=== PATIENT | female | born 1940 | race Caucasian/White ===

== ENCOUNTER 2021-04-11 13:39 | Outpatient (CLI) | payer MEDICARE, OTHER, SELFPAY ==
[2021-04-11 13:53] VITALS: BP 184/79; PULSE 68; RESP 16; TEMP 36.3; O2SAT 100; BMI 19.3
[2021-04-11 15:03] VITALS: BP 144/75; PULSE 68; RESP 16; TEMP 36.9; O2SAT 100
[2021-04-11 15:45] VITALS: BP 150/78; PULSE 80; RESP 16; TEMP 36.7; O2SAT 100
== END 2021-04-11 16:03 | disposition home or self-care (01) ==
LOC: MS3OUT 13:40 → MS3 13:42
PROVIDERS: Referring Provider Internal Medicine Pulmonary Disease; Visit Provider Internal Medicine Pulmonary Disease
DX: U07.1 COVID-19 (principal)
CPT/HCPCS: J7050; M0245; Q0245

== ENCOUNTER 2021-04-15 17:17 | Emergency (ER) | payer MEDICARE, OTHER, SELFPAY ==
[2021-04-15 17:19] VITALS: BP 169/83; PULSE 73; RESP 18; TEMP 36.4; O2SAT 100; BMI 19.3
--- NOTE | 2021-04-15 18:56 | ED.VIS.GI ---
HPI HPI - GI History of Present Illness Chief Complaint: GI Bleed Informant: patient Narrative Narrative: Patient presents with two episodes of bright red blood per rectum when she had a bowel movement. She has never had this before. She states she feels fine. She has no pain anywhere. She does not feel lightheaded or dizzy. No nausea. She has not had an increase in bowel motion. Her last colonoscopy was 10 or more years ago. However, she has no history of diverticular disease. Patient had a bowel movement last night. This seemed to be normal. She moved her bowels and then she had bright red blood in the water. No clots were seen. It was not dark blood. She had no symptoms until she moved her bowels again this afternoon. Patient just got off quarantine for Covid. She did not have vaccines. However, her symptoms with Covid were really just a mild scratchy throat. She never had fevers chills nausea vomiting diarrhea or dyspnea. She states for her it was extremely mild. Her only medical condition is high blood pressure. Of note, patient really did not want to come here. Her family encouraged her. She really does not want to stay in the hospital. PFSH PFSH Home Medications atenolol 50 mg PO QHS 11/24/16 [History Last Taken 12/07/16 23:00] hydrochlorothiazide 25 mg PO QHS 11/24/16 [History Last Taken 12/07/16 23:00] Allergy/AdvReac Type Severity Reaction Status Date / Time ciprofloxacin [From Cipro] AdvReac Nausea Verified 04/15/21 17:19 metronidazole [From Flagyl] AdvReac Nausea Verified 04/15/21 17:19 Penicillins AdvReac Diarrhea Verified 04/15/21 17:19 prednisone AdvReac Nausea/Vom/ Verified 04/15/21 17:19 Diarrhea Social History Smoking Status: Never smoker ROS ROS ED Constitutional Constitutional ED: Denies fever(s) or subjective ENT ENT ED: Denies rhinorrhea Cardiovascular Cardiovascular: Denies chest pain, palpitations or racing heartbeat Respiratory/Chest Respiratory/Chest: Denies dyspnea Gastrointestinal Gastrointestinal: Denies abdominal pain, constipation, diarrhea, melena, nausea or vomiting Genitourinary Genitourinary ED: Denies dysuria or hematuria Musculoskeletal Musculoskeletal: Denies arthralgias Integumentary Denies rash Neurologic Neurologic: Denies headache(s) or weakness Psychiatric Psychiatric: Denies anxiety or depression Endocrine Endocrinology: Denies polyuria Hematologic/Lymphatic Hematologic/Lymphatic: Denies easy bleeding or easy bruising Allergic/Immunologic Allergic/Immunologic ED: Denies mouth swelling or urticaria EXAM Physical Exam Const Vital Signs: 04/15/21 17:19 Temperature 97.6 F L Temperature Source Temporal Pulse Rate 73 Respiratory Rate 18 Blood Pressure 169/83 H Blood Pressure Mean 111 Pulse Ox 100 Oxygen Delivery Method Room Air Positive well nourished and well developed General Appearance ED: well developed and NAD HEENT Reports moist mucous membranes normocephalic and atraumatic Eyes General Eye ED: Negative for pale conjunctiva or scleral icterus Neck no JVD Resp normal respiratory effort and clear to auscultation bilaterally Auscultation: Negative for rales, rhonchi or wheezes Cardio regular rate and regular rhythm GI non-tender, non-distended and no masses GI Narrative: Abdomen is completely benign. There is no masses. No tenderness. Rectal exam was done with nurse in attendance. Patient does have a relatively prominent large hemorrhoid on her right side. That has a small tear toward the base of it. It is not actively bleeding now but it does look like there was a small tear with recent bleeding. Patient states she thought this might be it because the hemorrhoid seem to change size and is a little smaller than it used to be. Auscultation: normoactive bowel sounds Palpation: soft Back/Spine no CVA tenderness Extremity full ROM General Extremety ED: Negative for edema or tenderness General Extremity: Negative for edema Neuro Sensorium / Orientation: alert Psych mental status grossly normal Skin Rashes: no rashes MDM MDM MDM Narrative Medical decision making narrative: Patient CBC is normal including normal hemoglobin 15. Coags are normal. Electrolytes show no major abnormalities. Slightly high BUN to creatinine ratio. Patient wants to go home. Since she is asymptomatic, not on anticoagulation, only had 2 episodes both only with bowel movements, has a hemorrhoid that is inflamed, and has normal hemoglobin, I think that is a reasonable option. I explained she should have a low threshold to return. Lab Data Attestation: I reviewed the patient's lab results. Labs: Laboratory Results - last 24 hr 04/15/21 04/15/21 04/15/21 18:07 18:07 18:07 WBC 8.0 RBC 4.94 Hgb 15.0 Hct 45.3 MCV 91.7 MCH 30.4 MCHC 33.1 RDW Std Deviation 42.0 RDW Coeff of Leilani 12.4 Plt Count 232 MPV 10.5 Immature Gran % (Auto) 0.400 Neut % (Auto) 73.8 H Lymph % (Auto) 15.9 L Coffee % (Auto) 7.9 Eos % (Auto) 1.6 Baso % (Auto) 0.4 Absolute Neuts (auto) 5.9 Absolute Lymphs (auto) 1.27 Nucleated RBC % 0 PT 13.6 INR 1.1 APTT 25.6 Sodium 139 Potassium 3.3 L Chloride 102 Carbon Dioxide 30.0 Anion Gap 7 BUN 22 H Creatinine 0.74 Estim Creat Clear Calc 38.56 Est GFR (MDRD) Af Amer 98 Est GFR (MDRD) Non-Af 81 BUN/Creatinine Ratio 29.9 H Glucose 108 H Calcium 9.4 Discharge Plan Triage Chief Complaint: GI Bleed ED Provider: Emiliano Lopez Dx/Rx/DC Orders Clinical Impression: Rectal bleed, Bleeding hemorrhoid Instructions: ED Hemorrhoids, ED Lower GI Bleeding (Stable) Prescriptions: No Action hydrochlorothiazide 25 MG tablet 25 mg PO QHS RF: 0 atenolol 50 MG tablet 50 mg PO QHS RF: 0 Primary Care Provider: Nazario Abdul Referrals: Nazario Abdul MD [Primary Care Provider] - 3-5 Days Disposition Disposition: Home, Self Care
[2021-04-15 19:04] LABS: Absolute Lymphocyte Count 1.27 X10^3/uL (0.83-4.51); Absolute Neutrophil Count 5.9 X10^3/uL (2.0-7.7); Basophil# 0.03 X10^3/uL; Basophil% 0.4 % (0-1); Eosinophil# 0.13 X10^3/uL; Eosinophils% 1.6 % (0-5); Hematocrit 45.3 % (37-47); Lymphocyte # 1.27 X10^3/ul (0.83-4.51); Lymphocyte % 15.9 % (19-41); Mean Corp Hgb Conc 33.1 g/dL (32-36); Mean Corpuscular Hgb 30.4 pg (27.0-32.0); Mean Corpuscular Volume 91.7 fL (81-99); Mean Platelet Vol. 10.5 fl (6.2-12.0); Monocyte# 0.63 X10^3/uL; Monocyte% 7.9 % (0-10); NRBC Flagged by Analyzer 0 % (0-5); Neutrophil # 5.92 X10^3/uL (2.7-7.7); Neutrophil % 73.8 % (47-70); Platelet Count 232 K/mm3 (150-450); RBC Distribution Width CV 12.4 % (11.6-14.6); Red Blood Count 4.94 M/mm3 (4.2-5.4)
[2021-04-15 19:10] LABS: International Normalized Ratio 1.1; Prothrombin Time (Protime)PT. 13.6 SECONDS (11.7-14.9)
[2021-04-15 19:11] LABS: Partial Thromboplast Time 25.6 Seconds (24.1-36.2)
[2021-04-15 19:15] LABS: Anion Gap 7 (5-15); BUN 22 mg/dL (7-18); BUN/Creat Ratio 29.9 RATIO (10-20); Calcium,Total 9.4 mg/dL (8.5-10.1); Chloride 102 mmol/L (98-107); Creatinine, Serum 0.74 mg/dL (0.55-1.02); EST Glomerular Filtration Rate 81 mL/min (>60); Est Glom Filt Rate - Afr Amer 98 mL/min (>60); Estimated Creatinine Clearance 38.56 ml/min; Glucose 108 mg/dL (74-106); Potassium 3.3 mmol/L (3.5-5.1); Sodium Level 139 mmol/L (136-145)
[2021-04-15 20:45] VITALS: BP 115/67; PULSE 72; RESP 20; O2SAT 98
--- NOTE | 2021-04-15 20:46 | ED.RN ---
THIS NURSE REVIEWED D/C INSTRUCTIONS WITH PT AND DAUGHTER. BOTH VERBALIZED UNDERSTANDING OF INSTRUCTIONS. IV D/C. IV CATHETER INTACT. PT TOLERATED WELL. PT DENIES FURTHER NEEDS OR QUESTIONS AT THIS TIME.
--- NOTE | 2021-04-16 00:01 | ED.RN ---
dr. navas called in to check status on patient and condition at this time
== END 2021-04-15 20:47 | disposition home or self-care (01) ==
PROVIDERS: Emergency Provider Emergency Medicine; PCP Internal Medicine
DX: K64.5 Perianal venous thrombosis (principal); I10 Essential (primary) hypertension; Z79.899 Other long term (current) drug therapy; Z86.16 Personal history of COVID-19
CPT/HCPCS: 80048; 85025; 85610; 85730; 99284; A4216

== ENCOUNTER 2024-01-16 16:42 | Emergency (ER) | payer MEDICARE, OTHER, SELFPAY ==
[2024-01-16 16:43] VITALS: BP 145/58; PULSE 56; RESP 16; TEMP 36.8; O2SAT 98; BMI 21.3
[2024-01-16 16:54] VITALS: BP 128/56; PULSE 59; RESP 15; O2SAT 97
--- NOTE | 2024-01-16 16:56 | EKG12_ITS ---
Test Reason : Blood Pressure : / mmHG Vent. Rate : 053 BPM Atrial Rate : 053 BPM P-R Int : 168 ms QRS Dur : 084 ms QT Int : 464 ms P-R-T Axes : 066 -21 034 degrees QTc Int : 435 ms Sinus bradycardia Otherwise normal ECG Confirmed by CHEVY MERINO, SLOAN ([id number]), material expeditor IRMA FREEDMAN ([id number]) on 01/18/2024 6:28:24 AM Referred By: Confirmed By:SLOAN REECE MD
--- NOTE | 2024-01-16 16:56 | EX.ED.DYSGE1 ---
HPI History of Present Illness Chief Complaint: Syncope Informant: patient and EMS Narrative Narrative: 83-year-old female had a syncopal episode and was brought by EMS. She states she was at [employer] and waiting for her friend to come and help set up for a service tonight. She had been sitting down for a while. She had not eaten anything today but she has had fluids. She got up and walked all the way down the aisle of the [place] which was a long way and she had no symptoms or problems. She remembers then getting to her friend and her friend asked her what was wrong and apparently she passed out but she had no prodromal symptoms or lightheadedness; this includes chest discomfort, dyspnea, headache, nausea, sweating, or focal neurologic symptom. Apparently she was down for 30-60 seconds or so, by the time she was aware and awake, the paramedics were there. She feels fine now. She does not feel like she injured herself. She has never had this happen before. She has had no recent medication changes. [facility] Medical History HTN (hypertension) Contact dermatitis due to poison haily Home Medications ?Medication ?Instructions ?Recorded ?Last Taken ?Type atenolol 50 mg tablet 50 mg PO QHS 11/24/16 12/07/16 23:00 History hydrochlorothiazide 25 mg tablet 25 mg PO QHS 11/24/16 12/07/16 23:00 History methylprednisolone 4 mg tablets in See Rx Instructions PO PER PKG DIR 09/15/21 Unknown Rx a dose pack (Medrol (Cory)) #21 tabs prednisone 10 mg tablet 10 mg PO DAILY #30 tabs 01/12/22 Unknown Rx Allergy/AdvReac Type Severity Reaction Status Date / Time ciprofloxacin (From Cipro) AdvReac Nausea Verified 03/11/23 11:55 metronidazole (From Flagyl) AdvReac Nausea Verified 03/11/23 11:55 Penicillins AdvReac Diarrhea Verified 03/11/23 11:55 prednisone AdvReac Nausea/Vom/ Verified 03/11/23 11:55 Diarrhea Social History Smoking Status: Never smoker ROS ROS ED Constitutional Constitutional ED: Denies chills or fever(s) Eyes Eyes: Denies change in vision or diplopia ENT ENT ED: Denies rhinorrhea or sore throat Cardiovascular Cardiovascular: Reports as per HPI and syncope; Denies chest pain, leg edema or palpitations Respiratory/Chest Respiratory/Chest: Denies cough or dyspnea Gastrointestinal Gastrointestinal: Denies abdominal pain, diarrhea, nausea or vomiting Genitourinary Genitourinary ED: Denies dysuria or hematuria Musculoskeletal Musculoskeletal: Denies back pain, extremity pain or neck pain Integumentary Denies abscess or rash Neurologic Neurologic: Denies headache(s), paresthesias or weakness Psychiatric Psychiatric: Denies anxiety or suicidal thoughts EXAM Physical Exam Const Vital Signs: 01/16/24 16:43 01/16/24 16:54 01/16/24 16:54 Temperature 98.3 F Temperature Source Oral Pulse Rate 56 L 59 L Pulse Rate [Lying] Pulse Rate [Sitting (for 1 minute prior to obtaining)] Pulse Rate [Standing (for 1 minute prior to obtaining)] Respiratory Rate 16 15 Respiratory Effort Normal Non-Labored Respiratory Pattern Normal Blood Pressure 145/58 H 128/56 H Blood Pressure [Lying] Blood Pressure [Sitting (for 1 minute prior to obtaining)] Blood Pressure [Standing (for 1 minute prior to obtaining)] Blood Pressure Mean 87 80 Blood Pressure Mean [Lying] Blood Pressure Mean [Sitting (for 1 minute prior to obtaining)] Blood Pressure Mean [Standing (for 1 minute prior to obtaining)] Pulse Ox 98 97 Oxygen Delivery Method Room Air Room Air 01/16/24 17:40 01/16/24 17:40 Temperature Temperature Source Pulse Rate Pulse Rate [Lying] 54 L Pulse Rate [Sitting (for 1 minute prior to obtaining)] 59 L Pulse Rate [Standing (for 1 minute prior to obtaining)] 64 Respiratory Rate Respiratory Effort Respiratory Pattern Blood Pressure Blood Pressure [Lying] 134/58 H Blood Pressure [Sitting (for 1 minute prior to obtaining)] 162/64 H Blood Pressure [Standing (for 1 minute prior to obtaining)] 158/66 H Blood Pressure Mean Blood Pressure Mean [Lying] 83 Blood Pressure Mean [Sitting (for 1 minute prior to obtaining)] 96 Blood Pressure Mean [Standing (for 1 minute prior to obtaining)] 96 Pulse Ox Oxygen Delivery Method Room Air Positive well nourished and well developed General Appearance ED: well developed and NAD HEENT Reports moist mucous membranes normocephalic and atraumatic Eyes PERRL and EOMs intact bilaterally Neck full ROM and supple Resp normal respiratory effort and clear to auscultation bilaterally Cardio regular rate, regular rhythm and no murmurs GI non-tender and non-distended Auscultation: normoactive bowel sounds Palpation: soft Back/Spine no CVA tenderness General Back: other FROM Extremity normal to inspection General Extremety ED: Negative for edema, pulses abnormal or tenderness General Extremity: Negative for edema or pulses abnormal Neuro oriented x3, CN's II-XII intact bilaterally and no sensory deficits noted Sensorium / Orientation: awake and alert Motor Exam: strength 5/5 throughout Skin no rashes or lesions noted and no wounds MDM MDM MDM Narrative Medical decision making narrative: Labs reviewed, she is not anemic. 1 view chest x-ray screening, negative for any acute on my interpretation, mediastinum is narrow cardiac shadow is borderline. Patient received one fourth of a liter of fluid by EMS before I saw her, she has a heart rate in the low 50s, she is on metoprolol. Orthostatics were done before the fluid was done but after half of it was in, she was negative and did not feel dizzy. Her labs are consistent with dehydration. When asking her about this, she agrees it makes sense, as she has had very little to drink in the way of fluids today. Her EKG is normal except for the borderline bradycardia at 53, and 2 sets of troponin measurements are both negative. My suspicion is that she was orthostatic due to dehydration and the fact that she is on metoprolol preventing her from reflex tachycardia to compensate, causing her to pass out. I explained this to her and family, she wants to go home and I am okay with that. Encouraged to drink fluids and follow-up with her doctor. Lab Data Attestation: I reviewed the patient's lab results. Labs: Laboratory Results - last 24 hr 01/16/24 01/16/24 16:40 19:22 WBC 6.2 RBC 4.58 Hgb 13.7 Hct 42.7 MCV 93.2 MCH 29.9 MCHC 32.1 RDW Std Deviation 41.5 RDW Coeff of Leilani 12.1 Plt Count 192 MPV 10.9 Immature Gran % (Auto) 0.300 Neut % (Auto) 62.2 Lymph % (Auto) 22.6 Woodson % (Auto) 10.7 H Eos % (Auto) 3.7 Baso % (Auto) 0.5 Absolute Neuts (auto) 3.9 Absolute Lymphs (auto) 1.40 Nucleated RBC % 0 Sodium 139 Potassium 3.5 Chloride 104 Carbon Dioxide 27.0 Anion Gap 7 BUN 30 H Creatinine 0.94 Estim Creat Clear Calc 43.20 Est GFR (MDRD) Af Amer 74 Est GFR (MDRD) Non-Af 61 BUN/Creatinine Ratio 32.1 H Glucose 114 H Calcium 9.3 Troponin I High Sens 6 6 Radiography Diagnostic Testing: Clinical Impression(s) from Imaging Studies Chest X-Ray 01/16/24 17:23 IMPRESSION: Mild cardiomegaly versus pericardial effusion. No acute consolidative process. Electronically Signed: Nick García MD at 18:03 EDT , Rhythm Strip Rhythm Strip: Sinus Rhythm Rate: 55 Ectopy: None EKG Initial EKG: Attestation: I personally reviewed and interpreted this EKG as follows: Interpretation: Sinus Rhythm and No Acute Injury Pattern Prior EKG tracings: not available for review Discharge Plan Triage Chief Complaint: Syncope ED Provider: Rik Love Dx/Rx/DC Orders Clinical Impression: Syncope due to orthostatic hypotension, Mild dehydration Instructions: ED Dehydration (Adult), ED Hypotension, Orthostatic Prescriptions: No Action methylprednisolone [Medrol (Cory)] 4 mg tablets,dose pack See Rx Instructions PO PER PKG DIR Qty: 21 0RF Rx Instructions: PO PER PKG DIR prednisone 10 mg tablet 10 mg PO DAILY Qty: 30 0RF Rx Instructions: 4 tablets daily x3 days, then 3 tablets daily x3 days, then 2 tablets daily x3 days, then 1 tablet daily x3 days hydrochlorothiazide 25 MG tablet 25 mg PO QHS atenolol 50 MG tablet 50 mg PO QHS Primary Care Provider: Nazario Abdul Referrals: Nazario Abdul MD [Primary Care Provider] - (call for follow up appt) Activity Restrictions/Additional Instructions: drink plenty of fluids during the day (more important than eating!) Print Language: Belarusian Disposition Disposition: Home, Self Care
[2024-01-16] MEDS: 0.9% Normal Saline (1000mL) 1,000 ML 999 ML IV (17:06)
--- NOTE | 2024-01-16 17:06 | NURSING ---
NO OLD EKGS
[2024-01-16 17:22] LABS: Absolute Neutrophil Count 3.9 X10^3/uL (2.0-7.7); Basophil# 0.03 X10^3/uL; Basophil% 0.5 % (0-1); Eosinophil# 0.23 X10^3/uL; Eosinophils% 3.7 % (0-5); Hematocrit 42.7 % (37-47); Hemoglobin 13.7 g/dL (12.0-15.0); Lymphocyte % 22.6 % (19-41); Mean Corp Hgb Conc 32.1 g/dL (32-36); Mean Corpuscular Hgb 29.9 pg (27.0-32.0); Mean Corpuscular Volume 93.2 fL (81-99); Mean Platelet Vol. 10.9 fl (6.2-12.0); Monocyte# 0.66 X10^3/uL; Monocyte% 10.7 % (0-10); NRBC Flagged by Analyzer 0 % (0-5); Neutrophil # 3.85 X10^3/uL (2.7-7.7); Neutrophil % 62.2 % (47-70); Platelet Count 192 K/mm3 (150-450); RBC Distribution Width CV 12.1 % (11.6-14.6); RBC Distribution Width SD 41.5 fl (35.1-43.9); Red Blood Count 4.58 M/mm3 (4.2-5.4); White Blood Count 6.2 K/mm3 (4.4-11.0)
--- NOTE | 2024-01-16 17:23 | RAD_ITS ---
INDICATION: syncope EXAMINATION/TECHNIQUE: X-RAY - portable upright AP chest x-ray COMPARISON: 06/23/2008 FINDINGS: LINES/DEVICES: None. LUNGS: No consolidation, edema or effusion. No pneumothorax. MEDIASTINUM AND CARDIOVASCULAR STRUCTURES: Mild enlargement of cardiac silhouette. BONES AND SOFT TISSUES: Unremarkable. RAD/Chest 1 View (Portable) IMPRESSION: Mild cardiomegaly versus pericardial effusion. No acute consolidative process. Electronically Signed: Nick García MD at 18:03 EDT ,
[2024-01-16 17:35] LABS: Anion Gap 7 (5-15); BUN 30 mg/dL (7-18); BUN/Creat Ratio 32.1 RATIO (10-20); Calcium,Total 9.3 mg/dL (8.5-10.1); Chloride 104 mmol/L (98-107); Creatinine, Serum 0.94 mg/dL (0.55-1.02); EST Glomerular Filtration Rate 61 mL/min (>60); Est Glom Filt Rate - Afr Amer 74 mL/min (>60); Glucose 114 mg/dL (74-106); Potassium 3.5 mmol/L (3.5-5.1); Sodium Level 139 mmol/L (136-145); Troponin-I HS (w/2H Reflex) 6 pg/mL (3.0-54.0)
[2024-01-16 17:40] VITALS: BP 134/58; BP 158/66; BP 162/64; PULSE 54; PULSE 59; PULSE 64
[2024-01-16 19:14] LABS: Reflex Troponin-HS? (from REC) Y
[2024-01-16 19:54] LABS: Troponin-I HS 6 pg/mL (3.0-54.0)
[2024-01-16 20:00] VITALS: BP 131/58; PULSE 60
[2024-01-16 20:18] VITALS: BP 131/58; PULSE 60; RESP 18; TEMP 36.6; O2SAT 99
== END 2024-01-16 20:19 | disposition home or self-care (01) ==
PROVIDERS: Emergency Provider Emergency Medicine; PCP Internal Medicine; Visit Provider Emergency Medicine
DX: I95.1 Orthostatic hypotension (principal); E86.0 Dehydration
CPT/HCPCS: 71045; 80048; 84484; 85025; 93005; 99285; A4216

== ENCOUNTER 2024-11-01 19:27 | Emergency (ER) | payer MEDICARE, SELFPAY ==
[2024-11-01 19:28] VITALS: BP 164/81; PULSE 66; RESP 18; TEMP 36.8; O2SAT 98; BMI 19.8
--- OUTSIDE RECORDS SUMMARY | 2024-11-01 19:52 | XMS RPT_ITS | CCD ---
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 Name Role Phone YoMarah Unavailable Unavailable Tess MERINO, Herman Lugo Unavailable [phone] Franko MERINO, Nazario Rhodes Primary Care Provider Franko MERINO, Nazario Rhodes Primary Care Provider Franko MERINO, Nazario Rhodes Primary Care Provider Franko MERINO, Nazario Rhodes Primary Care Provider Nazario Abdul Primary Care Unavailable Abdul, Nazario Referring Unavailable Humberto MACKENZIE, Stepan Rhodes Attending Unavailable Rik Love Attending Unavailable Abdul, Nazario Primary Care Unavailable Sd DARDENN.GUIDE CRUISE, Wanda M Unavailable TEDDY MCCLELLAND Referring Unavailable ABDUL, CELINA Primary Care Unavailable ABDUL, CELINA Attending Unavailable ABDUL, CELINA Primary Care Unavailable ABDUL, CELINA Primary Care Unavailable ABDUL, CELINA Referring Unavailable MEREDITH SOTO Attending Unavailable ABDUL, CELINA Primary Care Unavailable ABDUL, CELINA Referring Unavailable ABDUL, CELINA Primary Care Unavailable ABDUL, CELINA Attending Unavailable ABDUL, CELINA Primary Care Unavailable ABDUL, CELINA Referring Unavailable ABDUL, CELINA Primary Care Unavailable ABDUL, CELINA Referring Unavailable MEREDITH SOTO Referring Unavailable MEREDITH SOTO Attending Unavailable ABDUL, CELINA Primary Care Unavailable MEREDITH SOTO Referring Unavailable ABDUL, CELINA Primary Care Unavailable TEDDY MCCLELLAND Attending Unavailable ABDUL, CELINA Primary Care Unavailable TEDDY MCCLELLAND Attending Unavailable ABDUL, CELINA Primary Care Unavailable TEDDY MCCLELLAND Referring Unavailable NAZARIO ABDUL Primary Care Unavailable FRANKO, NAZARIO Rhodes Primary Care Unavailable NAZARIO ABDUL Attending Unavailable TEDDY MCCLELLAND Attending Unavailable NAZARIO ABDUL Primary Care Unavailable ROBERTA CEDENO Referring Unavailable FRANKO, NAZARIO Rhodes Primary Care Unavailable ROBERTA CEDENO Referring Unavailable NAZARIO ABDUL Primary Care Unavailable NAZARIO ABDUL Primary Care Unavailable FRANKO, NAZARIO Rhodes Primary Care Unavailable NAZARIO ABDUL Referring Unavailable NAZARIO ABDUL Primary Care Unavailable NAZARIO ABDUL Attending Unavailable Allergies Allergy Classification Reported Allergen(s) Allergy Type Date of Onset Reaction(s) Facility Angiotensin Converting Enzyme (NILE) Inhibitors (1 source) Lisinopril Drug Allergy 03-16-20 05 [facility] Corticosteroids (1 source) predniSONE Drug Allergy 12-08-19 17 GI Upset [facility] HMG-CoA Reductase Inhibitors (statins) (1 source) rosuvastatin Drug Allergy 03-16-20 05 Intolerance [facility] Nitroimidazoles (antibiotic) (1 source) metroNIDAZOLE Drug Allergy 12-08-19 17 GI Upset [facility] Penicillins (antibiotic) (2 sources) Ampicillin Drug Allergy 03-16-20 05 Diarrhea, GI Upset [facility] Work Phone: Quinolones (antibiotic) (1 source) Ciprofloxacin Drug Allergy 12-08-19 17 GI Upset [facility] Streptococcus pneumoniae type 1 capsular polysaccharide antigen / Streptococcus pneumoniae type 10A capsular polysaccharide antigen / Streptococcus pneumoniae type 11A capsular polysaccharide antigen / Streptococcus pneumoniae type 12F capsular polysaccharide antigen / Streptococcus pneumoniae type 14 capsular polysaccharide antigen / Streptococcus pneumoniae type 15B capsular polysaccharide antigen / Streptococcus pneumoniae type 17F capsular polysaccharide antigen / Streptococcus pneumoniae type 18C capsular polysaccharide antigen / Streptococcus pneumoniae type 19A capsular polysaccharide antigen / Streptococcus pneumoniae type 19F capsular polysaccharide antigen / Streptococcus pneumoniae type 2 capsular polysaccharide antigen / Streptococcus pneumoniae type 20 capsular polysaccharide antigen / Streptococcus pneumoniae type 22F capsular polysaccharide antigen / Streptococcus pneumoniae type 23F capsular polysaccharide antigen / Streptococcus pneumoniae type 3 capsular polysaccharide antigen / Streptococcus pneumoniae type 33F capsular polysaccharide antigen / Streptococcus pneumoniae type 4 capsular polysaccharide antigen / Streptococcus pneumoniae type 5 capsular polysaccharide antigen / Streptococcus pneumoniae type 6B capsular polysaccharide antigen / Streptococcus pneumoniae type 7F capsular polysaccharide antigen / Streptococcus pneumoniae type 8 capsular polysaccharide antigen / Streptococcus pneumoniae type 9N capsular polysaccharide antigen / Streptococcus pneumoniae type 9V capsular polysaccharide antigen (1 source) Streptococcus pneumoniae type 1 capsular polysaccharide antigen / Streptococcus pneumoniae type 10A capsular polysaccharide antigen / Streptococcus pneumoniae type 11A capsular polysaccharide antigen / Streptococcus pneumoniae type 12F capsular polysaccharide antigen / Streptococcus pneumoniae type 14 capsular polysaccharide antigen / Streptococcus pneumoniae type 15B capsular polysaccharide antigen / Streptococcus pneumoniae type 17F capsular polysaccharide antigen / Streptococcus pneumoniae type 18C capsular polysaccharide antigen / Streptococcus pneumoniae type 19A capsular polysaccharide antigen / Streptococcus pneumoniae type 19F capsular polysaccharide antigen / Streptococcus pneumoniae type 2 capsular polysaccharide antigen / Streptococcus pneumoniae type 20 capsular polysaccharide antigen / Streptococcus pneumoniae type 22F capsular polysaccharide antigen / Streptococcus pneumoniae type 23F capsular polysaccharide antigen / Streptococcus pneumoniae type 3 capsular polysaccharide antigen / Streptococcus pneumoniae type 33F capsular polysaccharide antigen / Streptococcus pneumoniae type 4 capsular polysaccharide antigen / Streptococcus pneumoniae type 5 capsular polysaccharide antigen / Streptococcus pneumoniae type 6B capsular polysaccharide antigen / Streptococcus pneumoniae type 7F capsular polysaccharide antigen / Streptococcus pneumoniae type 8 capsular polysaccharide antigen / Streptococcus pneumoniae type 9N capsular polysaccharide antigen / Streptococcus pneumoniae type 9V capsular polysaccharide antigen Drug Allergy 11-29-19 07 Rash [facility] Sulfamethoxazole / Trimethoprim (1 source) Sulfamethoxazole / Trimethoprim Drug Allergy 05-18-19 09 Vomiting [facility] (2 sources) Penicillins (Antibiotic) drug allergy 11-29-19 17 vomiting [facility] Work Phone: (20 sources) Ampicillin; Translations: [AMPICILLIN] Drug Allergy 03-16-20 05 Diarrhea [facility] Work Phone: (20 sources) Ciprofloxacin; Translations: [CIPROFLOXACIN] Drug Allergy 12-08-19 17 GI Upset [facility] (20 sources) Lisinopril; Translations: [LISINOPRIL] Drug Allergy 03-16-20 05 [facility] Work Phone: (20 sources) metroNIDAZOLE; Translations: [METRONIDAZOLE] Drug Allergy 12-08-19 17 GI Upset [facility] (7 sources) Penicillins; Translations: [PENICILLINS] Drug Allergy 11-29-19 17 GI Upset [facility] (20 sources) predniSONE; Translations: [PREDNISONE] Drug Allergy 12-08-19 17 GI Upset [facility] Work Phone: (20 sources) rosuvastatin; Translations: [ROSUVASTATIN CALCIUM] Drug Allergy 03-16-20 05 Intolerance [facility] Work Phone: (20 sources) Streptococcus pneumoniae type 1 capsular polysaccharide antigen / Streptococcus pneumoniae type 10A capsular polysaccharide antigen / Streptococcus pneumoniae type 11A capsular polysaccharide antigen / Streptococcus pneumoniae type 12F capsular polysaccharide antigen / Streptococcus pneumoniae type 14 capsular polysaccharide antigen / Streptococcus pneumoniae type 15B capsular polysaccharide antigen / Streptococcus pneumoniae type 17F capsular polysaccharide antigen / Streptococcus pneumoniae type 18C capsular polysaccharide antigen / Streptococcus pneumoniae type 19A capsular polysaccharide antigen / Streptococcus pneumoniae type 19F capsular polysaccharide antigen / Streptococcus pneumoniae type 2 capsular polysaccharide antigen / Streptococcus pneumoniae type 20 capsular polysaccharide antigen / Streptococcus pneumoniae type 22F capsular polysaccharide antigen / Streptococcus pneumoniae type 23F capsular polysaccharide antigen / Streptococcus pneumoniae type 3 capsular polysaccharide antigen / Streptococcus pneumoniae type 33F capsular polysaccharide antigen / Streptococcus pneumoniae type 4 capsular polysaccharide antigen / Streptococcus pneumoniae type 5 capsular polysaccharide antigen / Streptococcus pneumoniae type 6B capsular polysaccharide antigen / Streptococcus pneumoniae type 7F capsular polysaccharide antigen / Streptococcus pneumoniae type 8 capsular polysaccharide antigen / Streptococcus pneumoniae type 9N capsular polysaccharide antigen / Streptococcus pneumoniae type 9V capsular polysaccharide antigen; Translations: [PNEUMOCOCCAL 23-KAT PS VACCINE] Drug Allergy 11-29-19 07 Rash [facility] Work Phone: (20 sources) Sulfamethoxazole / Trimethoprim; Translations: [SULFAMETHOXAZOLE-T RIMETHOPRIM] Drug Allergy 05-18-19 09 Vomiting [facility] Work Phone: (20 sources) Diphtheria,Pertussi s,Tetanus; Translations: [DIPHTHERIA,PERTUSS IS,TETANUS] Propensity to adverse reactions 12-13-19 06 Rash [facility] (4 sources) Influenza Virus Vaccines; Translations: [INFLUENZA VIRUS VACCINES] Drug Allergy 01-06-20 21 Rash, Swelling [facility] Work Phone: (20 sources) Penicillins Drug Allergy 11-29-19 17 GI Upset [facility] (20 sources) Influenza Virus Vaccines Drug Allergy 01-06-20 21 Rash, Swelling [facility] Work Phone: (1 source) Ciprofloxacin Drug Allergy 03-11-20 23 [facility] (1 source) metroNIDAZOLE Drug Allergy 03-11-20 23 [facility] (1 source) Penicillins Drug allergy (disorder) 03-11-20 23 [facility] (1 source) predniSONE Drug Allergy 03-11-20 23 [facility] (4 sources) Penicillins Drug Allergy 11-29-19 17 GI Upset [facility] Medications Current Medications Medication Drug Class(es) Dates Sig (Normalized) Sig (Original) amLODIPine 2.5 mg oral tablet (3 sources) Dihydropyridine Calcium Channel Goyo Start: 10-28-2024 take 1 tablet by mouth once daily amLODIPine (NORVASC) 2.5 mg tablet Indications: Essential hypertension, benign Take 1 tablet by mouth once daily. 90 tablet 1 10/28/2024 Active Start: 10-15-2021 End: 02-24-2022 take 1 tablet by mouth once daily amLODIPine (NORVASC) 2.5 mg tablet Indications: Essential hypertension, benign Take 1 tablet by mouth once daily. 90 tablet 0 10/15/2021 02/24/2022 Discontinued (Discontinued by Patient) Comment on above: Take 1 tablet by melvi th once daily. atenolol 50 mg oral tablet (20 sources) beta-Adrenergic Goyo Start: 02-26-2023 End: 02-28-2024 take 1 tablet by mouth once daily atenolol (TENORMIN) 50 mg tablet Indications: Essential hypertension, benign Take 1 tablet by mouth once daily. 90 tablet 3 02/28/2024 Active Start: 01-31-2021 End: 02-24-2022 take 1 tablet by mouth once daily atenolol (TENORMIN) 50 mg tablet Take 1 tablet by mouth once daily. 90 tablet 3 02/24/2022 Active Start: 11-28-2016 take 1 tablet by melvi th once daily ATENOLOL 50 MG TABS One tablet by mouth daily ATENOLOL [id number] Herman Pulido MD Comment on above: Take 1 tablet by melvi th once daily. Ergocalciferol (20 sources) Provitamin D2 Compound Start: 2018 take 1 capsule by mouth once ergocalciferol(VITAMIN D 400 UNIT CAP) Take 400 Units by mouth every Sunday,Sunday,Sunday. 0 02/04/2019 Active Comment on above: Take 400 Units by mo uth every Sunday,Sunday,Sunday. hydroCHLOROthiazide 25 mg oral tablet (20 sources) Thiazide Diuretic Start: 2022 End: 2023 take 1 tablet by mouth once daily hydroCHLOROthiazide 25 mg tablet Indications: Essential hypertension, benign Take 1 tablet by mouth once daily. 90 tablet 3 02/28/2024 Active Start: 01-31-2021 End: 02-24-2022 take 1 tablet by mouth once daily hydroCHLOROthiazide (HYDRODIURIL, ESIDRIX) 25 mg tablet Take 1 tablet by mouth once daily. 90 tablet 3 02/24/2022 Active Start: 11-28-2016 take 1 tablet by mevli th once daily HYDROCHLOROTHIAZIDE 25 MG TABS One tablet by mouth daily HYDROCHLOROTHIAZIDE [id number] Herman Pulido MD Comment on above: Take 1 tablet by melvi th once daily. meloxicam 15 mg oral tablet (20 sources) Nonsteroidal Anti-inflammatory Drug Start: End: take 1 tablet by mouth once daily at mealtime meloxicam (MOBIC) 15 mg tablet Take 1 tablet by mouth once daily. With food. 90 tablet 1 01/09/2024 Active Comment on above: Take 1 tablet by melvi th once daily. With food. vitamin b6 100 mg oral tablet (20 sources) Start: 0 pyridoxine hcl(VITAMIN B-6 100 MG TAB) Take one(1) tablet daily. 0 12/10/2009 Active Comment on above: Take one(1) tablet d aily. Completed/Discontinued Medications Medication Drug Class(es) Dates Sig (Normalized) Sig (Original) sertraline 25 mg oral tablet (13 sources) Serotonin Reuptake Inhibitor Start: 02-28-2024 End: 05-30-2024 take 1 tablet by mouth once daily sertraline (ZOLOFT) 25 mg tablet Indications: Depressive disorder Take 1 tablet by mouth once daily. 90 tablet 02/28/2024 05/30/2024 Discontinued (Discontinued by Patient) Start: 01-05-2021 take 1 tablet by melvi th once daily sertraline (ZOLOFT) 50 mg tablet Indications: Depressive disorder Take 1 tablet by mouth once daily. 30 tablet 1 01/05/2021 Active Comment on above: Take 1 tablet by melvi th once daily. Problems Active Problems Problem Classification Problem Date Documented Da te Episodic/Chronic Disorders of lipid metabolism (20 sources) Hyperlipidemia; Translations: [Hyperlipidemia, unspecified] Onset: 01-10-2016 01-10-2016 Chronic Essential hypertension (20 sources) Hypertensive disorder; Translations: [Benign essential hypertension] Onset: 12-05-2005 11-28-2016 Chronic Headache; including migraine (1 source) Cervicogenic headache; Translations: [Cervicogenic headache] 05-23-2023 Episodic Mood disorders (20 sources) Depressive disorder; Translations: [Depressive disorder] Onset: 12-11-2012 01-06-2021 Chronic Other injuries and conditions due to external causes (3 sources) Injury of left ankle; Translations: [Unspecified injury of left ankle, initial encounter] 05-15-2024 Episodic Other injuries and conditions due to external causes (2 sources) Injury of left foot; Translations: [Unspecified injury of left foot, initial encounter] 05-15-2024 Episodic Other nervous system disorders (6 sources) Other symptoms and signs involving cognitive functions and awareness; Translations: [Other signs and symptoms involving cognition] Onset: 10-28-2024 01-21-2024 Episodic Spondylosis; intervertebral disc disorders; other back problems (2 sources) Neck pain; Translations: [Cervicalgia] 05-23-2023 Episodic Unclassified (1 source) Cognitive change 10-28-2024 Past or Other Problems Problem Classification Problem Date Documented Date Episodic/Chronic Fracture of lower limb (11 sources) Closed fracture of distal fibula ; Translations: [Other fracture of upper and lower end of left fibula, initial encounter for closed fracture] Onset: 05-30-2024 05-16-2024 Episodic Noninfectious gastroenteritis (20 sources) Colitis; Translations: [Noninfective gastroenteritis and colitis, unspecified] Onset: 11-28-2016 Resolved: 01-05-2021 11-28-2016 Episodic Other bone disease and musculoskeletal deformities (20 sources) Senile osteopenia; Translations: [Other specified disorders of bone density and structure, unspecified site] Onset: 12-19-2017 12-19-2017 Episodic Other bone disease and musculoskeletal deformities (1 source) Other specified disorders of bone density and structure, unspecified site; Translations: [Osteopenia, senile] Onset: 12-19-2017 Episodic Other injuries and conditions due to external causes (1 source) Unspecified injury of left ankle, initial encounter; Translations: [Injury of left ankle, initial encounter] Onset: 05-15-2024 Episodic Other injuries and conditions due to external causes (1 source) Unspecified injury of left foot, initial encounter; Translations: [Foot injury, left, initial encounter] Onset: 05-15-2024 Episodic Other nutritional; endocrine; and metabolic disorders (20 sources) Hypercalcemia; Translations: [Hypercalcemia] Onset: 12-30-2009 Resolved: 01-10-2016 01-10-2016 Chronic Other screening for suspected conditions (not mental disorders or infectious disease) (20 sources) Patient encounter status; Translations: [Encounter for screening mammogram for malignant neoplasm of breast] Onset: 12-12-2005 Resolved: 11-20-2006 Episodic Other upper respiratory infections (2 sources) Viral upper respiratory tract infection; Translations: [Acute upper respiratory infection, unspecified] Onset: 03-11-2023 03-14-2023 Episodic Jessie-; endo-; and myocarditis; cardiomyopathy (except that caused by tuberculosis or sexually transmitted disease) (20 sources) Pericardial effusion; Translations: [Pericardial effusion] Onset: 02-04-2024 02-04-2024 Episodic Syncope (3 sources) Syncope; Translations: [Syncope and collapse] Onset: 01-31-2024 01-21-2024 Episodic Results Test Name Value Interpretation Reference Range Facility [facility] 10-28-2024 CNOV Office Visit (INTMWS ) FLORIDALMA DENNIS ([id number]) 1940 F Date Time Provider Department 10/28/24 9:40 AM NAZARIO ABDUL INTMWS During your visit today, we recorded the following information about you: Pulse Respiration Blood pressure Weight 54/minute 20/minute 150/66 56.3 kg Nazario Abdul MD 10/28/2024 10:32 AM Signed This note was created using NoteWriter. Subjective Floridalma Dennis is a 84 year old female was here with her friend Terri who had to remind her of this appointment. Floridalma indicated she was doing well. She saw cardiology who recommended monitoring her pericardial effusion. She had no recurrent syncope or other symptoms. Her hypertension was not at goal. Family was increasing concerned about cognitive changes noted last year. I prescribed sertraline but she ends up discontinuing the medication. There is a strong history of dementia in her sisters. She lived alone. She fell at home earlier this year and recovered from her left ankle fracture. Rails were installed in her basement steps where she fell. Review of Systems Constitutional: Negative for fatigue. Respiratory: Negative for shortness of breath. Cardiovascular: Negative for chest pain. Neurological: Negative for syncope and headaches. Psychiatric/Behavioral : Negative for dysphoric mood. ACTIVE PROBLEM LIST Essential Hypertension, Benign Depressive Disorder Hyperlipidemia Ldl Goal <130 Osteopenia, Senile Pericardial Effusion (Hcc) Social History Tobacco Use Smoking status: Never Passive exposure: Past Smokeless tobacco: Never Vaping Use Vaping status: Never Used Substance Use Topics Alcohol use: No Drug use: No Current Outpatient Medications Medication Sig atenolol (TENORMIN) 50 mg tablet Take 1 tablet by mouth once daily. hydroCHLOROthiazide 25 mg tablet Take 1 tablet by mouth once daily. meloxicam (MOBIC) 15 mg tablet Take 1 tablet by mouth once daily. With food. pyridoxine hcl(VITAMIN B-6 100 MG TAB) Take one(1) tablet daily. ergocalciferol(VITAMIN D 400 UNIT CAP) Take 400 Units by mouth every Sunday,Sunday, y. No current facility-administered medications for this visit. Objective BP 150/66 (BP Site: Left Arm, BP Position: Sitting, BP Cuff Size: Large Adult) Pulse (!) 54 Resp 20 Wt 56.3 kg (124 lb 1.9 oz) BMI 20.65 kg/m? Physical Exam Constitutional: General: She is not in acute distress. Appearance: She is not ill-appearing. Cardiovascular: Rate and Rhythm: Regular rhythm. Bradycardia present. Heart sounds: No murmur heard. No gallop. Pulmonary: Breath sounds: Normal breath sounds. Musculoskeletal: Right lower leg: No edema. Left lower leg: No edema. Neurological: General: No focal deficit present. Mental Status: She is alert. Gait: Gait normal. Psychiatric: Mood and Affect: Mood normal. Assessment and Plan 1. Essential hypertension, benign - ICD9: 401.1, ICD10: I10 (primary diagnosis) - Worsening control - Continue current medications - Start amlodipine - Encouraged sodium restriction, DASH or Mediterranean diet - AMLODIPINE 2.5 MG TABLET 2. Cognitive change - ICD9: 799.59, ICD10: R41.89 Patient indicated understanding and willingness to follow recommendations. - CONSULT TO GERIATRICS 3. Osteopenia, senile - ICD9: 733.90, ICD10: M85.80 - Reviewed the need for Calcium and Vitamin D supplements and weight bearing exercise as tolerated Nazario Abdul MD Allergies As of Date: 10/28/2024 Noted Allergy Reaction PNEUMOVAX 23 (PNEUMOCOCCAL 23-KAT*11/28/2006 2 - Rash INFLUENZA VIRUS VACCINES 01/05/2021 2 - Rash 7 - Swelling SULFAMETHOXAZOLE-TRIME THOPRIM 05/18/2008 11 - Vomiting CIPROFLOXACIN 12/07/2016 8 - GI Upset DTP TOXOIDS ADSORBED (DIPHTHERIA,* 6 2 - Rash METRONIDAZOLE 12/07/2016 8 - GI Upset ZESTRIL (LISINOPRIL) 03/16/2005 AMPICILLIN 03/16/2005 6 - Diarrhea CRESTOR (ROSUVASTATIN CALCIUM) 03/16/2005 5 - Intolerance PENICILLINS 11/28/2016 8 - GI Upset PREDNISONE 12/07/2016 8 - GI Upset Date Reviewed: 10/28/2024 Reviewed by: Madhuri Preciado LPN - Fully Assessed Reason for Visit: 5 month follow-up [Other] Primary Visit Diagnosis:Essential hypertension, benign [I10] Other Visit Diagnoses:Cognitive change [R41.89] Osteopenia, senile [M85.80] Order(s):amLODIPine (NORVASC) 2.5 mg tabletTake 1 tablet by mouth once daily.Disp: 90 tabletRfl: 1 CONSULT TO GERIATRICS [9012] Order #: [id number]: 1 FUTURE Prescriptions as of 10/28/2024 - amLODIPine (NORVASC) 2.5 mg tablet Take 1 tablet by mouth once daily. - atenolol (TENORMIN) 50 mg tablet Take 1 tablet by mouth once daily. - hydroCHLOROthiazide 25 mg tablet Take 1 tablet by mouth once daily. - meloxicam (MOBIC) 15 mg tablet Take 1 tablet by mouth once daily. With food. - pyridoxine hcl(VITAMIN B-6 100 MG TAB) Take one(1) tabl (more content not included)... Normal [facility] 10-28-2024 [facility] Telephone (INTMWS) DENNISFLORIDALMA FARAH ([id number]) 1940 F Date Time Provider Department 10/28/24 NAZARIO ABDUL INTMWS During your visit today, we recorded the following information about you: Britany Diaz, RN 10/28/2024 8:49 AM Signed Pt's daughter Mackenzie calling in with concerns about pt. Mackenzie states that pt has an appt with Dr. Abdul this morning with arrival time of 925 am. She is asking that Dr. Abdul does not mention to pt that she called to update him on some things. Mackenzie is hoping that Dr. Tuttle will do a thorough cognitive test on pt. Mackenzie states concern that pt has dementia as pt's 2 older sisters both have been dx with dementia. One lives in a Memory Care unit and one lives with her daughter with 24 hr care. Mackenzie herself lives in [place] but talks with her mom and also her siblings. All are very concerned about patient. Mackenzie states her son Russ, his and their 3 girls came to see pt and took her out to lunch last week on Sunday/ Mackenzie talked with her mom on Sunday and asked how the visit went. Pt did not remember them coming to see her or taking her out to lunch. Russ told Mackenzie that he thought pt was very thin and didn't eat when they took her out to lunch. She ordered a chicken salad sandwich, took one bite and said this is disgusting. Family is concerned if pt is eating. And pt seems to always being going to the dentist for a broken tooth or lost filling or something. Pt has also continued to be very mean with family members and now has started being mean to her friend Terri Carreon. Pt had stated that she wanted no more information given to her kids but Terri was able to tell her that her kids should be able to get information about her so pt consented to leaving them on. Pt also seems to be making up stories and embellishes the stories she tells. One example is that pt told Mackenzie that her bevel gear generator operator Father Vincent said he hates her which Mackenzie knows the bevel gear generator operator and states he would never do that. Another example is she recently paid off her car and said it was $7000. Pt's friend Terri who helps care for pt said it was only $2000. Pt told Mackenzie that her new tires cost $7000. (Mackenzie said she says $7000 for a lot of things). Pt's children have tried to get Medical POA completed with pt but she refuses to do the paperwork. Concern is pt lives by herself and Mackenzie said she and her siblings are wondering somehow if Dr. Abdul can help them especially if she fails the cognitive test. Nazario Abdul MD 10/28/2024 1:12 PM Signed Patient referred to geriatrics. Madhuri Preciado LPN 10/28/2024 4:28 PM Signed Patient scheduled Geriatric consult, then call back in and cancelled. Madhuri Preciado LPN Allergies As of Date: 10/28/2024 Noted Allergy Reaction PNEUMOVAX 23 (PNEUMOCOCCAL 23-KAT*11/28/2006 2 - Rash INFLUENZA VIRUS VACCINES 01/05/2021 2 - Rash 7 - Swelling SULFAMETHOXAZOLE-TRIME THOPRIM 05/18/2008 11 - Vomiting CIPROFLOXACIN 12/07/2016 8 - GI Upset DTP TOXOIDS ADSORBED (DIPHTHERIA,* 6 2 - Rash METRONIDAZOLE 12/07/2016 8 - GI Upset ZESTRIL (LISINOPRIL) 03/16/2005 AMPICILLIN 03/16/2005 6 - Diarrhea CRESTOR (ROSUVASTATIN CALCIUM) 03/16/2005 5 - Intolerance PENICILLINS 11/28/2016 8 - GI Upset PREDNISONE 12/07/2016 8 - GI Upset Date Reviewed: 10/28/2024 Reviewed by: Madhuri Preciado LPN - Fully Assessed Reason for Visit: Patient Update [1234] Prescriptions as of 10/28/2024 - amLODIPine (NORVASC) 2.5 mg tablet Take 1 tablet by mouth once daily. - atenolol (TENORMIN) 50 mg tablet Take 1 tablet by mouth once daily. - hydroCHLOROthiazide 25 mg tablet Take 1 tablet by mouth once daily. - meloxicam (MOBIC) 15 mg tablet Take 1 tablet by mouth once daily. With food. - pyridoxine hcl(VITAMIN B-6 100 MG TAB) Take one(1) tablet daily. - ergocalciferol(VITAMIN D 400 UNIT CAP) Take 400 Units by mouth every Sunday,Sunday, y. Problem List As Of Date 10/28/2024 Noted Resolved BENIGN HYPERTENSION [I10] 12/05/2005 SCREENING MAL NEOP-COLON [Z12.11] 12/12/2005 11/20/2006 Hypercalcemia [E83.52] 12/30/2009 01/10/2016 Depressive disorder [F32.A] 12/11/2012 Hyperlipidemia LDL goal <130 [E78.5] 01/10/2016 Colitis [K52.9] 11/28/2016 01/05/2021 Osteopenia, senile [M85.80] 12/19/2017 Pericardial effusion [I31.39] 02/04/2024 Cognitive change [R41.89] 10/28/2024 Encounter Status:Closed by NAZARIO ABDUL on 10/28/24 [facility] CNOVon 10-13-2024 CNOV Office Visit (SHANA ) FLORIDALMA DENNIS ([id number]) 1940 F Date Time Provider Department 10/13/24 9:40 AM MEREDITH SOTO During your visit today, we recorded the following information about you: Pulse Respiration Blood pressure Weight 71/minute 12/minute 144/90 56 kg Height 1.651 m Meredith Soto MD 10/13/2024 12:05 PM Signed [facility] Cardiology ([facility]) [address] [facility] [id number] OUTPATIENT VISIT DATE 10/13/2024 PRIMARY CARE PHYSICIAN: Nazario Abdul [address] [place] [address] REFERRING PHYSICIAN: Nazario Abdul [address] [facility] [address] CHIEF COMPLAINT: Pericardial effusion HISTORY OF PRESENT ILLNESS: Ms. Dennis is a 84 year old woman with a history of hypertension and pericardial effusion noted on 2D echocardiogram was. Patient continues to do well from a functional standpoint. She denies chest pain, chest pressure, or dyspnea on exertion. She has not had symptoms concerning for congestive heart failure including PND, orthopnea, lower extremity edema. She denies palpitations, lightheadedness, dizziness, or syncope. PAST MEDICAL HISTORY Diagnosis Date Adenomatous colon polyp 12/08/2016 recheck 2021 Closed left fibular fracture 05/15/2024 Colitis 11/28/2016 COVID-19 04/07/2021 Dysthymic disorder Depression (non-psychotic) Essential hypertension, benign Hyperlipidemia LDL goal <130 01/10/2016 Osteopenia, senile 12/19/2017 PAST SURGICAL HISTORY Procedure Laterality Date BIOPSY BREAST OPEN INCISIONAL Bx of breast, incisional - left CATARACT EXTRACTION HX 10/2018 COLONOSCOPY - DIAGNOSTIC 12/08/2016 COLONOSCOPY FLX DX W/COLLJ SPEC WHEN PFRMD 12/25/2005 Colonoscopy-repeat in DILATION AND CURETTAGE DXAND/THER NONOBSTETRIC Dilation AND curettage SOCIAL HISTORY Social History Tobacco Use Smoking status: Never Passive exposure: Past Smokeless tobacco: Never Vaping Use Vaping status: Never Used Substance Use Topics Alcohol use: No Drug use: No FAMILY HISTORY Problem Relation Age of Onset Cancer Father RENAL Coronary Artery Disease Father Cancer Sister unknown primary Dementia Sister Dementia Sister No Known Problems Sister Ischemic Heart Disease Brother Kidney failure Brother Diabetes Maternal Grandmother Colon Cancer Paternal Grandfather Breast Cancer Maternal Aunt Breast Cancer Paternal Aunt ALLERGIES: ALLERGIES Allergen Reactions Pneumovax 23 [Pneum* Rash Influenza Virus Vac* Rash, Swelling Sulfamethoxazole-Tr* Vomiting Ciprofloxacin GI Upset Dtp Toxoids Adsorbe* Rash Metronidazole GI Upset Zestril [Lisinopril] Ampicillin Diarrhea Crestor [Rosuvastat* Intolerance Penicillins GI Upset Prednisone GI Upset MEDICATIONS: atenolol (TENORMIN) 50 mg tablet Take 1 tablet by mouth once daily. hydroCHLOROthiazide 25 mg tablet Take 1 tablet by mouth once daily. meloxicam (MOBIC) 15 mg tablet Take 1 tablet by mouth once daily. With food. pyridoxine hcl(VITAMIN B-6 100 MG TAB) Take one(1) tablet daily. ergocalciferol(VITAMIN D 400 UNIT CAP) Take 400 Units by mouth every Sunday,Sunday,. REVIEW OF SYSTEMS: Review of Systems Constitutional: Negative for chills, fever, malaise/fatigue and weight loss. HENT: Negative for hearing loss and sore throat. Eyes: Negative for blurred vision and double vision. Respiratory: Negative. Cardiovascular: Negative. Gastrointestinal: Negative. Genitourinary: Negative for dysuria, frequency, hematuria and urgency. Musculoskeletal: Negative. Skin: Negative. Neurological: Negative for dizziness, seizures, loss of consciousness, weakness and headaches. Endo/Heme/Allergies: Negative for environmental allergies. Does not bruise/bleed easily. Psychiatric/Behavioral : Negative for depression. PHYSICAL EXAMINATION: BP 144/90 Pulse 71 Resp 12 Ht 5' 5 (1.65m) Wt 123 lb 6.4 oz (56.0kg) SpO2 96% BMI 20.53 kg/(m2). General: Thin woman sitting appears comfortable no apparent distress she is alert and oriented x 3 HEENT: Carotid circumference bilateral without bruits no JVD appreciated. Pulmonary: Lungs are clear no rales, wheezes, rhonchi Cardiovascular: Normal S1, S2 with regular rate and rhythm. No murmurs, rubs, or gallops Extremities: Warm, well-perfused, no lower extremity edema. 2+ distal pulses CARDIOVASCULAR MEDICINE TESTING: Echocardiogram 08/21/2024: - The left ventricle is normal in size. Left ventricular systolic function is normal. EF = 60 ? 5% (2D biplane) Normal left ventricular diastolic function. - The right ventricle is normal in size. Right ventricular systolic function is normal. - There are no significant valvular abnormalities. - There (more content not included)... Normal [facility] ECHOon 08-21-2024 Echocardiography Echocardiography Report: Transthoracic Echo [facility] Date of service: 08/21/2024 9:36:38 AM [employer] Ordering physician: MEREDITH SOTO Indication: Pericardial effusion Technologist: Sri Nino [facility] Interpreting physician: Sky Whitley MD PATIENT: Name: MRS. FLORIDALMA DENNIS : 1940 Age: 84 years Gender: F History of hypertension and dyslipidemia. Primary rhythm: sinus. Height: 165.70 cm BSA: 1.59 m Weight: 54.70 kg BMI: 19.9 kg/m Heart rate 61 bpm Blood pressure 167/72 mmHg Color Doppler was utilized to interrogate the cardiac valves assessed and spectral Doppler was utilized to determine the flow velocities and pressure gradients reported in this exam. Myocardial strain analysis was performed in this exam to aid in the assessment of cardiac function. MEASUREMENTS: Value Indexed Normal Max aortic dimension 2.9 cm Ao < 3.8 Left atrial volume 33 ml (biplane A-L) 21 ml/m Caroline <= 34 LV ID (diastole) 3.5 cm (2D) 2.20 cm/m LV ID (systole) 2.3 cm (2D) 1.45 cm/m IVS, leaflet tips 1.0 cm (2D) Posterior wall thickness 1.0 cm (2D) Left ventricular mass 99 g (2D) 62 g/m Global peak long strain -20.6 % LV stroke volume 36 ml (2D biplane) LV end diastolic volume 60 ml (2D biplane) 38.0 ml/m 29<=EDVi<62 LV end systolic volume 24 ml (2D biplane) 15.2 ml/m Ejection Fraction 60 % (2D biplane) EF > 54 FINDINGS: LEFT VENTRICLE The left ventricle is normal in size. Left ventricular systolic function is normal. Global LV myocardial strain is normal. Normal left ventricular diastolic function. Mitral annular lateral E/e': 11.8. Mitral annular septal E/e': 11.8. Wall Motion: All scored segments are normal. RIGHT VENTRICLE The right ventricle is normal in size. Right ventricular systolic function is normal. RV systolic tissue Doppler velocity is 9.0 cm/s. Estimated right ventricular systolic pressure is 26 mmHg consistent with normal pulmonary artery pressures. Estimated right atrial pressure is 3 mmHg (although IVC not seen). LEFT ATRIUM The left atrial cavity is normal in size. RIGHT ATRIUM The right atrial cavity is normal in size. Inferior Vena Cava: The inferior vena cava appears normal measuring 1.9 cm. MITRAL VALVE The mitral valve leaflets are structurally normal. There is no mitral valve regurgitation. The pressure half time is 54 msec. The peak mitral E/A ratio is 1.21. The average mitral E/e' ratio is 11.8. The mitral flow deceleration time is 186 msec. TRICUSPID VALVE The tricuspid valve leaflets are structurally normal. There is trace (trace - 1+) tricuspid valve regurgitation. AORTIC VALVE The aortic valve cusps are structurally normal. There is trace (trace - 1+) aortic valve regurgitation. The peak gradient is 4 mmHg (peak velocity = 104.1 cm/s). PULMONIC VALVE The pulmonic valve cusps are structurally normal. There is trace (trace - 1+) pulmonic valve regurgitation. AORTA The visualized aorta is normal in size. Measurements - Mid ascending aorta 2.9 cm. INTERATRIAL SEPTUM There is no evidence of intracardiac shunting as detected by Doppler. PERICARDIUM There is a moderate circumferential pericardial effusion. CONCLUSIONS: - Exam indication: Pericardial effusion - The left ventricle is normal in size. Left ventricular systolic function is normal. EF = 60 5% (2D biplane) Normal left ventricular diastolic function. - The right ventricle is normal in size. Right ventricular systolic function is normal. - There are no significant valvular abnormalities. - There is a moderate circumferential pericardial effusion. The inferior vena cava appears normal measuring 1.9 cm. - There is a known small to moderate pericardial effusion. - Exam was compared with the prior echocardiographic exam performed on 01/18/2024, no significant change. * * * Final * * * [employer] : [id number] Normal [facility] CNOVon 06-25-2024 CNOV Office Visit (FRFHWS ) FLORIDALMA DENNIS ([id number]) 1940 F Date Time Provider Department 06/25/24 1:30 PM TEDDY MCCLELLAND V FRFHWS During your visit today, we recorded the following information about you: Marcelle Gutierrez MA 06/25/2024 1:49 PM Signed Patient presents with: 6 weeks 1 days post fracture Left distal fibula AMB ROOMING INTAKE FLOWSHEET DATA Patient states she has not worn the aircast for the past 2 weeks. She felt unsteady going up steps. Denies any pain States she only has pain when she turns her ankle the wrong way. Friend with patient today. X-rays done today. Teddy Mcclelland V, DO 06/25/2024 1:49 PM Signed SERVICE DATE: June 25, 2024 PCP: Nazario Abdul MD Subjective Patient ID: Floridalma is a 84 year old female. Chief Complaint: Patient presents with: 6 weeks 1 days post fracture Left distal fibula PAIN EVALUATION No data found in the last 1 encounters. HPI Patient presents today for follow-up of left distal fibula fracture. She is 6 weeks 1 day post fracture last seen 4 weeks ago. She presents today walking without cam walker boot or brace. She states that she is not having significant pain and the brace was bothering her so she quit wearing it. Review of Systems ACTIVE PROBLEM LIST Essential Hypertension, Benign Depressive Disorder Hyperlipidemia Ldl Goal <130 Osteopenia, Senile Pericardial Effusion PAST MEDICAL HISTORY Diagnosis Date Adenomatous colon polyp 12/08/2016 recheck 2021 Closed left fibular fracture 05/15/2024 Colitis 11/28/2016 COVID-19 04/07/2021 Dysthymic disorder Depression (non-psychotic) Essential hypertension, benign Hyperlipidemia LDL goal <130 01/10/2016 Osteopenia, senile 12/19/2017 PAST SURGICAL HISTORY Procedure Laterality Date BIOPSY BREAST OPEN INCISIONAL Bx of breast, incisional - left CATARACT EXTRACTION HX 10/2018 COLONOSCOPY - DIAGNOSTIC 12/08/2016 COLONOSCOPY FLX DX W/COLLJ SPEC WHEN PFRMD 12/25/2005 Colonoscopy-repeat in DILATION AND CURETTAGE DXAND/THER NONOBSTETRIC Dilation AND curettage FAMILY HISTORY Problem Relation Age of Onset Cancer Father RENAL Coronary Artery Disease Father Cancer Sister unknown primary Dementia Sister Dementia Sister No Known Problems Sister Ischemic Heart Disease Brother Kidney failure Brother Diabetes Maternal Grandmother Colon Cancer Paternal Grandfather Breast Cancer Maternal Aunt Breast Cancer Paternal Aunt Social History Tobacco Use Smoking status: Never Passive exposure: Past Smokeless tobacco: Never Vaping Use Vaping status: Never Used Substance Use Topics Alcohol use: No Drug use: No ALLERGIES Allergen Reactions Pneumovax 23 [Pneum* Rash Influenza Virus Vac* Rash, Swelling Sulfamethoxazole-Tr* Vomiting Ciprofloxacin GI Upset Dtp Toxoids Adsorbe* Rash Metronidazole GI Upset Zestril [Lisinopril] Ampicillin Diarrhea Crestor [Rosuvastat* Intolerance Penicillins GI Upset Prednisone GI Upset MEDICATIONS: atenolol (TENORMIN) 50 mg tablet Take 1 tablet by mouth once daily. hydroCHLOROthiazide 25 mg tablet Take 1 tablet by mouth once daily. meloxicam (MOBIC) 15 mg tablet Take 1 tablet by mouth once daily. With food. pyridoxine hcl(VITAMIN B-6 100 MG TAB) Take one(1) tablet daily. ergocalciferol(VITAMIN D 400 UNIT CAP) Take 400 Units by mouth every Sunday,Sunday, y. Allergies, medications, past surgical history, family history and past medical history were reviewed per this encounter. Objective Ortho Exam 84-year-old female [facility] exam no acute distress. Evaluation of the left ankle shows moderate swelling around the ankle joint. There is minimal tenderness with palpation over the distal fibula. Range of motion shows mild restriction with inversion and dorsiflexion. No focal sensory neural deficits noted. X-ray shows progressive healing of distal fibula fracture no change in alignment. Patient is given home stretching and strengthening exercises to begin Assessment/Plan ASSESSMENT Diagnosis (S82.283A) Traumatic closed nondisplaced fracture of distal fibula, left, initial encounter (primary encounter diagnosis) No orders found for this visit on 06/25/24. PLAN For ankle rehabilitation. Follow-up as needed. FOLLOW-UP: No follow-ups on file. SIGNATURE: Teddy Mcclelland DO PATIENT NAME: Floridalma Dennis DATE: June 25, 2024 TIME: 1:47 PM Allergies As of Date: 06/25/2024 Noted Allergy Reaction PNEUMOVAX 23 (PNEUMOCOCCAL 23-KAT*11/28/2006 2 - Rash INFLUENZA VIRUS VACCINES 01/05/2021 2 - Rash 7 - Swelling SULFAMETHOXAZOLE-TRIME THOPRIM 05/18/2008 11 - Vomiting CIPROFLOXACIN 12/07/2016 8 - GI Upset DTP TOXOIDS ADSORBED (DIPHTHERIA,* 6 2 - Rash METRONIDAZOLE 12/07/2016 8 - GI Upset ZESTRIL (LISINOPRIL) 03/16/2005 AMPICILLIN 03/16/2005 6 - D (more content not included)... Normal [facility] XR ANKLE 3V AP/LAT/OBL LTon 06-25-2024 XR ANKLE 3V AP/LAT/OBL LT * * *Final Report* * * DATE OF EXAM: Jun 25 2024 1:20PM [id number] [id number] - XR ANKLE 3V AP/LAT/OBL LT / PROCEDURE REASON: Traumatic closed nondisplaced fracture of distal fibula, left, initial encounter * * * * Physician Interpretation * * * * EXAMINATION / TECHNIQUE: XR ANKLE 3V AP/LAT/OBL LT HISTORY: PT STATES LEFT ANKLE FOLLOW UP FX Traumatic closed nondisplaced fracture of distal fibula, left, initial encounter . COMPARISON: 05/30/2024 RESULT: Healing fracture of the lateral malleolus which demonstrates mild cortical step-off, similar to prior. Ankle mortise is aligned. Soft tissue swelling at the ankle. IMPRESSION: Healing lateral malleolus fracture with similar configuration compared to prior. Pipelines Manager: PSCB Transcribe Date/Time: Jun 29 2024 3:59P Dictated by : GA BARRY MD This examination was interpreted and the report reviewed and electronically signed by: GA BARRY MD on Jun 29 2024 4:02PM EST [id number] Normal [facility] CNOVon 05-30-2024 CNOV Office Visit (FRFHWS ) FLORIDALMA DENNIS ([id number]) 1940 F Date Time Provider Department 05/30/24 1:00 PM TEDDY MCCLELLAND During your visit today, we recorded the following information about you: PattMeron snow MA 05/30/2024 2:59 PM Signed AMB ROOMING INTAKE FLOWSHEET DATA Pain Pain Level: 1 Pain Location: Ankle-Left Description: Aching Duration Amount of Time: (ongoing) Frequency: Continuous Intervention/Comfort measure: Other: See comment (air stirrup) Teddy Mcclelland V, DO 05/30/2024 2:59 PM Signed SERVICE DATE: May 30, 2024 PCP: Nazario Abdul MD Subjective Patient ID: Floridalma is a 84 year old female. Chief Complaint: Patient presents with: 2 weeks 3 days post visit left distal fibula fx PAIN EVALUATION 05/30/2024 1300 Pain Level: 1 Pain Location: Ankle-Left Description: Aching Duration Amount of Time: -- ongoing Frequency: Continuous Intervention/Comfort measure: Other: See comment air stirrup HPI Presents today for follow-up right distal fibula fracture. 2 weeks and 3 days postinjury. She reports her pain is a 1 out of 10. Walking comfortably and a air stirrup splint. Review of Systems ACTIVE PROBLEM LIST Essential Hypertension, Benign Depressive Disorder Hyperlipidemia Ldl Goal <130 Osteopenia, Senile Pericardial Effusion PAST MEDICAL HISTORY Diagnosis Date Adenomatous colon polyp 12/08/2016 recheck 2021 Closed left fibular fracture 05/15/2024 Colitis 11/28/2016 COVID-19 04/07/2021 Dysthymic disorder Depression (non-psychotic) Essential hypertension, benign Hyperlipidemia LDL goal <130 01/10/2016 Osteopenia, senile 12/19/2017 PAST SURGICAL HISTORY Procedure Laterality Date BIOPSY BREAST OPEN INCISIONAL Bx of breast, incisional - left CATARACT EXTRACTION HX 10/2018 COLONOSCOPY - DIAGNOSTIC 12/08/2016 COLONOSCOPY FLX DX W/COLLJ SPEC WHEN PFRMD 12/25/2005 Colonoscopy-repeat in DILATION AND CURETTAGE DXAND/THER NONOBSTETRIC Dilation AND curettage FAMILY HISTORY Problem Relation Age of Onset Cancer Father RENAL Coronary Artery Disease Father Cancer Sister unknown primary Dementia Sister Dementia Sister No Known Problems Sister Ischemic Heart Disease Brother Kidney failure Brother Diabetes Maternal Grandmother Colon Cancer Paternal Grandfather Breast Cancer Maternal Aunt Breast Cancer Paternal Aunt Social History Tobacco Use Smoking status: Never Passive exposure: Past Smokeless tobacco: Never Vaping Use Vaping status: Never Used Substance Use Topics Alcohol use: No Drug use: No ALLERGIES Allergen Reactions Pneumovax 23 [Pneum* Rash Influenza Virus Vac* Rash, Swelling Sulfamethoxazole-Tr* Vomiting Ciprofloxacin GI Upset Dtp Toxoids Adsorbe* Rash Metronidazole GI Upset Zestril [Lisinopril] Ampicillin Diarrhea Crestor [Rosuvastat* Intolerance Penicillins GI Upset Prednisone GI Upset MEDICATIONS: atenolol (TENORMIN) 50 mg tablet Take 1 tablet by mouth once daily. hydroCHLOROthiazide 25 mg tablet Take 1 tablet by mouth once daily. meloxicam (MOBIC) 15 mg tablet Take 1 tablet by mouth once daily. With food. pyridoxine hcl(VITAMIN B-6 100 MG TAB) Take one(1) tablet daily. ergocalciferol(VITAMIN D 400 UNIT CAP) Take 400 Units by mouth every Sunday,Sunday, y. Allergies, medications, past surgical history, family history and past medical history were reviewed per this encounter. Objective Ortho Exam 84-year-old female is pleasant cooperative with exam in no acute distress. Of the left foot and ankle shows bruising that is resolving. There is no substantial swelling noted. Minimal tenderness with palpation over the lateral malleolus. No focal sensory neural deficits noted. Assessment/Plan ASSESSMENT Diagnosis Closed fracture distal fibula with routine healing No orders found for this visit on 05/30/24. PLAN Continue with splint with weightbearing as instructed. Follow-up in 4 weeks with repeat x-ray FOLLOW-UP: No follow-ups on file. SIGNATURE: Teddy Mcclelland DO PATIENT NAME: Floridalma Dennis DATE: May 30, 2024 TIME: 2:56 PM Allergies As of Date: 05/30/2024 Noted Allergy Reaction PNEUMOVAX 23 (PNEUMOCOCCAL 23-KAT*11/28/2006 2 - Rash INFLUENZA VIRUS VACCINES 01/05/2021 2 - Rash 7 - Swelling SULFAMETHOXAZOLE-TRIME THOPRIM 05/18/2008 11 - Vomiting CIPROFLOXACIN 12/07/2016 8 - GI Upset DTP TOXOIDS ADSORBED (DIPHTHERIA,* 6 2 - Rash METRONIDAZOLE 12/07/2016 8 - GI Upset ZESTRIL (LISINOPRIL) 03/16/2005 AMPICILLIN 03/16/2005 6 - Diarrhea CRESTOR (ROSUVASTATIN CALCIUM) 03/16/2005 5 - Intolerance PENICILLINS 11/28/2016 8 - GI Upset PREDNISONE 12/07/2016 8 - GI Upset Date Reviewed: 05/30/2024 Reviewed by: Meron Beltre MA - Fully Assessed Reason for Visit: 2 weeks 3 days post visit left (more content not included)... Normal [facility] CNOV Office Visit (INTMWS ) FLORIDALMA DENNIS ([id number]) 1940 F Date Time Provider Department 05/30/24 9:20 AM NAZARIO ABDUL INTMWS During your visit today, we recorded the following information about you: Pulse Respiration Blood pressure Weight 68/minute 16/minute 124/78 55.8 kg Nazario Abdul MD 05/30/2024 10:20 AM Signed This note was created using [employer]. Subjective Floridalma Dennis is a 84 year old female here with her friend. She had no recurrence of syncope. Her hypertension was controlled. She fell and fractured her left ankle and was seeing orthopedics here. Review of Systems Constitutional: Negative for fatigue. Respiratory: Negative for chest tightness and shortness of breath. Cardiovascular: Negative for chest pain and palpitations. Neurological: Negative for syncope and light-headedness. ACTIVE PROBLEM LIST Essential Hypertension, Benign Depressive Disorder Hyperlipidemia Ldl Goal <130 Osteopenia, Senile Pericardial Effusion Social History Tobacco Use Smoking status: Never Passive exposure: Past Smokeless tobacco: Never Vaping Use Vaping status: Never Used Substance Use Topics Alcohol use: No Drug use: No Current Outpatient Medications Medication Sig atenolol (TENORMIN) 50 mg tablet Take 1 tablet by mouth once daily. hydroCHLOROthiazide 25 mg tablet Take 1 tablet by mouth once daily. sertraline (ZOLOFT) 25 mg tablet Take 1 tablet by mouth once daily. (Patient not taking: Reported on 05/16/2024) meloxicam (MOBIC) 15 mg tablet Take 1 tablet by mouth once daily. With food. pyridoxine hcl(VITAMIN B-6 100 MG TAB) Take one(1) tablet daily. ergocalciferol(VITAMIN D 400 UNIT CAP) Take 400 Units by mouth every Sunday,Sunday, y. No current facility-administered medications for this visit. Objective BP 124/78 (BP Site: Left Arm, BP Position: Sitting) Pulse 68 Resp 16 Wt 55.8 kg (123 lb 0.3 oz) BMI 20.31 kg/m? Physical Exam Constitutional: Appearance: She is not ill-appearing. Cardiovascular: Rate and Rhythm: Normal rate and regular rhythm. Heart sounds: S1 normal and S2 normal. No murmur heard. No friction rub. Pulmonary: Breath sounds: Normal breath sounds. Neurological: Mental Status: She is alert. Assessment and Plan 1. Pericardial effusion - ICD9: 423.9, ICD10: I31.39 (primary diagnosis) - Follow up per cardiology. 2. Essential hypertension, benign - ICD9: 401.1, ICD10: I10 - Controlled - Continue current medications 3. Osteopenia, senile - ICD9: 733.90, ICD10: M85.80 - Reviewed the need for Calcium and Vitamin D supplements and weight bearing exercise as tolerated - She meets criteria for osteoporosis. Review at next visit. Nazario Abdul MD Allergies As of Date: 05/30/2024 Noted Allergy Reaction PNEUMOVAX 23 (PNEUMOCOCCAL 23-KAT*11/28/2006 2 - Rash INFLUENZA VIRUS VACCINES 01/05/2021 2 - Rash 7 - Swelling SULFAMETHOXAZOLE-TRIME THOPRIM 05/18/2008 11 - Vomiting CIPROFLOXACIN 12/07/2016 8 - GI Upset DTP TOXOIDS ADSORBED (DIPHTHERIA,* 6 2 - Rash METRONIDAZOLE 12/07/2016 8 - GI Upset ZESTRIL (LISINOPRIL) 03/16/2005 AMPICILLIN 03/16/2005 6 - Diarrhea CRESTOR (ROSUVASTATIN CALCIUM) 03/16/2005 5 - Intolerance PENICILLINS 11/28/2016 8 - GI Upset PREDNISONE 12/07/2016 8 - GI Upset Date Reviewed: 05/30/2024 Reviewed by: Tequila Torres OCCA - Fully Assessed Reason for Visit: Follow Up [171] Cmt: 3 month follow up Primary Visit Diagnosis:Pericardial effusion [I31.39] Other Visit Diagnoses:Essential hypertension, benign [I10] Osteopenia, senile [M85.80] Prescriptions as of 05/30/2024 - atenolol (TENORMIN) 50 mg tablet Take 1 tablet by mouth once daily. - hydroCHLOROthiazide 25 mg tablet Take 1 tablet by mouth once daily. - meloxicam (MOBIC) 15 mg tablet Take 1 tablet by mouth once daily. With food. - pyridoxine hcl(VITAMIN B-6 100 MG TAB) Take one(1) tablet daily. - ergocalciferol(VITAMIN D 400 UNIT CAP) Take 400 Units by mouth every Sunday,Sunday, y. Problem List As Of Date 05/30/2024 Noted Resolved BENIGN HYPERTENSION [I10] 12/05/2005 SCREENING MAL NEOP-COLON [Z12.11] 12/12/2005 11/20/2006 Hypercalcemia [E83.52] 12/30/2009 01/10/2016 Depressive disorder [F32.A] 12/11/2012 Hyperlipidemia LDL goal <130 [E78.5] 01/10/2016 Colitis [K52.9] 11/28/2016 01/05/2021 Osteopenia, senile [M85.80] 12/19/2017 Pericardial effusion [I31.39] 02/04/2024 Medications Discontinued During This Encounter Prescriptions - sertraline (ZOLOFT) 25 mg tablet (Discontinued) Reported on 05/16/2024 Level of Service: OFFICE/OUTPATIENT ESTABLISHED LOW MDM 20 MIN [11804] Additional E/M codes: VISIT CPLX INHERENT EANDM ASSOC WITH MED * Disposition: Return in about 5 months (around 10/27/2024). Follow-up and Disposition History for Encounter Date Provider Department Center (more content not included)... Normal [facility] XR ANKLE 3V AP/LAT/OBL LTon 05-30-2024 XR ANKLE 3V AP/LAT/OBL LT * * *Final Report* * * DATE OF EXAM: May 30 2024 12:27PM WRX [id number] - XR ANKLE 3V AP/LAT/OBL LT / PROCEDURE REASON: Other closed fracture of distal end of left fibula with routine healing, subsequ * * * * Physician Interpretation * * * * PROCEDURE: Left ankle INDICATION: Other closed fracture of distal end of left fibula with routine healing, subsequent encounter .PT STATES SHE FELL DOWN STEPS IN HOUSE FOLLOW UP FX LEFT ANKLE TECHNIQUE: XR ANKLE 3V AP/LAT/OBL LT COMPARISON: 05/15/2024 FINDINGS: Stable, healing lateral malleolar fracture with only minimal displacement and no angulation. Ankle mortise is symmetric. Improving soft tissue swelling. IMPRESSION: Stable, healing lateral malleolar fracture Pipelines Manager: [facility] Transcribe Date/Time: Jun 04 2024 8:38A Dictated by : NAZANIN RHODES MD This examination was interpreted and the report reviewed and electronically signed by: NAZANIN RHODES MD on Jun 04 2024 8:39AM EST [id number] Normal [facility] CNOVon 05-16-2024 CNOV Office Visit (FRWS ) FLORIDALMA DENNIS ([id number]) 1940 F Date Time Provider Department 05/16/24 1:30 PM [facility] During your visit today, we recorded the following information about you: Meron Beltre MA 05/16/2024 2:56 PM Signed AMB ROOMING INTAKE FLOWSHEET DATA Pain Pain Level: 4 Pain Location: Ankle-Left Description: Aching, Dull, Sharp Duration Amount of Time: 3 (3) Duration Units: Days Frequency: Continuous Intervention/Comfort measure: Other: See comment ( stirrup) Teddy Mcclelland V, DO 05/16/2024 2:56 PM Signed SERVICE DATE: May 16, 2024 PCP: Nazario Abdul MD Subjective Patient ID: Floridalma is a 84 year old female. Chief Complaint: Patient presents with: left distal fibula fx PAIN EVALUATION 05/16/2024 1327 Pain Level: 4 Pain Location: Ankle-Left Description: Aching;Dull;Sharp Duration Amount of Time: 3 3 Duration Units: Days Frequency: Continuous Intervention/Comfort measure: Other: See comment Air rivera PADILLA 84-year-old female presents today with acute distal left fibular fracture. She states that she fell on stairs at her home when she was going down into her basement. This occurred 3 days ago. He was seen in [facility] care yesterday where x-rays showed a distal fibula fracture. She declined the use of a fracture boot but has been wearing a air splint and states that she is able to walk comfortably in it. Review of Systems ACTIVE PROBLEM LIST Essential Hypertension, Benign Depressive Disorder Hyperlipidemia Ldl Goal <130 Osteopenia, Senile Pericardial Effusion PAST MEDICAL HISTORY Diagnosis Date Adenomatous colon polyp 12/08/2016 recheck 2021 Colitis 11/28/2016 COVID-19 04/07/2021 Dysthymic disorder Depression (non-psychotic) Essential hypertension, benign Hyperlipidemia LDL goal <130 01/10/2016 Osteopenia, senile 12/19/2017 PAST SURGICAL HISTORY Procedure Laterality Date BIOPSY BREAST OPEN INCISIONAL Bx of breast, incisional - left CATARACT EXTRACTION HX 10/2018 COLONOSCOPY - DIAGNOSTIC 12/08/2016 COLONOSCOPY FLX DX W/COLLJ SPEC WHEN PFRMD 12/25/2005 Colonoscopy-repeat in DILATION AND CURETTAGE DXAND/THER NONOBSTETRIC Dilation AND curettage FAMILY HISTORY Problem Relation Age of Onset Cancer Father RENAL Coronary Artery Disease Father Cancer Sister unknown primary Dementia Sister Dementia Sister No Known Problems Sister Ischemic Heart Disease Brother Kidney failure Brother Diabetes Maternal Grandmother Colon Cancer Paternal Grandfather Breast Cancer Maternal Aunt Breast Cancer Paternal Aunt Social History Tobacco Use Smoking status: Never Passive exposure: Past Smokeless tobacco: Never Vaping Use Vaping status: Never Used Substance Use Topics Alcohol use: No Drug use: No ALLERGIES Allergen Reactions Pneumovax 23 [Pneum* Rash Influenza Virus Vac* Rash, Swelling Sulfamethoxazole-Tr* Vomiting Ciprofloxacin GI Upset Dtp Toxoids Adsorbe* Rash Metronidazole GI Upset Zestril [Lisinopril] Ampicillin Diarrhea Crestor [Rosuvastat* Intolerance Penicillins GI Upset Prednisone GI Upset MEDICATIONS: atenolol (TENORMIN) 50 mg tablet Take 1 tablet by mouth once daily. hydroCHLOROthiazide 25 mg tablet Take 1 tablet by mouth once daily. meloxicam (MOBIC) 15 mg tablet Take 1 tablet by mouth once daily. With food. pyridoxine hcl(VITAMIN B-6 100 MG TAB) Take one(1) tablet daily. ergocalciferol(VITAMIN D 400 UNIT CAP) Take 400 Units by mouth every Sunday,Sunday,. sertraline (ZOLOFT) 25 mg tablet Take 1 tablet by mouth once daily. (Patient not taking: Reported on 05/16/2024) Allergies, medications, past surgical history, family history and past medical history were reviewed per this encounter. Objective Ortho Exam 84-year-old female pleasant cooperative with exam in no acute distress. Evaluation of the left lower extremity shows ecchymosis and soft tissue swelling around the lateral ankle and foot. Tenderness with palpation over the lateral malleolus. No significant tenderness on the medial malleolus fifth metatarsal or proximal fibula. X-rays shows an acute nondisplaced fracture of the distal fibula Assessment/Plan ASSESSMENT Diagnosis Nondisplaced fracture left distal fibula No orders found for this visit on 05/16/24. PLAN Again discussed using a cam walker boot for protection. Patient states that she does not want the boot because she does not feel comfortable walking in it. She is maintained in the air splint and courage to restrict standing and walking activities. Discussed the possibility of fracture displacement with weightbearing or new injury. Recheck in 2 weeks with repeat x-ray FOLLOW-UP: No follow-ups on file. SIGNATURE: Teddy Mcclelland DO PATIENT NAME: Floridalma Dennis DATE: May 16, 2024 MR (more content not included)... Normal [facility] CNOVon 05-15-2024 CNOV Office Visit (UCW[facility] ) DENNISFLORIDALMA FARAH ([id number]) 1940 F Date Time Provider Department 05/15/24 11:15 AM ROBERTA CEDENO [facility] During your visit today, we recorded the following information about you: Temperature Pulse Respiration Blood pressure 98.4 degrees 78/minute 20/minute 153/72 Weight 57.2 kg Roberta Cedeno APRN.GUIDE CRUISE 05/15/2024 2:01 PM Signed Subjective Fall Pertinent negatives include no fever. Floridalma Dennis is a 84 year old female who presents with left foot and ankle swelling and bruising. She missed a step in her home 2 days ago and twisted her ankle. She states her pain is minimal but she is concerned about the swelling and bruising. She has been walking at home without pain- only has pain with stepping up and down stairs. Review of Systems Constitutional: Negative for chills and fever. Musculoskeletal: Positive for falls and joint pain. See HPI Skin: Negative for itching and rash. BP 153/72 Pulse 78 Temp 36.9 ?C (98.4 ?F) Resp 20 Wt 57.2 kg (126 lb 1.7 oz) SpO2 98% BMI 20.82 kg/m? PAST MEDICAL HISTORY Diagnosis Date Adenomatous colon polyp 12/08/2016 recheck 2021 Colitis 11/28/2016 COVID-19 04/07/2021 Dysthymic disorder Depression (non-psychotic) Essential hypertension, benign Hyperlipidemia LDL goal <130 01/10/2016 Osteopenia, senile 12/19/2017 PAST SURGICAL HISTORY Procedure Laterality Date BIOPSY BREAST OPEN INCISIONAL Bx of breast, incisional - left CATARACT EXTRACTION HX 10/2018 COLONOSCOPY - DIAGNOSTIC 12/08/2016 COLONOSCOPY FLX DX W/COLLJ SPEC WHEN PFRMD 12/25/2005 Colonoscopy-repeat in DILATION AND CURETTAGE DXAND/THER NONOBSTETRIC Dilation AND curettage ALLERGIES Pneumovax 23 [Pneumococcal 23-Kat Ps Vaccine]; Influenza Virus Vaccines; Sulfamethoxazole-Trime thoprim; Ciprofloxacin; Dtp Toxoids Adsorbed [Diphtheria,Pertussis, Tetanus]; Metronidazole; Zestril [Lisinopril]; Ampicillin; Crestor [Rosuvastatin Calcium]; Penicillins; and Prednisone MEDICATIONS atenolol (TENORMIN) 50 mg tablet Take 1 tablet by mouth once daily. hydroCHLOROthiazide 25 mg tablet Take 1 tablet by mouth once daily. sertraline (ZOLOFT) 25 mg tablet Take 1 tablet by mouth once daily. meloxicam (MOBIC) 15 mg tablet Take 1 tablet by mouth once daily. With food. pyridoxine hcl(VITAMIN B-6 100 MG TAB) Take one(1) tablet daily. ergocalciferol(VITAMIN D 400 UNIT CAP) Take 400 Units by mouth every Sunday,Sunday, y. FAMILY HISTORY Problem Relation Age of Onset Cancer Father RENAL Coronary Artery Disease Father Cancer Sister unknown primary Dementia Sister Dementia Sister No Known Problems Sister Ischemic Heart Disease Brother Kidney failure Brother Diabetes Maternal Grandmother Colon Cancer Paternal Grandfather Breast Cancer Maternal Aunt Breast Cancer Paternal Aunt Social History Tobacco Use Smoking status: Never Smokeless tobacco: Never Vaping Use Vaping status: Never Used Substance Use Topics Alcohol use: No Drug use: No Objective Physical Exam Vitals and nursing note reviewed. Constitutional: Appearance: Normal appearance. Musculoskeletal: General: Swelling, tenderness and signs of injury present. No deformity. Left ankle: Swelling and ecchymosis present. Tenderness present over the lateral malleolus. Normal range of motion. Left Achilles Tendon: Normal. No tenderness or defects. Ibarra's test negative. Skin: General: Skin is warm and dry. Findings: Bruising present. No erythema or rash. Neurological: Mental Status: She is alert. ASSESSMENT/PLAN: 1. Injury of left ankle, initial encounter - ICD9: 959.7, ICD10: S99.912A (primary diagnosis) - XR ANKLE GENERAL 3V AP/LAT/OBL LEFT FINDINGS: Acute, nondisplaced, oblique fracture of the distal fibula. Ankle mortise is maintained. Mild soft tissue edema centered about the high ankle. Lisfranc joint appears well aligned. No radiopaque foreign body. IMPRESSION: Acute nondisplaced fracture of the distal fibula. Recommend left tibia/fibular radiograph for possible proximal fracture. COMMUNICATION: Communicated with ROBERTA CEDENO on 05/15/2024 12:54 PM via [employer] staff message. Pipelines Manager: HANANE Transcribe Date/Time: May 15 2024 12:49P Dictated by : AKHIL GRIFFIN MD - XR TIBIA FIBULA 2V AP/LAT LEFT 2. Foot injury, left, initial encounter - ICD9: 959.7, ICD10: S99.922A - XR FOOT GENERAL 3V AP/LAT/OBL LEFT -Patient placed in aircast walking boot. Patient states she refuses to wear this-is afraid it will make her fall. She does not want an orthoglass splint-states this will be too heavy. She wants to go home with nothing. States I've been walking around on it just fine for 3 days. Boot removed and patient placed in air cast splint and advised to limit weight bearing until seen by orthopedics. (more content not included)... Normal [facility] No Panel Informationon 05-15 IMPRESSION: Acute nondisplaced fracture of the distal fibula. Recommend left tibia/fibular radiograph for possible proximal fracture. COMMUNICATION: Communicated with ROBERTA CEDENO on 05/15/2024 12:54 PM via [employer] [facility] message. Pipelines Manager: HANANE Transcribe Date/Time: May 15 2024 12:49P Dictated by : AKHIL GRIFFIN MD This examination was interpreted and the report reviewed and electronically signed by: AKHIL GRIFFIN MD on May 15 2024 12:54PM [facility] DIVISION OF RADIOLOGY Radiology Study observation (narrative) [facility] No Panel InformationOrdered By: [facility]cf Provider on 05-15-2024 [facility] XR ANKLE 3V AP/LAT/OBL LTon 05-15-2024 XR ANKLE 3V AP/LAT/OBL LT * * *Final Report* * * DATE OF EXAM: May 15 2024 12:22PM WOX 5298 - XR ANKLE 3V AP/LAT/OBL LT / PROCEDURE REASON: Injury of left ankle, initial encounter * * * * Physician Interpretation * * * * EXAM: XR ANKLE 3V AP/LAT/OBL LT, XR FOOT 3V AP/LAT/OBL LT PATIENT HISTORY: Injury of left ankle, initial encounter TECHNIQUE: AP, lateral, and oblique radiograph of the left ankle. AP, lateral, oblique radiograph of the left foot. COMPARISON: No relevant prior available FINDINGS: Acute, nondisplaced, oblique fracture of the distal fibula. Ankle mortise is maintained. Mild soft tissue edema centered about the high ankle. Lisfranc joint appears well aligned. No radiopaque foreign body. IMPRESSION: Acute nondisplaced fracture of the distal fibula. Recommend left tibia/fibular radiograph for possible proximal fracture. COMMUNICATION: Communicated with ROBERTA CEDENO on 05/15/2024 12:54 PM via [employer] staff message. Pipelines Manager: PSCB Transcribe Date/Time: May 15 2024 12:49P Dictated by : AKHIL GRIFFIN MD This examination was interpreted and the report reviewed and electronically signed by: AKHIL GRIFFIN MD on May 15 2024 12:54PM EST [id number] Normal [facility] XR Ankle - left AP and Later al and obliqueon 05-15-2024 * * *Final Report* * * DATE OF EXAM: May 15 2024 12:22PM WOX 5298 - XR ANKLE 3V AP/LAT/OBL LT / PROCEDURE REASON: Injury of left ankle, initial encounter * * * * Physician Interpretation * * * * EXAM: XR ANKLE 3V AP/LAT/OBL LT, XR FOOT 3V AP/LAT/OBL LT PATIENT HISTORY: Injury of left ankle, initial encounter TECHNIQUE: AP, lateral, and oblique radiograph of the left ankle. AP, lateral, oblique radiograph of the left foot. COMPARISON: No relevant prior available FINDINGS: Acute, nondisplaced, oblique fracture of the distal fibula. Ankle mortise is maintained. Mild soft tissue edema centered about the high ankle. Lisfranc joint appears well aligned. No radiopaque foreign body. DIVISION OF RADIOLOGY Provider, [facility] - 05/15/2024 * * *Final Report* * * DATE OF EXAM: May 15 2024 12:22PM WOX 5298 - XR ANKLE 3V AP/LAT/OBL LT / PROCEDURE REASON: Injury of left ankle, initial encounter * * * * Physician Interpretation * * * * EXAM: XR ANKLE 3V AP/LAT/OBL LT, XR FOOT 3V AP/LAT/OBL LT PATIENT HISTORY: Injury of left ankle, initial encounter TECHNIQUE: AP, lateral, and oblique radiograph of the left ankle. AP, lateral, oblique radiograph of the left foot. COMPARISON: No relevant prior available FINDINGS: Acute, nondisplaced, oblique fracture of the distal fibula. Ankle mortise is maintained. Mild soft tissue edema centered about the high ankle. Lisfranc joint appears well aligned. No radiopaque foreign body. IMPRESSION IMPRESSION: Acute nondisplaced fracture of the distal fibula. Recommend left tibia/fibular radiograph for possible proximal fracture. COMMUNICATION: Communicated with ROBERTA CEDENO on 05/15/2024 12:54 PM via [employer] staff message. Pipelines Manager: [employer] Transcribe Date/Time: May 15 2024 12:49P Dictated by : AKHIL GRIFFIN MD This examination was interpreted and the report reviewed and electronically signed by: AKHIL GRIFFIN MD on May 15 2024 12:54PM EST [facility] XR FOOT 3V AP/LAT/OBL LTon 0 05-15-2024 XR FOOT 3V AP/LAT/OBL LT * * *Final Report* * * DATE OF EXAM: May 15 2024 12:22PM WOX 5336 - XR FOOT 3V AP/LAT/OBL LT / PROCEDURE REASON: Foot injury, left, initial encounter * * * * Physician Interpretation * * * * EXAM: XR ANKLE 3V AP/LAT/OBL LT, XR FOOT 3V AP/LAT/OBL LT PATIENT HISTORY: Injury of left ankle, initial encounter TECHNIQUE: AP, lateral, and oblique radiograph of the left ankle. AP, lateral, oblique radiograph of the left foot. COMPARISON: No relevant prior available FINDINGS: Acute, nondisplaced, oblique fracture of the distal fibula. Ankle mortise is maintained. Mild soft tissue edema centered about the high ankle. Lisfranc joint appears well aligned. No radiopaque foreign body. IMPRESSION: Acute nondisplaced fracture of the distal fibula. Recommend left tibia/fibular radiograph for possible proximal fracture. COMMUNICATION: Communicated with ROBERTA CEDENO on 05/15/2024 12:54 PM via [employer] [facility] message. Pipelines Manager: [employer] Transcribe Date/Time: May 15 2024 12:49P Dictated by : AKHIL GRIFFIN MD This examination was interpreted and the report reviewed and electronically signed by: AKHIL GRIFFIN MD on May 15 2024 12:54PM EST [id number] Normal [facility] XR Foot - left AP and Latera l and obliqueon 05-15-2024 * * *Final Report* * * DATE OF EXAM: May 15 2024 12:22PM WOX 5336 - XR FOOT 3V AP/LAT/OBL LT / PROCEDURE REASON: Foot injury, left, initial encounter * * * * Physician Interpretation * * * * EXAM: XR ANKLE 3V AP/LAT/OBL LT, XR FOOT 3V AP/LAT/OBL LT PATIENT HISTORY: Injury of left ankle, initial encounter TECHNIQUE: AP, lateral, and oblique radiograph of the left ankle. AP, lateral, oblique radiograph of the left foot. COMPARISON: No relevant prior available FINDINGS: Acute, nondisplaced, oblique fracture of the distal fibula. Ankle mortise is maintained. Mild soft tissue edema centered about the high ankle. Lisfranc joint appears well aligned. No radiopaque foreign body. DIVISION OF RADIOLOGY Provider, [facility] - 05/15/2024 * * *Final Report* * * DATE OF EXAM: May 15 2024 12:22PM WOX 5336 - XR FOOT 3V AP/LAT/OBL LT / PROCEDURE REASON: Foot injury, left, initial encounter * * * * Physician Interpretation * * * * EXAM: XR ANKLE 3V AP/LAT/OBL LT, XR FOOT 3V AP/LAT/OBL LT PATIENT HISTORY: Injury of left ankle, initial encounter TECHNIQUE: AP, lateral, and oblique radiograph of the left ankle. AP, lateral, oblique radiograph of the left foot. COMPARISON: No relevant prior available FINDINGS: Acute, nondisplaced, oblique fracture of the distal fibula. Ankle mortise is maintained. Mild soft tissue edema centered about the high ankle. Lisfranc joint appears well aligned. No radiopaque foreign body. IMPRESSION IMPRESSION: Acute nondisplaced fracture of the distal fibula. Recommend left tibia/fibular radiograph for possible proximal fracture. COMMUNICATION: Communicated with ROBERTA CEDENO on 05/15/2024 12:54 PM via [employer] staff message. Pipelines Manager: WAKU WAKU ?B Transcribe Date/Time: May 15 2024 12:49P Dictated by : AKHIL GRIFFIN MD This examination was interpreted and the report reviewed and electronically signed by: AKHIL GRIFFIN MD on May 15 2024 12:54PM [facility] XR TIBIA FIBULA 2V AP/LAT LT on 05-15-2024 XR TIBIA FIBULA 2V AP/LAT LT * * *Final Report* * * DATE OF EXAM: May 15 2024 1:17PM WOX 5265 - XR TIBIA FIBULA 2V AP/LAT LT / PROCEDURE REASON: Injury of left ankle, initial encounter * * * * Physician Interpretation * * * * EXAM: XR TIBIA FIBULA 2V AP/LAT LT PATIENT HISTORY: Injury of left ankle, initial encounter TECHNIQUE: AP and lateral radiograph of the left tibia/fibula COMPARISON: Left ankle radiograph dated 05/15/2024 (same day) FINDINGS: Redemonstration of acute nondisplaced distal left fibular fracture. No additional fracture identified. Mild soft tissue edema about the high ankle. No radiopaque foreign body. IMPRESSION: Acute nondisplaced distal left fibular fracture. No additional fracture identified. Pipelines Manager: PSCB Transcribe Date/Time: May 15 2024 1:26P Dictated by : AKHIL GRIFFIN MD This examination was interpreted and the report reviewed and electronically signed by: AKHIL GRIFFIN MD on May 15 2024 1:27PM EST [id number] Normal [facility] XR Tibia and Fibula - left A P and Lateralon 05-15-2024 IMPRESSION: Acute nondisplaced distal left fibular fracture. No additional fracture identified. Pipelines Manager: PSCB Transcribe Date/Time: May 15 2024 1:26P Dictated by : AKHIL GRIFFIN MD This examination was interpreted and the report reviewed and electronically signed by: AKHIL GRIFFIN MD on May 15 2024 1:27PM EST DIVISION OF RADIOLOGY * * *Final Report* * * DATE OF EXAM: May 15 2024 1:17PM WOX 5265 - XR TIBIA FIBULA 2V AP/LAT LT / PROCEDURE REASON: Injury of left ankle, initial encounter * * * * Physician Interpretation * * * * EXAM: XR TIBIA FIBULA 2V AP/LAT LT PATIENT HISTORY: Injury of left ankle, initial encounter TECHNIQUE: AP and lateral radiograph of the left tibia/fibula COMPARISON: Left ankle radiograph dated 05/15/2024 (same day) FINDINGS: Redemonstration of acute nondisplaced distal left fibular fracture. No additional fracture identified. Mild soft tissue edema about the high ankle. No radiopaque foreign body. DIVISION OF RADIOLOGY Provider, [facility] - 05/15/2024 * * *Final Report* * * DATE OF EXAM: May 15 2024 1:17PM WOX 5265 - XR TIBIA FIBULA 2V AP/LAT LT / PROCEDURE REASON: Injury of left ankle, initial encounter * * * * Physician Interpretation * * * * EXAM: XR TIBIA FIBULA 2V AP/LAT LT PATIENT HISTORY: Injury of left ankle, initial encounter TECHNIQUE: AP and lateral radiograph of the left tibia/fibula COMPARISON: Left ankle radiograph dated 05/15/2024 (same day) FINDINGS: Redemonstration of acute nondisplaced distal left fibular fracture. No additional fracture identified. Mild soft tissue edema about the high ankle. No radiopaque foreign body. IMPRESSION IMPRESSION: Acute nondisplaced distal left fibular fracture. No additional fracture identified. Pipelines Manager: HANANE Transcribe Date/Time: May 15 2024 1:26P Dictated by : AKHIL GRIFFIN MD This examination was interpreted and the report reviewed and electronically signed by: AKHIL GRIFFIN MD on May 15 2024 1:27PM [facility] Radiology Study observation (narrative) [facility] Anny 04-29-2024 CNPN Telephone (INTMWS) FLORIDALMA DENNIS ([id number]) 1940 F Date Time Provider Department 04/29/24 NAZARIO ABDUL INTMWS During your visit today, we recorded the following information about you: Ana Goddard LPN 04/29/2024 4:17 PM Signed Patient calling asking for the results of her bone density. She got message that results were on her my chart but she can not get into it. Gave her the my chart help line phone number to call, to help with that. Aware that PCP has not put message with the results for the nurses to call her with as yet. Please advise Lori Chandler, ANABELLE 04/30/2024 2:12 PM Signed Patient calls to check if provider has reviewed results yet. Notified provider hadn't got a chance yet and once provider reviewed and advised patient would be contacted. Asked patient if she had the number to support that was given to her and she said she didn't know. Offered to give patient the number again and she declined. ANABELLE Aguero Laurie Lynn, LPN 04/30/2024 2:44 PM Signed Please call pt with results. Can not get on MyChart. Please advise. CONNER Rodriguez Victor H, MD 05/01/2024 4:41 PM Signed Please check result notes to cut down on phone calls. Nazario Abdul MD 05/01/2024 7:26 AM EST Stable osteopenia. Continue measures for bone health. Recheck in 2 years. Cindy Molina LPN 05/01/2024 6:05 PM Signed left message for patient to call office back and speak with triage nurse. CONNER Key Janice, LPN 05/03/2024 9:30 AM Signed My chart message to pt with pcp's response. Madhuri Preciado LPN 05/05/2024 5:19 PM Signed Attempted to call x2, vm is full will need to try again. Per below, Patient is not able to get into MyChart. Madhuri Rodriguez LPN, LPN 05/05/2024 7:14 PM Signed Called Mackenzie/daughter, Patient's vm is full, [place] [facility] [place] able to get into MyChart, asked for Patient to call office for results. Charis Malone LPN, ANABELLE 05/05/2024 7:26 PM Signed Pt called and is notified of providers results and instructions. Pt voices understanding. Charis Hoyos RN Allergies As of Date: 04/29/2024 Noted Allergy Reaction PNEUMOVAX 23 (PNEUMOCOCCAL 23-KAT*11/28/2006 2 - Rash INFLUENZA VIRUS VACCINES 01/05/2021 2 - Rash 7 - Swelling SULFAMETHOXAZOLE-TRIME THOPRIM 05/18/2008 11 - Vomiting CIPROFLOXACIN 12/07/2016 8 - GI Upset DTP TOXOIDS ADSORBED (DIPHTHERIA,* 6 2 - Rash METRONIDAZOLE 12/07/2016 8 - GI Upset ZESTRIL (LISINOPRIL) 03/16/2005 AMPICILLIN 03/16/2005 6 - Diarrhea CRESTOR (ROSUVASTATIN CALCIUM) 03/16/2005 5 - Intolerance PENICILLINS 11/28/2016 8 - GI Upset PREDNISONE 12/07/2016 8 - GI Upset Date Reviewed: 03/17/2024 Reviewed by: Meredith Soto MD - Fully Assessed Reason for Visit: Bone Density [1254] Prescriptions as of 05/05/2024 - atenolol (TENORMIN) 50 mg tablet Take 1 tablet by mouth once daily. - hydroCHLOROthiazide 25 mg tablet Take 1 tablet by mouth once daily. - sertraline (ZOLOFT) 25 mg tablet Take 1 tablet by mouth once daily. - meloxicam (MOBIC) 15 mg tablet Take 1 tablet by mouth once daily. With food. - pyridoxine hcl(VITAMIN B-6 100 MG TAB) Take one(1) tablet daily. - ergocalciferol(VITAMIN D 400 UNIT CAP) Take 400 Units by mouth every Sunday,Sunday, y. Problem List As Of Date 04/29/2024 Noted Resolved BENIGN HYPERTENSION [I10] 12/05/2005 SCREENING MAL NEOP-COLON [Z12.11] 12/12/2005 11/20/2006 Hypercalcemia [E83.52] 12/30/2009 01/10/2016 Depressive disorder [F32.A] 12/11/2012 Hyperlipidemia LDL goal <130 [E78.5] 01/10/2016 Colitis [K52.9] 11/28/2016 01/05/2021 Osteopenia, senile [M85.80] 12/19/2017 Pericardial effusion [I31.39] 02/04/2024 Encounter Status:Closed by CHARIS HOYOS on 05/05/24 Normal [facility] BD DXA - AXIAL SKELETONon BD DXA - AXIAL SKELETON * * *Final Report* * * DATE OF EXAM: Apr 24 2024 9:54AM WRB 0804 - BD DXA - AXIAL SKELETON / PROCEDURE REASON: Osteopenia, senile * * * * Physician Interpretation * * * * EXAMINATION: DXA BONE DENSITOMETRY BD DXA - AXIAL SKELETON PATIENT DEMOGRAPHICS: Age: 84 years, Gender: Female SCANNER INFORMATION: DXA Model: Tidal - Levels Beyond C 24533 Date Scanned: 04/24/2024 9:54 AM CLINICAL HISTORY: SCREENING Osteopenia, senile . RISK FACTORS FOR OSTEOPOROSIS AND ASSOCIATED FRACTURES REPORTED BY THIS PATIENT: Please refer to Bone Health Questionnaire in the EMR CURRENT THERAPY: Please refer to Bone Health Questionnaire in the EMR TECHNICAL LIMITATIONS: RESULTS: Lumbar spine (L1, L2, L3, L4): 1.030 g/cm2, T-score -0.2 , Z-score 2.7 Lumbar spine: 2018 : 1.041 g/cm2 No statistically significant change Right Femoral Neck: 0.663 g/cm2, T-score -1.7 , Z-score 0.8 Right Femoral Neck: 2018 : 0.666 g/cm2 No statistically significant change Right Total Hip: 0.821 g/cm2, T-score -1.0 , Z-score 1.2 Right Total Hip: 2018 : 0.833 g/cm2 No statistically significant change Left Femoral Neck: 0.655 g/cm2, T-score -1.7 , Z-score 0.7 Left Femoral Neck: 2018 : 0.663 g/cm2 No statistically significant change Left Total Hip: 0.803 g/cm2, T-score -1.1 , Z-score 1.1 Left Total Hip: 2018 : 0.825 g/cm2 No statistically significant change CHANGE IS STATISTICALLY SIGNIFICANT IN THE SPINE OR HIP IF GREATER THAN OR EQUAL TO 0.04 g/cm2 VERTEBRAL FRACTURE ASSESSMENT Not performed. TRABECULAR BONE ASSESSMENT TBS not performed: IMPRESSION: THE LOWEST T-SCORE IS -1.7 IN THE RIGHT AND LEFT HIPS 1) DIAGNOSIS (based on BMD alone): OSTEOPENIA Caution: Medical conditions other than osteoporosis may cause low bone density, such as osteomalacia or renal osteodystrophy. Clinical correlation is necessary. 2) FRACTURE RISK (based on FRAX): 10-year absolute fracture risk: - major osteoporotic fracture = 12 % - hip fracture = 3.7 % - A diagnosis of Osteoporosis, a 10 year probability of hip fracture greater than or equal to 3% or a 10 year probability of any major osteoporosis-related fracture greater than or equal to 20% should be considered for treatment. - DXA scanner generated FRAX calculations may slightly differ from online FRAX calculations due to differences in software versions. - All recommendations and calculations are to be considered as guidelines and should not replace sound clinical judgement - Caution: Fracture risk may be increased independent of BMD in patients with corticosteroid use, age greater than 65 years, or a history of prior fragility fracture. RECOMMENDATIONS: Follow-up in 2 years or as clinically indicated. Patients that are taking corticosteroids, are transplant recipients or have hyperparathyroidism should have annual follow-up. Follow-up scans should always be done on the same machine for accurate comparison. FOR MORE INFORMATION ABOUT DIAGNOSIS AND TREATMENT: [facility] for Osteoporosis and Metabolic Bone Disease:? www.ccf.org/arthritis/ osteo National Osteoporosis Foundation:? www.nof.org International Society of Clinical Densitometry www.iscd.org Pipelines Manager: HANANE Transcribe Date/Time: Apr 27 2024 1:36P Dictated by : NAZANIN RHODES MD This examination was interpreted and the report reviewed and electronically signed by: NAZANIN RHODES MD on Apr 27 2024 1:38PM EST [id number] Normal [facility] CNOVon 03-17-2024 CNOV Office Visit (CAWSTR ) FLORIDALMA DENNIS ([id number]) 1940 F Date Time Provider Department 03/17/24 10:00 AM MEREDITH SOTO CAWSTR During your visit today, we recorded the following information about you: Pulse Respiration Blood pressure Weight 68/minute 16/minute 140/80 54.7 kg Meredith Soto MD 03/17/2024 10:21 AM Signed [facility] Cardiology ([address]) [address] [facility] [id number] OUTPATIENT VISIT DATE 03/17/2024 PRIMARY CARE PHYSICIAN: Nazario Abdul [address] [place] [address] REFERRING PHYSICIAN: Nazario Abdul [address] [facility] [address] CHIEF COMPLAINT: Pericardial effusion HISTORY OF PRESENT ILLNESS: Ms. Dennis is a 84 year old woman with a history of hypertension and dyslipidemia who was referred for evaluation due to findings of small to moderate pericardial effusion on 2D echocardiogram. Patient was at [employer] a few months ago and passed out. She was walking to the front of the [employer]. She had no prodrome before she passed out. She was seen in the emergency room and was told she was likely dehydrated. Subsequent echocardiogram demonstrated small to moderate pericardial effusion. Patient denies symptoms of shortness of breath, dyspnea on exertion, palpitations, or chest pain. She had no recollection of having any viral illness in the recent past. She is a lifelong non-smoker and has no family history of coronary artery disease. PAST MEDICAL HISTORY Diagnosis Date Adenomatous colon polyp 12/08/2016 recheck 2021 Colitis 11/28/2016 COVID-19 04/07/2021 Dysthymic disorder Depression (non-psychotic) Essential hypertension, benign Hyperlipidemia LDL goal <130 01/10/2016 Osteopenia, senile 12/19/2017 PAST SURGICAL HISTORY Procedure Laterality Date BIOPSY BREAST OPEN INCISIONAL Bx of breast, incisional - left CATARACT EXTRACTION HX 10/2018 COLONOSCOPY - DIAGNOSTIC 12/08/2016 COLONOSCOPY FLX DX W/COLLJ SPEC WHEN PFRMD 12/25/2005 Colonoscopy-repeat in DILATION AND CURETTAGE DXAND/THER NONOBSTETRIC Dilation AND curettage SOCIAL HISTORY Social History Tobacco Use Smoking status: Never Smokeless tobacco: Never Vaping Use Vaping status: Never Used Substance Use Topics Alcohol use: No Drug use: No FAMILY HISTORY Problem Relation Age of Onset Cancer Father RENAL Coronary Artery Disease Father Cancer Sister unknown primary Dementia Sister Dementia Sister No Known Problems Sister Ischemic Heart Disease Brother Kidney failure Brother Diabetes Maternal Grandmother Colon Cancer Paternal Grandfather Breast Cancer Maternal Aunt Breast Cancer Paternal Aunt ALLERGIES: ALLERGIES Allergen Reactions Pneumovax 23 [Pneum* Rash Influenza Virus Vac* Rash, Swelling Sulfamethoxazole-Tr* Vomiting Ciprofloxacin GI Upset Dtp Toxoids Adsorbe* Rash Metronidazole GI Upset Zestril [Lisinopril] Ampicillin Diarrhea Crestor [Rosuvastat* Intolerance Penicillins GI Upset Prednisone GI Upset MEDICATIONS: atenolol (TENORMIN) 50 mg tablet Take 1 tablet by mouth once daily. hydroCHLOROthiazide 25 mg tablet Take 1 tablet by mouth once daily. sertraline (ZOLOFT) 25 mg tablet Take 1 tablet by mouth once daily. meloxicam (MOBIC) 15 mg tablet Take 1 tablet by mouth once daily. With food. pyridoxine hcl(VITAMIN B-6 100 MG TAB) Take one(1) tablet daily. ergocalciferol(VITAMIN D 400 UNIT CAP) Take 400 Units by mouth every Sunday,Sunday,. REVIEW OF SYSTEMS: Review of Systems Constitutional: Negative for chills, fever, malaise/fatigue and weight loss. HENT: Negative for hearing loss and sore throat. Eyes: Negative for blurred vision and double vision. Respiratory: Negative. Cardiovascular: Negative. Gastrointestinal: Negative. Genitourinary: Negative for dysuria, frequency, hematuria and urgency. Musculoskeletal: Negative. Skin: Negative. Neurological: Negative for dizziness, seizures, loss of consciousness, weakness and headaches. Endo/Heme/Allergies: Negative for environmental allergies. Does not bruise/bleed easily. Psychiatric/Behavioral : Negative for depression. PHYSICAL EXAMINATION: BP 140/80 Pulse 68 Resp 16 Wt 120 lb 9.5 oz (54.7kg) General: Thin woman sitting appears comfortable no apparent distress she is alert and oriented x 3 HEENT: Carotid circumference bilateral without bruits no JVD appreciated. Pulmonary: Lungs are clear no rales, wheezes, rhonchi Cardiovascular: Normal S1, S2 with regular rate and rhythm. No murmurs, rubs, or gallops Extremities: Warm, well-perfused, no lower extremity edema. 2+ distal pulses CARDIOVASCULAR MEDICINE TESTING: Echocardiogram 02/18/2024: - The left ventricle is normal in size. Left vent (more content not included)... Normal [facility] CNOVon 02-28-2024 CNOV Office Visit (INTMWS ) FLORIDALMA DENNIS ([id number]) 1940 F Date Time Provider Department 02/28/24 8:00 AM NAZARIO ABDUL During your visit today, we recorded the following information about you: Temperature Pulse Blood pressure Weight Normal [facility] ECHOon 02-18-2024 Echocardiography Echocardiography Report: Transthoracic Echo [facility] Date of service: 02/18/2024 8:34:10 AM [employer] Ordering physician: NAZARIO ABDUL Indication: Limited to reassess pericardial effusion Technologist: Sri Nino [facility] Interpreting physician: Narciso Kumar DO PATIENT: Name: MRS. FLORIDALMA DENNIS : 1940 Age: 84 years Gender: F Primary rhythm: sinus. Height: 167.60 cm BSA: 1.62 m Weight: 56.30 kg BMI: 20.0 kg/m Heart rate 71 bpm Blood pressure 165/71 mmHg MEASUREMENTS: Value Indexed Normal LV stroke volume 39 ml (2D biplane) LV end diastolic volume 65 ml (2D biplane) 40.1 ml/m 29<=EDVi<62 LV end systolic volume 26 ml (2D biplane) 16.0 ml/m Ejection Fraction 60 % (2D biplane) EF > 54 FINDINGS: LEFT VENTRICLE The left ventricle is normal in size. Left ventricular systolic function is normal. RIGHT VENTRICLE Estimated right atrial pressure is 3 mmHg (although IVC not seen). RIGHT ATRIUM Inferior Vena Cava: The inferior vena cava appears normal measuring 1.8 cm. TRICUSPID VALVE PERICARDIUM There is a moderate circumferential pericardial effusion. CONCLUSIONS: - Exam indication: Limited to reassess pericardial effusion - The left ventricle is normal in size. Left ventricular systolic function is normal. EF = 60 5% (2D biplane) - There is a moderate circumferential pericardial effusion. The inferior vena cava appears normal measuring 1.8 cm. - There is a known small to moderate circumferential pericardial effusion. - Exam was compared with the prior echocardiographic exam performed on 01/31/2024, no significant change. * * * Final * * * CC [employer] : [id number] Normal [facility] CNPNon 02-04-2024 CNPN Telephone (INTMWS) FLORIDALMA DENNIS ([id number]) 1940 F Date Time Provider Department 02/04/24 NAZARIO ABDUL INTMWS During your visit today, we recorded the following information about you: Shanda Lemus RN 02/04/2024 12:08 PM Signed Please see Cardiology Referral order and contact patient for appointment please. Patient had recent abnormal ECHO. Per pt's PCP note: Nazario Abdul MD 02/04/2024 8:59 AM EDT 1) See messages. I thought patient cancelled this test which is ABNORMAL. 2) Fluid around the heart, etiology not known. Go to ER for recurrent symptoms of syncope, dizziness, dyspnea, chest pain, etc. 3) Consult cardiology MICHELLE. 4) Repeat echo in 2 weeks. See 02/04/24 PCP phone note from today as well. ANABELLE Page Danelle, RN 02/06/2024 9:04 AM Signed See other encounter. Manasa Jacob RN Allergies As of Date: 02/04/2024 Noted Allergy Reaction PNEUMOVAX 23 (PNEUMOCOCCAL 23-KAT*11/28/2006 2 - Rash INFLUENZA VIRUS VACCINES 01/05/2021 2 - Rash 7 - Swelling SULFAMETHOXAZOLE-TRIME THOPRIM 05/18/2008 11 - Vomiting CIPROFLOXACIN 12/07/2016 8 - GI Upset DTP TOXOIDS ADSORBED (DIPHTHERIA,* 6 2 - Rash METRONIDAZOLE 12/07/2016 8 - GI Upset ZESTRIL (LISINOPRIL) 03/16/2005 AMPICILLIN 03/16/2005 6 - Diarrhea CRESTOR (ROSUVASTATIN CALCIUM) 03/16/2005 5 - Intolerance PENICILLINS 11/28/2016 8 - GI Upset PREDNISONE 12/07/2016 8 - GI Upset Date Reviewed: 01/21/2024 Reviewed by: Madhuri Preciado LPN - Fully Assessed Reason for Visit: Referral order for Cardiology [Other] Prescriptions as of 02/06/2024 - meloxicam (MOBIC) 15 mg tablet Take 1 tablet by mouth once daily. With food. - atenolol (TENORMIN) 50 mg tablet Take 1 tablet by mouth once daily. - hydroCHLOROthiazide 25 mg tablet Take 1 tablet by mouth once daily. - pyridoxine hcl(VITAMIN B-6 100 MG TAB) Take one(1) tablet daily. - ergocalciferol(VITAMIN D 400 UNIT CAP) Take 400 Units by mouth every Sunday,Sunday,. Problem List As Of Date 02/04/2024 Noted Resolved BENIGN HYPERTENSION [I10] 12/05/2005 SCREENING MAL NEOP-COLON [Z12.11] 12/12/2005 11/20/2006 Hypercalcemia [E83.52] 12/30/2009 01/10/2016 Depressive disorder [F32.A] 12/11/2012 Hyperlipidemia LDL goal <130 [E78.5] 01/10/2016 Colitis [K52.9] 11/28/2016 01/05/2021 Osteopenia, senile [M85.80] 12/19/2017 Pericardial effusion [I31.39] 02/04/2024 Encounter Status:Closed by MANASA JACOB on 02/06/24 Normal [facility] Telephone (INTMWS) FLORIDALMA DENNIS ([id number]) 1940 F Date Time Provider Department 02/04/24 ABDULNAZARIO LONG During your visit today, we recorded the following information about you: Shanda Lemus RN 02/04/2024 12:00 PM Signed Attempted to contact patient to discuss PCP message below reagrding recent ECHO results. No answer, message left for patient to call back as soon as possible. Will send message to cardiology of consult request MICHELLE. See other phone note, to cardiology. (COPIED): Result Notes Nazario Abdul MD 02/04/2024 8:59 AM EDT Back to Top 1) See messages. I thought patient cancelled this test which is ABNORMAL. 2) Fluid around the heart, etiology not known. Go to ER for recurrent symptoms of syncope, dizziness, dyspnea, chest pain, etc. 3) Consult cardiology MICHELLE. 4) Repeat echo in 2 weeks. ANABELLE Page Sherrie, RN 2024 9:09 AM Signed 2nd attempt made to contact patient with PCP message below. No answer. Message left. This nurse spoke with pt's son Nazanin, who is listed on pt's record to discuss information with. He has been updated of PCP message below, agreeable to [facility] Cardiology, and states he will contact patient and have her call PCP office for these messages/updates. Son states he will also assist pt in scheduling ECHO to be completed in 2 weeks. ANABELLE Page Lori, LPN 2024 10:30 AM Signed Message from pcp was relayed to pt. Pt states understanding AND was not certain she wanted to to have appt with cardiology. Stressed the importance of referral AND pt agreed to be transferred. CONNER De La Fuente Laurie Lynn, LPN 2024 10:37 AM Signed Pt scheduled for ECHO on 02-18-24 and Cardiology apt booked for 08-25-24. Please review. CONNER Rodriguez Amanda, RN 2024 12:28 PM Signed Pts son called in asking about Pts appointments. I let Pt know that his mother put a note in the computer that she didn't want her medical information discussed with him and I couldn't give him any information. He want to make sure we called her back to make sure appointments were set up. Pt set up ECHO and Cardiology appt, message was sent to PCP and Cardiology. Shanda Bradshaw 2024 1:54 PM Signed Please see pcp note below any way to get patient a sooner appointment then 08/2024 Manasa Jacob RN 02/06/2024 9:04 AM Signed Called and left message on verified VM offering a sooner appointment with Dr. Soto either 03/03/24 or 03/17/24. Ok to double book the patient onto his schedule in the morning either of those days. ANABELLE Jackson Danelle, RN 02/11/2024 3:31 PM Signed Second attempt to contact patient to offer sooner cardiology appointment. Left message for patient to call back. ANABELLE Jackson Danelle, RN 02/20/2024 9:43 AM Signed Third attempt to reach the patient to offer sooner appointment. Left message on verified VM. ANABELLE Jackson Danelle, RN 02/26/2024 12:28 PM Signed Called and spoke with Son and Daughter. Able to talk to the patient and she is scheduled for 03/17/[address] Soto. Manasa Jacob RN Allergies As of Date: 02/04/2024 Noted Allergy Reaction PNEUMOVAX 23 (PNEUMOCOCCAL 23-KAT*11/28/2006 2 - Rash INFLUENZA VIRUS VACCINES 01/05/2021 2 - Rash 7 - Swelling SULFAMETHOXAZOLE-TRIME THOPRIM 05/18/2008 11 - Vomiting CIPROFLOXACIN 12/07/2016 8 - GI Upset DTP TOXOIDS ADSORBED (DIPHTHERIA,* 6 2 - Rash METRONIDAZOLE 12/07/2016 8 - GI Upset ZESTRIL (LISINOPRIL) 03/16/2005 AMPICILLIN 03/16/2005 6 - Diarrhea CRESTOR (ROSUVASTATIN CALCIUM) 03/16/2005 5 - Intolerance PENICILLINS 11/28/2016 8 - GI Upset PREDNISONE 12/07/2016 8 - GI Upset Date Reviewed: 01/21/2024 Reviewed by: Madhuri Preciado LPN - Fully Assessed Reason for Visit: Results [95] Prescriptions as of 02/26/2024 - meloxicam (MOBIC) 15 mg tablet Take 1 tablet by mouth once daily. With food. - atenolol (TENORMIN) 50 mg tablet Take 1 tablet by mouth once daily. - hydroCHLOROthiazide 25 mg tablet Take 1 tablet by mouth once daily. - pyridoxine hcl(VITAMIN B-6 100 MG TAB) Take one(1) tablet daily. - ergocalciferol(VITAMIN D 400 UNIT CAP) Take 400 Units by mouth every Sunday,Sunday, y. Problem List As Of Date 02/04/2024 Noted Resolved BENIGN HYPERTENSION [I10] 12/05/2005 SCREENING MAL NEOP-COLON [Z12.11] 12/12/2005 11/20/2006 Hypercalcemia [E83.52] 12/30/2009 01/10/2016 Depressive disorder [F32.A] 12/11/2012 Hyperlipidemia LDL goal <130 [E78.5] 01/10/2016 Colitis [K52.9] 11/28/2016 01/05/2021 Osteopenia, senile [M85.80] 12/19/2017 Pericardial effusion [I31.39] 02/04/2024 Encounter Status:Closed by BRINDA GARVIN on 02/05/24 Normal [facility] CBC panel Auto (Bld)on 01-30 Erythrocyte distribution width (RBC) [Ratio] 12.2 % Normal 11.5-15.0 [facility] Comment on above: Order Comment: Speci men Type: BLOOD SPECIMENOrdering Facility: [facility] Address: [address] [place] [address] Performed By: #### 5 8410-2 ####[facility] LABCLIA [id number] [place] [address] [place] Hematocrit (Bld) [Volume fraction] 45.1 % Normal 36.0-46.0 [facility] Comment on above: Order Comment: Speci men Type: BLOOD SPECIMENOrdering Facility: [facility] Address: [address] [place] [address] Performed By: #### 5 8410-2 ####[facility] LABCLIA [id number] [place] [address] [place] Hemoglobin (Bld) [Mass/Vol] 14.6 g/dL Normal 11.5-15.5 [facility] Comment on above: Order Comment: Speci men Type: BLOOD SPECIMENOrdering Facility: [facility] Address: [address] [place] [address] Performed By: #### 5 8410-2 ####[facility] LABCLIA [id number] [place] [address] [place] MCH (RBC) [Entitic mass] 30.9 pg Normal 26.0-34.0 [facility] Comment on above: Order Comment: Speci men Type: BLOOD SPECIMENOrdering Facility: [facility] Address: [address] [place] [address] Performed By: #### 5 8410-2 ####[facility] LABIA [id number] [address] [place] MCHC (RBC) [Mass/Vol] 32.4 g/dL Normal 30.5-36.0 [facility] Comment on above: Order Comment: Speci men Type: BLOOD SPECIMENOrdering Facility: [facility] Address: [address] [place] [address] Performed By: #### 5 8410-2 ####[facility] LABIA [id number] [place] [address] [place] MCV (RBC) [Entitic vol] 95.3 fL Normal 80.0-100.0 [facility] Comment on above: Order Comment: Speci men Type: BLOOD SPECIMENOrdering Facility: [facility] Address: [address] [place] [address] Performed By: #### 5 8410-2 ####[facility] LABIA [id number] [place] [address] [place] Nucleated RBC (Bld) [#/Vol] 10*3/uL Normal <0.01 [facility] Comment on above: Order Comment: Speci men Type: BLOOD SPECIMENOrdering Facility: [facility] Address: [address] [place] [address] Performed By: #### 5 8410-2 ####[facility] LABIA [id number] [place] [address] [place] Platelet mean volume (Bld) [Entitic vol] 10.6 fL Normal 9.0-12.7 [facility] Comment on above: Order Comment: Speci men Type: BLOOD SPECIMENOrdering Facility: [facility] Address: [address] [place] [address] Performed By: #### 5 8410-2 ####[facility] LABIA [id number] [place] [address] [place] Platelets (Bld) [#/Vol] 210 10*3/uL Normal 150-400 [facility] Comment on above: Order Comment: Speci men Type: BLOOD SPECIMENOrdering Facility: [facility] Address: [address] [place] [address] Performed By: #### 5 8410-2 ####[facility] LABIA [id number] [place] [address] [place] RBC (Bld) [#/Vol] 4.73 10*6/uL Normal 3.90-5.20 [facility] Comment on above: Order Comment: Speci men Type: BLOOD SPECIMENOrdering Facility: [facility] Address: [address] [place] [address] Performed By: #### 5 8410-2 ####[facility] LABIA [id number] [place] [address] [place] WBC (Bld) [#/Vol] 7.10 10*3/uL Normal 3.70-11.00 [facility] Comment on above: Order Comment: Speci men Type: BLOOD SPECIMENOrdering Facility: [facility] Address: [address] [place] [address] Performed By: #### 5 8410-2 ####[facility] LABCLIA [id number] [address] [address] [place] Comprehensive metabolic 2000 panelon 01-31-2024 Albumin [Mass/Vol] 4.2 g/dL Normal 3.9-4.9 [facility] Comment on above: Order Comment: Speci men Type: BLOOD SPECIMENOrdering Facility: [facility] Address: [address] [place] [address] Performed By: #### 2 4323-8, 9, 3016-3, 78958-6 ####[facility] LABIA [id number] [place] [address] [place] ALP [Catalytic activity/Vol] 77 U/L Normal 34-123 [facility] Comment on above: Order Comment: Speci men Type: BLOOD SPECIMENOrdering Facility: [facility] Address: [address] [place] [address] Performed By: #### 2 4323-8, 9, 3016-3, 04769-1 ####[facility] LABIA [id number] [place] [id number] [place] ALT [Catalytic activity/Vol] 14 U/L Normal 7-38 [facility] Comment on above: Order Comment: Speci men Type: BLOOD SPECIMENOrdering Facility: [facility] Address: [address] [place] [address] Performed By: #### 2 4323-8, 9, 3016-3, 55489-0 ####[facility] LABIA [id number] [address] [address] [place] Anion gap [Moles/Vol] 12 mmol/L Normal 8-15 [facility] Comment on above: Order Comment: Speci men Type: BLOOD SPECIMENOrdering Facility: [facility] Address: [address] [place] [address] Performed By: #### 2 4323-8, 2132-9, 3016-3, 51702-1 ####[facility] LABCLIA [id number] [address] [address] [place] AST [Catalytic activity/Vol] 18 U/L Normal 13-35 [facility] Comment on above: Order Comment: Speci men Type: BLOOD SPECIMENOrdering Facility: [facility] Address: [address] [place] [address] Performed By: #### 2 4323-8, 2131-12, 3015-3, 58204-7 ####[facility] LABIA [id number] [place] [id number] [place] Bilirubin [Mass/Vol] 0.7 mg/dL Normal 0.2-1.3 [facility] Comment on above: Order Comment: Speci men Type: BLOOD SPECIMENOrdering Facility: [facility] Address: [address] [place] [address] Performed By: #### 2 4323-8, 2131-12, 3, 62943-7 ####[facility] LABIA [id number] [place] [id number] [place] Calcium [Mass/Vol] 9.9 mg/dL Normal 8.5-10.2 [facility] Comment on above: Order Comment: Speci men Type: BLOOD SPECIMENOrdering Facility: [facility] Address: [address] [place], [place] [address] Performed By: #### 2 4323-8, 9, 3, 28231-7 ####[facility] LABIA [id number] [place] [address] [place] Chloride [Moles/Vol] 102 mmol/L Normal 98-107 [facility] Comment on above: Order Comment: Speci men Type: BLOOD SPECIMENOrdering Facility: [facility] Address: [address] [place] [address] Performed By: #### 2 4323, 2131-12, 3015-3, ####[facility] LABCLIA [id number] [place] [id number] [place] CO2 [Moles/Vol] 27 mmol/L Normal 22-30 [facility] Comment on above: Order Comment: Speci men Type: BLOOD SPECIMENOrdering Facility: [facility] Address: [address] [place] [address] Performed By: #### 2 4323-8, 2131-12, 3, 47658-4 ####[facility] LABCLIA [id number] [place] [address] [place] Creatinine [Mass/Vol] 0.74 mg/dL Normal 0.58-0.96 [facility] Comment on above: Order Comment: Speci men Type: BLOOD SPECIMENOrdering Facility: [facility] Address: [address] [place] [address] Performed By: #### 2 432-8, 2131-12, 3015-06, ####[facility] LABCLIA [id number] [place] [address] [place] Creatinine and Glomerular filtration rate.predicted panel (S/P/Bld) 81 mL/min/1.73m??? Normal >=60 [facility] Comment on above: Order Comment: Speci men Type: BLOOD SPECIMENOrdering Facility: [facility] Address: [address] [place] [address] Result Comment: Zainab mated Glomerular Filtration Rate (eGFR) is calculated using the 2020 CKD-EPI creatinine equation. This equation utilizes serum creatinine, sex, and age as parameters. The creatinine assay has traceable calibration to isotope dilution-mass spectrometry. Refer to KDIGO guidelines for clinical interpretation. In patients with unstable renal function, e.g. those with acute kidney injury, the eGFR may not accurately reflect actual GFR. Performed By: #### 2 4323-8, 9, 3015-3, 21513-7 ####[facility] LABCLIA [id number] [place] [address] [place] Glucose [Mass/Vol] 95 mg/dL Normal 74-99 [facility] Comment on above: Order Comment: Speci men Type: BLOOD SPECIMENOrdering Facility: [facility] Address: [address] [place] [address] Result Comment: The [place] Diabetes Association (ADA) provides guidance for cutoff values for fasting glucose and random glucose. The ADA defines fasting as no caloric intake for at least 8 hours. Fasting plasma glucose results between 100 to 125 mg/dL indicate increased risk for diabetes (prediabetes). Fasting plasma glucose results greater than or equal to 126 mg/dL meet the criteria for diagnosis of diabetes. In the absence of unequivocal hyperglycemia, results should be confirmed by repeat testing. In a patient with classic symptoms of hyperglycemia or hyperglycemic crisis, random plasma glucose results greater than or equal to 200 mg/dL meet the criteria for diagnosis of diabetes. Reference: Standards of Medical Care in Diabetes 2016, [place] [employer] Association. Diabetes Care. 2016.39(Suppl 1). Performed By: #### 2 4323-8, 2132-9, 3016-3, 22723-4 ####[facility] LABIA [id number] [place] [address] [place] Potassium [Moles/Vol] 4.3 mmol/L Normal 3.7-5.1 [facility] Comment on above: Order Comment: Speci men Type: BLOOD SPECIMENOrdering Facility: [facility] Address: [address] [place] [address] Performed By: #### 2 4323-8, 213-9, 3016-3, 97281-9 ####[facility] LABIA [id number] [place] [address] [place] Protein [Mass/Vol] 7.0 g/dL Normal 6.3-8.0 [facility] Comment on above: Order Comment: Speci men Type: BLOOD SPECIMENOrdering Facility: [facility] Address: [address] [place] [address] Performed By: #### 2 4323-8, 2132-9, 3016-3, 20827-8 ####[facility] LABCLIA [id number] [place] [id number] [place] Sodium [Moles/Vol] 141 mmol/L Normal 136-144 [facility] Comment on above: Order Comment: Speci men Type: BLOOD SPECIMENOrdering Facility: [facility] Address: [address] [place] [address] Performed By: #### 2 4323-8, 2132-9, 3016-3, 13107-1 ####[facility] LABCLIA [id number] [place] [id number] [place] Urea nitrogen [Mass/Vol] 24 mg/dL High 7-21 [facility] Comment on above: Order Comment: Speci men Type: BLOOD SPECIMENOrdering Facility: [facility] Address: [address] [place] [address] Performed By: #### 2 4323-8, 2132-9, 3016-3, 32836-3 ####[facility] LABCLIA [id number] [place] [id number] [place] ECHOon 01-31-2024 Echocardiography Echocardiography Report: Transthoracic Echo [facility] Date of service: 01/31/2024 9:35:18 AM [employer] Ordering physician: NAZARIO ABDUL Indication: Syncope Technologist: Sri Nino [facility] Interpreting physician: Dre Elder MD PATIENT: Name: MRS. FLORIDALMA DENNIS : 1940 Age: 83 years Gender: F History of hypertension and dyslipidemia. Primary rhythm: sinus. Height: 167.60 cm BSA: 1.62 m Weight: 56.30 kg BMI: 20.0 kg/m Heart rate 65 bpm Blood pressure 163/66 mmHg Color Doppler was utilized to interrogate the cardiac valves assessed and spectral Doppler was utilized to determine the flow velocities and pressure gradients reported in this exam. Myocardial strain analysis was performed in this exam to aid in the assessment of cardiac function. MEASUREMENTS: Value Indexed Normal Max aortic dimension 3.3 cm Ao < 3.8 Left atrial volume 36 ml (biplane A-L) 22 ml/m Caroline <= 34 LV ID (diastole) 4.0 cm (2D) 2.45 cm/m LV ID (systole) 2.5 cm (2D) 1.55 cm/m IVS, leaflet tips 0.8 cm (2D) Posterior wall thickness 0.9 cm (2D) Left ventricular mass 96 g (2D) 60 g/m Global peak long strain -22.8 % LV stroke volume 37 ml (2D biplane) LV end diastolic volume 60 ml (2D biplane) 37.0 ml/m 29<=EDVi<62 LV end systolic volume 23 ml (2D biplane) 14.4 ml/m Ejection Fraction 61 % (2D biplane) EF > 54 FINDINGS: LEFT VENTRICLE The left ventricle is normal in size. Left ventricular systolic function is normal. Global LV myocardial strain is normal. Normal left ventricular diastolic function. Mitral annular lateral E/e': 8.5. Mitral annular septal E/e': 10.6. Wall Motion: All scored segments are normal. RIGHT VENTRICLE The right ventricle is normal in size. Right ventricular systolic function is normal. RV systolic tissue Doppler velocity is 12.0 cm/s. Estimated right ventricular systolic pressure is 33 mmHg consistent with normal pulmonary artery pressures. Estimated right atrial pressure is 8 mmHg based on IVC assessment. LEFT ATRIUM The left atrial cavity is normal in size. Pulmonary Veins: The pulmonary venous pattern showed normal systolic flow. RIGHT ATRIUM The right atrial cavity is normal in size. Inferior Vena Cava: The inferior vena cava appears normal measuring 1.7 cm. The vessel decreases less than 50 percent with inspiration. MITRAL VALVE The mitral valve leaflets are structurally normal. There is no mitral stenosis. There is no mitral valve regurgitation. The pressure half time is 43 msec. The peak mitral E/A ratio is 1.20. The average mitral E/e' ratio is 9.6. The mitral flow deceleration time is 147 msec. TRICUSPID VALVE The tricuspid valve leaflets are structurally normal. There is trace tricuspid valve regurgitation. AORTIC VALVE The aortic valve cusps are structurally normal. There is no aortic valve stenosis. There is trace aortic valve regurgitation. Tricuspid aortic valve. The peak gradient is 6 mmHg (peak velocity = 117.6 cm/s). PULMONIC VALVE The pulmonic valve cusps are structurally normal. There is no pulmonic stenosis. There is trace pulmonic valve regurgitation. AORTA The visualized aorta is normal in size. Measurements - Mid ascending aorta 3.3 cm. PERICARDIUM There is a small to moderate circumferential pericardial effusion. CONCLUSIONS: - Exam indication: Syncope - The left ventricle is normal in size. Left ventricular systolic function is normal. EF = 61 5% (2D biplane). Normal left ventricular diastolic function. - The right ventricle is normal in size. Right ventricular systolic function is normal. - There are no significant valvular abnormalities. - Small to moderate pericardial effusion with no echocardiographic features of pericardial tamponade. - The patient has not had a prior CC echocardiographic exam for comparison. * * * Final * * * [facility] [employer] [facility] [employer] : [id number] [id number] Normal [facility] Lipid 1996 panelon 4 Cholesterol [Mass/Vol] 213 mg/dL High <200 [facility] Comment on above: Order Comment: Micah rai Type: BLOOD SPECIMENOrdering Facility: [facility] Address: [address] [place] [address] Result Comment: <200 mg/dL, Desirable 200-239 mg/dL, Borderline high >239 mg/dL, High Performed By: #### 2 4323-8, 2132-9, 3016-3, 75381-1 ####[facility] LABCLIA [id number] [facility] [id number] [address] [place] Cholesterol in HDL [Mass/Vol] 73 mg/dL Normal >39 [facility] Comment on above: Order Comment: Micah rai Type: BLOOD SPECIMENOrdering Facility: [facility] Address: [address] [place] [address] Result Comment: 40-5 9 mg/dL, Acceptable >59 mg/dL, High: Negative risk factor for coronary heart disease <40 mg/dL, Low: Positive risk factor for coronary heart disease Performed By: #### 2 4323-8, 9, 3015-3, 34533-6 ####[facility] LABCLIA [id number] [place] [address] [place] Cholesterol in LDL [Mass/Vol] 119 mg/dL High <100 [facility] Comment on above: Order Comment: Speci men Type: BLOOD SPECIMENOrdering Facility: [facility] Address: [address] [place] [address] Result Comment: <100 mg/dL, Optimal 100-129 mg/dL, Near optimal/above optimal 130-159 mg/dL, Borderline high 160-189 mg/dL, High >189 mg/dL, Very high Secondary prevention optimal LDL Cholesterol levels are recommended to be < 70 mg/dL Performed By: #### 2 4323-8, 2131-12, 3, 63586-4 ####[facility] LABIA [id number] [address] [place] Cholesterol in LDL/Cholesterol in HDL [Mass ratio] 1.63 {ratio} Normal <2.54 [facility] Comment on above: Order Comment: Angyi men Type: BLOOD SPECIMENOrdering Facility: [facility] Address: [address] [place] [address] Result Comment: Refe rence: 1. National Cholesterol Education Program ATP III Guideline At-A-Glance Quick Desk Reference: National Heart, Lung, and Blood Finger. National Institutes of Health. 2001: NIH Publication No. 01-3305. 2. An International Atherosclerosis Society position paper: global recommendations for the management of dyslipidemia: executive summary, Atherosclerosis. 2014: 232(2):410-413. Performed By: #### 2 4323-8, 9, 3, 86403-5 ####[facility] LABCLIA [id number] [place] [id number] [place] Cholesterol in VLDL [Mass/Vol] 21 mg/dL Normal <30 [facility] Comment on above: Order Comment: Speci men Type: BLOOD SPECIMENOrdering Facility: [facility] Address: [address] [place] [address] Performed By: #### 2 4323-8, 2131-12, 3, 25201-8 ####[facility] LABCLIA [id number] [address] [address] [place] Cholesterol non HDL [Mass/Vol] 140 mg/dL High <130 [facility] Comment on above: Order Comment: Speci men Type: BLOOD SPECIMENOrdering Facility: [facility] Address: [address] [place] [address] Result Comment: <130 mg/dL, Optimal 130-159 mg/dL, Near optimal/above optimal 160-189 mg/dL, Borderline high 190-219 mg/dL, High >219 mg/dL, Very high Secondary prevention optimal non HDL Cholesterol levels are recommended to be <100 mg/dL Performed By: #### 2 432-8, 2131-12, 3, 20409-4 ####[facility] LABCLIA [id number] [place] [address] [place] Cholesterol.total/Cho lesterol in HDL [Mass ratio] 2.92 {ratio} Normal <5.10 [facility] Comment on above: Order Comment: Speci men Type: BLOOD SPECIMENOrdering Facility: [facility] Address: [address] [place] [address] Performed By: #### 2 4323-8, 2131-12, 3, 68597-1 ####[facility] LABCLIA [id number] [address] [address] [place] FASTING TIME 12 hrs Normal [facility] Comment on above: Order Comment: Speci men Type: BLOOD SPECIMENOrdering Facility: [facility] Address: [address] [place] [address] Performed By: #### 2 4323-8, 9, 3, 95204-1 ####[facility] LABCLIA [id number] [place] [address] [place] Triglyceride [Mass/Vol] 106 mg/dL Normal <150 [facility] Comment on above: Order Comment: Speci men Type: BLOOD SPECIMENOrdering Facility: [facility] Address: [address] [place] [address] Result Comment: <150 mg/dL, Normal 150-199 mg/dL, Borderline high 200-499 mg/dL, High >499 mg/dL, Very high Performed By: #### 2 4323-8, 2-9, 3016-3, 13107-6 ####[facility] LABCLIA [id number] [place] [address] [place] TSH SerPl-aCncon 01-31-2024 TSH Qn 2.690 m[IU]/L Normal 0.270-4.200 [facility] Comment on above: Order Comment: Speci men Type: BLOOD SPECIMENOrdering Facility: [facility] Address: [address] [place] [address] Performed By: #### 2 4323-8, 2132-9, 3016-3, 68423-4 ####[facility] LABIA [id number] [place] [address] [place] Vit B12 SerPl-mCncon 024 Cobalamin (Vitamin B12) [Mass/Vol] 373 pg/mL Normal 232-1245 [facility] Comment on above: Order Comment: Speci men Type: BLOOD SPECIMENOrdering Facility: [facility] Address: [address] [place] [address] Performed By: #### 2 4323-8, 2132-9, 3016-3, 18021-1 ####[facility] LABIA [id number] [place] [address] [place] CNPRiddhi 01-29-2024 CNPN Telephone (FAMPWS) FLORIDALMA DENNIS ([id number]) 1940 F Date Time Provider Department 01/29/24 NAZARIO ABDUL During your visit today, we recorded the following information about you: Cindy Ruth LPN 01/29/2024 3:37 PM Signed Pt calls to report she does not want to do echocardiogram that is scheduled for 01/31/24. Pt reports she just does not feel like going through any testing. Pt feels she was dehydrated and that is why she passed out. Pt is requesting appt for test be cancelled. PSS cancelled appt as requested. CONNER Bello Victor H, MD 01/29/2024 4:25 PM Signed Noted. Allergies As of Date: 01/29/2024 Noted Allergy Reaction PNEUMOVAX 23 (PNEUMOCOCCAL 23-KAT*11/28/2006 2 - Rash INFLUENZA VIRUS VACCINES 01/05/2021 2 - Rash 7 - Swelling SULFAMETHOXAZOLE-TRIME THOPRIM 05/18/2008 11 - Vomiting CIPROFLOXACIN 12/07/2016 8 - GI Upset DTP TOXOIDS ADSORBED (DIPHTHERIA,* 6 2 - Rash METRONIDAZOLE 12/07/2016 8 - GI Upset ZESTRIL (LISINOPRIL) 03/16/2005 AMPICILLIN 03/16/2005 6 - Diarrhea CRESTOR (ROSUVASTATIN CALCIUM) 03/16/2005 5 - Intolerance PENICILLINS 11/28/2016 8 - GI Upset PREDNISONE 12/07/2016 8 - GI Upset Date Reviewed: 01/21/2024 Reviewed by: Madhuri Preciado LPN - Fully Assessed Reason for Visit: cancel testing [Other] Prescriptions as of 01/29/2024 - meloxicam (MOBIC) 15 mg tablet Take 1 tablet by mouth once daily. With food. - atenolol (TENORMIN) 50 mg tablet Take 1 tablet by mouth once daily. - hydroCHLOROthiazide 25 mg tablet Take 1 tablet by mouth once daily. - pyridoxine hcl(VITAMIN B-6 100 MG TAB) Take one(1) tablet daily. - ergocalciferol(VITAMIN D 400 UNIT CAP) Take 400 Units by mouth every Sunday,Sunday,. Problem List As Of Date 01/29/2024 Noted Resolved BENIGN HYPERTENSION [I10] 12/05/2005 SCREENING MAL NEOP-COLON [Z12.11] 12/12/2005 11/20/2006 Hypercalcemia [E83.52] 12/30/2009 01/10/2016 Depressive disorder [F32.A] 12/11/2012 Hyperlipidemia LDL goal <130 [E78.5] 01/10/2016 Colitis [K52.9] 11/28/2016 01/05/2021 Osteopenia, senile [M85.80] 12/19/2017 Encounter Status:Closed by NAZARIO ABDUL on 01/29/24 [facility] CNOVon 01-21-2024 CNOV Office Visit (INTMWS ) FLORIDALMA DENNIS ([id number]) 1940 F Date Time Provider Department 01/21/24 2:20 PM NAZARIO ABDUL INTMWS During your visit today, we recorded the following information about you: Temperature Pulse Respiration Blood pressure 97.8 degrees 62/minute 20/minute 138/79 Weight 56.3 kg Nazario Abdul MD 01/21/2024 3:36 PM Signed This note was created using Novavaxriter. Subjective Floridalmashanique Dennis is a 83 year old female. Review of Systems ACTIVE PROBLEM LIST Essential Hypertension, Benign Depressive Disorder Hyperlipidemia Ldl Goal <130 Osteopenia, Senile Social History Tobacco Use Smoking status: Never Smokeless tobacco: Never Vaping Use Vaping status: Never Used Substance Use Topics Alcohol use: No Drug use: No Current Outpatient Medications Medication Sig meloxicam (MOBIC) 15 mg tablet Take 1 tablet by mouth once daily. With food. atenolol (TENORMIN) 50 mg tablet Take 1 tablet by mouth once daily. hydroCHLOROthiazide 25 mg tablet Take 1 tablet by mouth once daily. pyridoxine hcl(VITAMIN B-6 100 MG TAB) Take one(1) tablet daily. ergocalciferol(VITAMIN D 400 UNIT CAP) Take 400 Units by mouth every Sunday,Sunday, y. No current facility-administered medications for this visit. Objective BP 138/79 (BP Site: Right Arm, BP Position: Supine, BP Cuff Size: Large Adult) Pulse 62 Temp 36.6 ?C (97.8 ?F) (Temporal) Resp 20 Wt 56.3 kg (124 lb 1.9 oz) BMI 20.03 kg/m? Physical Exam Assessment and Plan Nazario Abdul MD 01/21/2024 3:36 PM Signed This note was created using Novavaxriter. Subjective Floridalma Dennis is a 83 year old female here with her son. She was helping at [employer] Jan. 2, feeling normal, sitting down in the back, was called, got up and walked to the front and passed out. She recovered uneventfully but also went to the ER where work up was negative. She was diagnosed with dehydration and orthostatic hypotension. She had no recurrence but yesterday felt somewhat weak. She acknowledged she was not good at hydration and oral intake. Her son also raised concern she was noted to be repeating her statements the past 4 months or more. She still lived alone, was involved with [employer], and independent. Review of Systems Constitutional: Negative for fatigue and fever. Respiratory: Negative for shortness of breath. Cardiovascular: Negative for chest pain and palpitations. Gastrointestinal: Negative for diarrhea, nausea and vomiting. Neurological: Negative for dizziness, weakness and headaches. Psychiatric/Behavioral : Negative for confusion. ACTIVE PROBLEM LIST Essential Hypertension, Benign Depressive Disorder Hyperlipidemia Ldl Goal <130 Osteopenia, Senile Social History Tobacco Use Smoking status: Never Smokeless tobacco: Never Vaping Use Vaping status: Never Used Substance Use Topics Alcohol use: No Drug use: No Current Outpatient Medications Medication Sig meloxicam (MOBIC) 15 mg tablet Take 1 tablet by mouth once daily. With food. atenolol (TENORMIN) 50 mg tablet Take 1 tablet by mouth once daily. hydroCHLOROthiazide 25 mg tablet Take 1 tablet by mouth once daily. pyridoxine hcl(VITAMIN B-6 100 MG TAB) Take one(1) tablet daily. ergocalciferol(VITAMIN D 400 UNIT CAP) Take 400 Units by mouth every Sunday,Sunday,. No current facility-administered medications for this visit. Objective BP 138/79 (BP Site: Right Arm, BP Position: Supine, BP Cuff Size: Large Adult) Pulse 62 Temp 36.6 ?C (97.8 ?F) (Temporal) Resp 20 Wt 56.3 kg (124 lb 1.9 oz) BMI 20.03 kg/m? Physical Exam Constitutional: Appearance: Normal appearance. HENT: Head: Atraumatic. Eyes: Extraocular Movements: Extraocular movements intact. Conjunctiva/sclera: Conjunctivae normal. Cardiovascular: Rate and Rhythm: Normal rate and regular rhythm. Pulses: Normal pulses. Heart sounds: No murmur heard. No gallop. Pulmonary: Breath sounds: Normal breath sounds. Musculoskeletal: Right lower leg: No edema. Left lower leg: No edema. Neurological: General: No focal deficit present. Mental Status: She is alert. Gait: Gait normal. Assessment and Plan 1. Syncope, unspecified syncope type - ICD9: 780.2, ICD10: R55 (primary diagnosis) - ECHO - PERFLUTREN LIPID MICROSPHERES 1.1 MG/ML INJECTION IN NS 10 ML - SODIUM CHLORIDE 0.9 % (FLUSH) INJECTION SYRINGE 2. Essential hypertension, benign - ICD9: 401.1, ICD10: I10 Fair. - Continue current medications - Reviewed risks of hypertension and principles of treatment 3. Cognitive change - ICD9: 799.59, ICD10: R41.89 Per HPI. - COMPLETE BLOOD COUNT - THYROID STIMULATING HORMONE - VITAMIN B12 4. Hyperlipidemia LDL goal <130 - ICD9: 272.4, ICD10: E78.5 - Control undetermined, due for labs - COMPREHENSIVE METABOLIC PANEL - L (more content not included)... Normal [facility] Anny 01-17-2024 XAVIER Telephone (INTMWS) FLORIDALMA DENNIS ([id number]) 1940 F Date Time Provider Department 01/17/24 NAZARIO ABDUL During your visit today, we recorded the following information about you: Susan Mireles LPN 01/17/2024 2:23 PM Signed Left a message for pt to call the office to set up a [facility] ER FU from 01-16-24. Son Nazanin Dennis called to give information regarding pt. He is not listed that we are able to give any information out. Information taken: Pt passed out at [employer] 01/16/24 and was taken to [facility] ER. Vital signs were good, but pt was dehydrated and was given fluids. Pt to schedule a R FU. Family concern: pt is not eating or drinking properly, forgetful. Per son people from pt's [employer] also concerned pt is starting to have cognitive issues that becoming noticeable. Son hoping to get this evaluated for pt's health. When pt calls back ask if we can have permission to speak with Jefferson Connors and any one else. CONNER Rodriguez Kim E, LPN 01/21/2024 1:01 PM Signed son Nazanin calling back stating concern for mother. Patient is getting thinner and not eating much not drinking water. Patient is getting lightheaded. Advised patient's son that we can get an appointment for ER follow up today if she is willing to come in to see . Jefferson Connors will be calling back. CONNER Key Amanda, ANABELLE 01/21/2024 1:32 PM Signed Pts son called in and requested to have the 220 pm appointment today with Dr Abdul. Let son know that when he brings Pt in that she needs to give consent for son and daughter to be able to receive medical information about Pt and make appointments. Son said mother had been to [facility] ER 2 weekends ago, passed out due to dehydration. States she isn't drinking more water and almost passed out today. He states you can't tell her what to do. He states she is getting thinner and cognitively she is having issues. I let Pt know it would be best is he could go in with Pt and let him know about this issues if Pt will not. He states she can get aggressive and clam up. I asked him about her medications and he said her pill bottles are there and she takes them herself, but can't tell if she is taking them how she is supposed to. I let him know there are pharmacies that can do pill packs, and thins is something he could talk with provider about and we could consult with CM if necessary. If providers office could pull [facility] ER records from [facility] for provider that would be appreciated. Allergies As of Date: 01/17/2024 Noted Allergy Reaction PNEUMOVAX 23 (PNEUMOCOCCAL 23-KAT*11/28/2006 2 - Rash INFLUENZA VIRUS VACCINES 01/05/2021 2 - Rash 7 - Swelling SULFAMETHOXAZOLE-TRIME THOPRIM 05/18/2008 11 - Vomiting CIPROFLOXACIN 12/07/2016 8 - GI Upset DTP TOXOIDS ADSORBED (DIPHTHERIA,* 6 2 - Rash METRONIDAZOLE 12/07/2016 8 - GI Upset ZESTRIL (LISINOPRIL) 03/16/2005 AMPICILLIN 03/16/2005 6 - Diarrhea CRESTOR (ROSUVASTATIN CALCIUM) 03/16/2005 5 - Intolerance PENICILLINS 11/28/2016 8 - GI Upset PREDNISONE 12/07/2016 8 - GI Upset Date Reviewed: 05/23/2023 Reviewed by: Wanda Beaver, JITNEY DRIVER.GUIDE CRUISE - Fully Assessed Reason for Visit: future apt - ER FU needed [Other] Prescriptions as of 01/23/2024 - meloxicam (MOBIC) 15 mg tablet Take 1 tablet by mouth once daily. With food. - atenolol (TENORMIN) 50 mg tablet Take 1 tablet by mouth once daily. - hydroCHLOROthiazide 25 mg tablet Take 1 tablet by mouth once daily. - pyridoxine hcl(VITAMIN B-6 100 MG TAB) Take one(1) tablet daily. - ergocalciferol(VITAMIN D 400 UNIT CAP) Take 400 Units by mouth every Sunday,Sunday, y. Problem List As Of Date 01/17/2024 Noted Resolved BENIGN HYPERTENSION [I10] 12/05/2005 SCREENING MAL NEOP-COLON [Z12.11] 12/12/2005 11/20/2006 Hypercalcemia [E83.52] 12/30/2009 01/10/2016 Depressive disorder [F32.A] 12/11/2012 Hyperlipidemia LDL goal <130 [E78.5] 01/10/2016 Colitis [K52.9] 11/28/2016 01/05/2021 Osteopenia, senile [M85.80] 12/19/2017 Encounter Status:Closed by SUSAN MIRELES on 01/23/24 Normal [facility] 12 Lead EKGon 01-16-2024 12 Lead EKG [facility] Cardiovascular Services [address] [facility] [place] [address] 12 Lead EKG 01/16/24 1714 MR#: [id number] Acct: [id number] Name: FLORIDALMA DENNIS Rep #: [id number] : 1940 83 From: Wing Sarkar MD Attending Dr: Status: DEP ER Ordering Dr: Rik Love MD Date: 01/16/24 Location: ED Sex: F C Admitted: Test Reason : Blood Pressure : / mmHG Vent. Rate : 053 BPM Atrial Rate : 053 BPM P-R Int : 168 ms QRS Dur : 084 ms QT Int : 464 ms P-R-T Axes : 066 -21 034 degrees QTc Int : 435 ms Sinus bradycardia Otherwise normal ECG Confirmed by WING SARKAR MD ([id number]), slot editor IRMA FREEDMAN ([id number]) on 01/18/2024 6:28:24 AM Referred By: Confirmed By:WING SARKAR MD 01/18/24 0628 Date Wing Sarkar MD CC: Dr. Rik Love MD; Dr. Nazario Abdul MD Signed Normal [facility] Basic Metabolic Profile (BMP )on 01-16-2024 BUN/CRE 32.1 RATIO High 02-02 [facility] Comment on above: Order Comment: 1 Y Performed By: #### L 501.5425, L500.2500, L100.0100 #### [facility] [address] [place], [address] CA,Total 9.3 mg/dL Normal 8.5-10.1 [facility] Comment on above: Order Comment: 1 Y Performed By: #### L 501.5425, L500.2500, L100.0100 #### [facility] [address] [place], [address] Chloride [Moles/Vol] 104 mmol/L Normal 98-107 [facility] Comment on above: Order Comment: 1 Y Performed By: #### L 501.5425, L500.2500, L100.0100 #### [facility] [address] [place], [address] CO2 [Moles/Vol] 27.0 mmol/L Normal 21.0-32.0 [facility] Comment on above: Order Comment: 1 Y Performed By: #### L 501.5425, L500.2500, L100.0100 #### [facility] [address] [place], [address] Creatinine [Mass/Vol] 0.94 mg/dL Normal 0.55-1.02 [facility] Comment on above: Order Comment: 1 Y Result Comment: The validity of the calculated GFR GFRAA in patients over 70 years has not been determined. Clinical correlation is essential. Performed By: #### L 501.5425, L500.2500, L100.0100 #### [facility] [address] [place], [address] ECRCL 43.20 ml/min Normal [facility] Comment on above: Order Comment: 1 Y Performed By: #### L 501.5425, L500.2500, L100.0100 #### [facility] [address] [place], [address] EST GFR - AA 74 mL/min Normal >60 [facility] Comment on above: Order Comment: 1 Y Result Comment: Afri can Ghanaian GFR Calc Performed By: #### L 501.5425, L500.2500, L100.0100 #### [facility] [address] [place], [address] GAP 7 Normal 5-15 [facility] Comment on above: Order Comment: 1 Y Performed By: #### L 501.5425, L500.2500, L100.0100 #### [facility] [address] [place], [address] GFR/1.73 sq M.predicted among non-blacks MDRD (S/P/Bld) [Vol rate/Area] 61 mL/min/{1.73_m2} Normal >60 [facility] Comment on above: Order Comment: 1 Y Result Comment: Non- GFR Calc Performed By: #### L 501.5425, L500.2500, L100.0100 #### [facility] [address] [place], [address] Glucose [Mass/Vol] 114 mg/dL High 74-106 [facility] Comment on above: Order Comment: 1 Y Result Comment: Fast ing Glucose result from 100 to 125 mg/dL suggests IMPAIRED HOMEOSTASIS per A.D.A. criteria. Performed By: #### L 501.5425, L500.2500, L100.0100 #### [facility] [address] [place], [address] Potassium [Moles/Vol] 3.5 mmol/L Normal 3.5-5.1 [facility] Comment on above: Order Comment: 1 Y Performed By: #### L 501.5425, L500.2500, L100.0100 #### [facility] [address] [place], [address] Sodium [Moles/Vol] 139 mmol/L Normal 136-145 [facility] Comment on above: Order Comment: 1 Y Performed By: #### L 501.5425, L500.2500, L100.0100 #### [facility] [address] [place], [address] Urea nitrogen [Mass/Vol] 30 mg/dL High 7-18 [facility] Comment on above: Order Comment: 1 Y Performed By: #### L 501.5425, L500.2500, L100.0100 #### [facility] [address] [place], [address] CBC W/Diff, Automatedon 10-0 2-2023 Absolute Lymph 1.40 X10 3/uL Normal 0.83-4.51 [facility] Comment on above: Performed By: #### L 501.5425, L500.2500, L100.0100 #### [facility] [address] [place], [address] Absolute Neut 3.9 X10 3/uL Normal 2.0-7.7 [facility] Comment on above: Performed By: #### L 501.5425, L500.2500, L100.0100 #### [facility] [address] [place], [address] Basophils/100 WBC (Bld) 0.5 % Normal 0-1 [facility] Comment on above: Performed By: #### L 501.5425, L500.2500, L100.0100 #### [facility] [address] [place], [address] Eosinophils/100 WBC (Bld) 3.7 % Normal 0-5 [facility] Comment on above: Performed By: #### L 501.5425, L500.2500, L100.0100 #### [facility] [address] [place], [address] Erythrocyte distribution width (RBC) [Ratio] 12.1 % Normal 11.6-14.6 [facility] Comment on above: Performed By: #### L 501.5425, L500.2500, L100.0100 #### [facility] [address] [place], [address] Hematocrit (Bld) [Volume fraction] 42.7 % Normal 37-47 [facility] Comment on above: Performed By: #### L 501.5425, L500.2500, L100.0100 #### [facility] [address] [place], [address] Hemoglobin (Bld) [Mass/Vol] 13.7 g/dL Normal 12.0-15.0 [facility] Comment on above: Performed By: #### L 501.5425, L500.2500, L100.0100 #### [facility] [address] [place], [address] IG% 0.300 Normal 0.0-0.9 [facility] Comment on above: Result Comment: IG% - Immature Granulocytes (promyelocytes, myelocytes and metamyelocytes) > 1% indicates that a LEFT SHIFT is Present. Performed By: #### L 501.5425, L500.2500, L100.0100 #### [facility] [address] [place], [address] Lymphocytes/100 WBC (Bld) 22.6 % Normal 19-41 [facility] Comment on above: Performed By: #### L 501.5425, L500.2500, L100.0100 #### [facility] [address] [place], [address] MCH (RBC) [Entitic mass] 29.9 pg Normal 27.0-32.0 [facility] Comment on above: Performed By: #### L 501.5425, L500.2500, L100.0100 #### [facility] [address] [place], [address] MCHC (RBC) [Mass/Vol] 32.1 g/dL Normal 32-36 [facility] Comment on above: Performed By: #### L 501.5425, L500.2500, L100.0100 #### [facility] [address] [place], [address] MCV (RBC) [Entitic vol] 93.2 fL Normal 81-99 [facility] Comment on above: Performed By: #### L 501.5425, L500.2500, L100.0100 #### [facility] [address] [place], [address] Monocytes/100 WBC (Bld) 10.7 % High 0-10 [facility] Comment on above: Performed By: #### L 501.5425, L500.2500, L100.0100 #### [facility] [address] [place], [address] Neutrophils/100 WBC (Bld) 62.2 % Normal 47-70 [facility] Comment on above: Performed By: #### L 501.5425, L500.2500, L100.0100 #### [facility] [address] [place], [address] Nucleated RBC (Bld) [#/Vol] 0 10*3/uL Normal 0-5 [facility] Comment on above: Performed By: #### L 501.5425, L500.2500, L100.0100 #### [facility] [address] [place], [address] Platelet mean volume (Bld) [Entitic vol] 10.9 fL Normal 6.2-12.0 [facility] Comment on above: Performed By: #### L 501.5425, L500.2500, L100.0100 #### [facility] [address] [place], [address] Platelets (Bld) [#/Vol] 192 10*3/uL Normal 150-450 [facility] Comment on above: Performed By: #### L 501.5425, L500.2500, L100.0100 #### [facility] [address] [place], [address] RBC (Bld) [#/Vol] 4.58 10*6/uL Normal 4.2-5.4 [facility] Comment on above: Performed By: #### L 501.5425, L500.2500, L100.0100 #### [facility] [address] [place], [address] RDW SD 41.5 fl Normal 35.1-43.9 [facility] Comment on above: Performed By: #### L 501.5425, L500.2500, L100.0100 #### [facility] [address] [place], [address] WBC (Bld) [#/Vol] 6.2 10*3/uL Normal 4.4-11.0 [facility] Comment on above: Performed By: #### L 501.5425, L500.2500, L100.0100 #### [facility] [address] [place], [address] Chest 1 View (Portable)on Chest 1 View (Portable) [facility] Imaging Services [address] [place] [address] Chest 1 View (Portable) MR#: [id number] Acct: [id number] Name: FLORIDALMA DENNIS Rep #: [id number] : 1940 F 83 From: Nick García MD PCP: Dr. Nazario Abdul MD Status: [facility] ER Study: Chest 1 View (Portable) Date of Exam: 01/16/24 Exam# [id number] Ordering Dr: Rik Love MD [id number] INDICATION: syncope EXAMINATION/TECHNIQUE: X-RAY - portable upright AP chest x-ray COMPARISON: 06/23/2008 FINDINGS: LINES/DEVICES: None. LUNGS: No consolidation, edema or effusion. No pneumothorax. MEDIASTINUM AND CARDIOVASCULAR STRUCTURES: Mild enlargement of cardiac silhouette. BONES AND SOFT TISSUES: Unremarkable. RAD/Chest 1 View (Portable) IMPRESSION: Mild cardiomegaly versus pericardial effusion. No acute consolidative process. Electronically Signed: Nick García MD at 18:03 EDT , CC: Dr. Rik Love MD; Dr. Nazario Abdul MD Pipelines Manager: Signed Normal [facility] Emergency Department Summary on 01-16-2024 Emergency Department Summary [facility] Medical Records Department [address] [place] [address] Emergency Department Summary 01/16/24 MR#: [id number] Acct: [id number] Name: FLORIDALMA DENNIS Rep #: [id number] : 1940 83 From: Rik Love MD PCP: Dr. Nazario Abdul MD Status:REG ER Location: ED HPI History of Present Illness Chief Complaint: Syncope Informant: patient and EMS Narrative Narrative: 83-year-old female had a syncopal episode and was brought by EMS. She states she was at [employer] and waiting for her friend to come and [facility] She had been sitting down for a while. She had not eaten anything today but she has had fluids. She got up and walked all the way down the aisle of the [place] which was a long way and she had no symptoms or problems. She remembers then getting to her friend and her friend asked her what was wrong and apparently she passed out but she had no prodromal symptoms or lightheadedness; this includes chest discomfort, dyspnea, headache, nausea, sweating, or focal neurologic symptom. Apparently she was down for 30-60 seconds or so, by the time she was aware and awake, the paramedics were there. She feels fine now. She does not feel like she injured herself. She has never had this happen before. She has had no recent medication changes. [facility] Medical History HTN (hypertension) Contact dermatitis due to poison haily Home Medications ???Medication ???Instructions ???Recorded ???Last Taken ???Type atenolol 50 mg tablet 50 mg PO QHS 11/24/16 12/07/16 23:00 History hydrochlorothiazide 25 mg tablet 25 mg PO QHS 11/24/16 12/07/16 23:00 History methylprednisolone 4 mg tablets in See Rx Instructions PO PER PKG DIR 09/15/21 Unknown Rx a dose pack (Medrol (Cory)) #21 tabs prednisone 10 mg tablet 10 mg PO DAILY #30 tabs 01/12/22 Unknown Rx Allergy/AdvReac Type Severity Reaction Status Date / Time ciprofloxacin (From Cipro) AdvReac Nausea Verified 03/11/23 11:55 metronidazole (From Flagyl) AdvReac Nausea Verified 03/11/23 11:55 Penicillins AdvReac Diarrhea Verified 03/11/23 11:55 prednisone AdvReac Nausea/Vom/ Verified 03/11/23 11:55 Diarrhea Social History Smoking Status: Never smoker ROS ROS ED Constitutional Constitutional ED: Denies chills or fever(s) Eyes Eyes: Denies change in vision or diplopia ENT ENT ED: Denies rhinorrhea or sore throat Cardiovascular Cardiovascular: Reports as per HPI and syncope; Denies chest pain, leg edema or palpitations Respiratory/Chest Respiratory/Chest: Denies cough or dyspnea Gastrointestinal Gastrointestinal: Denies abdominal pain, diarrhea, nausea or vomiting Genitourinary Genitourinary ED: Denies dysuria or hematuria Musculoskeletal Musculoskeletal: Denies back pain, extremity pain or neck pain Integumentary Denies abscess or rash Neurologic Neurologic: Denies headache(s), paresthesias or weakness Psychiatric Psychiatric: Denies anxiety or suicidal thoughts EXAM Physical Exam Const Vital Signs: 01/16/24 16:43 01/16/24 16:54 01/16/24 16:54 Temperature 98.3 F Temperature Source Oral Pulse Rate 56 L 59 L Pulse Rate [Lying] Pulse Rate [Sitting (for 1 minute prior to obtaining)] Pulse Rate [Standing (for 1 minute prior to obtaining)] Respiratory Rate 16 15 Respiratory Effort Normal Non-Labored Respiratory Pattern Normal Blood Pressure 145/58 H 128/56 H Blood Pressure [Lying] Blood Pressure [Sitting (for 1 minute prior to obtaining)] Blood Pressure [Standing (for 1 minute prior to obtaining)] Blood Pressure Mean 87 80 Blood Pressure Mean [Lying] Blood Pressure Mean [Sitting (for 1 minute prior to obtaining)] Blood Pressure Mean [Standing (for 1 minute prior to obtaining)] Pulse Ox 98 97 Oxygen Delivery Method Room Air Room Air 01/16/24 17:40 01/16/24 17:40 Temperature Temperature Source Pulse Rate Pulse Rate [Lying] 54 L Pulse Rate [Sitting (for 1 minute prior to obtaining)] 59 L Pulse Rate [Standing (for 1 minute prior to obtaining)] 64 Respiratory Rate Respiratory Effort Respiratory Pattern Blood Pressure Blood Pressure [Lying] 134/58 H Blood Pressure [Sitting (for 1 minute prior to obtaining)] 162/64 H Blood Pressure [Standing (for 1 minute prior to obtaining)] 158/66 H Blood Pressure Mean Blood Pressure Mean [Lying] 83 Blood Pressure Mean [Sitting (for 1 minute prior to obtaining)] 96 Blood Pressure Mean [Standing (for 1 minute prior to obtaining)] 96 Pulse Ox Oxygen Delivery Method Room Air Positive well nourished and well developed General Appearance ED: well developed and NAD HEENT Repor (more content not included)... Normal [facility] L501.4020on 01-16-2024 TROPONIN-I HS 6 pg/mL Normal 3.0-54.0 [facility] Comment on above: Result Comment: Luz pink Note: New Test Units and Gender Specific Reference Ranges. For more information see Policy Stat Procedure [place] High Sensitivity Troponin (TNIH) and attachments. Performed By: #### L 501.4020 #### [facility] [address] [place], [place], [id number] L501.5425on 01-16-2024 TROPONIN-I HS 6 pg/mL Normal 3.0-54.0 [facility] Comment on above: Order Comment: 1 Y Result Comment: Luz se Note: New Test Units and Gender Specific Reference Ranges. For more information see Policy Stat Procedure [place] High Sensitivity Troponin (TNIH) and attachments. Performed By: #### L 501.5425, L500.2500, L100.0100 #### [facility] [place], [address] XR CERV OTHER 4V AP/LAT/OBLo n 05-23-2023 [facility] XR Cervical spine AP and Lat eral and obliqueon 05-23-2023 IMPRESSION: DEGENERATIVE CHANGE AND ALIGNMENT ABNORMALITIES DESCRIBED Pipelines Manager: HANANE Transcribe Date/Time: May 23 2023 3:33P Dictated by : YOGI LANZA MD This examination was interpreted and the report reviewed and electronically signed by: YOGI LANZA MD on May 23 2023 3:34PM [facility] DIVISION OF RADIOLOGY * * *Final Report* * * DATE OF EXAM: May 23 2023 1:18PM [facility] [id number] - XR CERVICAL 4V AP/LAT/OBL / PROCEDURE REASON: Neck pain * * * * Physician Interpretation * * * * Examination: XR CERVICAL 4V AP/LAT/OBL History: Neck pain Technique: XR CERVICAL 4V AP/LAT/OBL Comparison: None RESULT: Anterior position of C4 on C5. Posterior position of C5 on C6. Mild C5-6 and C6-7 disc space narrowing and osteophytosis. No fracture or prevertebral swelling. Marginal osteophytes bilaterally at C5-6 and C6-7, without significant foraminal encroachment DIVISION OF RADIOLOGY [facility] * * *Final Report* * * DATE OF EXAM: May 23 2023 1:18PM [facility] [id number] - XR CERVICAL 4V AP/LAT/OBL / PROCEDURE REASON: Neck pain * * * * Physician Interpretation * * * * Examination: XR CERVICAL 4V AP/LAT/OBL History: Neck pain Technique: XR CERVICAL 4V AP/LAT/OBL Comparison: None RESULT: Anterior position of C4 on C5. Posterior position of C5 on C6. Mild C5-6 and C6-7 disc space narrowing and osteophytosis. No fracture or prevertebral swelling. Marginal osteophytes bilaterally at C5-6 and C6-7, without significant foraminal encroachment IMPRESSION IMPRESSION: DEGENERATIVE CHANGE AND ALIGNMENT ABNORMALITIES DESCRIBED Pipelines Manager: HANANE Transcribe Date/Time: May 23 2023 3:33P Dictated by : YOGI LANZA MD This examination was interpreted and the report reviewed and electronically signed by: YOGI LANZA MD on May 23 2023 3:34PM EST [facility] Radiology Study observation (narrative) [facility] XR Cervical spine AP and Lat eral and obliqueOrdered By: [facility] Provider on 05-23-2023 [facility] Urgent Care Visit Reporton 1 05-11-2022 Urgent Care Visit Report [facility] [address], [address] [place] [address] OFFICE VISIT Date of Service: 03/11/23 MR#: [id number] Acct: [id number] Name: FLORIDALMA DENNIS Rep #: [id number] : 1940 Provider: HOWARD cao Age/Sex: 83/F Location: [facility] Status: Signed Intake Vital Signs 09/14/21 12:58 03/11/23 11:55 Height 5 ft 6 in BP 130/78 H Blood Pressure Location Lt brachial Position Sitting Respiration 14 Pulse 85 Pulse Source Monitor Temp 98.5 F Temp Source Temporal Pulse Oximetry (%) 96 Oxygen Delivery Method room air Intake Visit Reasons: COVID TEST/NEG SYMPTOMS Chief Complaint: COVID-19 testing Allergies ciprofloxacin [From Cipro] Adverse Reaction (Verified 03/11/23 11:55) Nausea metronidazole [From Flagyl] Adverse Reaction (Verified 03/11/23 11:55) Nausea Penicillins Adverse Reaction (Verified 03/11/23 11:55) Diarrhea prednisone Adverse Reaction (Verified 03/11/23 11:55) Nausea/Vom/Diarrhea PFSH Medical History (Updated 03/11/23 @ 12:18 by Stepan Paul WINCHMAN/CRANE OPERATOR, WINCHMAN/CRANE OPERATOR-C) Contact dermatitis due to poison haily Social History Smoking Status: Never smoker HPI HPI Chief Complaint: COVID-19 testing Details: FLORIDALMA DENNIS, is a 83 F who presents to the office today for concerns to rule out COVID-19 infection as 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 ROS Const Constitutional: No body ache, chills, fatigue, fever(s), headache(s) or change in appetite Eyes Eyes: No change in vision ENT ENT: No ear or mastoid pain, ear discharge, ear pressure, tinnitus, dizziness/vertigo, nosebleed/epistaxis, nasal congestion, sinus pressure, sinus pain, nasal discharge, post nasal drip, headache(s), difficulty swallowing, hoarseness or sore throat Resp Respiratory: No cough, change in phlegm color, chest congestion, hemoptysis, pain on inspiration, shortness of breath, pain with cough, stridor or wheezing Cardio Cardiology: No chest pain at rest, chest pain with exertion, shortness of breath, dyspnea on exertion or lightheadedness Gastro GI: No abdominal pain, change in bowel habits or difficulty swallowing Neuro Neurology: No headache(s) Psych Psychiatric: No change in appetite Endo Endocrine: No fatigue Aller/Imm Allergy/Immunologic: No wheezing Exam Const General: cooperative, healthy appearing, comfortable and no acute distress Orientation: alert, awake and oriented x3 HENMT Head: normal to inspection and normocephalic Ears: hearing grossly normal bilaterally, external ears normal, TM normal on the right and unable to visualize TM on the left (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) Nose: external nose normal, nares normal and no nasal discharge Face and sinus: normal facial exam and sinuses nontender Mouth: oral mucosae normal, lip normal, tongue normal, oropharynx normal and moist mucous membranes Throat: posterior oropharynx normal, tonsils normal, uvula midline and no postnasal drainage Eyes General: appearance normal, both eyes and all related structures Neck Neck: normal visual inspection and no lymphadenopathy Carotids: normal carotid upstroke Lymphatic: no lymphadenopathy noted Chest Chest palpation inspection: normal inspection of the chest Resp Effort Inspection: normal respiratory effort, able to speak in complete sentences, symmetric chest movement, no cough and no stridor Auscultation: Bilateral: Clear to Auscultation Cardio Rate: regular rate Rhythm: regular rhythm Heart Sounds: S1 normal, S2 normal and no murmurs GI Inspection: normal to inspection Auscultation: normal bowel sounds Palpation: soft Skin General: no rashes or lesions noted Neuro Speech: speech normal Extrem General: normal to inspection and capillary refill normal Results POC SARS AG POC SARS AG Negative Last Edit by Eloina Ponce on 03/11/23 12:04 Coding Level of Care Code Off vis,est,level 2 Diagnoses Upper respiratory tract infection, unspecified type J06.9 URI type: unspecified URI Assessment and Plan Assessment and Plan (1) URI (upper respiratory infection): Status: Acute Qualifiers: URI type: unspecified URI Qualified Code(s): J06.9 - Acute upper respiratory infection, unspecified Plan: Her COVID-19 testing was negative. She appears to have upper respiratory infection that is most likely viral in nature. Supportive measures reviewed with her. Red flag symptoms also reviewed with her. No changes made today. Written copy of test results provided. Orders: Orders POC Rapid SARS Antigen Today 03/11/23 1223 Date [facility] WINCHMAN/CRANE OPERATOR WINCHMAN/CRANE OPERATOR-C Cosigner Signature: Date (if applicabl (more content not included)... Normal [facility] SCREENINGon 08-14-2022 [facility] SCREENINGon 08-02-2021 [facility] Office Visit: [id number] Documentation of current medications (procedure) Done Invalid Interpretation Code [facility] Work Phone: Fall risk assessment No Invalid Interpretation Code [facility] Work Phone: Protein mass conc Done [facility] Work Phone: Tobacco smoking status NHIS Never smoker [facility] Work Phone: Tobacco use [facility] Never smoker Invalid Interpretation Code [facility] Work Phone: Vital Signs Date Time Vital Sign Value Performing Clinician Christina howe 10-28-2024 09:43-0400 Diastolic blood pressure 66 mm[Hg] Nazario Abdul MD Work Phone: [facility] 10-28-2024 09:43-0400 Heart rate 54 /min Nazario Abdul MD Work Phone: [facility] 10-28-2024 09:43-0400 Systolic blood pressure 150 mm[Hg] Nazario Abdul MD Work Phone: [facility] 10-28-2024 09:30-0400 Body mass index (BMI) [Ratio] 20.65 kg/m2 Nazario Abdul MD Work Phone: [facility] 10-28-2024 09:30-0400 Body weight 56.3 kg Nazario Abdul MD Work Phone: [facility] 10-28-2024 09:30-0400 Respiratory rate 20 /min Nazario Abdul MD Work Phone: [facility] 10-13-2024 09:33-0400 Body height 165.1 cm Meredith Soto MD Work Phone: [facility] 10-13-2024 09:33-0400 Body mass index (BMI) [Ratio] 20.53 kg/m2 Meredith Soto MD Work Phone: [facility] 10-13-2024 09:33-0400 Body weight 55.97 kg Meredith Soto MD Work Phone: [facility] 10-13-2024 09:33-0400 Diastolic blood pressure 90 mm[Hg] Meredith Soto MD Work Phone: [facility] 10-13-2024 09:33-0400 Heart rate 71 /min Meredith Soto MD Work Phone: [facility] 10-13-2024 09:33-0400 Respiratory rate 12 /min Meredith Soto MD Work Phone: [facility] 10-13-2024 09:33-0400 SaO2% (BldA) [Mass fraction] 96 % Meredith Soto MD Work Phone: [facility] 10-13-2024 09:33-0400 Systolic blood pressure 144 mm[Hg] Meredith Soto MD Work Phone: [facility] 05-30-2024 09:16-0500 Body mass index (BMI) [Ratio] 20.31 kg/m2 Nazario Abdul MD Work Phone: [facility] 05-30-2024 09:16-0500 Body weight 55.8 kg Nazario Abdul MD Work Phone: [facility] 05-30-2024 09:16-0500 Diastolic blood pressure 78 mm[Hg] Nazario Abdul MD Work Phone: [facility] 05-30-2024 09:16-0500 Heart rate 68 /min Nazario Abdul MD Work Phone: [facility] 05-30-2024 09:16-0500 Respiratory rate 16 /min Nazario Abdul MD Work Phone: [facility] 05-30-2024 09:16-0500 Systolic blood pressure 124 mm[Hg] Nazario Abdul MD Work Phone: [facility] 05-15-2024 11:44-0500 Body mass index (BMI) [Ratio] 20.82 kg/m2 Roberta Praisler-Wood JITNEY DRIVER.GUIDE CRUISE Work Phone: [facility] 05-15-2024 11:44-0500 Body temperature 98.4 [degF] Roberta Praisler-Wood JITNEY DRIVER.GUIDE CRUISE Work Phone: [facility] 05-15-2024 11:44-0500 Body weight 57.2 kg Roberta Praisler-Wood JITNEY DRIVER.GUIDE CRUISE Work Phone: [facility] 05-15-2024 11:44-0500 Diastolic blood pressure 72 mm[Hg] Roberta Praisler-Wood JITNEY DRIVER.GUIDE CRUISE Work Phone: [facility] 05-15-2024 11:44-0500 Heart rate 78 /min Roberta Praisler-Wood JITNEY DRIVER.GUIDE CRUISE Work Phone: [facility] 05-15-2024 11:44-0500 Respiratory rate 20 /min Roberta Praisler-Wood JITNEY DRIVER.GUIDE CRUISE Work Phone: [facility] 05-15-2024 11:44-0500 SaO2% (BldA) [Mass fraction] 98 % Roberta Cedeno JITNEY DRIVER.GUIDE CRUISE Work Phone: [facility] 05-15-2024 11:44-0500 Systolic blood pressure 153 mm[Hg] Roberta Cedeno APRN.GUIDE CRUISE Work Phone: [facility] 03-17-2024 09:47-0500 Body mass index (BMI) [Ratio] 19.91 kg/m2 Meredith Soto MD Work Phone: [facility] 03-17-2024 09:47-0500 Body weight 54.7 kg Meredith Soto MD Work Phone: [facility] 03-17-2024 09:47-0500 Diastolic blood pressure 80 mm[Hg] Meredith Soto MD Work Phone: [facility] 03-17-2024 09:47-0500 Heart rate 68 /min Meredith Soto MD Work Phone: [facility] 03-17-2024 09:47-0500 Respiratory rate 16 /min Meredith Soto MD Work Phone: [facility] 03-17-2024 09:47-0500 Systolic blood pressure 140 mm[Hg] Meredith Soto MD Work Phone: [facility] 02-28-2024 08:14-0500 Diastolic blood pressure 79 mm[Hg] Nazario Abdul MD Work Phone: [facility] 02-28-2024 08:14-0500 Heart rate 70 /min Nazario Abdul MD Work Phone: [facility] 02-28-2024 08:14-0500 Systolic blood pressure 145 mm[Hg] Nazario Abdul MD Work Phone: [facility] 02-28-2024 08:03-0500 Body height 165.7 cm Nazario Abdul MD Work Phone: [facility] 02-28-2024 08:03-0500 Body mass index (BMI) [Ratio] 20.21 kg/m2 Nazario Abdul MD Work Phone: [facility] 02-28-2024 08:03-0500 Body temperature 98.6 [degF] Nazario Abdul MD Work Phone: [facility] 02-28-2024 08:03-0500 Body weight 55.5 kg Nazario Abdul MD Work Phone: [facility] 01-21-2024 14:33-0400 Diastolic blood pressure 79 mm[Hg] Nazario Abdul MD Work Phone: [facility] 01-21-2024 14:33-0400 Heart rate 62 /min Nazario Abdul MD Work Phone: [facility] 01-21-2024 14:33-0400 Systolic blood pressure 138 mm[Hg] Nazario Abdul MD Work Phone: [facility] 01-21-2024 14:26-0400 Body mass index (BMI) [Ratio] 20.03 kg/m2 Nazario Abdul MD Work Phone: [facility] 01-21-2024 14:26-0400 Body temperature 97.81 [degF] Nazario Abdul MD Work Phone: [facility] 01-21-2024 14:26-0400 Body weight 56.3 kg Nazario Abdul MD Work Phone: [facility] 01-21-2024 14:26-0400 Respiratory rate 20 /min Nazario Abdul MD Work Phone: [facility] 05-23-2023 12:50-0500 Diastolic blood pressure 80 mm[Hg] Wanda Sd JITNEY DRIVER.GUIDE CRUISE Work Phone: [facility] 05-23-2023 12:50-0500 Systolic blood pressure 134 mm[Hg] Wanda Sd JITNEY DRIVER.GUIDE CRUISE Work Phone: [facility] 05-23-2023 12:38-0500 Body weight 56.7 kg Wanda Sd JITNEY DRIVER.GUIDE CRUISE Work Phone: [facility] 05-23-2023 12:38-0500 Heart rate 64 /min Wanda Sd JITNEY DRIVER.GUIDE CRUISE Work Phone: [facility] 05-23-2023 12:38-0500 Respiratory rate 12 /min Wanda Sd JITNEY DRIVER.GUIDE CRUISE Work Phone: [facility] 05-23-2023 12:38-0500 SaO2% (BldA) [Mass fraction] 93 % Wanda Sd JITNEY DRIVER.GUIDE CRUISE Work Phone: [facility] 03-14-2023 11:17-0500 Body temperature 97.5 [degF] Wanda Older JITNEY DRIVER.GUIDE CRUISE Work Phone: [facility] 03-14-2023 11:17-0500 Body weight 56.7 kg Wanda Older JITNEY DRIVER.GUIDE CRUISE Work Phone: [facility] 03-14-2023 11:17-0500 Diastolic blood pressure 80 mm[Hg] Wanda Older JITNEY DRIVER.GUIDE CRUISE Work Phone: [facility] 03-14-2023 11:17-0500 Heart rate 64 /min Wanda Older JITNEY DRIVER.GUIDE CRUISE Work Phone: [facility] 03-14-2023 11:17-0500 Respiratory rate 14 /min Wanda Older JITNEY DRIVER.GUIDE CRUISE Work Phone: [facility] 03-14-2023 11:17-0500 Systolic blood pressure 140 mm[Hg] Wanda Older JITNEY DRIVER.GUIDE CRUISE Work Phone: [facility] 02-24-2022 14:32-0500 Diastolic blood pressure 70 mm[Hg] Wanda Older JITNEY DRIVER.GUIDE CRUISE Work Phone: [facility] 02-24-2022 14:32-0500 Systolic blood pressure 132 mm[Hg] Wanda Older JITNEY DRIVER.GUIDE CRUISE Work Phone: [facility] 02-24-2022 14:02-0500 Body height 165.1 cm Wanda Older JITNEY DRIVER.GUIDE CRUISE Work Phone: [facility] 02-24-2022 14:02-0500 Body weight 57.88 kg Wanda Older JITNEY DRIVER.GUIDE CRUISE Work Phone: [facility] 02-24-2022 14:02-0500 Heart rate 68 /min Wanda Older JITNEY DRIVER.GUIDE CRUISE Work Phone: [facility] 02-24-2022 14:02-0500 Respiratory rate 12 /min Wanda Older JITNEY DRIVER.GUIDE CRUISE Work Phone: [facility] 11-28-2016 13:06-0400 BMI (Body Mass Index) 18.91 kg/m2 Herman Pulido MD [facility] [employer] Work Phone: 11-28-2016 13:06-0400 Body Temperature 98 [degF] Herman Pulido MD [facility] [employer] Work Phone: 11-28-2016 13:06-0400 BP Diastolic 69 mm[Hg] Herman Pulido MD [facility] [employer] Work Phone: 11-28-2016 13:06-0400 BP Systolic 127 mm[Hg] Herman Pulido MD [facility] [employer] Work Phone: 11-28-2016 13:06-0400 Height 167.64 cm Herman Pulido MD [facility] [employer] Work Phone: 11-28-2016 13:06-0400 Pulse (Heart Rate) 70 /min Herman Pulido MD [facility] [employer] Work Phone: 11-28-2016 13:06-0400 Respiratory Rate 16 /min Herman Pulido MD [facility] [employer] Work Phone: 11-28-2016 13:06-0400 Weight 53.16 kg Herman Pulido MD [facility] [employer] Work Phone: Encounters Encounter Date Encounter Type Care Provider Facility Start: 10-28-2024 End: 10-28-2024 Telephone encounter Nazario Abdul MD Work Phone: [facility] [place] Comment on above: Patient Update Start: 10-28-2024 End: 10-28-2024 Office outpatient visit 25 minutes Nazario Abdul MD Work Phone: [facility] [place] Comment on above: Essential hypertensi on, benign (Primary Dx); Cognitive change; Osteopenia, senile Start: 10-28-2024 End: 10-28-2024 ambulatory NAZARIO ABDUL Facility:[facility] Start: 10-13-2024 End: 10-13-2024 Patient encounter procedure Meredith Soto MD Work Phone: Cardiology Comment on above: Pericardial effusion (HCC) (Primary Dx); Essential hypertension, benign; Hyperlipidemia LDL goal <130 Start: 10-13-2024 End: 10-13-2024 ambulatory MEREDITH SOTO Facility:[facility] Start: 08-26-2024 End: 10-26-2024 Follow-up encounter Meredith Soto MD Work Phone: [facility] Start: 08-21-2024 End: 08-21-2024 ambulatory MEREDITH SOTO Facility:[facility] Start: 06-25-2024 End: 06-25-2024 Patient encounter procedure Teddy Mcclelland DO Work Phone: [facility] [place] Comment on above: Traumatic closed non displaced fracture of distal fibula, left, initial encounter (Primary Dx) Start: 06-25-2024 End: 06-25-2024 ambulatory TEDDY MCCLELLAND Facility:[facility] Start: 06-25-2024 End: 06-25-2024 Subsequent hospital visit by physician Lizzy [facility] [place] Alfaro Work Phone: Radiology Comment on above: Traumatic closed non displaced fracture of distal fibula, left, initial encounter [S82.832A] Start: 06-23-2024 End: 06-23-2024 Orders Only Teddy Mcclelland DO Work Phone: Orthopaedics Comment on above: Traumatic closed non displaced fracture of distal fibula, left, initial encounter (Primary Dx) Start: 05-30-2024 End: 05-30-2024 Patient encounter procedure Teddy Mcclelland DO Work Phone: [facility] [place] Comment on above: Traumatic closed non displaced fracture of distal fibula, left, initial encounter (Primary Dx) Start: 05-30-2024 End: 05-30-2024 Subsequent hospital visit by physician Lizzy [facility] [place] Alfaro Work Phone: Radiology Comment on above: Other closed fractur e of distal end of left fibula with routine healing, subsequent encounter [S82.832D] Start: 05-30-2024 End: 05-30-2024 ambulatory TEDDY LINNEA Facility:[facility] Start: 05-30-2024 End: 05-30-2024 Office outpatient visit 15 minutes Nazario Abdul MD Work Phone: [facility] [place] Comment on above: Pericardial effusion (Primary Dx); Essential hypertension, benign; Osteopenia, senile Start: 05-28-2024 End: 05-28-2024 Orders Only Teddy Mcclelland DO Work Phone: Orthopaedics Comment on above: Other closed fractur e of distal end of left fibula with routine healing, subsequent encounter (Primary Dx) Start: 05-16-2024 End: 05-16-2024 [facility] TEDDY LINNEA Facility:[facility] Start: 05-16-2024 End: 05-16-2024 Patient encounter procedure Teddy Mcclelland DO Work Phone: [facility] [place] Comment on above: Traumatic closed non displaced fracture of distal fibula, left, initial encounter (Primary Dx) Start: 05-15-2024 End: 05-15-2024 ambulatory ROBERTA CEDENO Facility:[facility] Start: 05-15-2024 End: 05-15-2024 Subsequent hospital visit by physician Lizzy [facility] [place] Work Phone: Radiology Comment on above: Injury of left ankle , initial encounter [S99.912A] Start: 05-15-2024 End: 05-15-2024 ambulatory NAZARIO ABDUL Facility:[facility] Start: 05-15-2024 End: 05-15-2024 Patient encounter procedure Roberta Cedeno JITNEY DRIVERAlenGUIDE CRUISE Work Phone: [facility] Comment on above: Injury of left ankle , initial encounter (Primary Dx); Foot injury, left, initial encounter Start: 04-29-2024 End: 05-05-2024 Telephone encounter Nazario Abdul MD Work Phone: [facility] [place] Comment on above: Bone Density Start: 04-24-2024 End: 04-24-2024 ambulatory NAZARIO ABDUL Facility:[facility] Start: 04-24-2024 End: 04-24-2024 Subsequent hospital visit by physician Bone Density [facility] Work Phone: Radiology Comment on above: Osteopenia, senile [ M85.80] Start: 03-17-2024 End: 03-17-2024 ambulatory MEREDITH SOTO Facility:[facility] Start: 03-17-2024 End: 03-17-2024 Patient encounter procedure Meredith Soto MD Work Phone: Cardiology Comment on above: Pericardial effusion Start: 02-28-2024 End: 02-28-2024 ambulatory NAZARIO ABDUL Facility:[facility] Start: 02-28-2024 End: 02-28-2024 Patient encounter procedure Nazario Abdul MD Work Phone: [facility] [place] Comment on above: Medicare annual [facility] visit, subsequent (Primary Dx); Encounter for screening examination for other mental health and behavioral disorders; Pericardial effusion; Essential hypertension, benign; Cognitive change; Depressive disorder; Hyperlipidemia LDL goal <130; Osteopenia, senile Start: 02-18-2024 End: 02-18-2024 ambulatory NAZARIO ABDUL Facility:[facility] Start: 02-04-2024 End: 02-06-2024 Telephone encounter Nazario Abdul MD Work Phone: [facility] [place] Comment on above: Results Referral order for C ardiology Start: 01-31-2024 End: 01-31-2024 ambulatory NAZARIO ABDUL Facility:[facility] Start: 01-29-2024 End: 01-29-2024 Telephone encounter Nazario Abdul MD Work Phone: [facility] [place] Comment on above: cancel testing Start: 01-21-2024 End: 01-21-2024 ambulatory NAZARIO ABDUL Facility:[facility] Start: 01-21-2024 End: 01-21-2024 Office outpatient visit 25 minutes Nazario Abdul MD Work Phone: [facility] [place] Comment on above: Syncope, unspecified syncope type (Primary Dx); Essential hypertension, benign; Cognitive change; Hyperlipidemia LDL goal <130 Start: 01-17-2024 End: 01-23-2024 Telephone encounter Nazario Abdul MD Work Phone: [facility] [place] Comment on above: future apt - ER FU n eeded Start: 01-16-2024 End: 01-16-2024 Emergency department patient visit [facility] Facility:[facility] Start: 01-09-2024 End: 01-09-2024 Refill Nazario Abdul MD Work Phone: [facility] [place] Comment on above: Refill Request Start: 10-02-2023 Refill Nazario long MD Work Phone: [facility] [place] Comment on above: Refill Request Medication Problem Start: 09-27-2023 Telephone encounter Nazario fall MD Work Phone: [facility] [place] Comment on above: Behavioral Problem ( family has concerns) Start: 08-01-2023 Refill Nazario long MD Work Phone: [facility] [place] Comment on above: Refill Request Start: 06-06-2023 ambulatory No Pcp [facility] [place] Start: 05-30-2023 ambulatory No Pcp [facility] [place] Start: 05-25-2023 Telephone encounter Wanda andino JITNEY DRIVER.GUIDE CRUISE Work Phone: [facility] [place] Comment on above: Results Start: 05-23-2023 End: 05-23-2023 Subsequent hospital visit by physician Lizzy [facility] [place] Work Phone: Radiology Comment on above: Neck pain [M54.2] Start: 05-23-2023 End: 05-23-2023 Patient encounter procedure Wanda Beaver JITNEY DRIVER.GUIDE CRUISE Work Phone: [facility] [place] Comment on above: Cervicogenic headach e (Primary Dx); Neck pain Start: 03-14-2023 End: 03-14-2023 Patient encounter procedure Wanda Older JITNEY DRIVER.MARGARITA Work Phone: [facility] [place] Comment on above: Viral URI (Primary D x) Start: 03-11-2023 End: 03-11-2023 ambulatory Nazario Abdul Facility:[facility] Start: 09-12-2022 [facility]ulatory [facility] [place] Comment on above: Population Health Na v[facility] Outreach ([facility] [place]) Start: 08-15-2022 Documentation procedure Mammog lary Coordinator [facility] Start: 08-15-2022 Letter encounter Mammography Coordinator [facility] Department Start: 08-14-2022 End: 08-14-2022 Subsequent hospital visit by physician Screen Mammo [facility] Comment on above: Encounter for screen ing mammogram for malignant neoplasm of breast [Z12.31] Start: 02-24-2022 End: 02-24-2022 Patient encounter procedure Wanda Carpenter JITNEY DRIVER.GUIDE CRUISE Work Phone: [facility] [place] Comment on above: Medicare annual well ness visit, subsequent (Primary Dx) Start: 08-02-2021 Documentation procedure Mammog lary Coordinator [facility] Start: 08-02-2021 Letter encounter Mammography Coordinator [facility] Department Start: 08-02-2021 End: 08-02-2021 Patient encounter status Screen [facility] Mammogram Start: 08-02-2021 End: 08-02-2021 Subsequent hospital visit by physician Screen Mammo [facility] Comment on above: Encounter for gyneco logical examination (general) (routine) without abnormal findings [Z01.419] Start: 07-04-2021 ambulatory Madhuri Preciado LPN [facility] [place] Procedures Date Procedure Procedure Detail Performing Clinician Start: 05-15-2024 End: 05-15-2024 Radex ankle complete minimum 3 views Roberta Cedeno JITNEY DRIVER.MARGARITA Work Phone: Start: 05-23-2023 Radex spine cervical 4 or 5 views Wanda Beaver JITNEY DRIVER.GUIDE CRUISE Work Phone: Start: 08-14-2022 Screening mammograph y bi 2-view breast inc cad Gemma Macedo MD Work Phone: Start: 08-02-2021 Screening mammograph y bi 2-view breast inc cad Gemma Macedo MD Work Phone: Plan of Treatment Date Care Activity Detail Author Start: 01-30-2027 Diabetes Screening Diabetes Screenin ramya [facility] Start: 02-26-2026 Diabetes Screening Diabetes Screenin g [facility] Start: 08-17-2025 End: 08-17-2025 Patient encounter procedure 08/17/2025 10:00 AM EDT Office Visit Cardiology [address] [place] [id number] Meredith Soto MD [address] [place], [place] [id number] 9 month follow up Cardiology Comment on above: 9 month follow up Start: 03-06-2025 End: 03-06-2025 Patient encounter procedure 03/06/2025 10:00 AM EST Office Visit [facility] [place] [address] [place] [address] Nazario Abdul MD [address] [place] [address] Annual Medicare Wellness w/4 month follow-up [facility] [place] Comment on above: Annual Medicare Well ness w/4 month follow-up Start: 02-27-2025 Anxiety Screening Anxiety Screening [facility] Start: 02-27-2025 Covid-19 Vaccine ( season) Covid-19 Vaccine ( season) [facility] Comment on above: Postponed from 12/15 (Declined at this time) Start: 02-21-2025 DIABETES SCREEN DIABETES SCREEN [facility] Start: 02-21-2025 Diabetes Screening Diabetes Screenin g [facility] Start: 10-28-2024 End: 10-28-2024 Patient encounter procedure 10/28/2024 9:40 AM EDT Office Visit [facility] [place] [address] [place], [place] [id number] Nazario Abdul MD [address] [employer] [place] [address] follow up 5 months Internal Medicine [facility] Comment on above: follow up 5 months Start: 10-13-2024 End: 10-13-2024 Patient encounter procedure Cardiology Comment on above: 6 MONTH FOLLOW UP Start: 08-25-2024 End: 08-25-2024 Patient encounter procedure 08/25/2024 9:40 AM EDT Office Visit Cardiology [address] [place] [id number] Anum Ceja MD [address] [facility], [address] [place], [place] [id number] Pericardial effusion [I31.39] Cardiology Comment on above: Pericardial effusion [I31.39] Start: 08-21-2024 End: 08-21-2024 Patient encounter procedure 08/21/2024 9:40 AM EDT Office Visit Cardiology [address] [place], [place] [id number] Chronic pain of right knee [M25.561, G89.29] Cardiology Comment on above: Chronic pain of righ t knee [M25.561, G89.29] Start: 07-21-2024 End: 03-17-2025 Echocardiography ECHO Cardiology Routine Pericardial effusion Expected: 07/21/2024, Expires: 03/17/2025 [facility] Work Phone: Comment on above: Expected: 07/21/2024 , Expires: 03/17/2025 Start: 06-25-2024 End: 06-25-2024 Patient encounter procedure 06/25/2024 1:30 PM EDT Office Visit Family Medicine [facility] [address] [facility] [place], [place] [id number] Teddy Mcclelland V, DO [address] [facility] [place] [address] 4 week follow up L foot Family Medicine [facility] Comment on above: 4 week follow up L f oot Start: 05-30-2024 End: 05-30-2024 Patient encounter procedure Internal Medicine [facility] Comment on above: 3 month follow-up 3 week follow up Cathie ochoa Start: 05-16-2024 End: 05-16-2024 Patient encounter procedure 05/16/2024 1:30 PM EST Office Visit Family Medicine [facility] [address] [place] [address] Teddy Mcclelland V, DO [address] [facility] [place] [id number] ankle fracture Family Medicine [facility] Comment on above: ankle fracture Start: 04-24-2024 End: 04-24-2024 Patient encounter procedure 04/24/2024 9:30 AM EST Appointment Radiology [address] [place] [id number] Osteopenia, senile [M85.80] Radiology Comment on above: Osteopenia, senile [ M85.80] Start: 04-20-2024 DIABETES SCREEN DIABETES SCREEN [facility] Start: 04-16-2024 Advance Directive Discussion Advance Directive Discussion [facility] Start: 04-16-2024 Medicare Advantage A nnual Wellness Visit Medicare Advantage Annual Wellness Visit [facility] Start: 03-17-2024 End: 03-17-2024 Patient encounter procedure 03/17/2024 10:00 AM EST Office Visit Cardiology [address] [place] [id number] Meredith Soto MD [address] [address] Pericardial effusion [I31.39] Cardiology Comment on above: Pericardial effusion [I31.39] Start: 02-28-2024 End: 02-28-2024 Patient encounter procedure 02/28/2024 8:00 AM EST Office Visit Internal Medicine [facility] [address] [facility], [place] [address] Nazario Abdul MD [address] [place], [place] [id number] [facility] Internal Medicine [facility] Comment on above: [facility] Start: 02-27-2024 Covid-19 Vaccine (#1) Covid-19 Vacci ne (#1) [facility] Comment on above: Postponed from 08/06 (Declined at this time) Start: 02-27-2024 Covid-19 Vaccine ( season) Covid-19 Vaccine ( season) [facility] Comment on above: Postponed from 12/15 (Declined at this time) Start: 02-27-2024 RSV Vaccine (1 - 1-d ose 60+ series) RSV Vaccine (1 - 1-dose 60+ series) [facility] Comment on above: Postponed from 02/05 (Declined at this time) Start: 02-27-2024 RSV Vaccine (1 - 1-d ose 75+ series) RSV Vaccine (1 - 1-dose 75+ series) [facility] Comment on above: Postponed from 02/05 (Declined at this time) Start: 02-27-2024 Shingrix Vaccine (1 of 2) Sullivan grix Vaccine (1 of 2) [facility] Comment on above: Postponed from 02/05 (Declined at this time) Start: 02-21-2024 End: 05-22-2024 CBC panel - Blood by Automated count COMPLETE BLOOD COUNT Lab Routine Cognitive change Expected: 02/21/2024, Expires: 05/22/2024 [facility] Work Phone: Comment on above: Expected: 02/21/2024 , Expires: 05/22/2024 Start: 02-21-2024 End: 05-22-2024 Cobalamin (Vitamin B12) [Mass/volume] in Serum or Plasma VITAMIN B12 Lab Routine Cognitive change Expected: 02/21/2024, Expires: 05/22/2024 [facility] Comment on above: Expected: 02/21/2024 , Expires: 05/22/2024 Start: 02-21-2024 End: 05-22-2024 Comprehensive metabolic 2000 panel - Serum or Plasma COMPREHENSIVE METABOLIC PANEL Lab Routine Hyperlipidemia LDL goal <130 Expected: 02/21/2024, Expires: 05/22/2024 [facility] Comment on above: Expected: 02/21/2024 , Expires: 05/22/2024 Start: 02-21-2024 End: 05-22-2024 Lipid 1996 panel - Serum or Plasma LIPID PANEL BASIC Lab Routine Hyperlipidemia LDL goal <130 Expected: 02/21/2024, Expires: 05/22/2024 [facility] Comment on above: Expected: 02/21/2024 , Expires: 05/22/2024 Start: 02-21-2024 End: 05-22-2024 Thyrotropin [Units/volume] in Serum or Plasma THYROID STIMULATING HORMONE Lab Routine Cognitive change Expected: 02/21/2024, Expires: 05/22/2024 [facility] Comment on above: Expected: 02/21/2024 , Expires: 05/22/2024 Start: 02-18-2024 End: 02-18-2024 Patient encounter procedure 02/18/2024 8:50 AM EST Office Visit Cardiology [address] [place] [address] Pericardial effusion [I31.39] Cardiology Comment on above: Pericardial effusion [I31.39] Start: 01-31-2024 End: 01-31-2024 Patient encounter procedure 01/31/2024 9:40 AM EDT Office Visit Cardiology [address] [place] [address] Syncope, unspecified syncope type [R55] Cardiology Comment on above: Syncope, unspecified syncope type [R55] Start: 12-16-2023 Covid-19 Vaccine () Covid-19 Vaccine () [facility] Start: 12-16-2023 Covid-19 Vaccine () Covid-19 Vaccine () [facility] Start: 04-16-2023 Advance Directive Discussion Advance Directive Discussion [facility] Start: 02-24-2023 COVID-19 VACCINE (#1) COVID-19 VACCI NE (#1) [facility] Comment on above: Postponed from 08/06 (Declined at this time) Start: 02-24-2023 Pneumococcal Vaccine : 65+ (2 - PCV) Pneumococcal Vaccine: 65+ (2 - PCV) [facility] Comment on above: Postponed from 11/27 (Declined at this time) Start: 02-24-2023 PNEUMOCOCCAL: 65+ (2 - PCV) PNEUMOCOCCAL: 65+ (2 - PCV) [facility] Comment on above: Postponed from 11/27 (Declined at this time) Start: 02-24-2023 SHINGRIX VACCINE (1 of 2) SULLIVAN GRIX VACCINE (1 of 2) [facility] Comment on above: Postponed from 02/05 (Declined at this time) Start: 04-16-2022 ADVANCE DIRECTIVE DISCUSSION ADVANCE DIRECTIVE DISCUSSION [facility] Start: 01-05-2022 ANNUAL PCP TEAM AIRFRAME AND POWERPLANT TECHNICIAN ZARA DISEASE VISIT ANNUAL PCP TEAM CHRONIC DISEASE VISIT [facility] Start: 04-16-2021 ADVANCE DIRECTIVE DISCUSSION ADVANCE DIRECTIVE DISCUSSION [facility] Start: 12-19-2018 BP CONTROLLED (<130/80) BP CONTROLLE D (<130/80) [facility] Start: 11-28-2016 End: 11-28-2016 Appointment Appointment [facility] [employer] Work Phone: Start: 11-28-2016 End: 11-28-2016 Diagnostic colonoscopy Colonoscopy [facility] [employer] Work Phone: Start: 2001 RSV Vaccine (1 - 1-d ose 60+ series) RSV Vaccine (1 - 1-dose 60+ series) [facility] Start: 1991 SHINGRIX VACCINE (1 of 2) SULLIVAN GRIX VACCINE (1 of 2) [facility] Start: 1959 Anxiety Screening Anxiety Screening [facility] Start: 1946 COVID-19 VACCINE (1) COVID-19 VACCIN E (1) [facility] End: 03-29-2025 DXA Skeletal system.axial Views for bone density DXA-AXIAL SKELETON Radiology Routine Osteopenia, senile 1 Occurrences starting 02/28/2024 until 03/29/2025 [facility] Work Phone: Comment on above: 1 Occurrences starti ng 02/28/2024 until 03/29/2025 DXA Skeletal system. axial Views for bone density DXA-AXIAL SKELETON Radiology Routine Osteopenia, senile 04/24/2024 9:54 AM EST [facility] Work Phone: End: 01-20-2025 Echocardiography ECHO Cardiology Routine Syncope, unspecified syncope type 1 Occurrences starting 01/21/2024 until 01/20/2025 [facility] Comment on above: 1 Occurrences starti ng 01/21/2024 until 01/20/2025 End: 06-14-2025 XR Ankle - left AP and Lateral and oblique XR ANKLE GENERAL 3V AP/LAT/OBL LEFT Radiology Routine Injury of left ankle, initial encounter 1 Occurrences starting 05/15/2024 until 06/14/2025 [facility] Work Phone: Comment on above: 1 Occurrences starti ng 05/15/2024 until 06/14/2025 End: 06-27-2025 XR Ankle - left AP and Lateral and oblique XR ANKLE GENERAL 3V AP/LAT/OBL LEFT Radiology Routine Other closed fracture of distal end of left fibula with routine healing, subsequent encounter 1 Occurrences starting 05/28/2024 until 06/27/2025 [facility] Work Phone: Comment on above: 1 Occurrences starti ng 05/28/2024 until 06/27/2025 XR Ankle - left AP a nd Lateral and oblique XR ANKLE GENERAL 3V AP/LAT/OBL LEFT Radiology Routine Other closed fracture of distal end of left fibula with routine healing, subsequent encounter 05/30/2024 12:27 PM EST [facility] Work Phone: End: 07-23-2025 XR Ankle - left AP and Lateral and oblique XR ANKLE GENERAL 3V AP/LAT/OBL LEFT Radiology Routine Traumatic closed nondisplaced fracture of distal fibula, left, initial encounter 1 Occurrences starting 06/23/2024 until 07/23/2025 [facility] Work Phone: Comment on above: 1 Occurrences starti ng 06/23/2024 until 07/23/2025 XR Ankle - left AP a nd Lateral and oblique XR ANKLE GENERAL 3V AP/LAT/OBL LEFT Radiology Routine Traumatic closed nondisplaced fracture of distal fibula, left, initial encounter 06/25/2024 1:20 PM EDT [facility] Work Phone: [facility] Immunizations Immunization Date Immunization Notes Care Provider Fa ciliedy 11-27-2006 pneumococcal polysaccharide vaccine, 23 valent Madhurivenkata Preciado [facility] 12-05-2005 tetanus and diphther ia toxoids, adsorbed, preservative free, for adult use (2 Lf of tetanus toxoid and 2 Lf of diphtheria toxoid) Madhurivenkata Preciado [facility] Work Phone: 04-16-1993 diphtheria and tetan us toxoids, adsorbed for pediatric use [facility] Payers Date Payer Category Payer Medicare (Managed Care) [facility] MEDICARE HMO [id number] 2024 Medicare [id number] 2023 Private Health Insurance 101 [id number] 2023 Medicare [id number] 2023 Self-pay 2016 Unknown [employer]MENT [id number] 2016-Present [phone] [address] [place] [address] Indemnity [id number] 2016 Unknown [employer]MENT [id number] 2016-Present [phone] [address] [place] [address] Indemnity [id number] 2016 Unknown [id number] 2006 Medicare MEDICARE MEDICAR E A AND B [id number] 2006-Present [phone] [place] [address] Medicare [id number] 2006 Medicare [id number] Unknown [id number] Unknown [id number] Social History Date Type Detail Facility Start: 05-16-2024 [facility] Work Phone: Start: 04-20-2021 End: 10-28-2024 Alcohol intake Current non-drinker of alcohol (finding) [facility] Start: 01-06-2021 History SDOH Alcohol Frequency 1 [facility] Start: 1940 Sex Assigned At Not on file [facility] Start: 02-14-2022 End: 02-24-2022 Exposure to SARS-CoV-2 (event) Not sure [facility] Start: 01-06-2021 End: 08-25-2022 History of Social function [facility] Work Phone: Start: 01-06-2021 End: 08-25-2022 Alcohol Use Disorder Identification Test - Consumption [AUDIT-C] [facility] Work Phone: How often to you hav e a drink containing alcohol? Never [facility] Work Phone: Average Number of Drinks Not on file [facility] Work Phone: History of tobacco use Passive smoker [facility] Start: 05-16-2024 Tobacco use and exposure Smoke less tobacco non-user [facility] Goals Date Patient Goal Desired Activity /State Personal health goal Functional Status Date Assessment Result Facility 11-25-2016 Are you deaf, or do you have serious difficulty hearing No 11/25/2016 12:03 PM EDT Akira Pulido III, MD No [facility] 11-25-2016 Are you blind, or do you have serious difficulty seeing, even when wearing glasses No 11/25/2016 12:03 PM EDT Akira Pulido III, MD No [facility] 11-25-2016 Do you have serious difficulty walking or climbing stairs No 11/25/2016 12:03 PM EDT Akira Pulido III, MD No [facility] 11-25-2016 Do you have difficul ty dressing or bathing No 11/25/2016 12:03 PM EDT Akira Pulido III, MD No [facility] 11-25-2016 Because of a physica l, mental, or emotional condition, do you have difficulty doing errands alone such as visiting a physician's office or shopping No 11/25/2016 12:03 PM EDT Akira Pulido III, MD No [facility] Mental Status Date Assessment Result Facility 11-25-2016 Because of a physica l, mental, or emotional condition, do you have serious difficulty concentrating, remembering, or making decisions No 11/25/2016 12:03 PM EDT Akira Pulido III, MD No [facility] Clinical Notes 11-28-2016 to 10-28-2024 Telephone Encounter - Madhuri Preciado LPN - 10/28/2024 4:27 PM EDTTelephone Encounter - Madhuri Preciado LPN - 10/28/2024 4:27 PM EDTNazario Abdul MD - 10/28/2024 9:30 AM EDT Note Date & Type Note Facility 10-28-2024 Telephone encounter Note Patient scheduled Geriatric consult, then call back in and cancelled. Madhuri Preciado LPN [facility] 10-28-2024 Miscellaneous Notes Patient scheduled Geriatric consult, then call back in and cancelled. Madhuri Preciado LPN Patient referred to geriatrics. Pt's daughter Mackenzie calling in with concerns about pt. Mackenzie states that pt has an appt with Dr. Abdul this morning with arrival time of 925 am. She is asking that Dr. Abdul does not mention to pt that she called to update him on some things. Mackenzie is hoping that Dr. Tuttle will do a thorough cognitive test on pt. Mackenzie states concern that pt has dementia as pt's 2 older sisters both have been dx with dementia. One lives in a Memory Care unit and one lives with her daughter with 24 hr care. Mackenzie herself lives in [place] but talks with her mom and also her siblings. All are very concerned about patient. Mackenzie states her son Russ, his and their 3 girls came to see pt and took her out to lunch last week on Sunday/ Mackenzie talked with her mom on Sunday and asked how the visit went. Pt did not remember them coming to see her or taking her out to lunch. Russ told Mackenzie that he thought pt was very thin and didn't eat when they took her out to lunch. She ordered a chicken salad sandwich, took one bite and said this is disgusting. Family is concerned if pt is eating. And pt seems to always being going to the dentist for a broken tooth or lost filling or something. Pt has also continued to be very mean with family members and now has started being mean to her friend Terri aCrreon. Pt had stated that she wanted no more information given to her kids but Terri was able to tell her that her kids should be able to get information about her so pt consented to leaving them on. Pt also seems to be making up stories and embellishes the stories she tells. One example is that pt told Mackenzie that her bevel gear generator operator Father Vincent said he hates her which Mackenzie knows the bevel gear generator operator and states he would never do that. Another example is she recently paid off her car and said it was $7000. Pt's friend Terri who helps care for pt said it was only $2000. Pt told Mackenzie that her new tires cost $7000. (Mackenzie said she says $7000 for a lot of things). Pt's children have tried to get Medical POA completed with pt but she refuses to do the paperwork. Concern is pt lives by herself and Mackenzie said she and her siblings are wondering somehow if Dr. Abdul can help them especially if she fails the cognitive test. documented in this encounter [facility] 10-28-2024 Telephone encounter Note Patient referred to geriatrics. [facility] 10-28-2024 Note HNO ID: [id number] Author: NAZARIO ABDUL MD Service: ? Author Type: Physician Type: Progress Notes Filed: 10/28/2024 10:32 Note Text: This note was created using [employer]. Subjective Floridalma Dennis is a 84 year old female was here with her friend Terri who had to remind her of this appointment. Floridalma indicated she was doing well. She saw cardiology who recommended monitoring her pericardial effusion. She had no recurrent syncope or other symptoms. Her hypertension was not at goal. Family was increasing concerned about cognitive changes noted last year. I prescribed sertraline but she ends up discontinuing the medication. There is a strong history of dementia in her sisters. She lived alone. She fell at home earlier this year and recovered from her left ankle fracture. Rails were installed in her basement steps where she fell. Review of Systems Constitutional: Negative for fatigue. Respiratory: Negative for shortness of breath. Cardiovascular: Negative for chest pain. Neurological: Negative for syncope and headaches. Psychiatric/Behavioral: Negative for dysphoric mood. ACTIVE PROBLEM LIST Essential Hypertension, Benign Depressive Disorder Hyperlipidemia Ldl Goal <130 Osteopenia, Senile Pericardial Effusion (Hcc) Social History Tobacco Use Smoking status: Never Passive exposure: Past Smokeless tobacco: Never Vaping Use Vaping status: Never Used Substance Use Topics Alcohol use: No Drug use: No Current Outpatient Medications Medication Sig atenolol (TENORMIN) 50 mg tablet Take 1 tablet by mouth once daily. hydroCHLOROthiazide 25 mg tablet Take 1 tablet by mouth once daily. meloxicam (MOBIC) 15 mg tablet Take 1 tablet by mouth once daily. With food. pyridoxine hcl(VITAMIN B-6 100 MG TAB) Take one(1) tablet daily. ergocalciferol(VITAMIN D 400 UNIT CAP) Take 400 Units by mouth every Sunday,Sunday,Sunday. No current facility-administered medications for this visit. Objective BP 150/66 (BP Site: Left Arm, BP Position: Sitting, BP Cuff Size: Large Adult) Pulse (!) 54 Resp 20 Wt 56.3 kg (124 lb 1.9 oz) BMI 20.65 kg/m? Physical Exam Constitutional: General: She is not in acute distress. Appearance: She is not ill-appearing. Cardiovascular: Rate and Rhythm: Regular rhythm. Bradycardia present. Heart sounds: No murmur heard. No gallop. Pulmonary: Breath sounds: Normal breath sounds. Musculoskeletal: Right lower leg: No edema. Left lower leg: No edema. Neurological: General: No focal deficit present. Mental Status: She is alert. Gait: Gait normal. Psychiatric: Mood and Affect: Mood normal. Assessment and Plan 1. Essential hypertension, benign - ICD9: 401.1, ICD10: I10 (primary diagnosis) - Worsening control - Continue current medications - Start amlodipine - Encouraged sodium restriction, DASH or Mediterranean diet - AMLODIPINE 2.5 MG TABLET 2. Cognitive change - ICD9: 799.59, ICD10: R41.89 Patient indicated understanding and willingness to follow recommendations. - CONSULT TO GERIATRICS 3. Osteopenia, senile - ICD9: 733.90, ICD10: M85.80 - Reviewed the need for Calcium and Vitamin D supplements and weight bearing exercise as tolerated Nazario Abdul MD [facility] 10-28-2024 History of Presen t illness Narrative This note was created using [employer]. Subjective Floridalma Dennis is a 84 year old female was here with her friend Terri who had to remind her of this appointment. Floridalma indicated she was doing well. She saw cardiology who recommended monitoring her pericardial effusion. She had no recurrent syncope or other symptoms. Her hypertension was not at goal. Family was increasing concerned about cognitive changes noted last year. I prescribed sertraline but she ends up discontinuing the medication. There is a strong history of dementia in her sisters. She lived alone. She fell at home earlier this year and recovered from her left ankle fracture. Rails were installed in her basement steps where she fell. Review of Systems Constitutional: Negative for fatigue. Respiratory: Negative for shortness of breath. Cardiovascular: Negative for chest pain. Neurological: Negative for syncope and headaches. Psychiatric/Behavioral: Negative for dysphoric mood. ACTIVE PROBLEM LIST Essential Hypertension, Benign Depressive Disorder Hyperlipidemia Ldl Goal <130 Osteopenia, Senile Pericardial Effusion (Hcc) Social History Tobacco Use Smoking status: Never Passive exposure: Past Smokeless tobacco: Never Vaping Use Vaping status: Never Used Substance Use Topics Alcohol use: No Drug use: No Current Outpatient Medications Medication Sig atenolol (TENORMIN) 50 mg tablet Take 1 tablet by mouth once daily. hydroCHLOROthiazide 25 mg tablet Take 1 tablet by mouth once daily. meloxicam (MOBIC) 15 mg tablet Take 1 tablet by mouth once daily. With food. pyridoxine hcl(VITAMIN B-6 100 MG TAB) Take one(1) tablet daily. ergocalciferol(VITAMIN D 400 UNIT CAP) Take 400 Units by mouth every Sunday,Sunday,Sunday. No current facility-administered medications for this visit. Objective BP 150/66 (BP Site: Left Arm, BP Position: Sitting, BP Cuff Size: Large Adult) Pulse (!) 54 Resp 20 Wt 56.3 kg (124 lb 1.9 oz) BMI 20.65 kg/m Physical Exam Constitutional: General: She is not in acute distress. Appearance: She is not ill-appearing. Cardiovascular: Rate and Rhythm: Regular rhythm. Bradycardia present. Heart sounds: No murmur heard. No gallop. Pulmonary: Breath sounds: Normal breath sounds. Musculoskeletal: Right lower leg: No edema. Left lower leg: No edema. Neurological: General: No focal deficit present. Mental Status: She is alert. Gait: Gait normal. Psychiatric: Mood and Affect: Mood normal. Assessment and Plan 1. Essential hypertension, benign - ICD9: 401.1, ICD10: I10 (primary diagnosis) - Worsening control - Continue current medications - Start amlodipine - Encouraged sodium restriction, DASH or Mediterranean diet - AMLODIPINE 2.5 MG TABLET 2. Cognitive change - ICD9: 799.59, ICD10: R41.89 Patient indicated understanding and willingness to follow recommendations. - CONSULT TO GERIATRICS 3. Osteopenia, senile - ICD9: 733.90, ICD10: M85.80 - Reviewed the need for Calcium and Vitamin D supplements and weight bearing exercise as tolerated Nazario Abdul MD documented in this encounter [facility] 10-28-2024 Telephone encounter Note Pt's daughter Mackenzie calling in with concerns about pt. Mackenzie states that pt has an appt with Dr. Abdul this morning with arrival time of 925 am. She is asking that Dr. Abdul does not mention to pt that she called to update him on some things. Mackenzie is hoping that Dr. Tuttle will do a thorough cognitive test on pt. Mackenzie states concern that pt has dementia as pt's 2 older sisters both have been dx with dementia. One lives in a Memory Care unit and one lives with her daughter with 24 hr care. Mackenzie herself lives in [place] but talks with her mom and also her siblings. All are very concerned about patient. Mackenzie states her son Russ, his and their 3 girls came to see pt and took her out to lunch last week on Sunday/ Mackenzie talked with her mom on Sunday and asked how the visit went. Pt did not remember them coming to see her or taking her out to lunch. Russ told Mackenzie that he thought pt was very thin and didn't eat when they took her out to lunch. She ordered a chicken salad sandwich, took one bite and said this is disgusting. Family is concerned if pt is eating. And pt seems to always being going to the dentist for a broken tooth or lost filling or something. Pt has also continued to be very mean with family members and now has started being mean to her friend Terri Carreon. Pt had stated that she wanted no more information given to her kids but Terri was able to tell her that her kids should be able to get information about her so pt consented to leaving them on. Pt also seems to be making up stories and embellishes the stories she tells. One example is that pt told Mackenzie that her bevel gear generator operator Father Vincent said he hates her which Mackenzie knows the bevel gear generator operator and states he would never do that. Another example is she recently paid off her car and said it was $7000. Pt's friend Terri who helps care for pt said it was only $2000. Pt told Mackenzie that her new tires cost $7000. (Mackenzie said she says $7000 for a lot of things). Pt's children have tried to get Medical POA completed with pt but she refuses to do the paperwork. Concern is pt lives by herself and Mackenzie said she and her siblings are wondering somehow if Dr. Abdul can help them especially if she fails the cognitive test. [facility] 10-13-2024 Instructions Meredith Soto MD - 10/13/2024 9:53 AM EDT Start checking your blood pressure at home 2-3 times per week documented in this encounter [facility] 10-13-2024 History of Presen t illness Narrative Images from the original note were not included. [facility] SE[facility]AL CARDIOLOGY Cardiology ([facility]) [address] [id number] OUTPATIENT VISIT DATE 10/13/2024 PRIMARY CARE PHYSICIAN: Nazario Abdul [address] [place] [address] REFERRING PHYSICIAN: Nazario Abdul [address] [facility] [id number] CHIEF COMPLAINT: Pericardial effusion HISTORY OF PRESENT ILLNESS: Ms. Dennis is a 84 year old woman with a history of hypertension and pericardial effusion noted on 2D echocardiogram was. Patient continues to do well from a functional standpoint. She denies chest pain, chest pressure, or dyspnea on exertion. She has not had symptoms concerning for congestive heart failure including PND, orthopnea, lower extremity edema. She denies palpitations, lightheadedness, dizziness, or syncope. PAST MEDICAL HISTORY Diagnosis Date Adenomatous colon polyp 12/08/2016 recheck 2021 Closed left fibular fracture 05/15/2024 Colitis 11/28/2016 COVID-19 04/07/2021 Dysthymic disorder Depression (non-psychotic) Essential hypertension, benign Hyperlipidemia LDL goal <130 01/10/2016 Osteopenia, senile 12/19/2017 PAST SURGICAL HISTORY Procedure Laterality Date BIOPSY BREAST OPEN INCISIONAL Bx of breast, incisional - left CATARACT EXTRACTION HX 10/2018 COLONOSCOPY - DIAGNOSTIC 12/08/2016 COLONOSCOPY FLX DX W/COLLJ SPEC WHEN PFRMD 12/25/2005 Colonoscopy-repeat in DILATION & CURETTAGE DX&/THER NONOBSTETRIC Dilation & curettage SOCIAL HISTORY Social History Tobacco Use Smoking status: Never Passive exposure: Past Smokeless tobacco: Never Vaping Use Vaping status: Never Used Substance Use Topics Alcohol use: No Drug use: No FAMILY HISTORY Problem Relation Age of Onset Cancer Father RENAL Coronary Artery Disease Father Cancer Sister unknown primary Dementia Sister Dementia Sister No Known Problems Sister Ischemic Heart Disease Brother Kidney failure Brother Diabetes Maternal Grandmother Colon Cancer Paternal Grandfather Breast Cancer Maternal Aunt Breast Cancer Paternal Aunt ALLERGIES: ALLERGIES Allergen Reactions Pneumovax 23 [Pneum* Rash Influenza Virus Vac* Rash, Swelling Sulfamethoxazole-Tr* Vomiting Ciprofloxacin GI Upset Dtp Toxoids Adsorbe* Rash Metronidazole GI Upset Zestril [Lisinopril] Ampicillin Diarrhea Crestor [Rosuvastat* Intolerance Penicillins GI Upset Prednisone GI Upset MEDICATIONS: atenolol (TENORMIN) 50 mg tablet Take 1 tablet by mouth once daily. hydroCHLOROthiazide 25 mg tablet Take 1 tablet by mouth once daily. meloxicam (MOBIC) 15 mg tablet Take 1 tablet by mouth once daily. With food. pyridoxine hcl(VITAMIN B-6 100 MG TAB) Take one(1) tablet daily. ergocalciferol(VITAMIN D 400 UNIT CAP) Take 400 Units by mouth every Sunday,Sunday,Sunday. REVIEW OF SYSTEMS: Review of Systems Constitutional: Negative for chills, fever, malaise/fatigue and weight loss. HENT: Negative for hearing loss and sore throat. Eyes: Negative for blurred vision and double vision. Respiratory: Negative. Cardiovascular: Negative. Gastrointestinal: Negative. Genitourinary: Negative for dysuria, frequency, hematuria and urgency. Musculoskeletal: Negative. Skin: Negative. Neurological: Negative for dizziness, seizures, loss of consciousness, weakness and headaches. Endo/Heme/Allergies: Negative for environmental allergies. Does not bruise/bleed easily. Psychiatric/Behavioral: Negative for depression. PHYSICAL EXAMINATION: BP 144/90 Pulse 71 Resp 12 Ht 5' 5 (1.65m) Wt 123 lb 6.4 oz (56.0kg) SpO2 96% BMI 20.53 kg/(m^2). General: Thin woman sitting appears comfortable no apparent distress she is alert and oriented x 3 HEENT: Carotid circumference bilateral without bruits no JVD appreciated. Pulmonary: Lungs are clear no rales, wheezes, rhonchi Cardiovascular: Normal S1, S2 with regular rate and rhythm. No murmurs, rubs, or gallops Extremities: Warm, well-perfused, no lower extremity edema. 2+ distal pulses CARDIOVASCULAR MEDICINE TESTING: Echocardiogram 08/21/2024: - The left ventricle is normal in size. Left ventricular systolic function is normal. EF = 60 5% (2D biplane) Normal left ventricular diastolic function. - The right ventricle is normal in size. Right ventricular systolic function is normal. - There are no significant valvular abnormalities. - There is a moderate circumferential pericardial effusion. The inferior vena cava appears normal measuring 1.9 cm. - There is a known small to moderate pericardial effusion. - Exam was compared with the prior echocardiographic exam performed on 01/18/2024, no significant change. Echocardiogram 02/18/2024: - The left ventricle is normal in size. Left ventricular systolic function is normal. EF = 60 5% (2D biplane) - There is a moderate circumferential pericardial effusion. The inferior vena cava appears normal measuring 1.8 cm. - There is a known small to moderate circumferential pericardial effusion. - Exam was compared with the prior echocardiographic exam performed on 01/31/2024, no significant change. I have personally reviewed the Laboratory Testing and Echocardiogram. IMPRESSION: Ms. Dennis is a 84 year old woman with a history of hypertension and dyslipidemia is referred for abnormal echocardiogram demonstrating small to moderate pericardial effusion. PLAN AND RECOMMENDATIONS: ASSESSMENT/PLAN: 1. Pericardial effusion (HCC) - ICD9: 423.9, ICD10: I31.39 (primary diagnosis) I reviewed her last echocardiogram with her during the office visit. Stable small pericardial effusion. Plan to repeat study in 1 year. Discussed symptoms of worsening pericardial effusion and/or tamponade physiology. 2. Essential hypertension, benign - ICD9: 401.1, ICD10: I10 Adequately controlled on current regimen. 3. Hyperlipidemia LDL goal <130 - ICD9: 272.4, ICD10: E78.5 Fasting blood work from January 2024 was reviewed. Borderline elevation in both non-HDL and LDL cholesterol. Could consider initiation of therapy. Meredith Soto MD documented in this encounter [facility] 10-13-2024 Note HNO ID: [id number] Author: MEREDITH SOTO MD Service: ? Author Type: Physician Type: Progress Notes Filed: 10/13/2024 12:05 Note Text: [facility] SE[facility]IONAL CARDIOLOGY Cardiology ([facility]) [address] [facility] [facility] [id number] OUTPATIENT VISIT DATE 10/13/2024 PRIMARY CARE PHYSICIAN: Nazario Abdul [address] [place] [id number] REFERRING PHYSICIAN: Nazario Abdul [address] [place] [phone] CHIEF COMPLAINT: Pericardial effusion HISTORY OF PRESENT ILLNESS: Ms. Dennis is a 84 year old woman with a history of hypertension and pericardial effusion noted on 2D echocardiogram was. Patient continues to do well from a functional standpoint. She denies chest pain, chest pressure, or dyspnea on exertion. She has not had symptoms concerning for congestive heart failure including PND, orthopnea, lower extremity edema. She denies palpitations, lightheadedness, dizziness, or syncope. PAST MEDICAL HISTORY Diagnosis Date Adenomatous colon polyp 12/08/2016 recheck 2021 Closed left fibular fracture 05/15/2024 Colitis 11/28/2016 COVID-19 04/07/2021 Dysthymic disorder Depression (non-psychotic) Essential hypertension, benign Hyperlipidemia LDL goal <130 01/10/2016 Osteopenia, senile 12/19/2017 PAST SURGICAL HISTORY Procedure Laterality Date BIOPSY BREAST OPEN INCISIONAL Bx of breast, incisional - left CATARACT EXTRACTION HX 10/2018 COLONOSCOPY - DIAGNOSTIC 12/08/2016 COLONOSCOPY FLX DX W/COLLJ SPEC WHEN PFRMD 12/25/2005 Colonoscopy-repeat in DILATION AND CURETTAGE DXAND/THER NONOBSTETRIC Dilation AND curettage SOCIAL HISTORY Social History Tobacco Use Smoking status: Never Passive exposure: Past Smokeless tobacco: Never Vaping Use Vaping status: Never Used Substance Use Topics Alcohol use: No Drug use: No FAMILY HISTORY Problem Relation Age of Onset Cancer Father RENAL Coronary Artery Disease Father Cancer Sister unknown primary Dementia Sister Dementia Sister No Known Problems Sister Ischemic Heart Disease Brother Kidney failure Brother Diabetes Maternal Grandmother Colon Cancer Paternal Grandfather Breast Cancer Maternal Aunt Breast Cancer Paternal Aunt ALLERGIES: ALLERGIES Allergen Reactions Pneumovax 23 [Pneum* Rash Influenza Virus Vac* Rash, Swelling Sulfamethoxazole-Tr* Vomiting Ciprofloxacin GI Upset Dtp Toxoids Adsorbe* Rash Metronidazole GI Upset Zestril [Lisinopril] Ampicillin Diarrhea Crestor [Rosuvastat* Intolerance Penicillins GI Upset Prednisone GI Upset MEDICATIONS: atenolol (TENORMIN) 50 mg tablet Take 1 tablet by mouth once daily. hydroCHLOROthiazide 25 mg tablet Take 1 tablet by mouth once daily. meloxicam (MOBIC) 15 mg tablet Take 1 tablet by mouth once daily. With food. pyridoxine hcl(VITAMIN B-6 100 MG TAB) Take one(1) tablet daily. ergocalciferol(VITAMIN D 400 UNIT CAP) Take 400 Units by mouth every Sunday,Sunday,Sunday. REVIEW OF SYSTEMS: Review of Systems Constitutional: Negative for chills, fever, malaise/fatigue and weight loss. HENT: Negative for hearing loss and sore throat. Eyes: Negative for blurred vision and double vision. Respiratory: Negative. Cardiovascular: Negative. Gastrointestinal: Negative. Genitourinary: Negative for dysuria, frequency, hematuria and urgency. Musculoskeletal: Negative. Skin: Negative. Neurological: Negative for dizziness, seizures, loss of consciousness, weakness and headaches. Endo/Heme/Allergies: Negative for environmental allergies. Does not bruise/bleed easily. Psychiatric/Behavioral: Negative for depression. PHYSICAL EXAMINATION: BP 144/90 Pulse 71 Resp 12 Ht 5' 5 (1.65m) Wt 123 lb 6.4 oz (56.0kg) SpO2 96% BMI 20.53 kg/(m2). General: Thin woman sitting appears comfortable no apparent distress she is alert and oriented x 3 HEENT: Carotid circumference bilateral without bruits no JVD appreciated. Pulmonary: Lungs are clear no rales, wheezes, rhonchi Cardiovascular: Normal S1, S2 with regular rate and rhythm. No murmurs, rubs, or gallops Extremities: Warm, well-perfused, no lower extremity edema. 2+ distal pulses CARDIOVASCULAR MEDICINE TESTING: Echocardiogram 08/21/2024: - The left ventricle is normal in size. Left ventricular systolic function is normal. EF = 60 ? 5% (2D biplane) Normal left ventricular diastolic function. - The right ventricle is normal in size. Right ventricular systolic function is normal. - There are no significant valvular abnormalities. - There is a moderate circumferential pericardial effusion. The inferior vena cava appears normal measuring 1.9 cm. - There is a known small to moderate pericardial effusion. - Exam was compared with the prior echocardiographic exam performed on 01/18/2024, no significant change. Echocardiogram (more content not included)... [facility] 06-25-2024 Note HNO ID: [id number] Author: TEDDY MCCLELLAND, DO Service: ? Author Type: Physician Type: Progress Notes Filed: 06/25/2024 13:49 Note Text: SERVICE DATE: June 25, 2024 PCP: Nazario Abdul MD Subjective Patient ID: Floridalma is a 84 year old female. Chief Complaint: Patient presents with: 6 weeks 1 days post fracture Left distal fibula PAIN EVALUATION No data found in the last 1 encounters. HPI Patient presents today for follow-up of left distal fibula fracture. She is 6 weeks 1 day post fracture last seen 4 weeks ago. She presents today walking without cam walker boot or brace. She states that she is not having significant pain and the brace was bothering her so she quit wearing it. Review of Systems ACTIVE PROBLEM LIST Essential Hypertension, Benign Depressive Disorder Hyperlipidemia Ldl Goal <130 Osteopenia, Senile Pericardial Effusion PAST MEDICAL HISTORY Diagnosis Date Adenomatous colon polyp 12/08/2016 recheck 2021 Closed left fibular fracture 05/15/2024 Colitis 11/28/2016 COVID-19 04/07/2021 Dysthymic disorder Depression (non-psychotic) Essential hypertension, benign Hyperlipidemia LDL goal <130 01/10/2016 Osteopenia, senile 12/19/2017 PAST SURGICAL HISTORY Procedure Laterality Date BIOPSY BREAST OPEN INCISIONAL Bx of breast, incisional - left CATARACT EXTRACTION HX 10/2018 COLONOSCOPY - DIAGNOSTIC 12/08/2016 COLONOSCOPY FLX DX W/COLLJ SPEC WHEN PFRMD 12/25/2005 Colonoscopy-repeat in DILATION AND CURETTAGE DXAND/THER NONOBSTETRIC Dilation AND curettage FAMILY HISTORY Problem Relation Age of Onset Cancer Father RENAL Coronary Artery Disease Father Cancer Sister unknown primary Dementia Sister Dementia Sister No Known Problems Sister Ischemic Heart Disease Brother Kidney failure Brother Diabetes Maternal Grandmother Colon Cancer Paternal Grandfather Breast Cancer Maternal Aunt Breast Cancer Paternal Aunt Social History Tobacco Use Smoking status: Never Passive exposure: Past Smokeless tobacco: Never Vaping Use Vaping status: Never Used Substance Use Topics Alcohol use: No Drug use: No ALLERGIES Allergen Reactions Pneumovax 23 [Pneum* Rash Influenza Virus Vac* Rash, Swelling Sulfamethoxazole-Tr* Vomiting Ciprofloxacin GI Upset Dtp Toxoids Adsorbe* Rash Metronidazole GI Upset Zestril [Lisinopril] Ampicillin Diarrhea Crestor [Rosuvastat* Intolerance Penicillins GI Upset Prednisone GI Upset MEDICATIONS: atenolol (TENORMIN) 50 mg tablet Take 1 tablet by mouth once daily. hydroCHLOROthiazide 25 mg tablet Take 1 tablet by mouth once daily. meloxicam (MOBIC) 15 mg tablet Take 1 tablet by mouth once daily. With food. pyridoxine hcl(VITAMIN B-6 100 MG TAB) Take one(1) tablet daily. ergocalciferol(VITAMIN D 400 UNIT CAP) Take 400 Units by mouth every Sunday,Sunday,Sunday. Allergies, medications, past surgical history, family history and past medical history were reviewed per this encounter. Objective Ortho Exam 84-year-old female [facility] exam no acute distress. Evaluation of the left ankle shows moderate swelling around the ankle joint. There is minimal tenderness with palpation over the distal fibula. Range of motion shows mild restriction with inversion and dorsiflexion. No focal sensory neural deficits noted. X-ray shows progressive healing of distal fibula fracture no change in alignment. Patient is given home stretching and strengthening exercises to begin Assessment/Plan ASSESSMENT Diagnosis (S82.198E) Traumatic closed nondisplaced fracture of distal fibula, left, initial encounter (primary encounter diagnosis) No orders found for this visit on 06/25/24. PLAN For ankle rehabilitation. Follow-up as needed. FOLLOW-UP: No follow-ups on file. SIGNATURE: Teddy Mcclelland DO PATIENT NAME: Floridalma Dennis DATE: June 25, 2024 TIME: 1:47 PM [facility] 06-25-2024 History of Presen t illness Narrative SERVICE DATE: June 25, 2024 PCP: Nazario Abdul MD Subjective Patient ID: Floridalma is a 84 year old female. Chief Complaint: Patient presents with: 6 weeks 1 days post fracture Left distal fibula PAIN EVALUATION No data found in the last 1 encounters. HPI Patient presents today for follow-up of left distal fibula fracture. She is 6 weeks 1 day post fracture last seen 4 weeks ago. She presents today walking without cam walker boot or brace. She states that she is not having significant pain and the brace was bothering her so she quit wearing it. Review of Systems ACTIVE PROBLEM LIST Essential Hypertension, Benign Depressive Disorder Hyperlipidemia Ldl Goal <130 Osteopenia, Senile Pericardial Effusion PAST MEDICAL HISTORY Diagnosis Date Adenomatous colon polyp 12/08/2016 recheck 2021 Closed left fibular fracture 05/15/2024 Colitis 11/28/2016 COVID-19 04/07/2021 Dysthymic disorder Depression (non-psychotic) Essential hypertension, benign Hyperlipidemia LDL goal <130 01/10/2016 Osteopenia, senile 12/19/2017 PAST SURGICAL HISTORY Procedure Laterality Date BIOPSY BREAST OPEN INCISIONAL Bx of breast, incisional - left CATARACT EXTRACTION HX 10/2018 COLONOSCOPY - DIAGNOSTIC 12/08/2016 COLONOSCOPY FLX DX W/COLLJ SPEC WHEN PFRMD 12/25/2005 Colonoscopy-repeat in DILATION & CURETTAGE DX&/THER NONOBSTETRIC Dilation & curettage FAMILY HISTORY Problem Relation Age of Onset Cancer Father RENAL Coronary Artery Disease Father Cancer Sister unknown primary Dementia Sister Dementia Sister No Known Problems Sister Ischemic Heart Disease Brother Kidney failure Brother Diabetes Maternal Grandmother Colon Cancer Paternal Grandfather Breast Cancer Maternal Aunt Breast Cancer Paternal Aunt Social History Tobacco Use Smoking status: Never Passive exposure: Past Smokeless tobacco: Never Vaping Use Vaping status: Never Used Substance Use Topics Alcohol use: No Drug use: No ALLERGIES Allergen Reactions Pneumovax 23 [Pneum* Rash Influenza Virus Vac* Rash, Swelling Sulfamethoxazole-Tr* Vomiting Ciprofloxacin GI Upset Dtp Toxoids Adsorbe* Rash Metronidazole GI Upset Zestril [Lisinopril] Ampicillin Diarrhea Crestor [Rosuvastat* Intolerance Penicillins GI Upset Prednisone GI Upset MEDICATIONS: atenolol (TENORMIN) 50 mg tablet Take 1 tablet by mouth once daily. hydroCHLOROthiazide 25 mg tablet Take 1 tablet by mouth once daily. meloxicam (MOBIC) 15 mg tablet Take 1 tablet by mouth once daily. With food. pyridoxine hcl(VITAMIN B-6 100 MG TAB) Take one(1) tablet daily. ergocalciferol(VITAMIN D 400 UNIT CAP) Take 400 Units by mouth every Sunday,Sunday,Sunday. Allergies, medications, past surgical history, family history and past medical history were reviewed per this encounter. Objective Ortho Exam 84-year-old female pleasant cooperative exam no acute distress. Evaluation of the left ankle shows moderate swelling around the ankle joint. There is minimal tenderness with palpation over the distal fibula. Range of motion shows mild restriction with inversion and dorsiflexion. No focal sensory neural deficits noted. X-ray shows progressive healing of distal fibula fracture no change in alignment. Patient is given home stretching and strengthening exercises to begin Assessment/Plan ASSESSMENT Diagnosis (S82.832A) Traumatic closed nondisplaced fracture of distal fibula, left, initial encounter (primary encounter diagnosis) No orders found for this visit on 06/25/24. PLAN For ankle rehabilitation. Follow-up as needed. FOLLOW-UP: No follow-ups on file. SIGNATURE: Teddy Mcclelland DO PATIENT NAME: Floridalma Dennis DATE: June 25, 2024 TIME: 1:47 PM Patient presents with: 6 weeks 1 days post fracture Left distal fibula AMB ROOMING INTAKE FLOWSHEET DATA Patient states she has not worn the aircast for the past 2 weeks. She felt unsteady going up steps. Denies any pain States she only has pain when she turns her ankle the wrong way. Friend with patient today. X-rays done today. documented in this encounter [facility] 06-25-2024 Note HNO ID: [id number] Author: MARCELLE GUTIERREZ MA Service: ? Author Type: Extermination Supervisor Type: Progress Notes Filed: 06/25/2024 13:49 Note Text: Patient presents with: 6 weeks 1 days post fracture Left distal fibula AMB ROOMING INTAKE FLOWSHEET DATA Patient states she has not worn the aircast for the past 2 weeks. She felt unsteady going up steps. Denies any pain States she only has pain when she turns her ankle the wrong way. Friend with patient today. X-rays done today. [facility] 06-25-2024 History of Presen t illness Narrative Radiology Service Progress Note PATIENT NAME: Floridalma Dennis DATE OF SERVICE: June 25, 2024 TIME: 3:05 PM PATIENT IDENTITY VERIFICATION COMPLETED USING TWO (2) IDENTIFIERS: Name and Date of confirmed by patient verbally. FALL SCREENING: Has the patient had 2 falls in the last year or 1 fall with injury or currently using an Ambulatory Assistive Device (Walker, Cane, Wheelchair, Crutches, etc.)? No PATIENT GENDER DATA: Assigned female at . status: : No status: NO. PATIENT RELEVANT IMPLANT DATA REVIEWED: Not Applicable PATIENT PRESENTS WITH AN IMPLANTABLE OR ATTACHED LIBRARIAN HEAD: No RADIOLOGY DEPARTMENT: General X-ray: Exam(s) Completed: Lower Extremity X-Ray(s): Ankle, Left PERIPHERAL IV DATA: Not applicable SIGNED BY: RT Cortez(Sandy) June 25, 2024 3:05 PM documented in this encounter [facility] 06-25-2024 Note HNO ID: [id number] Author: ANA FRENCH RT(Sandy) Service: ? Author Type: Technologist Type: Progress Notes Filed: 06/25/2024 15:06 Note Text: Radiology Service Progress Note PATIENT NAME: Floridalma Dennis DATE OF SERVICE: June 25, 2024 TIME: 3:05 PM PATIENT IDENTITY VERIFICATION COMPLETED USING TWO (2) IDENTIFIERS: Name and Date of confirmed by patient verbally. FALL SCREENING: Has the patient had 2 falls in the last year or 1 fall with injury or currently using an Ambulatory Assistive Device (Walker, Cane, Wheelchair, Crutches, etc.)? No PATIENT GENDER DATA: Assigned female at . status: : No status: NO. PATIENT RELEVANT IMPLANT DATA REVIEWED: Not Applicable PATIENT PRESENTS WITH AN IMPLANTABLE OR ATTACHED LIBRARIAN HEAD: No RADIOLOGY DEPARTMENT: General X-ray: Exam(s) Completed: Lower Extremity X-Ray(s): Ankle, Left PERIPHERAL IV DATA: Not applicable SIGNED BY: Ana French, RT(R) June 25, 2024 3:05 PM [facility] 05-30-2024 Note HNO ID: [id number] Author: TEDDY MCCLELLAND, DO Service: ? Author Type: Physician Type: Progress Notes Filed: 05/30/2024 14:59 Note Text: SERVICE DATE: May 30, 2024 PCP: Nazario Abdul MD Subjective Patient ID: Floridalma is a 84 year old female. Chief Complaint: Patient presents with: 2 weeks 3 days post visit left distal fibula fx PAIN EVALUATION 05/30/2024 1300 Pain Level: 1 Pain Location: Ankle-Left Description: Aching Duration Amount of Time: -- ongoing Frequency: Continuous Intervention/Comfort measure: Other: See comment air stirrup HPI Presents today for follow-up right distal fibula fracture. 2 weeks and 3 days postinjury. She reports her pain is a 1 out of 10. Walking comfortably and a air stirrup splint. Review of Systems ACTIVE PROBLEM LIST Essential Hypertension, Benign Depressive Disorder Hyperlipidemia Ldl Goal <130 Osteopenia, Senile Pericardial Effusion PAST MEDICAL HISTORY Diagnosis Date Adenomatous colon polyp 12/08/2016 recheck 2021 Closed left fibular fracture 05/15/2024 Colitis 11/28/2016 COVID-19 04/07/2021 Dysthymic disorder Depression (non-psychotic) Essential hypertension, benign Hyperlipidemia LDL goal <130 01/10/2016 Osteopenia, senile 12/19/2017 PAST SURGICAL HISTORY Procedure Laterality Date BIOPSY BREAST OPEN INCISIONAL Bx of breast, incisional - left CATARACT EXTRACTION HX 10/2018 COLONOSCOPY - DIAGNOSTIC 12/08/2016 COLONOSCOPY FLX DX W/COLLJ SPEC WHEN PFRMD 12/25/2005 Colonoscopy-repeat in DILATION AND CURETTAGE DXAND/THER NONOBSTETRIC Dilation AND curettage FAMILY HISTORY Problem Relation Age of Onset Cancer Father RENAL Coronary Artery Disease Father Cancer Sister unknown primary Dementia Sister Dementia Sister No Known Problems Sister Ischemic Heart Disease Brother Kidney failure Brother Diabetes Maternal Grandmother Colon Cancer Paternal Grandfather Breast Cancer Maternal Aunt Breast Cancer Paternal Aunt Social History Tobacco Use Smoking status: Never Passive exposure: Past Smokeless tobacco: Never Vaping Use Vaping status: Never Used Substance Use Topics Alcohol use: No Drug use: No ALLERGIES Allergen Reactions Pneumovax 23 [Pneum* Rash Influenza Virus Vac* Rash, Swelling Sulfamethoxazole-Tr* Vomiting Ciprofloxacin GI Upset Dtp Toxoids Adsorbe* Rash Metronidazole GI Upset Zestril [Lisinopril] Ampicillin Diarrhea Crestor [Rosuvastat* Intolerance Penicillins GI Upset Prednisone GI Upset MEDICATIONS: atenolol (TENORMIN) 50 mg tablet Take 1 tablet by mouth once daily. hydroCHLOROthiazide 25 mg tablet Take 1 tablet by mouth once daily. meloxicam (MOBIC) 15 mg tablet Take 1 tablet by mouth once daily. With food. pyridoxine hcl(VITAMIN B-6 100 MG TAB) Take one(1) tablet daily. ergocalciferol(VITAMIN D 400 UNIT CAP) Take 400 Units by mouth every Sunday,Sunday,Sunday. Allergies, medications, past surgical history, family history and past medical history were reviewed per this encounter. Objective Ortho Exam 84-year-old female is pleasant cooperative with exam in no acute distress. Of the left foot and ankle shows bruising that is resolving. There is no substantial swelling noted. Minimal tenderness with palpation over the lateral malleolus. No focal sensory neural deficits noted. Assessment/Plan ASSESSMENT Diagnosis Closed fracture distal fibula with routine healing No orders found for this visit on 05/30/24. PLAN Continue with splint with weightbearing as instructed. Follow-up in 4 weeks with repeat x-ray FOLLOW-UP: No follow-ups on file. SIGNATURE: Teddy Mcclelland DO PATIENT NAME: Floridalma Dennis DATE: May 30, 2024 TIME: 2:56 PM [facility] 05-30-2024 History of Presen t illness Narrative Images from the original note were not included. SERVICE DATE: May 30, 2024 PCP: Nazario Abdul MD Subjective Patient ID: Floridalma is a 84 year old female. Chief Complaint: Patient presents with: 2 weeks 3 days post visit left distal fibula fx PAIN EVALUATION 05/30/2024 1300 Pain Level: 1 Pain Location: Ankle-Left Description: Aching Duration Amount of Time: -- ongoing Frequency: Continuous Intervention/Comfort measure: Other: See comment air stirrup HPI Presents today for follow-up right distal fibula fracture. 2 weeks and 3 days postinjury. She reports her pain is a 1 out of 10. Walking comfortably and a air stirrup splint. Review of Systems ACTIVE PROBLEM LIST Essential Hypertension, Benign Depressive Disorder Hyperlipidemia Ldl Goal <130 Osteopenia, Senile Pericardial Effusion PAST MEDICAL HISTORY Diagnosis Date Adenomatous colon polyp 12/08/2016 recheck 2021 Closed left fibular fracture 05/15/2024 Colitis 11/28/2016 COVID-19 04/07/2021 Dysthymic disorder Depression (non-psychotic) Essential hypertension, benign Hyperlipidemia LDL goal <130 01/10/2016 Osteopenia, senile 12/19/2017 PAST SURGICAL HISTORY Procedure Laterality Date BIOPSY BREAST OPEN INCISIONAL Bx of breast, incisional - left CATARACT EXTRACTION HX 10/2018 COLONOSCOPY - DIAGNOSTIC 12/08/2016 COLONOSCOPY FLX DX W/COLLJ SPEC WHEN PFRMD 12/25/2005 Colonoscopy-repeat in DILATION & CURETTAGE DX&/THER NONOBSTETRIC Dilation & curettage FAMILY HISTORY Problem Relation Age of Onset Cancer Father RENAL Coronary Artery Disease Father Cancer Sister unknown primary Dementia Sister Dementia Sister No Known Problems Sister Ischemic Heart Disease Brother Kidney failure Brother Diabetes Maternal Grandmother Colon Cancer Paternal Grandfather Breast Cancer Maternal Aunt Breast Cancer Paternal Aunt Social History Tobacco Use Smoking status: Never Passive exposure: Past Smokeless tobacco: Never Vaping Use Vaping status: Never Used Substance Use Topics Alcohol use: No Drug use: No ALLERGIES Allergen Reactions Pneumovax 23 [Pneum* Rash Influenza Virus Vac* Rash, Swelling Sulfamethoxazole-Tr* Vomiting Ciprofloxacin GI Upset Dtp Toxoids Adsorbe* Rash Metronidazole GI Upset Zestril [Lisinopril] Ampicillin Diarrhea Crestor [Rosuvastat* Intolerance Penicillins GI Upset Prednisone GI Upset MEDICATIONS: atenolol (TENORMIN) 50 mg tablet Take 1 tablet by mouth once daily. hydroCHLOROthiazide 25 mg tablet Take 1 tablet by mouth once daily. meloxicam (MOBIC) 15 mg tablet Take 1 tablet by mouth once daily. With food. pyridoxine hcl(VITAMIN B-6 100 MG TAB) Take one(1) tablet daily. ergocalciferol(VITAMIN D 400 UNIT CAP) Take 400 Units by mouth every Sunday,Sunday,Sunday. Allergies, medications, past surgical history, family history and past medical history were reviewed per this encounter. Objective Ortho Exam 84-year-old female is pleasant cooperative with exam in no acute distress. Of the left foot and ankle shows bruising that is resolving. There is no substantial swelling noted. Minimal tenderness with palpation over the lateral malleolus. No focal sensory neural deficits noted. Assessment/Plan ASSESSMENT Diagnosis Closed fracture distal fibula with routine healing No orders found for this visit on 05/30/24. PLAN Continue with splint with weightbearing as instructed. Follow-up in 4 weeks with repeat x-ray FOLLOW-UP: No follow-ups on file. SIGNATURE: Teddy Mcclelland DO PATIENT NAME: Floridalma Dennis DATE: May 30, 2024 TIME: 2:56 PM AMB ROOMING INTAKE FLOWSHEET DATA Pain Pain Level: 1 Pain Location: Ankle-Left Description: Aching Duration Amount of Time: (ongoing) Frequency: Continuous Intervention/Comfort measure: Other: See comment ( stirrujodi) documented in this encounter [facility] 05-30-2024 Note HNO ID: [id number] Author: MERON BELTRE MA Service: ? Author Type: Extermination Supervisor Type: Progress Notes Filed: 05/30/2024 14:59 Note Text: AMB ROOMING INTAKE FLOWSHEET DATA Pain Pain Level: 1 Pain Location: Ankle-Left Description: Aching Duration Amount of Time: (ongoing) Frequency: Continuous Intervention/Comfort measure: Other: See comment (air stirrup) [facility] 05-30-2024 History of Presen t illness Narrative Radiology Service Progress Note PATIENT NAME: Floridalma Dennis DATE OF SERVICE: May 30, 2024 TIME: 1:32 PM PATIENT IDENTITY VERIFICATION COMPLETED USING TWO (2) IDENTIFIERS: Name and Date of confirmed by patient verbally. FALL SCREENING: Has the patient had 2 falls in the last year or 1 fall with injury or currently using an Ambulatory Assistive Device (Walker, Cane, Wheelchair, Crutches, etc.)? Yes, Patient High Risk for Falls What interventions were put in place to prevent falls during this visit? Increased Observations by Caregivers PATIENT GENDER DATA: Assigned female at . status: : No status: NO. PATIENT RELEVANT IMPLANT DATA REVIEWED: Not Applicable PATIENT PRESENTS WITH AN IMPLANTABLE OR ATTACHED LIBRARIAN HEAD: No RADIOLOGY DEPARTMENT: General X-ray: Exam(s) Completed: Lower Extremity X-Ray(s): Ankle, Left PERIPHERAL IV DATA: Not applicable SIGNED BY: RT Cortez(Sandy) May 30, 2024 1:32 PM documented in this encounter [facility] 05-30-2024 Note HNO ID: [id number] Author: ANA FRENCH RT(R) Service: ? Author Type: Technologist Type: Progress Notes Filed: 05/30/2024 13:33 Note Text: Radiology Service Progress Note PATIENT NAME: Floridalma Dennis DATE OF SERVICE: May 30, 2024 TIME: 1:32 PM PATIENT IDENTITY VERIFICATION COMPLETED USING TWO (2) IDENTIFIERS: Name and Date of confirmed by patient verbally. FALL SCREENING: Has the patient had 2 falls in the last year or 1 fall with injury or currently using an Ambulatory Assistive Device (Walker, Cane, Wheelchair, Crutches, etc.)? Yes, Patient High Risk for Falls What interventions were put in place to prevent falls during this visit? Increased Observations by Caregivers PATIENT GENDER DATA: Assigned female at . status: : No status: NO. PATIENT RELEVANT IMPLANT DATA REVIEWED: Not Applicable PATIENT PRESENTS WITH AN IMPLANTABLE OR ATTACHED LIBRARIAN HEAD: No RADIOLOGY DEPARTMENT: General X-ray: Exam(s) Completed: Lower Extremity X-Ray(s): Ankle, Left PERIPHERAL IV DATA: Not applicable SIGNED BY: RT Cortez(R) May 30, 2024 1:32 PM [facility] 05-30-2024 Note HNO ID: [id number] Author: NAZARIO ABDUL MD Service: ? Author Type: Physician Type: Progress Notes Filed: 05/30/2024 10:20 Note Text: This note was created using [employer]. Subjective Floridalma Dennis is a 84 year old female here with her friend. She had no recurrence of syncope. Her hypertension was controlled. She fell and fractured her left ankle and was seeing orthopedics here. Review of Systems Constitutional: Negative for fatigue. Respiratory: Negative for chest tightness and shortness of breath. Cardiovascular: Negative for chest pain and palpitations. Neurological: Negative for syncope and light-headedness. ACTIVE PROBLEM LIST Essential Hypertension, Benign Depressive Disorder Hyperlipidemia Ldl Goal <130 Osteopenia, Senile Pericardial Effusion Social History Tobacco Use Smoking status: Never Passive exposure: Past Smokeless tobacco: Never Vaping Use Vaping status: Never Used Substance Use Topics Alcohol use: No Drug use: No Current Outpatient Medications Medication Sig atenolol (TENORMIN) 50 mg tablet Take 1 tablet by mouth once daily. hydroCHLOROthiazide 25 mg tablet Take 1 tablet by mouth once daily. sertraline (ZOLOFT) 25 mg tablet Take 1 tablet by mouth once daily. (Patient not taking: Reported on 05/16/2024) meloxicam (MOBIC) 15 mg tablet Take 1 tablet by mouth once daily. With food. pyridoxine hcl(VITAMIN B-6 100 MG TAB) Take one(1) tablet daily. ergocalciferol(VITAMIN D 400 UNIT CAP) Take 400 Units by mouth every Sunday,Sunday,Sunday. No current facility-administered medications for this visit. Objective BP 124/78 (BP Site: Left Arm, BP Position: Sitting) Pulse 68 Resp 16 Wt 55.8 kg (123 lb 0.3 oz) BMI 20.31 kg/m? Physical Exam Constitutional: Appearance: She is not ill-appearing. Cardiovascular: Rate and Rhythm: Normal rate and regular rhythm. Heart sounds: S1 normal and S2 normal. No murmur heard. No friction rub. Pulmonary: Breath sounds: Normal breath sounds. Neurological: Mental Status: She is alert. Assessment and Plan 1. Pericardial effusion - ICD9: 423.9, ICD10: I31.39 (primary diagnosis) - Follow up per cardiology. 2. Essential hypertension, benign - ICD9: 401.1, ICD10: I10 - Controlled - Continue current medications 3. Osteopenia, senile - ICD9: 733.90, ICD10: M85.80 - Reviewed the need for Calcium and Vitamin D supplements and weight bearing exercise as tolerated - She meets criteria for osteoporosis. Review at next visit. Nazario Abdul MD [facility] 05-30-2024 History of Presen t illness Narrative This note was created using [employer]. Subjective Floridalma Dennis is a 84 year old female here with her friend. She had no recurrence of syncope. Her hypertension was controlled. She fell and fractured her left ankle and was seeing orthopedics here. Review of Systems Constitutional: Negative for fatigue. Respiratory: Negative for chest tightness and shortness of breath. Cardiovascular: Negative for chest pain and palpitations. Neurological: Negative for syncope and light-headedness. ACTIVE PROBLEM LIST Essential Hypertension, Benign Depressive Disorder Hyperlipidemia Ldl Goal <130 Osteopenia, Senile Pericardial Effusion Social History Tobacco Use Smoking status: Never Passive exposure: Past Smokeless tobacco: Never Vaping Use Vaping status: Never Used Substance Use Topics Alcohol use: No Drug use: No Current Outpatient Medications Medication Sig atenolol (TENORMIN) 50 mg tablet Take 1 tablet by mouth once daily. hydroCHLOROthiazide 25 mg tablet Take 1 tablet by mouth once daily. sertraline (ZOLOFT) 25 mg tablet Take 1 tablet by mouth once daily. (Patient not taking: Reported on 05/16/2024) meloxicam (MOBIC) 15 mg tablet Take 1 tablet by mouth once daily. With food. pyridoxine hcl(VITAMIN B-6 100 MG TAB) Take one(1) tablet daily. ergocalciferol(VITAMIN D 400 UNIT CAP) Take 400 Units by mouth every Sunday,Sunday,Sunday. No current facility-administered medications for this visit. Objective BP 124/78 (BP Site: Left Arm, BP Position: Sitting) Pulse 68 Resp 16 Wt 55.8 kg (123 lb 0.3 oz) BMI 20.31 kg/m Physical Exam Constitutional: Appearance: She is not ill-appearing. Cardiovascular: Rate and Rhythm: Normal rate and regular rhythm. Heart sounds: S1 normal and S2 normal. No murmur heard. No friction rub. Pulmonary: Breath sounds: Normal breath sounds. Neurological: Mental Status: She is alert. Assessment and Plan 1. Pericardial effusion - ICD9: 423.9, ICD10: I31.39 (primary diagnosis) - Follow up per cardiology. 2. Essential hypertension, benign - ICD9: 401.1, ICD10: I10 - Controlled - Continue current medications 3. Osteopenia, senile - ICD9: 733.90, ICD10: M85.80 - Reviewed the need for Calcium and Vitamin D supplements and weight bearing exercise as tolerated - She meets criteria for osteoporosis. Review at next visit. Nazario Abdul MD documented in this encounter [facility] 05-16-2024 Note HNO ID: [id number] Author: TEDDY MCCLELLAND, DO Service: ? Author Type: Physician Type: Progress Notes Filed: 05/16/2024 14:56 Note Text: SERVICE DATE: May 16, 2024 PCP: Nazario Abdul MD Subjective Patient ID: Floridalma is a 84 year old female. Chief Complaint: Patient presents with: left distal fibula fx PAIN EVALUATION 05/16/2024 1327 Pain Level: 4 Pain Location: Ankle-Left Description: Aching;Dull;Sharp Duration Amount of Time: 3 3 Duration Units: Days Frequency: Continuous Intervention/Comfort measure: Other: See comment Air rivera HPI 84-year-old female presents today with acute distal left fibular fracture. She states that she fell on stairs at her home when she was going down into her basement. This occurred 3 days ago. He was seen in [facility] care yesterday where x-rays showed a distal fibula fracture. She declined the use of a fracture boot but has been wearing a air splint and states that she is able to walk comfortably in it. Review of Systems ACTIVE PROBLEM LIST Essential Hypertension, Benign Depressive Disorder Hyperlipidemia Ldl Goal <130 Osteopenia, Senile Pericardial Effusion PAST MEDICAL HISTORY Diagnosis Date Adenomatous colon polyp 12/08/2016 recheck 2021 Colitis 11/28/2016 COVID-19 04/07/2021 Dysthymic disorder Depression (non-psychotic) Essential hypertension, benign Hyperlipidemia LDL goal <130 01/10/2016 Osteopenia, senile 12/19/2017 PAST SURGICAL HISTORY Procedure Laterality Date BIOPSY BREAST OPEN INCISIONAL Bx of breast, incisional - left CATARACT EXTRACTION HX 10/2018 COLONOSCOPY - DIAGNOSTIC 12/08/2016 COLONOSCOPY FLX DX W/COLLJ SPEC WHEN PFRMD 12/25/2005 Colonoscopy-repeat in DILATION AND CURETTAGE DXAND/THER NONOBSTETRIC Dilation AND curettage FAMILY HISTORY Problem Relation Age of Onset Cancer Father RENAL Coronary Artery Disease Father Cancer Sister unknown primary Dementia Sister Dementia Sister No Known Problems Sister Ischemic Heart Disease Brother Kidney failure Brother Diabetes Maternal Grandmother Colon Cancer Paternal Grandfather Breast Cancer Maternal Aunt Breast Cancer Paternal Aunt Social History Tobacco Use Smoking status: Never Passive exposure: Past Smokeless tobacco: Never Vaping Use Vaping status: Never Used Substance Use Topics Alcohol use: No Drug use: No ALLERGIES Allergen Reactions Pneumovax 23 [Pneum* Rash Influenza Virus Vac* Rash, Swelling Sulfamethoxazole-Tr* Vomiting Ciprofloxacin GI Upset Dtp Toxoids Adsorbe* Rash Metronidazole GI Upset Zestril [Lisinopril] Ampicillin Diarrhea Crestor [Rosuvastat* Intolerance Penicillins GI Upset Prednisone GI Upset MEDICATIONS: atenolol (TENORMIN) 50 mg tablet Take 1 tablet by mouth once daily. hydroCHLOROthiazide 25 mg tablet Take 1 tablet by mouth once daily. meloxicam (MOBIC) 15 mg tablet Take 1 tablet by mouth once daily. With food. pyridoxine hcl(VITAMIN B-6 100 MG TAB) Take one(1) tablet daily. ergocalciferol(VITAMIN D 400 UNIT CAP) Take 400 Units by mouth every Sunday,Sunday,Sunday. sertraline (ZOLOFT) 25 mg tablet Take 1 tablet by mouth once daily. (Patient not taking: Reported on 05/16/2024) Allergies, medications, past surgical history, family history and past medical history were reviewed per this encounter. Objective Ortho Exam 84-year-old female pleasant cooperative with exam in no acute distress. Evaluation of the left lower extremity shows ecchymosis and soft tissue swelling around the lateral ankle and foot. Tenderness with palpation over the lateral malleolus. No significant tenderness on the medial malleolus fifth metatarsal or proximal fibula. X-rays shows an acute nondisplaced fracture of the distal fibula Assessment/Plan ASSESSMENT Diagnosis Nondisplaced fracture left distal fibula No orders found for this visit on 05/16/24. PLAN Again discussed using a cam walker boot for protection. Patient states that she does not want the boot because she does not feel comfortable walking in it. She is maintained in the air splint and courage to restrict standing and walking activities. Discussed the possibility of fracture displacement with weightbearing or new injury. Recheck in 2 weeks with repeat x-ray FOLLOW-UP: No follow-ups on file. SIGNATURE: Teddy Mcclelland DO PATIENT NAME: Floridalma Dennis DATE: May 16, 2024 TIME: 2:53 PM [facility] 05-16-2024 History of Presen t illness Narrative Images from the original note were not included. SERVICE DATE: May 16, 2024 PCP: Nazario Abdul MD Subjective Patient ID: Floridalma is a 84 year old female. Chief Complaint: Patient presents with: left distal fibula fx PAIN EVALUATION 05/16/2024 1327 Pain Level: 4 Pain Location: Ankle-Left Description: Aching;Dull;Sharp Duration Amount of Time: 3 3 Duration Units: Days Frequency: Continuous Intervention/Comfort measure: Other: See comment Air rivera HPI 84-year-old female presents today with acute distal left fibular fracture. She states that she fell on stairs at her home when she was going down into her basement. This occurred 3 days ago. He was seen in [facility] care yesterday where x-rays showed a distal fibula fracture. She declined the use of a fracture boot but has been wearing a air splint and states that she is able to walk comfortably in it. Review of Systems ACTIVE PROBLEM LIST Essential Hypertension, Benign Depressive Disorder Hyperlipidemia Ldl Goal <130 Osteopenia, Senile Pericardial Effusion PAST MEDICAL HISTORY Diagnosis Date Adenomatous colon polyp 12/08/2016 recheck 2021 Colitis 11/28/2016 COVID-19 04/07/2021 Dysthymic disorder Depression (non-psychotic) Essential hypertension, benign Hyperlipidemia LDL goal <130 01/10/2016 Osteopenia, senile 12/19/2017 PAST SURGICAL HISTORY Procedure Laterality Date BIOPSY BREAST OPEN INCISIONAL Bx of breast, incisional - left CATARACT EXTRACTION HX 10/2018 COLONOSCOPY - DIAGNOSTIC 12/08/2016 COLONOSCOPY FLX DX W/COLLJ SPEC WHEN PFRMD 12/25/2005 Colonoscopy-repeat in DILATION & CURETTAGE DX&/THER NONOBSTETRIC Dilation & curettage FAMILY HISTORY Problem Relation Age of Onset Cancer Father RENAL Coronary Artery Disease Father Cancer Sister unknown primary Dementia Sister Dementia Sister No Known Problems Sister Ischemic Heart Disease Brother Kidney failure Brother Diabetes Maternal Grandmother Colon Cancer Paternal Grandfather Breast Cancer Maternal Aunt Breast Cancer Paternal Aunt Social History Tobacco Use Smoking status: Never Passive exposure: Past Smokeless tobacco: Never Vaping Use Vaping status: Never Used Substance Use Topics Alcohol use: No Drug use: No ALLERGIES Allergen Reactions Pneumovax 23 [Pneum* Rash Influenza Virus Vac* Rash, Swelling Sulfamethoxazole-Tr* Vomiting Ciprofloxacin GI Upset Dtp Toxoids Adsorbe* Rash Metronidazole GI Upset Zestril [Lisinopril] Ampicillin Diarrhea Crestor [Rosuvastat* Intolerance Penicillins GI Upset Prednisone GI Upset MEDICATIONS: atenolol (TENORMIN) 50 mg tablet Take 1 tablet by mouth once daily. hydroCHLOROthiazide 25 mg tablet Take 1 tablet by mouth once daily. meloxicam (MOBIC) 15 mg tablet Take 1 tablet by mouth once daily. With food. pyridoxine hcl(VITAMIN B-6 100 MG TAB) Take one(1) tablet daily. ergocalciferol(VITAMIN D 400 UNIT CAP) Take 400 Units by mouth every Sunday,Sunday,Sunday. sertraline (ZOLOFT) 25 mg tablet Take 1 tablet by mouth once daily. (Patient not taking: Reported on 05/16/2024) Allergies, medications, past surgical history, family history and past medical history were reviewed per this encounter. Objective Ortho Exam 84-year-old female pleasant cooperative with exam in no acute distress. Evaluation of the left lower extremity shows ecchymosis and soft tissue swelling around the lateral ankle and foot. Tenderness with palpation over the lateral malleolus. No significant tenderness on the medial malleolus fifth metatarsal or proximal fibula. X-rays shows an acute nondisplaced fracture of the distal fibula Assessment/Plan ASSESSMENT Diagnosis Nondisplaced fracture left distal fibula No orders found for this visit on 05/16/24. PLAN Again discussed using a cam walker boot for protection. Patient states that she does not want the boot because she does not feel comfortable walking in it. She is maintained in the air splint and courage to restrict standing and walking activities. Discussed the possibility of fracture displacement with weightbearing or new injury. Recheck in 2 weeks with repeat x-ray FOLLOW-UP: No follow-ups on file. SIGNATURE: Teddy Mcclelland DO PATIENT NAME: Floridalma Dennis DATE: May 16, 2024 TIME: 2:53 PM AMB ROOMING INTAKE FLOWSHEET DATA Pain Pain Level: 4 Pain Location: Ankle-Left Description: Aching, Dull, Sharp Duration Amount of Time: 3 (3) Duration Units: Days Frequency: Continuous Intervention/Comfort measure: Other: See comment (Air stirrup) documented in this encounter [facility] 05-16-2024 Note HNO ID: [id number] Author: MERON BELTRE MA Service: ? Author Type: Extermination Supervisor Type: Progress Notes Filed: 05/16/2024 14:56 Note Text: AMB ROOMING INTAKE FLOWSHEET DATA Pain Pain Level: 4 Pain Location: Ankle-Left Description: Aching, Dull, Sharp Duration Amount of Time: 3 (3) Duration Units: Days Frequency: Continuous Intervention/Comfort measure: Other: See comment (Air stirrup) [facility] 05-15-2024 Instructions Roberta Cedeno, [facility] - 05/15/2024 1:57 PM EST ASSESSMENT/PLAN: 1. Injury of left ankle, initial encounter - ICD9: 959.7, ICD10: S99.912A (primary diagnosis) - XR ANKLE GENERAL 3V AP/LAT/OBL LEFT FINDINGS: Acute, nondisplaced, oblique fracture of the distal fibula. Ankle mortise is maintained. Mild soft tissue edema centered about the high ankle. Lisfranc joint appears well aligned. No radiopaque foreign body. IMPRESSION: Acute nondisplaced fracture of the distal fibula. Recommend left tibia/fibular radiograph for possible proximal fracture. COMMUNICATION: Communicated with ROBERTA CEDENO on 05/15/2024 12:54 PM via [employer] staff message. Pipelines Manager: HANANE Transcribe Date/Time: May 15 2024 12:49P Dictated by : AKHIL GRIFFIN MD - XR TIBIA FIBULA 2V AP/LAT LEFT 2. Foot injury, left, initial encounter - ICD9: 959.7, ICD10: S99.922A - XR FOOT GENERAL 3V AP/LAT/OBL LEFT -Patient placed in aircast walking boot. Patient states she refuses to wear this-is afraid it will make her fall. She does not want an orthoglass splint-states this will be too heavy. She wants to go home with nothing. States I've been walking around on it just fine for 3 days. Boot removed and patient placed in air cast splint and advised to limit weight bearing until seen by orthopedics. She seems more comfortable with the aircast splint. - Rest, elevate. May take tylenol for pain. - follow up with orthopedics. - Follow-up with your PCP in 3-5 days if symptoms have not improved or sooner if symptoms worsen - Discussed red flags and need for immediate medical evaluation if any occur. - Discussed supportive care treatment with rest and analgesia. - Discussed expected course of illness Roberta Cedeno APRN.[employer] documented in this encounter [facility] 05-15-2024 History of Presen t illness Narrative Radiology Service Progress Note PATIENT NAME: Floridalma Dennis DATE OF SERVICE: May 15, 2024 TIME: 1:04 PM PATIENT IDENTITY VERIFICATION COMPLETED USING TWO (2) IDENTIFIERS: Name and Date of confirmed by patient verbally. FALL SCREENING: Has the patient had 2 falls in the last year or 1 fall with injury or currently using an Ambulatory Assistive Device (Walker, Cane, Wheelchair, Crutches, etc.)? No PATIENT GENDER DATA: Assigned female at . status: : No status: NO. PATIENT RELEVANT IMPLANT DATA REVIEWED: Not Applicable PATIENT PRESENTS WITH AN IMPLANTABLE OR ATTACHED LIBRARIAN HEAD: No RADIOLOGY DEPARTMENT: General X-ray: Exam(s) Completed: Lower Extremity X-Ray(s): Tibia Fibula, Left PERIPHERAL IV DATA: Not applicable SIGNED BY: iJe Larios May 15, 2024 1:04 PM documented in this encounter [facility] 05-15-2024 Note HNO ID: [id number] Author: MERCEDEZ EDWARDS Tech Service: ? Author Type: Technologist Type: Progress Notes Filed: 05/15/2024 13:17 Note Text: Radiology Service Progress Note PATIENT NAME: Floridalma Dennis DATE OF SERVICE: May 15, 2024 TIME: 1:04 PM PATIENT IDENTITY VERIFICATION COMPLETED USING TWO (2) IDENTIFIERS: Name and Date of confirmed by patient verbally. FALL SCREENING: Has the patient had 2 falls in the last year or 1 fall with injury or currently using an Ambulatory Assistive Device (Walker, Cane, Wheelchair, Crutches, etc.)? No PATIENT GENDER DATA: Assigned female at . status: : No status: NO. PATIENT RELEVANT IMPLANT DATA REVIEWED: Not Applicable PATIENT PRESENTS WITH AN IMPLANTABLE OR ATTACHED LIBRARIAN HEAD: No RADIOLOGY DEPARTMENT: General X-ray: Exam(s) Completed: Lower Extremity X-Ray(s): Tibia Fibula, Left PERIPHERAL IV DATA: Not applicable SIGNED BY: Jie Larios May 15, 2024 1:04 PM [facility] 05-15-2024 History of Presen t illness Narrative Radiology Service Progress Note PATIENT NAME: Floridalma Dennis DATE OF SERVICE: May 15, 2024 TIME: 12:09 PM PATIENT IDENTITY VERIFICATION COMPLETED USING TWO (2) IDENTIFIERS: Name and Date of confirmed by patient verbally. FALL SCREENING: Has the patient had 2 falls in the last year or 1 fall with injury or currently using an Ambulatory Assistive Device (Walker, Cane, Wheelchair, Crutches, etc.)? No PATIENT GENDER DATA: Assigned female at . status: : No status: NO. PATIENT RELEVANT IMPLANT DATA REVIEWED: Yes PATIENT PRESENTS WITH AN IMPLANTABLE OR ATTACHED LIBRARIAN HEAD: No RADIOLOGY DEPARTMENT: General X-ray: Exam(s) Completed: Lower Extremity X-Ray(s): Ankle, Left and Foot, Left PERIPHERAL IV DATA: Not applicable SIGNED BY: RT Ginna(Sandy) May 15, 2024 12:09 PM documented in this encounter [facility] 05-15-2024 Note HNO ID: [id number] Author: STEPHAN STUBBS RT(R) Service: ? Author Type: Fireworks Assembly Supervisor Type: Progress Notes Filed: 05/15/2024 12:21 Note Text: Radiology Service Progress Note PATIENT NAME: Floridalma Dennis DATE OF SERVICE: May 15, 2024 TIME: 12:09 PM PATIENT IDENTITY VERIFICATION COMPLETED USING TWO (2) IDENTIFIERS: Name and Date of confirmed by patient verbally. FALL SCREENING: Has the patient had 2 falls in the last year or 1 fall with injury or currently using an Ambulatory Assistive Device (Walker, Cane, Wheelchair, Crutches, etc.)? No PATIENT GENDER DATA: Assigned female at . status: : No status: NO. PATIENT RELEVANT IMPLANT DATA REVIEWED: Yes PATIENT PRESENTS WITH AN IMPLANTABLE OR ATTACHED LIBRARIAN HEAD: No RADIOLOGY DEPARTMENT: General X-ray: Exam(s) Completed: Lower Extremity X-Ray(s): Ankle, Left and Foot, Left PERIPHERAL IV DATA: Not applicable SIGNED BY: RT Ginna(Sandy) May 15, 2024 12:09 PM [facility] 05-15-2024 Note HNO ID: [id number] Author: ROBERTA CEDENO APRN.GUIDE CRUISE Service: ? Author Type: Nurse Practitioner Type: Progress Notes Filed: 05/15/2024 14:01 Note Text: Subjective Fall Pertinent negatives include no fever. Floridalma Dennis is a 84 year old female who presents with left foot and ankle swelling and bruising. She missed a step in her home 2 days ago and twisted her ankle. She states her pain is minimal but she is concerned about the swelling and bruising. She has been walking at home without pain- only has pain with stepping up and down stairs. Review of Systems Constitutional: Negative for chills and fever. Musculoskeletal: Positive for falls and joint pain. See HPI Skin: Negative for itching and rash. BP 153/72 Pulse 78 Temp 36.9 ?C (98.4 ?F) Resp 20 Wt 57.2 kg (126 lb 1.7 oz) SpO2 98% BMI 20.82 kg/m? PAST MEDICAL HISTORY Diagnosis Date Adenomatous colon polyp 12/08/2016 recheck 2021 Colitis 11/28/2016 COVID-19 04/07/2021 Dysthymic disorder Depression (non-psychotic) Essential hypertension, benign Hyperlipidemia LDL goal <130 01/10/2016 Osteopenia, senile 12/19/2017 PAST SURGICAL HISTORY Procedure Laterality Date BIOPSY BREAST OPEN INCISIONAL Bx of breast, incisional - left CATARACT EXTRACTION HX 10/2018 COLONOSCOPY - DIAGNOSTIC 12/08/2016 COLONOSCOPY FLX DX W/COLLJ SPEC WHEN PFRMD 12/25/2005 Colonoscopy-repeat in DILATION AND CURETTAGE DXAND/THER NONOBSTETRIC Dilation AND curettage ALLERGIES Pneumovax 23 [Pneumococcal 23-Kat Ps Vaccine]; Influenza Virus Vaccines; Sulfamethoxazole-Trimethoprim; Ciprofloxacin; Dtp Toxoids Adsorbed [Diphtheria,Pertussis,Tetanus]; Metronidazole; Zestril [Lisinopril]; Ampicillin; Crestor [Rosuvastatin Calcium]; Penicillins; and Prednisone MEDICATIONS atenolol (TENORMIN) 50 mg tablet Take 1 tablet by mouth once daily. hydroCHLOROthiazide 25 mg tablet Take 1 tablet by mouth once daily. sertraline (ZOLOFT) 25 mg tablet Take 1 tablet by mouth once daily. meloxicam (MOBIC) 15 mg tablet Take 1 tablet by mouth once daily. With food. pyridoxine hcl(VITAMIN B-6 100 MG TAB) Take one(1) tablet daily. ergocalciferol(VITAMIN D 400 UNIT CAP) Take 400 Units by mouth every Sunday,Sunday,Sunday. FAMILY HISTORY Problem Relation Age of Onset Cancer Father RENAL Coronary Artery Disease Father Cancer Sister unknown primary Dementia Sister Dementia Sister No Known Problems Sister Ischemic Heart Disease Brother Kidney failure Brother Diabetes Maternal Grandmother Colon Cancer Paternal Grandfather Breast Cancer Maternal Aunt Breast Cancer Paternal Aunt Social History Tobacco Use Smoking status: Never Smokeless tobacco: Never Vaping Use Vaping status: Never Used Substance Use Topics Alcohol use: No Drug use: No Objective Physical Exam Vitals and nursing note reviewed. Constitutional: Appearance: Normal appearance. Musculoskeletal: General: Swelling, tenderness and signs of injury present. No deformity. Left ankle: Swelling and ecchymosis present. Tenderness present over the lateral malleolus. Normal range of motion. Left Achilles Tendon: Normal. No tenderness or defects. Ibarra's test negative. Skin: General: Skin is warm and dry. Findings: Bruising present. No erythema or rash. Neurological: Mental Status: She is alert. ASSESSMENT/PLAN: 1. Injury of left ankle, initial encounter - ICD9: 959.7, ICD10: S99.912A (primary diagnosis) - XR ANKLE GENERAL 3V AP/LAT/OBL LEFT FINDINGS: Acute, nondisplaced, oblique fracture of the distal fibula. Ankle mortise is maintained. Mild soft tissue edema centered about the high ankle. Lisfranc joint appears well aligned. No radiopaque foreign body. IMPRESSION: Acute nondisplaced fracture of the distal fibula. Recommend left tibia/fibular radiograph for possible proximal fracture. COMMUNICATION: Communicated with ROBERTA CEDENO on 05/15/2024 12:54 PM via ChatLingual staff message. Pipelines Manager: HANANE Transcribe Date/Time: May 15 2024 12:49P Dictated by : AKHIL GRIFFIN MD - XR TIBIA FIBULA 2V AP/LAT LEFT 2. Foot injury, left, initial encounter - ICD9: 959.7, ICD10: S99.922A - XR FOOT GENERAL 3V AP/LAT/OBL LEFT -Patient placed in aircast walking boot. Patient states she refuses to wear this-is afraid it will make her fall. She does not want an orthoglass splint-states this will be too heavy. She wants to go home with nothing. States I've been walking around on it just fine for 3 days. Boot removed and patient placed in air cast splint and advised to limit weight bearing until seen by orthopedics. She seems more comfortable with the aircast splint. - Rest, elevate. May take tylenol for pain. - follow up with orthopedics. - Follow-up with your PCP in 3-5 days if symptoms have not improved or sooner if symptoms worsen - Discussed red flags and need for immediate medical evaluation if any (more content not included)... [facility] 05-15-2024 History of Presen t illness Narrative Subjective Fall Pertinent negatives include no fever. Floridalma Dennis is a 84 year old female who presents with left foot and ankle swelling and bruising. She missed a step in her home 2 days ago and twisted her ankle. She states her pain is minimal but she is concerned about the swelling and bruising. She has been walking at home without pain- only has pain with stepping up and down stairs. Review of Systems Constitutional: Negative for chills and fever. Musculoskeletal: Positive for falls and joint pain. See HPI Skin: Negative for itching and rash. BP 153/72 Pulse 78 Temp 36.9 C (98.4 F) Resp 20 Wt 57.2 kg (126 lb 1.7 oz) SpO2 98% BMI 20.82 kg/m PAST MEDICAL HISTORY Diagnosis Date Adenomatous colon polyp 12/08/2016 recheck 2021 Colitis 11/28/2016 COVID-19 04/07/2021 Dysthymic disorder Depression (non-psychotic) Essential hypertension, benign Hyperlipidemia LDL goal <130 01/10/2016 Osteopenia, senile 12/19/2017 PAST SURGICAL HISTORY Procedure Laterality Date BIOPSY BREAST OPEN INCISIONAL Bx of breast, incisional - left CATARACT EXTRACTION HX 10/2018 COLONOSCOPY - DIAGNOSTIC 12/08/2016 COLONOSCOPY FLX DX W/COLLJ SPEC WHEN PFRMD 12/25/2005 Colonoscopy-repeat in DILATION & CURETTAGE DX&/THER NONOBSTETRIC Dilation & curettage ALLERGIES Pneumovax 23 [Pneumococcal 23-Kat Ps Vaccine]; Influenza Virus Vaccines; Sulfamethoxazole-Trimethoprim; Ciprofloxacin; Dtp Toxoids Adsorbed [Diphtheria,Pertussis,Tetanus]; Metronidazole; Zestril [Lisinopril]; Ampicillin; Crestor [Rosuvastatin Calcium]; Penicillins; and Prednisone MEDICATIONS atenolol (TENORMIN) 50 mg tablet Take 1 tablet by mouth once daily. hydroCHLOROthiazide 25 mg tablet Take 1 tablet by mouth once daily. sertraline (ZOLOFT) 25 mg tablet Take 1 tablet by mouth once daily. meloxicam (MOBIC) 15 mg tablet Take 1 tablet by mouth once daily. With food. pyridoxine hcl(VITAMIN B-6 100 MG TAB) Take one(1) tablet daily. ergocalciferol(VITAMIN D 400 UNIT CAP) Take 400 Units by mouth every Sunday,Sunday,Sunday. FAMILY HISTORY Problem Relation Age of Onset Cancer Father RENAL Coronary Artery Disease Father Cancer Sister unknown primary Dementia Sister Dementia Sister No Known Problems Sister Ischemic Heart Disease Brother Kidney failure Brother Diabetes Maternal Grandmother Colon Cancer Paternal Grandfather Breast Cancer Maternal Aunt Breast Cancer Paternal Aunt Social History Tobacco Use Smoking status: Never Smokeless tobacco: Never Vaping Use Vaping status: Never Used Substance Use Topics Alcohol use: No Drug use: No Objective Physical Exam Vitals and nursing note reviewed. Constitutional: Appearance: Normal appearance. Musculoskeletal: General: Swelling, tenderness and signs of injury present. No deformity. Left ankle: Swelling and ecchymosis present. Tenderness present over the lateral malleolus. Normal range of motion. Left Achilles Tendon: Normal. No tenderness or defects. Ibarra's test negative. Skin: General: Skin is warm and dry. Findings: Bruising present. No erythema or rash. Neurological: Mental Status: She is alert. ASSESSMENT/PLAN: 1. Injury of left ankle, initial encounter - ICD9: 959.7, ICD10: S99.912A (primary diagnosis) - XR ANKLE GENERAL 3V AP/LAT/OBL LEFT FINDINGS: Acute, nondisplaced, oblique fracture of the distal fibula. Ankle mortise is maintained. Mild soft tissue edema centered about the high ankle. Lisfranc joint appears well aligned. No radiopaque foreign body. IMPRESSION: Acute nondisplaced fracture of the distal fibula. Recommend left tibia/fibular radiograph for possible proximal fracture. COMMUNICATION: Communicated with ROBERTA CEDENO on 05/15/2024 12:54 PM via ChatLingual staff message. Pipelines Manager: HANANE Transcribe Date/Time: May 15 2024 12:49P Dictated by : AKHIL GRIFFIN MD - XR TIBIA FIBULA 2V AP/LAT LEFT 2. Foot injury, left, initial encounter - ICD9: 959.7, ICD10: S99.922A - XR FOOT GENERAL 3V AP/LAT/OBL LEFT -Patient placed in aircast walking boot. Patient states she refuses to wear this-is afraid it will make her fall. She does not want an orthoglass splint-states this will be too heavy. She wants to go home with nothing. States I've been walking around on it just fine for 3 days. Boot removed and patient placed in air cast splint and advised to limit weight bearing until seen by orthopedics. She seems more comfortable with the aircast splint. - Rest, elevate. May take tylenol for pain. - follow up with orthopedics. - Follow-up with your PCP in 3-5 days if symptoms have not improved or sooner if symptoms worsen - Discussed red flags and need for immediate medical evaluation if any occur. - Discussed supportive care treatment with rest and analgesia. - Discussed expected course of illness Roberta Cedeno APRN.GUIDE CRUISE documented in this encounter [facility] 05-05-2024 Telephone encounter Note Pt called and is notified of providers results and instructions. Pt voices understanding. Charis Hoyos RN [facility] 05-05-2024 Miscellaneous Notes Pt called and is notified of providers results and instructions. Pt voices understanding. Charis Hoyos RN Called Mackenzie/daughter, Patient's vm is full, unable to leave ms. Patient is not able to get into MyChart, asked for Patient to call office for results. Madhuri Preciado LPN Attempted to call x2, vm is full will need to try again. Per below, Patient is not able to get into MyChart. Madhuri Preciado LPN My chart message to pt with pcp's response. left message for patient to call office back and speak with triage nurse. Cindy Molina LPN Please check result notes to cut down on phone calls. Nazario Abdul MD 05/01/2024 7:26 AM EST Stable osteopenia. Continue measures for bone health. Recheck in 2 years. Please call pt with results. Can not get on N4MDhart. Please advise. Susan Mireles LPN Patient calls to check if provider has reviewed results yet. Notified provider hadn't got a chance yet and once provider reviewed and advised patient would be contacted. Asked patient if she had the number to [facility] support that was given to her and she said she didn't know. Offered to give patient the number again and she declined. Lori Chandler, RN Patient calling asking for the results of her bone density. She got message that results were on her my chart but she can not get into it. Gave her the my chart help line phone number to call, to help with that. Aware that PCP has not put message with the results for the nurses to call her with as yet. Please advise documented in this encounter [facility] 05-05-2024 Telephone encounter Note Called Mackenzie/daughter, Patient's vm is full, [place] [facility] [place] able to get into MyChart, asked for Patient to call office for results. Madhuri Preciado LPN [facility] 05-05-2024 Telephone encounter Note Attempted to call x2, vm is full will need to try again. Per below, Patient is not able to get into MyChart. Madhuri Preciado LPN [facility] 05-03-2024 Telephone encounter Note My chart message to pt with pcp's response. [facility] 05-01-2024 Telephone encounter Note left message for patient to call office back and speak with triage nurse. Cindy Molina LPN [facility] 05-01-2024 Telephone encounter Note Please check result notes to cut down on phone calls. Nazario Abdul MD 05/01/2024 7:26 AM EST Stable osteopenia. Continue measures for bone health. Recheck in 2 years. [facility] 04-30-2024 Telephone encounter Note Please call pt with results. Can not get on MyChart. Please advise. Susan Mireles LPN [facility] 04-30-2024 Telephone encounter Note Patient calls to check if provider has reviewed results yet. Notified provider hadn't got a chance yet and once provider reviewed and advised patient would be contacted. Asked patient if she had the number to [facility] support that was given to her and she said she didn't know. Offered to give patient the number again and she declined. Lori Chandler, RN [facility] 04-29-2024 Telephone encounter Note Patient calling asking for the results of her bone density. She got message that results were on her my chart but she can not get into it. Gave her the my chart help line phone number to call, to help with that. Aware that PCP has not put message with the results for the nurses to call her with as yet. Please advise [facility] 04-24-2024 History of Presen t illness Narrative Radiology Service Progress Note PATIENT NAME: Floridalma Dennis DATE OF SERVICE: April 24, 2024 TIME: 9:29 AM PATIENT IDENTITY VERIFICATION COMPLETED USING TWO (2) IDENTIFIERS: Name and Date of confirmed by patient verbally. FALL SCREENING: Has the patient had 2 falls in the last year or 1 fall with injury or currently using an Ambulatory Assistive Device (Walker, Cane, Wheelchair, Crutches, etc.)? No PATIENT GENDER DATA: Female. status: : No status: NO. PATIENT RELEVANT IMPLANT DATA REVIEWED: Not Applicable PATIENT PRESENTS WITH AN IMPLANTABLE OR ATTACHED LIBRARIAN HEAD: No RADIOLOGY DEPARTMENT: Bone Density PERIPHERAL IV DATA: Not applicable SIGNED BY: RT Kirstin(Sandy) April 24, 2024 9:29 AM documented in this encounter [facility] 04-24-2024 Note HNO ID: [id number] Author: CHARLENE PORTILLO RT(R) Service: ? Author Type: Technologist Type: Progress Notes Filed: 04/24/2024 09:37 Note Text: Radiology Service Progress Note PATIENT NAME: Floridalma Dennis DATE OF SERVICE: April 24, 2024 TIME: 9:29 AM PATIENT IDENTITY VERIFICATION COMPLETED USING TWO (2) IDENTIFIERS: Name and Date of confirmed by patient verbally. FALL SCREENING: Has the patient had 2 falls in the last year or 1 fall with injury or currently using an Ambulatory Assistive Device (Walker, Cane, Wheelchair, Crutches, etc.)? No PATIENT GENDER DATA: Female. status: : No status: NO. PATIENT RELEVANT IMPLANT DATA REVIEWED: Not Applicable PATIENT PRESENTS WITH AN IMPLANTABLE OR ATTACHED LIBRARIAN HEAD: No RADIOLOGY DEPARTMENT: Bone Density PERIPHERAL IV DATA: Not applicable SIGNED BY: RT Kirstin(R) April 24, 2024 9:29 AM [facility] 03-17-2024 Instructions Meredith Soto MD - 03/17/2024 10:11 AM EST We are going to repeat an echocardiogram in July for symptoms documented in this encounter [facility] 03-17-2024 History of Presen t illness Narrative Images from the original note were not included. [facility] SE[facility] CARDIOLOGY Cardiology ([facility]) [address] [id number] OUTPATIENT VISIT DATE 03/17/2024 PRIMARY CARE PHYSICIAN: Nazario Abdul [address] [place] [id number] REFERRING PHYSICIAN: Nazario Abdul [address] [place] [id number] CHIEF COMPLAINT: Pericardial effusion HISTORY OF PRESENT ILLNESS: Ms. Dennis is a 84 year old woman with a history of hypertension and dyslipidemia who was referred for evaluation due to findings of small to moderate pericardial effusion on 2D echocardiogram. Patient was at [employer] a few months ago and passed out. She was walking to the front of the [employer]. She had no prodrome before she passed out. She was seen in the emergency room and was told she was likely dehydrated. Subsequent echocardiogram demonstrated small to moderate pericardial effusion. Patient denies symptoms of shortness of breath, dyspnea on exertion, palpitations, or chest pain. She had no recollection of having any viral illness in the recent past. She is a lifelong non-smoker and has no family history of coronary artery disease. PAST MEDICAL HISTORY Diagnosis Date Adenomatous colon polyp 12/08/2016 recheck 2021 Colitis 11/28/2016 COVID-19 04/07/2021 Dysthymic disorder Depression (non-psychotic) Essential hypertension, benign Hyperlipidemia LDL goal <130 01/10/2016 Osteopenia, senile 12/19/2017 PAST SURGICAL HISTORY Procedure Laterality Date BIOPSY BREAST OPEN INCISIONAL Bx of breast, incisional - left CATARACT EXTRACTION HX 10/2018 COLONOSCOPY - DIAGNOSTIC 12/08/2016 COLONOSCOPY FLX DX W/COLLJ SPEC WHEN PFRMD 12/25/2005 Colonoscopy-repeat in DILATION & CURETTAGE DX&/THER NONOBSTETRIC Dilation & curettage SOCIAL HISTORY Social History Tobacco Use Smoking status: Never Smokeless tobacco: Never Vaping Use Vaping status: Never Used Substance Use Topics Alcohol use: No Drug use: No FAMILY HISTORY Problem Relation Age of Onset Cancer Father RENAL Coronary Artery Disease Father Cancer Sister unknown primary Dementia Sister Dementia Sister No Known Problems Sister Ischemic Heart Disease Brother Kidney failure Brother Diabetes Maternal Grandmother Colon Cancer Paternal Grandfather Breast Cancer Maternal Aunt Breast Cancer Paternal Aunt ALLERGIES: ALLERGIES Allergen Reactions Pneumovax 23 [Pneum* Rash Influenza Virus Vac* Rash, Swelling Sulfamethoxazole-Tr* Vomiting Ciprofloxacin GI Upset Dtp Toxoids Adsorbe* Rash Metronidazole GI Upset Zestril [Lisinopril] Ampicillin Diarrhea Crestor [Rosuvastat* Intolerance Penicillins GI Upset Prednisone GI Upset MEDICATIONS: atenolol (TENORMIN) 50 mg tablet Take 1 tablet by mouth once daily. hydroCHLOROthiazide 25 mg tablet Take 1 tablet by mouth once daily. sertraline (ZOLOFT) 25 mg tablet Take 1 tablet by mouth once daily. meloxicam (MOBIC) 15 mg tablet Take 1 tablet by mouth once daily. With food. pyridoxine hcl(VITAMIN B-6 100 MG TAB) Take one(1) tablet daily. ergocalciferol(VITAMIN D 400 UNIT CAP) Take 400 Units by mouth every Sunday,Sunday,Sunday. REVIEW OF SYSTEMS: Review of Systems Constitutional: Negative for chills, fever, malaise/fatigue and weight loss. HENT: Negative for hearing loss and sore throat. Eyes: Negative for blurred vision and double vision. Respiratory: Negative. Cardiovascular: Negative. Gastrointestinal: Negative. Genitourinary: Negative for dysuria, frequency, hematuria and urgency. Musculoskeletal: Negative. Skin: Negative. Neurological: Negative for dizziness, seizures, loss of consciousness, weakness and headaches. Endo/Heme/Allergies: Negative for environmental allergies. Does not bruise/bleed easily. Psychiatric/Behavioral: Negative for depression. PHYSICAL EXAMINATION: BP 140/80 Pulse 68 Resp 16 Wt 120 lb 9.5 oz (54.7kg) General: Thin woman sitting appears comfortable no apparent distress she is alert and oriented x 3 HEENT: Carotid circumference bilateral without bruits no JVD appreciated. Pulmonary: Lungs are clear no rales, wheezes, rhonchi Cardiovascular: Normal S1, S2 with regular rate and rhythm. No murmurs, rubs, or gallops Extremities: Warm, well-perfused, no lower extremity edema. 2+ distal pulses CARDIOVASCULAR MEDICINE TESTING: Echocardiogram 02/18/2024: - The left ventricle is normal in size. Left ventricular systolic function is normal. EF = 60 5% (2D biplane) - There is a moderate circumferential pericardial effusion. The inferior vena cava appears normal measuring 1.8 cm. - There is a known small to moderate circumferential pericardial effusion. - Exam was compared with the prior echocardiographic exam performed on 01/31/2024, no significant change. I have personally reviewed the Laboratory Testing and Echocardiogram. IMPRESSION: Ms. Dennis is a 84 year old woman with a history of hypertension and dyslipidemia is referred for abnormal echocardiogram demonstrating small to moderate pericardial effusion. PLAN AND RECOMMENDATIONS: 1. Pericardial effusion - ICD9: 423.9, ICD10: I31.39 Patient with a history of unexplained syncope. She did not have a prodrome. I discussed her event with her and her friend in detail. If she has recurrent episodes of syncope or near syncope would consider Holter monitor. I reviewed her echocardiograms with her during the office visit. There is no evidence of cardiac tamponade in the effusion has not changed in serial echocardiograms. I have recommended she repeat an echocardiogram in July. I had a lengthy discussion with the patient regarding new symptoms that would be concerning including heart racing, shortness of breath, or symptoms concerning for congestive heart failure. - ECHO - PERFLUTREN LIPID MICROSPHERES 1.1 MG/ML INJECTION IN NS 10 ML - SODIUM CHLORIDE 0.9 % (FLUSH) INJECTION SYRINGE Meredith Soto MD documented in this encounter [facility] 03-17-2024 Note HNO ID: [id number] Author: MEREDITH SOTO MD Service: ? Author Type: Physician Type: Progress Notes Filed: 03/17/2024 10:21 Note Text: [facility] Cardiology ([facility]) [address] [facility] [id number] OUTPATIENT VISIT DATE 03/17/2024 PRIMARY CARE PHYSICIAN: Nazario Abdul [address] [place] [address] REFERRING PHYSICIAN: Nazario Abdul [address] [facility] [address] CHIEF COMPLAINT: Pericardial effusion HISTORY OF PRESENT ILLNESS: Ms. Dennis is a 84 year old woman with a history of hypertension and dyslipidemia who was referred for evaluation due to findings of small to moderate pericardial effusion on 2D echocardiogram. Patient was at [employer] a few months ago and passed out. She was walking to the front of the [employer]. She had no prodrome before she passed out. She was seen in the emergency room and was told she was likely dehydrated. Subsequent echocardiogram demonstrated small to moderate pericardial effusion. Patient denies symptoms of shortness of breath, dyspnea on exertion, palpitations, or chest pain. She had no recollection of having any viral illness in the recent past. She is a lifelong non-smoker and has no family history of coronary artery disease. PAST MEDICAL HISTORY Diagnosis Date Adenomatous colon polyp 12/08/2016 recheck 2021 Colitis 11/28/2016 COVID-19 04/07/2021 Dysthymic disorder Depression (non-psychotic) Essential hypertension, benign Hyperlipidemia LDL goal <130 01/10/2016 Osteopenia, senile 12/19/2017 PAST SURGICAL HISTORY Procedure Laterality Date BIOPSY BREAST OPEN INCISIONAL Bx of breast, incisional - left CATARACT EXTRACTION HX 10/2018 COLONOSCOPY - DIAGNOSTIC 12/08/2016 COLONOSCOPY FLX DX W/COLLJ SPEC WHEN PFRMD 12/25/2005 Colonoscopy-repeat in DILATION AND CURETTAGE DXAND/THER NONOBSTETRIC Dilation AND curettage SOCIAL HISTORY Social History Tobacco Use Smoking status: Never Smokeless tobacco: Never Vaping Use Vaping status: Never Used Substance Use Topics Alcohol use: No Drug use: No FAMILY HISTORY Problem Relation Age of Onset Cancer Father RENAL Coronary Artery Disease Father Cancer Sister unknown primary Dementia Sister Dementia Sister No Known Problems Sister Ischemic Heart Disease Brother Kidney failure Brother Diabetes Maternal Grandmother Colon Cancer Paternal Grandfather Breast Cancer Maternal Aunt Breast Cancer Paternal Aunt ALLERGIES: ALLERGIES Allergen Reactions Pneumovax 23 [Pneum* Rash Influenza Virus Vac* Rash, Swelling Sulfamethoxazole-Tr* Vomiting Ciprofloxacin GI Upset Dtp Toxoids Adsorbe* Rash Metronidazole GI Upset Zestril [Lisinopril] Ampicillin Diarrhea Crestor [Rosuvastat* Intolerance Penicillins GI Upset Prednisone GI Upset MEDICATIONS: atenolol (TENORMIN) 50 mg tablet Take 1 tablet by mouth once daily. hydroCHLOROthiazide 25 mg tablet Take 1 tablet by mouth once daily. sertraline (ZOLOFT) 25 mg tablet Take 1 tablet by mouth once daily. meloxicam (MOBIC) 15 mg tablet Take 1 tablet by mouth once daily. With food. pyridoxine hcl(VITAMIN B-6 100 MG TAB) Take one(1) tablet daily. ergocalciferol(VITAMIN D 400 UNIT CAP) Take 400 Units by mouth every Sunday,Sunday,Sunday. REVIEW OF SYSTEMS: Review of Systems Constitutional: Negative for chills, fever, malaise/fatigue and weight loss. HENT: Negative for hearing loss and sore throat. Eyes: Negative for blurred vision and double vision. Respiratory: Negative. Cardiovascular: Negative. Gastrointestinal: Negative. Genitourinary: Negative for dysuria, frequency, hematuria and urgency. Musculoskeletal: Negative. Skin: Negative. Neurological: Negative for dizziness, seizures, loss of consciousness, weakness and headaches. Endo/Heme/Allergies: Negative for environmental allergies. Does not bruise/bleed easily. Psychiatric/Behavioral: Negative for depression. PHYSICAL EXAMINATION: BP 140/80 Pulse 68 Resp 16 Wt 120 lb 9.5 oz (54.7kg) General: Thin woman sitting appears comfortable no apparent distress she is alert and oriented x 3 HEENT: Carotid circumference bilateral without bruits no JVD appreciated. Pulmonary: Lungs are clear no rales, wheezes, rhonchi Cardiovascular: Normal S1, S2 with regular rate and rhythm. No murmurs, rubs, or gallops Extremities: Warm, well-perfused, no lower extremity edema. 2+ distal pulses CARDIOVASCULAR MEDICINE TESTING: Echocardiogram 02/18/2024: - The left ventricle is normal in size. Left ventricular systolic function is normal. EF = 60 ? 5% (2D biplane) - There is a moderate circumferential pericardial effusion. The inferior vena cava appears normal measuring 1.8 cm. - There is a known small to moderate circumferential pericardial effusion. - Exam was compared wi (more content not included)... [facility] 02-28-2024 Note HNO ID: [id number] Author: NAZARIO ABDUL MD Service: ? Author Type: Physician Type: Progress Notes Filed: 02/28/2024 09:27 Note Text: This note was created using Novavaxriter. Subjective Patient presents with: Medicare Wellness Exam Results Floridalma Dennis is a 84 year old female here with her daughter from [place] who is a retired RN, as well as a close friend. She had a syncopal episode with no recurrence. Echo showed stable moderate pericardial effusion. She was scheduled to see Dr. Soto. Other concern raised by family recently was cognitive change. Her labs were unremarkable. Review of Systems Constitutional: Negative for fatigue, fever and unexpected weight change. HENT: Positive for hearing loss. Eyes: Negative for visual disturbance. Respiratory: Negative for chest tightness and shortness of breath. Cardiovascular: Negative for chest pain, palpitations and leg swelling. Gastrointestinal: Negative. Neurological: Negative for dizziness, syncope and light-headedness. ACTIVE PROBLEM LIST Essential Hypertension, Benign Depressive Disorder Hyperlipidemia Ldl Goal <130 Osteopenia, Senile Pericardial Effusion Current Outpatient Medications Medication Sig meloxicam (MOBIC) 15 mg tablet Take 1 tablet by mouth once daily. With food. pyridoxine hcl(VITAMIN B-6 100 MG TAB) Take one(1) tablet daily. ergocalciferol(VITAMIN D 400 UNIT CAP) Take 400 Units by mouth every Sunday,Sunday,Sunday. atenolol (TENORMIN) 50 mg tablet Take 1 tablet by mouth once daily. hydroCHLOROthiazide 25 mg tablet Take 1 tablet by mouth once daily. sertraline (ZOLOFT) 25 mg tablet Take 1 tablet by mouth once daily. No current facility-administered medications for this visit. Objective BP 145/79 (BP Site: Right Arm, BP Position: Sitting, BP Cuff Size: Large Adult) Pulse 70 Temp 37 ?C (98.6 ?F) (Temporal) Ht 165.7 cm (5' 5.25) Wt 55.5 kg (122 lb 5.7 oz) BMI 20.21 kg/m? Physical Exam Constitutional: Appearance: Normal appearance. HENT: Right Ear: Tympanic membrane and ear canal normal. Left Ear: Tympanic membrane and ear canal normal. Cardiovascular: Rate and Rhythm: Normal rate and regular rhythm. Heart sounds: No murmur heard. No gallop. Pulmonary: Breath sounds: Normal breath sounds. Musculoskeletal: Right lower leg: No edema. Left lower leg: No edema. Neurological: General: No focal deficit present. Mental Status: She is alert. Gait: Gait normal. Psychiatric: Attention and Perception: Attention normal. Mood and Affect: Mood is anxious. Speech: Speech normal. Cognition and Memory: She exhibits impaired remote memory. 02/28/[address] 5 Registration 3 ATTENTION AND CALCULATION 5 Recall 2 Language 2 Repeat 1 FOLLOW 3-STEP COMMAND 3 Read AND Obey 1 WRITE A SENTENCE 1 Copy Pentagons 1 Score: 29 HEARING IMPAIRED Yes Latest Ref Rn 01/31/2024 Protein, Total 6.3 - 8.0 g/dL 7.0 Albumin 3.9 - 4.9 g/dL 4.2 Calcium 8.5 - 10.2 mg/dL 9.9 Bilirubin, Total 0.2 - 1.3 mg/dL 0.7 Alkaline Phosphatase 34 - 123 U/L 77 AST 13 - 35 U/L 18 ALT 7 - 38 U/L 14 Glucose 74 - 99 mg/dL 95 BUN 7 - 21 mg/dL 24 (H) Creatinine 0.58 - 0.96 mg/dL 0.74 Sodium 136 - 144 mmol/L 141 Potassium 3.7 - 5.1 mmol/L 4.3 Chloride 98 - 107 mmol/L 102 CO2 22 - 30 mmol/L 27 Anion Gap 8 - 15 mmol/L 12 eGFR >=60 mL/min/1.73m? 81 WBC 3.70 - 11.00 k/uL 7.10 RBC 3.90 - 5.20 m/uL 4.73 Hemoglobin 11.5 - 15.5 g/dL 14.6 Hematocrit 36.0 - 46.0 % 45.1 MCV 80.0 - 100.0 fL 95.3 MCH 26.0 - 34.0 pg 30.9 MCHC 30.5 - 36.0 g/dL 32.4 RDW-CV 11.5 - 15.0 % 12.2 Platelet Count 150 - 400 k/uL 210 MPV 9.0 - 12.7 fL 10.6 Absolute nRBC <0.01 k/uL <0.01 Cholesterol, Total <200 mg/dL 213 (H) Triglyceride <150 mg/dL 106 HDL Cholesterol >39 mg/dL 73 Non HDL Cholesterol <130 mg/dL 140 (H) Fasting Time hrs 12 VLDL Cholesterol <30 mg/dL 21 TC:HDL Ratio <5.10 2.92 LDL Cholesterol <100 mg/dL 119 (H) LDL:HDL Ratio <2.54 1.63 TSH 0.270 - 4.200 mIU/L 2.690 Vitamin B12 232 - 1,245 pg/mL 373 Legend: (H) High Assessment and Plan 1. Medicare annual wellness visit, subsequent - ICD9: V70.0, ICD10: Z00.00 (primary diagnosis) - See wellness note. 2. Encounter for screening examination for other mental health and behavioral disorders - ICD9: V79.8, ICD10: Z13.39 - ANXIETY SCREENING 3. Pericardial effusion - ICD9: 423.9, ICD10: I31.39 - Stable. Etiology TBD. Cardiology evaluation pending. 4. Essential hypertension, benign - ICD9: 401.1, ICD10: I10 - Worsening control - Continue current medications - Encouraged sodium restriction, DASH or Mediterranean diet 5. Cognitive change - ICD9: 799.59, ICD10: R41.89 - Monitor. 6. Depressive disorder - ICD9: 311, ICD10: F32.A Shared medical decision making was done. Patient had ongoing depressive and anxiety issues, albeit mild. Low dose sertraline recommended, which she (more content not included)... [facility] 02-28-2024 History of Presen t illness Narrative This note was created using NoteWriter. Subjective Patient presents with: Medicare Wellness Exam Results Floridalma Dennis is a 84 year old female here with her daughter from [place] who is a retired RN, as well as a close friend. She had a syncopal episode with no recurrence. Echo showed stable moderate pericardial effusion. She was scheduled to see Dr. Soto. Other concern raised by family recently was cognitive change. Her labs were unremarkable. Review of Systems Constitutional: Negative for fatigue, fever and unexpected weight change. HENT: Positive for hearing loss. Eyes: Negative for visual disturbance. Respiratory: Negative for chest tightness and shortness of breath. Cardiovascular: Negative for chest pain, palpitations and leg swelling. Gastrointestinal: Negative. Neurological: Negative for dizziness, syncope and light-headedness. ACTIVE PROBLEM LIST Essential Hypertension, Benign Depressive Disorder Hyperlipidemia Ldl Goal <130 Osteopenia, Senile Pericardial Effusion Current Outpatient Medications Medication Sig meloxicam (MOBIC) 15 mg tablet Take 1 tablet by mouth once daily. With food. pyridoxine hcl(VITAMIN B-6 100 MG TAB) Take one(1) tablet daily. ergocalciferol(VITAMIN D 400 UNIT CAP) Take 400 Units by mouth every Sunday,Sunday,Sunday. atenolol (TENORMIN) 50 mg tablet Take 1 tablet by mouth once daily. hydroCHLOROthiazide 25 mg tablet Take 1 tablet by mouth once daily. sertraline (ZOLOFT) 25 mg tablet Take 1 tablet by mouth once daily. No current facility-administered medications for this visit. Objective BP 145/79 (BP Site: Right Arm, BP Position: Sitting, BP Cuff Size: Large Adult) Pulse 70 Temp 37 C (98.6 F) (Temporal) Ht 165.7 cm (5' 5.25) Wt 55.5 kg (122 lb 5.7 oz) BMI 20.21 kg/m Physical Exam Constitutional: Appearance: Normal appearance. HENT: Right Ear: Tympanic membrane and ear canal normal. Left Ear: Tympanic membrane and ear canal normal. Cardiovascular: Rate and Rhythm: Normal rate and regular rhythm. Heart sounds: No murmur heard. No gallop. Pulmonary: Breath sounds: Normal breath sounds. Musculoskeletal: Right lower leg: No edema. Left lower leg: No edema. Neurological: General: No focal deficit present. Mental Status: She is alert. Gait: Gait normal. Psychiatric: Attention and Perception: Attention normal. Mood and Affect: Mood is anxious. Speech: Speech normal. Cognition and Memory: She exhibits impaired remote memory. 02/28/[address] 5 Registration 3 ATTENTION & CALCULATION 5 Recall 2 Language 2 Repeat 1 FOLLOW 3-STEP COMMAND 3 Read & Obey 1 WRITE A SENTENCE 1 Copy Pentagons 1 Score: 29 HEARING IMPAIRED Yes Latest Ref Rng 01/31/2024 Protein, Total 6.3 - 8.0 g/dL 7.0 Albumin 3.9 - 4.9 g/dL 4.2 Calcium 8.5 - 10.2 mg/dL 9.9 Bilirubin, Total 0.2 - 1.3 mg/dL 0.7 Alkaline Phosphatase 34 - 123 U/L 77 AST 13 - 35 U/L 18 ALT 7 - 38 U/L 14 Glucose 74 - 99 mg/dL 95 BUN 7 - 21 mg/dL 24 (H) Creatinine 0.58 - 0.96 mg/dL 0.74 Sodium 136 - 144 mmol/L 141 Potassium 3.7 - 5.1 mmol/L 4.3 Chloride 98 - 107 mmol/L 102 CO2 22 - 30 mmol/L 27 Anion Gap 8 - 15 mmol/L 12 eGFR >=60 mL/min/1.73m 81 WBC 3.70 - 11.00 k/uL 7.10 RBC 3.90 - 5.20 m/uL 4.73 Hemoglobin 11.5 - 15.5 g/dL 14.6 Hematocrit 36.0 - 46.0 % 45.1 MCV 80.0 - 100.0 fL 95.3 MCH 26.0 - 34.0 pg 30.9 MCHC 30.5 - 36.0 g/dL 32.4 RDW-CV 11.5 - 15.0 % 12.2 Platelet Count 150 - 400 k/uL 210 MPV 9.0 - 12.7 fL 10.6 Absolute nRBC <0.01 k/uL <0.01 Cholesterol, Total <200 mg/dL 213 (H) Triglyceride <150 mg/dL 106 HDL Cholesterol >39 mg/dL 73 Non HDL Cholesterol <130 mg/dL 140 (H) Fasting Time hrs 12 VLDL Cholesterol <30 mg/dL 21 TC:HDL Ratio <5.10 2.92 LDL Cholesterol <100 mg/dL 119 (H) LDL:HDL Ratio <2.54 1.63 TSH 0.270 - 4.200 mIU/L 2.690 Vitamin B12 232 - 1,245 pg/mL 373 Legend: (H) High Assessment and Plan 1. Medicare annual wellness visit, subsequent - ICD9: V70.0, ICD10: Z00.00 (primary diagnosis) - See wellness note. 2. Encounter for screening examination for other mental health and behavioral disorders - ICD9: V79.8, ICD10: Z13.39 - ANXIETY SCREENING 3. Pericardial effusion - ICD9: 423.9, ICD10: I31.39 - Stable. Etiology TBD. Cardiology evaluation pending. 4. Essential hypertension, benign - ICD9: 401.1, ICD10: I10 - Worsening control - Continue current medications - Encouraged sodium restriction, DASH or Mediterranean diet 5. Cognitive change - ICD9: 799.59, ICD10: R41.89 - Monitor. 6. Depressive disorder - ICD9: 311, ICD10: F32.A Shared medical decision making was done. Patient had ongoing depressive and anxiety issues, albeit mild. Low dose sertraline recommended, which she had taken in the past. - SERTRALINE 25 MG TABLET 7. Hyperlipidemia LDL goal <130 - ICD9: 272.4, ICD10: E78.5 - Controlled - Continue current medications - Counseled on healthy diet and regular exercise 8. Osteopenia, senile - ICD9: 733.90, ICD10: M85.80 - set up for BMD AP Spine and Hip Unilateral - Reviewed the need for Calcium and Vitamin D supplements and weight bearing exercise as tolerated - DXA-AXIAL SKELETON Nazario Abdul MD Images from the original note were not included. Floridalma Dennis is a 84 year old female here for a Medicare wellness visit. Medicare Health Risk Assessment General Health Excellent Exercise: Minutes/Day 0 min Exercise: Days/Week 0 days Alcohol: Daily Use Never Alcohol: Drinks/Day Patient does not drink Alcohol: 6 or more drinks Never Feel off balance No Concerns: Teeth/Dentures No Concerns: Sexual function No Troubled by feelings Anxious; Lonely Frequency: Eating healthy diet Nearly every day ADLs requiring help None of the above Safety precautions in home/vehicle Yes Smoke, vape, chews tobacco No Difficulty hearing Yes, I wear a hearing aid Difficulty seeing No Current Providers Specialists: I have reviewed specialist-related care of the patient in the medical record. Current care team: Patient Care Team: Nazario Abdul MD as PCP - General (Internal Medicine) Scheduled to see Bogdan Soto MD (Cardiology) Outside specialists seen: Ozzie Bazzi OD. Manoj Garcia MD, ENT. Medical/Family history review Reviewed and updated problem list, medical/surgical/family/social history, medications, and allergies. Opioid use review Opioid Medications (last 90 days) No data to display Anxiety/Depression screening Recommendation: medication management Cognitive screening Cognitive screening reviewed and No further action needed (score 3-5). Functional Observation Was the patient's Timed Up & Go test unsteady or >= 12 seconds? No Advance Care Planning Patient did not wish or was not able to name a surrogate decision maker or provide an advance care plan Measurements BP 145/79 (BP Site: Right Arm, BP Position: Sitting, BP Cuff Size: Large Adult) Pulse 70 Temp 37 C (98.6 F) (Temporal) Ht 165.7 cm (5' 5.25) Wt 55.5 kg (122 lb 5.7 oz) BMI 20.21 kg/m Vision Screening: Follows with optometry/ophthalmology Right: 20/30 Left: 20/ 30 Both: 20/25 Assessment/Plan Medicare annual wellness visit, subsequent (Z00.00) - Counseled on healthy diet and regular exercise - Fall avoidance information provided - Personalized prevention plan provided documented in this encounter [facility] 02-28-2024 Instructions Nazario Abdul MD - 02/28/2024 8:59 AM EST Screening schedule The following prevention plan is recommended: There are no preventive care reminders to display for this patient. WHAT YOU CAN DO TO PREVENT FALLS Many falls can be prevented. By making some changes, you can lower your chances of falling. Four things YOU can do to prevent falls for you* and your caregiver 1. Begin a regular exercise program Exercise is one of the most important ways to lower your chances of falling. It makes you stronger and helps you feel better. Exercises that improve balance and coordination (like Genaro Chi) are the most helpful. Lack of exercise leads to weakness and increases your chances of falling. Ask your doctor or health care provider about the best type of exercise program for you. 2. Have your health care provider review your medicines Have your doctor or pharmacist review all the medicines you take, even [id number] medicines. As you get older, the way medicines work in your body can change. Some medicines, or combinations of medicines, can make you sleepy or dizzy and can cause you to fall. 3. Have your vision checked Have your eyes checked by an eye doctor at least once a year. You may be wearing the wrong glasses or have a condition like glaucoma or cataracts that limits your vision. Poor vision can increase your chances of falling. 4. Make your home safer About half of all falls happen at home. To make your home safer: Remove things you can trip over (like papers, books, clothes, and shoes) from stairs and places where you walk. Remove small throw rugs or use double-sided tape to keep the rugs from slipping. Keep items you use often in cabinets you can reach easily without using a step stool. Have grab bars put in next to your toilet and in the tub or shower. Use non-slip mats in the bathtub and on shower floors. Improve the lighting in your home. As you get older, you need brighter lights to see well. Hang light-weight curtains or shades to reduce glare. Have handrails and lights put in on all staircases. Wear shoes both inside and outside the house. Avoid going barefoot or wearing slippers. For more information, contact: Centers for Disease Control and Prevention www.cdc.gov/injury * This information may not apply if you have certain medical conditions. BONE MINERAL DENSITY PATIENT INSTRUCTIONS ========= Bone mineral density testing measures the amount of calcium in certain parts of your bones. This information determines how strong your bones are. The test is used to detect osteoporosis, a disease in which the bone's mineral content and density are low, increasing a person's risk of fractures. The lumbar spine (lower back) and the hip are the skeletal sites usually examined. For the test, remember that: 1. You cannot take this test if you are . 2. Eat a normal diet on the day of the test. 3. Take your medications as you normally would. 4. DO NOT take calcium supplements (such as Tums) for 24 hours before the test. 5. On the day of the test, leave valuables (jewelry or credit cards) at home. 6. The test should be performed prior to oral, rectal or IV contrast studies, or at least 7 days after any of these studies. For the test, you may be asked to wear a hospital gown. You will lie on your back, on a padded table, in a comfortable position. Generally, you can resume your usual activities immediately. documented in this encounter [facility] 02-28-2024 Note HNO ID: [id number] Author: NAZARIO ABDUL MD Service: ? Author Type: Physician Type: Progress Notes Filed: 02/28/2024 09:27 Note Text: Floridalma Dennis is a 84 year old female here for a Medicare wellness visit. Medicare Health Risk Assessment General Health Excellent Exercise: Minutes/Day 0 min Exercise: Days/Week 0 days Alcohol: Daily Use Never Alcohol: Drinks/Day Patient does not drink Alcohol: 6 or more drinks Never Feel off balance No Concerns: Teeth/Dentures No Concerns: Sexual function No Troubled by feelings Anxious; Lonely Frequency: Eating healthy diet Nearly every day ADLs requiring help None of the above Safety precautions in home/vehicle Yes Smoke, vape, chews tobacco No Difficulty hearing Yes, I wear a hearing aid Difficulty seeing No Current Providers Specialists: I have reviewed specialist-related care of the patient in the medical record. Current care team: Patient Care Team: Nazario Abdul MD as PCP - General (Internal Medicine) Scheduled to see Bogdan Soto MD (Cardiology) Outside specialists seen: Ozzie Bazzi OD. Manoj Garcia MD, ENT. Medical/Family history review Reviewed and updated problem list, medical/surgical/family/social history, medications, and allergies. Opioid use review Opioid Medications (last 90 days) No data to display Anxiety/Depression screening Recommendation: medication management Cognitive screening Cognitive screening reviewed and No further action needed (score 3-5). Functional Observation Was the patient's Timed Up AND Go test unsteady or >= 12 seconds? No Advance Care Planning Patient did not wish or was not able to name a surrogate decision maker or provide an advance care plan Measurements BP 145/79 (BP Site: Right Arm, BP Position: Sitting, BP Cuff Size: Large Adult) Pulse 70 Temp 37 ?C (98.6 ?F) (Temporal) Ht 165.7 cm (5' 5.25) Wt 55.5 kg (122 lb 5.7 oz) BMI 20.21 kg/m? Vision Screening: Follows with optometry/ophthalmology Right: 20/30 Left: 20/ 30 Both: 2025 Assessment/Plan Medicare annual wellness visit, subsequent (Z00.00) - Counseled on healthy diet and regular exercise - Fall avoidance information provided - Personalized prevention plan provided [facility] 02-06-2024 Telephone encounter Note See other encounter. Manasa Jacob RN [facility] 02-06-2024 Miscellaneous Notes See other encounter. Manasa Jacob RN Please see Cardiology Referral order and contact patient for appointment please. Patient had recent abnormal ECHO. Per pt's PCP note: Nazario Abdul MD 02/04/2024 8:59 AM EDT 1) See messages. I thought patient cancelled this test which is ABNORMAL. 2) Fluid around the heart, etiology not known. Go to ER for recurrent symptoms of syncope, dizziness, dyspnea, chest pain, etc. 3) Consult cardiology MICHELLE. 4) Repeat echo in 2 weeks. See 02/04/24 PCP phone note from today as well. Shanda Lemus RN documented in this encounter [facility] 2024 Telephone encounter Note Please see pcp note below any way to get patient a sooner appointment then 08/2024 [facility] 2024 Miscellaneous Notes Please see pcp note below any way to get patient a sooner appointment then 08/2024 Pts son called in asking about Pts appointments. I let Pt know that his mother put a note in the computer that she didn't want her medical information discussed with him and I couldn't give him any information. He want to make sure we called her back to make sure appointments were set up. Pt set up ECHO and Cardiology appt, message was sent to PCP and Cardiology. Pt scheduled for ECHO on 02-18-24 and Cardiology apt booked for 08-25-24. Please review. Susan Mireles LPN Message from pcp was relayed to pt. Pt states understanding & was not certain she wanted to to have appt with cardiology. Stressed the importance of referral & pt agreed to be transferred. Brinda Garvin LPN 2nd attempt made to contact patient with PCP message below. No answer. Message left. This nurse spoke with pt's son Nazanin, who is listed on pt's record to discuss information with. He has been updated of PCP message below, agreeable to [facility] Cardiology, and states he will contact patient and have her call PCP office for these messages/updates. Son states he will also assist pt in scheduling ECHO to be completed in 2 weeks. Shanda Lemus RN Attempted to contact patient to discuss PCP message below reagrding recent ECHO results. No answer, message left for patient to call back as soon as possible. Will send message to cardiology of consult request MICHELLE. See other phone note, to cardiology. (COPIED): Result Notes Nazario Abdul MD 02/04/2024 8:59 AM EDT Back to [facility] 1) See messages. I thought patient cancelled this test which is ABNORMAL. 2) Fluid around the heart, etiology not known. Go to ER for recurrent symptoms of syncope, dizziness, dyspnea, chest pain, etc. 3) Consult cardiology MICHELLE. 4) Repeat echo in 2 weeks. Shanda Lemus, ANABELLE documented in this encounter [facility] 2024 Telephone encounter Note Pts son called in asking about Pts appointments. I let Pt know that his mother put a note in the computer that she didn't want her medical information discussed with him and I couldn't give him any information. He want to make sure we called her back to make sure appointments were set up. Pt set up ECHO and Cardiology appt, message was sent to PCP and Cardiology. [facility] 2024 Telephone encounter Note Pt scheduled for ECHO on 02-18-24 and Cardiology apt booked for 08-25-24. Please review. Susan Mireles LPN [facility] 2024 Telephone encounter Note Message from pcp was relayed to pt. Pt states understanding & was not certain she wanted to to have appt with cardiology. Stressed the importance of referral & pt agreed to be transferred. Brinda Garvin LPN [facility] 2024 Telephone encounter Note 2nd attempt made to contact patient with PCP message below. No answer. Message left. This nurse spoke with pt's son Nazanin, who is listed on pt's record to discuss information with. He has been updated of PCP message below, agreeable to [facility] Cardiology, and states he will contact patient and have her call PCP office for these messages/updates. Son states he will also assist pt in scheduling ECHO to be completed in 2 weeks. Shanda Lemus RN [facility] 02-04-2024 Telephone encounter Note Please see Cardiology Referral order and contact patient for appointment please. Patient had recent abnormal ECHO. Per pt's PCP note: Nazario Abdul MD 02/04/2024 8:59 AM EDT 1) See messages. I thought patient cancelled this test which is ABNORMAL. 2) Fluid around the heart, etiology not known. Go to ER for recurrent symptoms of syncope, dizziness, dyspnea, chest pain, etc. 3) Consult cardiology MICHELLE. 4) Repeat echo in 2 weeks. See 02/04/24 PCP phone note from today as well. Shanda Lemus RN [facility] 02-04-2024 Telephone encounter Note Attempted to contact patient to discuss PCP message below reagrding recent ECHO results. No answer, message left for patient to call back as soon as possible. Will send message to cardiology of consult request MICHELLE. See other phone note, to cardiology. (COPIED): Result Notes Nazario Abdul MD 02/04/2024 8:59 AM EDT Back to Top 1) See messages. I thought patient cancelled this test which is ABNORMAL. 2) Fluid around the heart, etiology not known. Go to ER for recurrent symptoms of syncope, dizziness, dyspnea, chest pain, etc. 3) Consult cardiology MICHELLE. 4) Repeat echo in 2 weeks. Shanda Lemus RN [facility] 01-29-2024 Telephone encounter Note Noted. [facility] 01-29-2024 Miscellaneous Notes Noted. Pt calls to report she does not want to do echocardiogram that is scheduled for 01/31/24. Pt reports she just does not feel like going through any testing. Pt feels she was dehydrated and that is why she passed out. Pt is requesting appt for test be cancelled. PSS cancelled appt as requested. Cindy Ruth LPN documented in this encounter [facility] 01-29-2024 Telephone encounter Note Pt calls to report she does not want to do echocardiogram that is scheduled for 01/31/24. Pt reports she just does not feel like going through any testing. Pt feels she was dehydrated and that is why she passed out. Pt is requesting appt for test be cancelled. PSS cancelled appt as requested. Cindy Ruth LPN [facility] 01-21-2024 Note HNO ID: [id number] Author: NAZARIO ABDUL MD Service: ? Author Type: Physician Type: Progress Notes Filed: 01/21/2024 15:36 Note Text: This note was created using Jaschater. Subjective Floridalma Dennis is a 83 year old female here with her son. She was helping at [employer] Oct. 2, feeling normal, sitting down in the back, was called, got up and walked to the front and passed out. She recovered uneventfully but also went to the ER where work up was negative. She was diagnosed with dehydration and orthostatic hypotension. She had no recurrence but yesterday felt somewhat weak. She acknowledged she was not good at hydration and oral intake. Her son also raised concern she was noted to be repeating her statements the past 4 months or more. She still lived alone, was involved with [employer], and independent. Review of Systems Constitutional: Negative for fatigue and fever. Respiratory: Negative for shortness of breath. Cardiovascular: Negative for chest pain and palpitations. Gastrointestinal: Negative for diarrhea, nausea and vomiting. Neurological: Negative for dizziness, weakness and headaches. Psychiatric/Behavioral: Negative for confusion. ACTIVE PROBLEM LIST Essential Hypertension, Benign Depressive Disorder Hyperlipidemia Ldl Goal <130 Osteopenia, Senile Social History Tobacco Use Smoking status: Never Smokeless tobacco: Never Vaping Use Vaping status: Never Used Substance Use Topics Alcohol use: No Drug use: No Current Outpatient Medications Medication Sig meloxicam (MOBIC) 15 mg tablet Take 1 tablet by mouth once daily. With food. atenolol (TENORMIN) 50 mg tablet Take 1 tablet by mouth once daily. hydroCHLOROthiazide 25 mg tablet Take 1 tablet by mouth once daily. pyridoxine hcl(VITAMIN B-6 100 MG TAB) Take one(1) tablet daily. ergocalciferol(VITAMIN D 400 UNIT CAP) Take 400 Units by mouth every Sunday,Sunday,Sunday. No current facility-administered medications for this visit. Objective BP 138/79 (BP Site: Right Arm, BP Position: Supine, BP Cuff Size: Large Adult) Pulse 62 Temp 36.6 ?C (97.8 ?F) (Temporal) Resp 20 Wt 56.3 kg (124 lb 1.9 oz) BMI 20.03 kg/m? Physical Exam Constitutional: Appearance: Normal appearance. HENT: Head: Atraumatic. Eyes: Extraocular Movements: Extraocular movements intact. Conjunctiva/sclera: Conjunctivae normal. Cardiovascular: Rate and Rhythm: Normal rate and regular rhythm. Pulses: Normal pulses. Heart sounds: No murmur heard. No gallop. Pulmonary: Breath sounds: Normal breath sounds. Musculoskeletal: Right lower leg: No edema. Left lower leg: No edema. Neurological: General: No focal deficit present. Mental Status: She is alert. Gait: Gait normal. Assessment and Plan 1. Syncope, unspecified syncope type - ICD9: 780.2, ICD10: R55 (primary diagnosis) - ECHO - PERFLUTREN LIPID MICROSPHERES 1.1 MG/ML INJECTION IN NS 10 ML - SODIUM CHLORIDE 0.9 % (FLUSH) INJECTION SYRINGE 2. Essential hypertension, benign - ICD9: 401.1, ICD10: I10 Fair. - Continue current medications - Reviewed risks of hypertension and principles of treatment 3. Cognitive change - ICD9: 799.59, ICD10: R41.89 Per HPI. - COMPLETE BLOOD COUNT - THYROID STIMULATING HORMONE - VITAMIN B12 4. Hyperlipidemia LDL goal <130 - ICD9: 272.4, ICD10: E78.5 - Control undetermined, due for labs - COMPREHENSIVE METABOLIC PANEL - LIPID PANEL BASIC Nazario Abdul MD [facility] 01-21-2024 History of Presen t illness Narrative This note was created using Jaschater. Subjective Floridalma Dennis is a 83 year old female here with her son. She was helping at [employer] Jan. , feeling normal, sitting down in the back, was called, got up and walked to the front and passed out. She recovered uneventfully but also went to the ER where work up was negative. She was diagnosed with dehydration and orthostatic hypotension. She had no recurrence but yesterday felt somewhat weak. She acknowledged she was not good at hydration and oral intake. Her son also raised concern she was noted to be repeating her statements the past 4 months or more. She still lived alone, was involved with [employer], and independent. Review of Systems Constitutional: Negative for fatigue and fever. Respiratory: Negative for shortness of breath. Cardiovascular: Negative for chest pain and palpitations. Gastrointestinal: Negative for diarrhea, nausea and vomiting. Neurological: Negative for dizziness, weakness and headaches. Psychiatric/Behavioral: Negative for confusion. ACTIVE PROBLEM LIST Essential Hypertension, Benign Depressive Disorder Hyperlipidemia Ldl Goal <130 Osteopenia, Senile Social History Tobacco Use Smoking status: Never Smokeless tobacco: Never Vaping Use Vaping status: Never Used Substance Use Topics Alcohol use: No Drug use: No Current Outpatient Medications Medication Sig meloxicam (MOBIC) 15 mg tablet Take 1 tablet by mouth once daily. With food. atenolol (TENORMIN) 50 mg tablet Take 1 tablet by mouth once daily. hydroCHLOROthiazide 25 mg tablet Take 1 tablet by mouth once daily. pyridoxine hcl(VITAMIN B-6 100 MG TAB) Take one(1) tablet daily. ergocalciferol(VITAMIN D 400 UNIT CAP) Take 400 Units by mouth every Sunday,Sunday,Sunday. No current facility-administered medications for this visit. Objective BP 138/79 (BP Site: Right Arm, BP Position: Supine, BP Cuff Size: Large Adult) Pulse 62 Temp 36.6 C (97.8 F) (Temporal) Resp 20 Wt 56.3 kg (124 lb 1.9 oz) BMI 20.03 kg/m Physical Exam Constitutional: Appearance: Normal appearance. HENT: Head: Atraumatic. Eyes: Extraocular Movements: Extraocular movements intact. Conjunctiva/sclera: Conjunctivae normal. Cardiovascular: Rate and Rhythm: Normal rate and regular rhythm. Pulses: Normal pulses. Heart sounds: No murmur heard. No gallop. Pulmonary: Breath sounds: Normal breath sounds. Musculoskeletal: Right lower leg: No edema. Left lower leg: No edema. Neurological: General: No focal deficit present. Mental Status: She is alert. Gait: Gait normal. Assessment and Plan 1. Syncope, unspecified syncope type - ICD9: 780.2, ICD10: R55 (primary diagnosis) - ECHO - PERFLUTREN LIPID MICROSPHERES 1.1 MG/ML INJECTION IN NS 10 ML - SODIUM CHLORIDE 0.9 % (FLUSH) INJECTION SYRINGE 2. Essential hypertension, benign - ICD9: 401.1, ICD10: I10 Fair. - Continue current medications - Reviewed risks of hypertension and principles of treatment 3. Cognitive change - ICD9: 799.59, ICD10: R41.89 Per HPI. - COMPLETE BLOOD COUNT - THYROID STIMULATING HORMONE - VITAMIN B12 4. Hyperlipidemia LDL goal <130 - ICD9: 272.4, ICD10: E78.5 - Control undetermined, due for labs - COMPREHENSIVE METABOLIC PANEL - LIPID PANEL BASIC Nazario Abdul MD This note was created using Novavaxriter. Subjective Floridalma Dennis is a 83 year old female. Review of Systems ACTIVE PROBLEM LIST Essential Hypertension, Benign Depressive Disorder Hyperlipidemia Ldl Goal <130 Osteopenia, Senile Social History Tobacco Use Smoking status: Never Smokeless tobacco: Never Vaping Use Vaping status: Never Used Substance Use Topics Alcohol use: No Drug use: No Current Outpatient Medications Medication Sig meloxicam (MOBIC) 15 mg tablet Take 1 tablet by mouth once daily. With food. atenolol (TENORMIN) 50 mg tablet Take 1 tablet by mouth once daily. hydroCHLOROthiazide 25 mg tablet Take 1 tablet by mouth once daily. pyridoxine hcl(VITAMIN B-6 100 MG TAB) Take one(1) tablet daily. ergocalciferol(VITAMIN D 400 UNIT CAP) Take 400 Units by mouth every Sunday,Sunday,Sunday. No current facility-administered medications for this visit. Objective BP 138/79 (BP Site: Right Arm, BP Position: Supine, BP Cuff Size: Large Adult) Pulse 62 Temp 36.6 C (97.8 F) (Temporal) Resp 20 Wt 56.3 kg (124 lb 1.9 oz) BMI 20.03 kg/m Physical Exam Assessment and Plan documented in this encounter [facility] 01-21-2024 Note HNO ID: [id number] Author: NAZARIO ABDUL MD Service: ? Author Type: Physician Type: Progress Notes Filed: 01/21/2024 15:36 Note Text: This note was created using Novavaxriter. Subjective Floridalma Dennis is a 83 year old female. Review of Systems ACTIVE PROBLEM LIST Essential Hypertension, Benign Depressive Disorder Hyperlipidemia Ldl Goal <130 Osteopenia, Senile Social History Tobacco Use Smoking status: Never Smokeless tobacco: Never Vaping Use Vaping status: Never Used Substance Use Topics Alcohol use: No Drug use: No Current Outpatient Medications Medication Sig meloxicam (MOBIC) 15 mg tablet Take 1 tablet by mouth once daily. With food. atenolol (TENORMIN) 50 mg tablet Take 1 tablet by mouth once daily. hydroCHLOROthiazide 25 mg tablet Take 1 tablet by mouth once daily. pyridoxine hcl(VITAMIN B-6 100 MG TAB) Take one(1) tablet daily. ergocalciferol(VITAMIN D 400 UNIT CAP) Take 400 Units by mouth every Sunday,Sunday,Sunday. No current facility-administered medications for this visit. Objective BP 138/79 (BP Site: Right Arm, BP Position: Supine, BP Cuff Size: Large Adult) Pulse 62 Temp 36.6 ?C (97.8 ?F) (Temporal) Resp 20 Wt 56.3 kg (124 lb 1.9 oz) BMI 20.03 kg/m? Physical Exam Assessment and Plan [facility] 01-21-2024 Telephone encounter Note Pts son called in and requested to have the 220 pm appointment today with Dr Abdul. Let son know that when he brings Pt in that she needs to give consent for son and daughter to be able to receive medical information about Pt and make appointments. Son said mother had been to [facility] ER 2 weekends ago, passed out due to dehydration. States she isn't drinking more water and almost passed out today. He states you can't tell her what to do. He states she is getting thinner and cognitively she is having issues. I let Pt know it would be best is he could go in with Pt and let him know about this issues if Pt will not. He states she can get aggressive and clam up. I asked him about her medications and he said her pill bottles are there and she takes them herself, but can't tell if she is taking them how she is supposed to. I let him know there are pharmacies that can do pill packs, and thins is something he could talk with provider about and we could consult with CM if necessary. If providers office could pull [facility] ER records from [facility] for provider that would be appreciated. [facility] 01-21-2024 Miscellaneous Notes Pts son called in and requested to have the 220 pm appointment today with Dr Abdul. Let son know that when he brings Pt in that she needs to give consent for son and daughter to be able to receive medical information about Pt and make appointments. Son said mother had been to [facility] ER 2 weekends ago, passed out due to dehydration. States she isn't drinking more water and almost passed out today. He states you can't tell her what to do. He states she is getting thinner and cognitively she is having issues. I let Pt know it would be best is he could go in with Pt and let him know about this issues if Pt will not. He states she can get aggressive and clam up. I asked him about her medications and he said her pill bottles are there and she takes them herself, but can't tell if she is taking them how she is supposed to. I let him know there are pharmacies that can do pill packs, and thins is something he could talk with provider about and we could consult with CM if necessary. If providers office could pull [facility] ER records from [facility] for provider that would be appreciated. jefferson Connors calling back stating concern for mother. Patient is getting thinner and not eating much not drinking water. Patient is getting lightheaded. Advised patient's son that we can get an appointment for ER follow up today if she is willing to come in to see . Jefferson Connors will be calling back. Cindy Molina LPN Left a message for pt to call the office to set up a [facility] ER FU from 01-16-24. Son Nazanin Dennis called to give information regarding pt. He is not listed that we are able to give any information out. Information taken: Pt passed out at [employer] 01/16/24 and was taken to [facility] ER. Vital signs were good, but pt was dehydrated and was given fluids. Pt to schedule a R FU. Family concern: pt is not eating or drinking properly, forgetful. Per son people from pt's [employer] also concerned pt is starting to have cognitive issues that becoming noticeable. Son hoping to get this evaluated for pt's health. When pt calls back ask if we can have permission to speak with Jefferson Connors and any one else. Susan Mireles LPN documented in this encounter [facility] 01-21-2024 Telephone encounter Note jefferson Connors calling back stating concern for mother. Patient is getting thinner and not eating much not drinking water. Patient is getting lightheaded. Advised patient's son that we can get an appointment for ER follow up today if she is willing to come in to see . Jefferson Connors will be calling back. Cindy Molina LPN [facility] 01-17-2024 Telephone encounter Note Left a message for pt to call the office to set up a [facility] ER FU from 01-16-24. Son Nazanin Dennis called to give information regarding pt. He is not listed that we are able to give any information out. Information taken: Pt passed out at [employer] 01/16/24 and was taken to [facility] ER. Vital signs were good, but pt was dehydrated and was given fluids. Pt to schedule a R FU. Family concern: pt is not eating or drinking properly, forgetful. Per son people from pt's [employer] also concerned pt is starting to have cognitive issues that becoming noticeable. Son hoping to get this evaluated for pt's health. When pt calls back ask if we can have permission to speak with Jefferson Connors and any one else. Susan Mireles LPN [facility] 01-09-2024 Telephone encounter Note Prescription Refill Information The patient has been identified by name and date of : Yes Caregiver verified no other encounters exist for this prescription request: Yes Caregiver confirmed with patient/requestor that no other refills are due, in the near future, with this provider at this time: Yes The last office visit in the department: Does the patient have a future office visit with this provider/department: Yes Requested Prescriptions Pending Prescriptions Disp Refills meloxicam (MOBIC) 15 mg tablet 90 tablet 1 Sig: Take 1 tablet by mouth once daily. With food. Please notify patient once submitted. Jerri Schaffer January 09, 2024 12:26 PM [facility] 01-09-2024 Miscellaneous Notes Prescription Refill Information The patient has been identified by name and date of : Yes Caregiver verified no other encounters exist for this prescription request: Yes Caregiver confirmed with patient/requestor that no other refills are due, in the near future, with this provider at this time: Yes The last office visit in the department: Does the patient have a future office visit with this provider/department: Yes Requested Prescriptions Pending Prescriptions Disp Refills meloxicam (MOBIC) 15 mg tablet 90 tablet 1 Sig: Take 1 tablet by mouth once daily. With food. Please notify patient once submitted. Jerri Schaffer January 09, 2024 12:26 PM documented in this encounter [facility] 10-02-2023 Telephone encounter Note Patient has been identified by name and date of : Yes Last office visit in this department: 01/05/2020 RX INSTRUCTIONS: Patient aware RX will be sent to pharmacy. No need to notify patient. Patient phones requesting refills as follows: Requested Prescriptions Pending Prescriptions Disp Refills meloxicam (MOBIC) 15 mg tablet 30 tablet 1 Sig: Take 1 tablet by mouth once daily. With food. Please review and advise. Gwendolyn Masterson [facility] 10-02-2023 Miscellaneous Notes Patient has been identified by name and date of : Yes Last office visit in this department: 01/05/2020 RX INSTRUCTIONS: Patient aware RX will be sent to pharmacy. No need to notify patient. Patient phones requesting refills as follows: Requested Prescriptions Pending Prescriptions Disp Refills meloxicam (MOBIC) 15 mg tablet 30 tablet 1 Sig: Take 1 tablet by mouth once daily. With food. Please review and advise. Gwendolyn Masterson documented in this encounter [facility] 09-28-2023 Telephone encounter Note I did offer this to pts daughter. She declined. [facility] 09-28-2023 Miscellaneous Notes I did offer this to pts daughter. She declined. I have not seen her few years. Offer sooner 40 minute appointment. Called daughter back and just adding they a three of pts children are noticing this along with pts friends. This has been on going. Nothing acute. She is doubtful that pt will call for appt sooner that what is scheduled. Daughter noted that at a recent appt the nurse tried to complete the cognitive screening.(Remembering 3 words). She says pt refused this test. Informed that would send this info to pcp as MARIELA. Daughter reports pt's son is POA for finances. Patient's daughter calling having concerns about her mother Floridalma. Family is worried that the patient has either dementia or beginning of Alzheimer's. Family has spoke with her friends and are worried as well due to a significant decline this year! She has been getting really mean and screaming with family on the phone and hanging up. She can not remember from one minute to the next what she had said or what she tells us and lies about stupid things per the family. Mackenzie the daughter would like to speak with 's nurse but understands that office can not tell her any information about her mother. Mackenzie just wants to voice concerns and make aware. Please review Cindy Watson LPN documented in this encounter [facility] 09-27-2023 Telephone encounter Note I have not seen her few years. Offer sooner 40 minute appointment. [facility] 09-27-2023 Telephone encounter Note Called daughter back and just adding they a three of pts children are noticing this along with pts friends. This has been on going. Nothing acute. She is doubtful that pt will call for appt sooner that what is scheduled. Daughter noted that at a recent appt the nurse tried to complete the cognitive screening.(Remembering 3 words). She says pt refused this test. Informed that would send this info to pcp as FYI. Daughter reports pt's son is POA for finances. [facility] 09-27-2023 Telephone encounter Note Patient's daughter calling having concerns about her mother Floridalma. Family is worried that the patient has either dementia or beginning of Alzheimer's. Family has spoke with her friends and are worried as well due to a significant decline this year! She has been getting really mean and screaming with family on the phone and hanging up. She can not remember from one minute to the next what she had said or what she tells us and lies about stupid things per the family. Mackenzie the daughter would like to speak with 's nurse but understands that office can not tell her any information about her mother. Mackenzie just wants to voice concerns and make aware. Please review Cindy Watson LPN [facility] 08-02-2023 Miscellaneous Notes Detailed VM left on pt's identified voicemail of information below. Susan Mireles LPN Pt calling to see if prescription has been sent yet. Notified that she just called at 230 pm and the provider has been seeing pts and has not seen msg yet. Pt states she is out of medication and hoping to get more today. Pt reminded that we have 48 hours for refills and that she needs to call us several days before she is out of medication. Pt is requesting that refill go to [facility] and asking if possible that it can be sent in today. Please review and advise and call pt when prescription has been sent. Patient has been identified by name and date of : Yes, Provider Dr. Abdul Date 08-01-23 Time 2:28 pm Patient phones for refill(s): Requested Prescriptions Pending Prescriptions Disp Refills meloxicam (MOBIC) 15 mg tablet 30 tablet 1 Sig: Take 1 tablet by mouth once daily. With food. Date of last office visit in primary care: 05/23/2023 Date of next office visit in primary care: 02/28/2024 Please advise. Thank you. Susan Schaffer. documented in this encounter [facility] 06-06-2023 History of Presen t illness Narrative POPULATION HEALTH NAVIGATION OUTREACH Action/I RP Patient Outreach: Spoke with patient to schedule in Therapy. Patient declined RST Consult at this time. Patient Identified by Name and : YES, via phone Outreach Outcome/Action Spoke to patient / parent / legal guardian: Patient declined. Not interested in scheduling Did you use a PCP flex slot to schedule this appointment? No Reason for Outreach Care Gap or Scheduling/Wellness visits Payer: Payor: [employer] MEDICARE / Plan: A[employer] MEDICARE HMO / Product Type: HMO / Care Gap Reviewed:: RST Reminder: Reminder note to check Health Maintenance for items below Health Maintenance items due: Advance Directive Discussion due on 04/16/2023 Navigation Signature: Marine Gerardo June 06, 2023 11:19 AM documented in this encounter [facility] 05-30-2023 History of Presen t illness Narrative POPULATION HEALTH NAVIGATION OUTREACH Action/I Patient Outreach: Left voicemail for patient to call back to schedule in RST for Therapy. Sent my chart message. Any agent can assist with scheduling. Patient Identified by Name and : YES, via phone Outreach Outcome/Action Unable to reach patient: Left message Did you use a PCP flex slot to schedule this appointment? No Reason for Outreach Care Gap or Scheduling/Wellness visits Payer: Payor: [employer] MEDICARE / Plan: AETNA MEDICARE HMO / Product Type: HMO / Care Gap Reviewed:: RST Reminder: Reminder note to check Health Maintenance for items below Health Maintenance items due: Advance Directive Discussion due on 04/16/2023 Navigation Signature: Marine Gerardo May 30, 2023 10:07 AM documented in this encounter [facility] 05-25-2023 Miscellaneous Notes Phoned patient and left detailed message with results, notes below from [facility] WINCHMAN/CRANE OPERATOR on voicemail. ----- Message from [facility] APRN.GUIDE CRUISE sent at 05/25/2023 11:15 AM EST ----- Please let the patient know the x-ray of her neck showed arthritic changes of the cervical spine but otherwise normal. Continue with physical therapy as recommended. [facility] APRN.GUIDE CRUISE documented in this encounter [facility] 05-23-2023 History of Presen t illness Narrative Radiology Service Progress Note PATIENT NAME: Floridalma Dennis DATE OF SERVICE: May 23, 2023 TIME: 12:59 PM PATIENT IDENTITY VERIFICATION COMPLETED USING TWO (2) IDENTIFIERS: Name and Date of confirmed by patient verbally. FALL SCREENING: Has the patient had 2 falls in the last year or 1 fall with injury or currently using an Ambulatory Assistive Device (Walker, Cane, Wheelchair, Crutches, etc.)? No PATIENT GENDER DATA: Female. status: : No status: NO. PATIENT RELEVANT IMPLANT DATA REVIEWED: Yes PATIENT PRESENTS WITH AN IMPLANTABLE OR ATTACHED LIBRARIAN HEAD: No RADIOLOGY DEPARTMENT: General X-ray: Exam(s) Completed: Spine X-Ray(s): Cervical AP / LAT / OBL PERIPHERAL IV DATA: Not applicable SIGNED BY: Stephan Stubbs RT(R) May 23, 2023 12:59 PM documented in this encounter [facility] 05-23-2023 Instructions [facility] APRN.MARGARITA - 05/23/2023 12:50 PM EST Start Meloxicam, take once a day with breakfast. Can also try topical medications such as Icy Hot, Biofreeze or Lidocaine. Non-medication measures: Ice for localized pain/tenderness and/or heat. Stretching (see handout) and massage may also be beneficial. documented in this encounter [facility] 05-23-2023 History of Presen t illness Narrative CC Patient presents with: ongoing headache HPI Floridalma Dennis is a 83 year old year old female who presents with complaint of headache(s) for a couple months. Pain is located: occipital region and down the neck Pain is described as: constant aching Aggravated by: moving head/neck Denies: light/sound sensitivity, visual disturbance, nausea/vomiting, dizziness, lightheadedness, feeling faint, syncope, confusion, disorientation, numbness/tingling, weakness, tremor, difficulty with coordination/balance, slurred speech, facial drooping History of migraines/headaches: No Injury/Trauma: No Treatments: NSAID's without much relief Review of Systems Constitutional: Negative for chills, diaphoresis, fatigue, fever and unexpected weight change. HENT: Negative for sinus pressure and sinus pain. Musculoskeletal: Positive for neck pain. Hematological: Negative for adenopathy. Does not bruise/bleed easily. Psychiatric/Behavioral: The patient is nervous/anxious (increase in stress). PAST MEDICAL HISTORY Diagnosis Date Adenomatous colon polyp 12/08/2016 recheck 2021 Colitis 11/28/2016 COVID-19 04/07/2021 Dysthymic disorder Depression (non-psychotic) Essential hypertension, benign Hyperlipidemia LDL goal <130 01/10/2016 Osteopenia, senile 12/19/2017 PAST SURGICAL HISTORY Procedure Laterality Date BIOPSY BREAST OPEN INCISIONAL Bx of breast, incisional - left CATARACT EXTRACTION HX 10/2018 COLONOSCOPY - DIAGNOSTIC 12/08/2016 COLONOSCOPY FLX DX W/COLLJ SPEC WHEN PFRMD 12/25/2005 Colonoscopy-repeat in DILATION & CURETTAGE DX&/THER NONOBSTETRIC Dilation & curettage ALLERGIES Pneumovax 23 [Pneumococcal 23-Kat Ps Vaccine]; Influenza Virus Vaccines; Sulfamethoxazole-Trimethoprim; Ciprofloxacin; Dtp Toxoids Adsorbed [Diphtheria,Pertussis,Tetanus]; Metronidazole; Zestril [Lisinopril]; Ampicillin; Crestor [Rosuvastatin Calcium]; Penicillins; and Prednisone MEDICATIONS atenolol (TENORMIN) 50 mg tablet Take 1 tablet by mouth once daily. hydroCHLOROthiazide 25 mg tablet Take 1 tablet by mouth once daily. pyridoxine hcl(VITAMIN B-6 100 MG TAB) Take one(1) tablet daily. ergocalciferol(VITAMIN D 400 UNIT CAP) Take 400 Units by mouth every Sunday,Sunday,Sunday. FAMILY HISTORY Problem Relation Age of Onset Cancer Father RENAL Coronary Artery Disease Father Cancer Sister unknown primary No Known Problems Sister No Known Problems Sister No Known Problems Sister Ischemic Heart Disease Brother Kidney failure Brother Diabetes Maternal Grandmother Colon Cancer Paternal Grandfather Breast Cancer Maternal Aunt Breast Cancer Paternal Aunt Social History Tobacco Use Smoking status: Never Smokeless tobacco: Never Vaping Use Vaping Use: Never used Substance Use Topics Alcohol use: No Drug use: No BP 134/80 Pulse 64 Resp 12 Wt 56.7 kg (125 lb) SpO2 93% BMI 20.18 kg/m Physical Exam Vitals reviewed. Constitutional: Appearance: Normal appearance. HENT: Head: Normocephalic and atraumatic. Right Ear: Tympanic membrane normal. Left Ear: Tympanic membrane normal. Mouth/Throat: Mouth: Mucous membranes are moist. Pharynx: Oropharynx is clear. Eyes: Conjunctiva/sclera: Conjunctivae normal. Pupils: Pupils are equal, round, and reactive to light. Cardiovascular: Rate and Rhythm: Normal rate and regular rhythm. Heart sounds: Normal heart sounds. No murmur heard. Pulmonary: Effort: Pulmonary effort is normal. Breath sounds: Normal breath sounds and air entry. Musculoskeletal: Cervical back: No swelling, deformity or tenderness. Pain with movement present. Decreased range of motion. Skin: General: Skin is warm and dry. Neurological: General: No focal deficit present. Mental Status: She is alert and oriented to person, place, and time. Cranial Nerves: Cranial nerves 2-12 are intact. Motor: Motor function is intact. Coordination: Coordination is intact. Deep Tendon Reflexes: Reflexes are normal and symmetric. Psychiatric: Attention and Perception: Attention normal. Mood and Affect: Affect normal. Mood is anxious. Speech: Speech normal. Behavior: Behavior normal. Behavior is cooperative. Thought Content: Thought content normal. Cognition and Memory: Cognition normal. Judgment: Judgment normal. DATA REVIEWED: Most recent labs ASSESSMENT/PLAN: 1. Cervicogenic headache - ICD9: 784.0, ICD10: G44.86 (primary diagnosis) No alarm symptoms or exam findings. Advanced imaging not indicated at this time. X-ray of the neck to evaluate further. Referred to PT. Start Meloxicam as needed. Non-medication measures also discussed. Follow-up pending results of x-ray 2. Neck pain - ICD9: 723.1, ICD10: M54.2 As above - XR CERV OTHER 4V AP/LAT/OBL - CONSULT TO PHYSICAL THERAPY Prescription instructions reviewed with patient as applicable. Potential red flag symptoms discussed with the patient. Reviewed appropriate action plan to take if red flag symptoms occur. Patient agreeable to treatment plan. [facility] APRN.GUIDE CRUISE documented in this encounter [facility] 03-14-2023 History of Presen t illness Narrative CC: Patient presents with: Urgent Care Follow up: [facility] urgent care on Sunday 03/11 HPI Floridalma Dennis is a 83 year old female who presents today for above. Symptoms began four days ago and are about the same Symptoms include: Temperature elevation: No Chills: No Cough: No Shortness of breath: No Fatigue: No Muscle aches: No Headache: Yes New loss of smell or taste: No Sore throat: No Nasal congestion: No Rhinorrhea: No Nausea and/or vomiting: No Diarrhea: No Other Associated symptoms: hoarse voice. PMH: non-contributory OTC meds/remedies that patient has tried: antihistamine Exposures: Sick contacts? No Family or close contacts with confirmed/probable COVID-19 in last 14 days? No Home COVID test: tested at walk in clinic, negative Review of Systems See HPI PAST MEDICAL HISTORY Diagnosis Date Adenomatous colon polyp 12/08/2016 recheck 2021 Colitis 11/28/2016 COVID-19 04/07/2021 Dysthymic disorder Depression (non-psychotic) Essential hypertension, benign Hyperlipidemia LDL goal <130 01/10/2016 Osteopenia, senile 12/19/2017 PAST SURGICAL HISTORY Procedure Laterality Date BIOPSY BREAST OPEN INCISIONAL Bx of breast, incisional - left CATARACT EXTRACTION HX 10/2018 COLONOSCOPY - DIAGNOSTIC 12/08/2016 COLONOSCOPY FLX DX W/COLLJ SPEC WHEN PFRMD 12/25/2005 Colonoscopy-repeat in DILATION & CURETTAGE DX&/THER NONOBSTETRIC Dilation & curettage ALLERGIES Pneumovax 23 [Pneumococcal 23-Kat Ps Vaccine]; Influenza Virus Vaccines; Sulfamethoxazole-Trimethoprim; Ciprofloxacin; Dtp Toxoids Adsorbed [Diphtheria,Pertussis,Tetanus]; Metronidazole; Zestril [Lisinopril]; Ampicillin; Crestor [Rosuvastatin Calcium]; Penicillins; and Prednisone MEDICATIONS atenolol (TENORMIN) 50 mg tablet Take 1 tablet by mouth once daily. hydroCHLOROthiazide 25 mg tablet Take 1 tablet by mouth once daily. pyridoxine hcl(VITAMIN B-6 100 MG TAB) Take one(1) tablet daily. ergocalciferol(VITAMIN D 400 UNIT CAP) Take 400 Units by mouth every Sunday,Sunday,Sunday. FAMILY HISTORY Problem Relation Age of Onset Cancer Father RENAL Coronary Artery Disease Father Cancer Sister unknown primary No Known Problems Sister No Known Problems Sister No Known Problems Sister Ischemic Heart Disease Brother Kidney failure Brother Diabetes Maternal Grandmother Colon Cancer Paternal Grandfather Breast Cancer Maternal Aunt Breast Cancer Paternal Aunt Social History Tobacco Use Smoking status: Never Smokeless tobacco: Never Vaping Use Vaping Use: Never used Substance Use Topics Alcohol use: No Drug use: No BP 140/80 Pulse 64 Temp 36.4 C (97.5 F) (Temporal) Resp 14 Wt 56.7 kg (125 lb) BMI 20.18 kg/m Physical Exam Vitals reviewed. Constitutional: General: She is not in acute distress. Appearance: She is not ill-appearing. HENT: Right Ear: Tympanic membrane normal. Left Ear: Tympanic membrane normal. Nose: Nose normal. Right Sinus: No maxillary sinus tenderness or frontal sinus tenderness. Left Sinus: No maxillary sinus tenderness or frontal sinus tenderness. Mouth/Throat: Lips: Canones. Mouth: Mucous membranes are moist. Pharynx: Oropharynx is clear. Eyes: Conjunctiva/sclera: Conjunctivae normal. Cardiovascular: Rate and Rhythm: Normal rate and regular rhythm. Heart sounds: Normal heart sounds. Pulmonary: Effort: Pulmonary effort is normal. Breath sounds: Normal breath sounds. No wheezing, rhonchi or rales. Musculoskeletal: Cervical back: Neck supple. Lymphadenopathy: Cervical: No cervical adenopathy. Skin: General: Skin is warm and dry. Neurological: Mental Status: She is alert. ASSESSMENT/PLAN: 1. Viral URI - ICD9: 465.9, ICD10: J06.9 - Discussed viral etiology and rationale for treatment. - Symptomatic treatment with prn analgesia - Supportive care with fluids and rest - The patient may also use OTC cough and cold meds as needed. - Follow up in one week if symptoms persist or sooner if worsening of symptoms Prescription instructions reviewed with patient as applicable. Potential red flag symptoms discussed with the patient. Reviewed appropriate action plan to take if red flag symptoms occur. Patient agreeable to treatment plan. Wanda Carpenter APRN.CNP documented in this encounter [facility] 09-12-2022 History of Presen t illness Narrative POPULATION HEALTH NAVIGATION OUTREACH Action/FYI Spoke with Roberta. Scheduled medicare wellness Patient declined 6 month f/u RESCHEDULE 6 MONTH F/U ADVANCE DIRECTIVE DISCUSSION Mychart activation Mailed letter 09/12/2022 MM Patient Identified by Name and : YES, via phone Outreach Outcome/Action Spoke to patient / parent / legal guardian: Patient scheduled Unable to reach patient: Phone number not valid / voicemail full Letter mailed Did you use a PCP flex slot to schedule this appointment? No Reason for Outreach Care Gap or Scheduling/Wellness visits Payer: Payor: MEDICARE / Plan: MEDICARE A AND B / Product Type: Medicare / Care Gap Reviewed:: Follow-up appointment Reminder: Reminder note to check Health Maintenance for items below Health Maintenance items due: ADVANCE DIRECTIVE DISCUSSION due on 04/16/2022 Navigation Signature: Roberta Meredith MA September 12, 2022 8:28 AM documented in this encounter [facility] 08-15-2022 Miscellaneous Notes August 16, 2022 PID: [id number] Floridalma Dennis [address] [place] [address] Dear Ms. Dennis, We are pleased to inform you that the results of your recent breast imaging exam on 08/14/2022 are normal. Early detection of cancer is very important. We also understand recommendations regarding breast cancer screening are controversial. Please discuss with your primary care provider which strategy is best for you and whether a mammogram is right for you. Your imaging studies and report will be kept on file at [facility] as part of your permanent medical record and are available for your continuing care. Thank you for allowing us to help in meeting your health care needs. Sincerely, Dr. Lemon Interpreting Radiologist [facility] (Normal over 40) documented in this encounter [facility] 02-24-2022 Instructions Wanda Carpenter APRN.CNP - 02/24/2022 2:11 PM EST Screening schedule The following prevention plan is recommended: ADVANCE DIRECTIVE DISCUSSION Never done WHAT YOU CAN DO TO PREVENT FALLS Many falls can be prevented. By making some changes, you can lower your chances of falling. Four things YOU can do to prevent falls for you* and your caregiver 1. Begin a regular exercise program Exercise is one of the most important ways to lower your chances of falling. It makes you stronger and helps you feel better. Exercises that improve balance and coordination (like Genaro Chi) are the most helpful. Lack of exercise leads to weakness and increases your chances of falling. Ask your doctor or health care provider about the best type of exercise program for you. 2. Have your health care provider review your medicines Have your doctor or pharmacist review all the medicines you take, even [id number] medicines. As you get older, the way medicines work in your body can change. Some medicines, or combinations of medicines, can make you sleepy or dizzy and can cause you to fall. 3. Have your vision checked Have your eyes checked by an eye doctor at least once a year. You may be wearing the wrong glasses or have a condition like glaucoma or cataracts that limits your vision. Poor vision can increase your chances of falling. 4. Make your home safer About half of all falls happen at home. To make your home safer: Remove things you can trip over (like papers, books, clothes, and shoes) from stairs and places where you walk. Remove small throw rugs or use double-sided tape to keep the rugs from slipping. Keep items you use often in cabinets you can reach easily without using a step stool. Have grab bars put in next to your toilet and in the tub or shower. Use non-slip mats in the bathtub and on shower floors. Improve the lighting in your home. As you get older, you need brighter lights to see well. Hang light-weight curtains or shades to reduce glare. Have handrails and lights put in on all staircases. Wear shoes both inside and outside the house. Avoid going barefoot or wearing slippers. For more information, contact: Centers for Disease Control and Prevention www.cdc.gov/injury * This information may not apply if you have certain medical conditions. documented in this encounter [facility] 02-24-2022 History of Presen t illness Narrative Floridalma Dennis is a 82 year old female here for a Medicare Subsequent Annual Wellness Visit Health Risk Assessment In general, health is: Excellent Concerns with tiredness, difficulties with sexual function, balance, teeth/dentures: Not at all [place] anxious, stressed, angry, irritable, lonely, isolated, or had thoughts of hurting themself: Not at all Has little interest or pleasure in doing things: Not at all Bothered by feeling down, depressed, or hopeless: Not at all Needs help with grocery shopping, cooking, housework, bathing, grooming, dressing, eating, sitting or standing, walking, using the toilet, handling finances, taking medications, using the telephone, or driving: No Following safety precautions in the home environment and vehicle: removed throw rugs from floors, installed grab bars in the bathroom, handrails in stairwells, having adequate lighting, wearing seatbelt at all times?: No Smokes cigarettes, vapes, or chew tobacco: No Eats healthy foods including fruits, vegetables, whole grains, and fiber-rich foods: Nearly every day Number of days per week engages in exercise: walks every day, two laps in an indoor track Average alcohol consumption: Never Current Providers Specialists: I have reviewed specialist-related care of the patient in the medical record. Current care team: Patient Care Team: Nazario Abdul MD as PCP - General (Internal Medicine) Gemma Macedo MD (HOME VISITOR HOME [facility]) Outside specialists seen: Dr. Ozzie Bazzi (etcher printed circuit boards) Medical/Family history review Reviewed and updated problem list, medical/surgical/family/social history, medications, and allergies. Opioid use review Patient is not currently using opioids. Depression screening Depression Screening PHQ-2 Score 01/06/2021 1 Depression screening tool completed and reviewed. Based on score and interview, patient is not at risk for depression. Screening tool discussed with patient, and I recommended no further intervention at this time. Cognitive screening Mini Cog Score: Score: 5 Cognitive screening reviewed and no further action needed (score 3-5) Functional Observation Was the patient's timed Up & Go test unsteady or longer than 30 seconds? No Advance Care Planning End of Life planning discussed, including patient's advanced directive wishes: Yes Measurements BP 132/70 Pulse 68 Resp 12 Ht 5' 5 (1.65m) Wt 127 lb 9.6 oz (57.9kg) BMI 21.23 kg/(m^2). Visual acuity: follows with optometry/ophthalmology Hearing Evaluation: within normal limits Assessment/Plan - Counseled on healthy diet and regular exercise - Fall avoidance - Vaccines recommended COVID-19, Pneumococcal, Influenza, and Shingrix at pharmacy - Bone density testing recommended. Patient states she had done last year at a health screening and it was fine - Depression screening Wanda Carpenter APRN.CNP documented in this encounter [facility] 08-02-2021 Miscellaneous Notes August 02, 2021 PID: [id number] Floridalma Dennis [address] [place] [address] Dear Ms. Dennis, We are pleased to inform you that the results of your recent breast imaging exam on 08/02/2021 are normal. Early detection of cancer is very important. We also understand recommendations regarding breast cancer screening are controversial. Please discuss with your primary care provider which strategy is best for you and whether a mammogram is right for you. Your imaging studies and report will be kept on file at [facility] as part of your permanent medical record and are available for your continuing care. Thank you for allowing us to help in meeting your health care needs. Sincerely, Dr. Gaston Interpreting Radiologist [facility] (Normal over 40) documented in this encounter [facility] 08-02-2021 Procedure note Radiology Service Progress Note PATIENT NAME: Floridalma Dennis DATE OF SERVICE: August 02, 2021 TIME: 8:58 AM PATIENT IDENTITY VERIFICATION COMPLETED USING TWO (2) IDENTIFIERS: Name and Date of confirmed by patient verbally. FALL SCREENING: Has the patient had 2 falls in the last year or 1 fall with injury or currently using an Ambulatory Assistive Device (Walker, Cane, Wheelchair, Crutches, etc.)? No PATIENT GENDER DATA: Female. status: : No status: NO. PATIENT RELEVANT IMPLANT DATA REVIEWED: Not Applicable RADIOLOGY DEPARTMENT: Mammography PERIPHERAL IV DATA: Not applicable SIGNED BY: Mario Stark August 02, 2021 8:58 AM documented in this encounter [facility] 07-04-2021 History of Presen t illness Narrative POPULATION HEALTH NAVIGATION OUTREACH Action/FYI Pt identified by name and : Yes Outreach Outcome/Action Unable to reach patient: Left message Reason for Outreach Care Gap or Scheduling/Wellness visits Payer: Payor: MEDICARE / Plan: MEDICARE A AND B / Product Type: Medicare / Care Gap Reviewed:: Follow-up appointment Controlling Blood Pressure Reminder: Reminder note to check Health Maintenance for items below Health Maintenance items due: COVID-19 VACCINE(1) Never done SHINGRIX VACCINE(1 of 2) Never done BP CONTROLLED (<130/80) due on 12/19/2018 ADVANCE DIRECTIVE DISCUSSION Never done Madhuri Preciado LPN July 04, 2021 7:35 PM documented in this encounter [facility] 11-28-2016 History of Past i llness Narrative Problem Noted Date Resolved Date Colitis 11/28/2016 01/05/2021 Hypercalcemia 12/30/2009 01/10/2016 Special screening for malignant neoplasms, colon 12/12/2005 11/20/2006 documented as of this encounter (statuses as of 07/04/2021) [facility] History of Past illness Narrative* Problem Noted Date Resolved Date Colitis 11/28/2016 01/05/2021 Hypercalcemia 12/30/2009 01/10/2016 Special screening for malignant neoplasms, colon 12/12/2005 11/20/2006 documented as of this encounter (statuses as of 08/03/2021) [facility] History of Past illness Narrative* Problem Noted Date Resolved Date Colitis 11/28/2016 01/05/2021 Hypercalcemia 12/30/2009 01/10/2016 Special screening for malignant neoplasms, colon 12/12/2005 11/20/2006 documented as of this encounter (statuses as of 08/04/2021) [facility] History of Past illness Narrative* Problem Noted Date Resolved Date Colitis 11/28/2016 01/05/2021 Hypercalcemia 12/30/2009 01/10/2016 Special screening for malignant neoplasms, colon 12/12/2005 11/20/2006 documented as of this encounter (statuses as of 02/24/2022) [facility]-15[facility]2017 History of Past illness Narrative* Problem Noted Date Resolved Date Colitis 11/28/2016 01/05/2021 Hypercalcemia 12/30/2009 01/10/2016 Special screening for malignant neoplasms, colon 12/12/2005 11/20/2006 documented as of this encounter (statuses as of 08/17/2022) [address]15-2017 History of Past illness Narrative* Problem Noted Date Resolved Date Colitis 11/28/2016 01/05/2021 Hypercalcemia 12/30/2009 01/10/2016 Special screening for malignant neoplasms, colon 12/12/2005 11/20/2006 documented as of this encounter (statuses as of 09/12/2022) [address]15-2017 History of Past illness Narrative* Problem Noted Date Diagnosed Date Resolved Date Colitis 11/28/2016 01/05/2021 Hypercalcemia 12/30/2009 01/10/2016 Special screening for malign ant neoplasms, colon 12/12/2005 11/20/2006 documented as of this encounter (statuses as of 02/18/2023) [facility]-2017 History of Past illness Narrative* Problem Noted Date Diagnosed Date Resolved Date Colitis 11/28/2016 01/05/2021 Hypercalcemia 12/30/2009 01/10/2016 Special screening for malign ant neoplasms, colon 12/12/2005 11/20/2006 documented as of this encounter (statuses as of 03/14/2023) [address]15-2017 History of Past illness Narrative* Problem Noted Date Diagnosed Date Resolved Date Colitis 11/28/2016 01/05/2021 Hypercalcemia 12/30/2009 01/10/2016 Special screening for malign ant neoplasms, colon 12/12/2005 11/20/2006 documented as of this encounter (statuses as of 05/24/2023) [address]15-2017 History of Past illness Narrative* Problem Noted Date Diagnosed Date Resolved Date Colitis 11/28/2016 01/05/2021 Hypercalcemia 12/30/2009 01/10/2016 Special screening for malign ant neoplasms, colon 12/12/2005 11/20/2006 documented as of this encounter (statuses as of 05/25/2023) [facility]2017 History of Past illness Narrative* Problem Noted Date Diagnosed Date Resolved Date Colitis 11/28/2016 01/05/2021 Hypercalcemia 12/30/2009 01/10/2016 Special screening for malign ant neoplasms, colon 12/12/2005 11/20/2006 documented as of this encounter (statuses as of 05/30/2023) [facility]2017 History of Past illness Narrative* Problem Noted Date Diagnosed Date Resolved Date Colitis 11/28/2016 01/05/2021 Hypercalcemia 12/30/2009 01/10/2016 Special screening for malign ant neoplasms, colon 12/12/2005 11/20/2006 documented as of this encounter (statuses as of 06/06/2023) [address]15-2017 History of Past illness Narrative* Problem Noted Date Diagnosed Date Resolved Date Colitis 11/28/2016 01/05/2021 Hypercalcemia 12/30/2009 01/10/2016 Special screening for malign ant neoplasms, colon 12/12/2005 11/20/2006 documented as of this encounter (statuses as of 08/02/2023) [facility] note* Diagnosis Encounter for gynecological examination (general) (routine) without abnormal findings Encounter for screening mammogram for breast cancer [facility] Diagnosis Medicare annual wellness visit, subsequent- Primary Routine general medical examination at a health care facility [facility] Diagnosis Encounter for screening mammogram for malignant neoplasm of breast Other screening mammogram [facility] Diagnosis Viral URI- Primary Acute upper respiratory infections of unspecified site [facility] Diagnosis Cervicogenic headache- Primary Headache Neck pain Cervicalgia [facility] Diagnosis Neck pain Cervicalgia [facility]* Diagnosis Syncope, unspecified syncope type- Primary Essential hypertension, benign Cognitive change Other signs and symptoms involving cognition Hyperlipidemia LDL goal <130 Other and unspecified hyperlipidemia [facility]* Diagnosis Medicare annual wellness visit, subsequent- Primary Routine general medical examination at a health care facility Encounter for screening examination for other mental health and behavioral disorders Pericardial effusion Unspecified disease of pericardium Essential hypertension, benign Cognitive change Other signs and symptoms involving cognition Depressive disorder Depressive disorder, not elsewhere classified Hyperlipidemia LDL goal <130 Other and unspecified hyperlipidemia Osteopenia, senile Disorder of bone and cartilage, unspecified [facility]* Diagnosis Pericardial effusion Unspecified disease of pericardium [facility] Diagnosis Osteopenia, senile Disorder of bone and cartilage, unspecified [facility]* Diagnosis Injury of left ankle, initial encounter- Primary Foot injury, left, initial encounter Injury of left ankle, initial encounter Foot injury, left, initial encounter Injury of left ankle, initial encounter [facility]* Diagnosis Injury of left ankle, initial encounter Foot injury, left, initial encounter [facility] Diagnosis Injury of left ankle, initial encounter [facility]* Diagnosis Traumatic closed nondisplaced fracture of distal fibula, left, initial encounter- Primary [facility]* Diagnosis Other closed fracture of distal end of left fibula with routine healing, subsequent encounter- Primary [facility]* Diagnosis Pericardial effusion- Primary Unspecified disease of pericardium Essential hypertension, benign Osteopenia, senile Disorder of bone and cartilage, unspecified [facility]* Diagnosis Traumatic closed nondisplaced fracture of distal fibula, left, initial encounter- Primary [facility]* Diagnosis Other closed fracture of distal end of left fibula with routine healing, subsequent encounter [facility]* Diagnosis Traumatic closed nondisplaced fracture of distal fibula, left, initial encounter- Primary [facility]* Diagnosis Traumatic closed nondisplaced fracture of distal fibula, left, initial encounter- Primary [facility]* Diagnosis Traumatic closed nondisplaced fracture of distal fibula, left, initial encounter [facility] Diagnosis Pericardial effusion (HCC)- Primary Unspecified disease of pericardium Essential hypertension, benign Hyperlipidemia LDL goal <130 Other and unspecified hyperlipidemia [facility]* Diagnosis Essential hypertension, benign- Primary Cognitive change Other signs and symptoms involving cognition Osteopenia, senile Disorder of bone and cartilage, unspecified documented in this encounter [facility] for referral (narrative)* Diagnostic Procedure Only (Routine) - Closed Specialty Diagnoses / Procedures Referred By Juliaac t Referred To Contact [facility] Diagnoses Encounter for gynecological examination (general) (routine) without abnormal findings Encounter for screening mammogram for breast cancer Procedures GONZALO SCREENING SCREENING MAMMOGRAPHY BI 2-VIEW BREAST INC Gemma Raphael MD [address] [place] [address] [facility] [address] [id number] Referral ID Status Reason Start Date Expiration Date V isits Requested Visits Authorized [id number] Closed Auto-Generate d Referral 02/01/2021 03/03/2022 1 1 T [facility] for referral (narrative)* Diagnostic Procedure Only (Routine) - Closed Specialty Diagnoses / Procedures Referred By Kaylie t Referred To Contact [facility] Diagnoses Encounter for screening mammogram for malignant neoplasm of breast Procedures GONZALO SCREENING SCREENING MAMMOGRAPHY BI 2-VIEW BREAST INC Gemma Raphael MD [address] [place] [address] [facility] [address] [place] [phone] Referral ID Status Reason Start Date Expiration Date V isits Requested Visits Authorized [id number] Closed Auto-Generate d Referral 02/06/2022 03/08/2023 1 1 T [facility] for referral (narrative)* Diagnostic Procedure Only (Routine) - Closed Specialty Diagnoses / Procedures Referred By Contac t Referred To Contact [facility] Diagnoses Neck pain Procedures XR CERV OTHER 4V AP/LAT/OBL RADEX SPINE CERVICAL 4 OR 5 VIEWS Wanda Beaver, JITNEY DRIVER.GUIDE CRUISE [address] [place] [address] [place] [address] Referral ID Status Reason Start Date Expiration Date V isits Requested Visits Authorized [id number] Closed Auto-Generate d Referral 05/23/2023 06/21/2024 1 1 [facility] for referral (narrative)* Outpatient Procedure (Routine) - Authorized Specialty Diagnoses / Procedures Referred By Contac t Referred To Contact [facility] [place] Diagnoses Syncope, unspecified syncope type Procedures ECHO ECHO TTHRC R-T 2D W/WOM-MODE COMPL SPEC&COLR Nazario Rick MD [address] [place] [address] Formerly [facility] [address] [address] Referral ID Status Reason Start Date Expiration Date Visits Requested Visits Authorized [id number] Authorized Auto-Generat ed Referral 01/21/2024 01/20/2025 1 1 [facility] for referral (narrative)* Diagnostic Procedure Only (Routine) - Authorized Specialty Diagnoses / Procedures Referred By Contac t Referred To Contact [facility] Diagnoses Osteopenia, senile Procedures DXA-AXIAL SKELETON DXA BONE DENSITY STUDY 1/> [place] [address] [place] [address] [place] [address] Referral ID Status Reason Start Date Expiration Date Visits Requested Visits Authorized [id number] Authorized Auto-Generat ed Referral 03/29/2025 1 1 [facility] for referral (narrative)* Outpatient Procedure (Routine) - Authorized Specialty Diagnoses / Procedures Referred By Contac t Referred To Contact [facility] [place] Diagnoses Pericardial effusion Procedures ECHO ECHO TTHRC R-T 2D W/WOM-MODE COMPL SPEC&COLR D Meredith Soto MD [address] [place] [address] Formerly [facility] [address] [place] [address] Referral ID Status Reason Start Date Expiration Date Visits Requested Visits Authorized [id number] Authorized Auto-Generat ed Referral 07/21/2024 03/17/2025 1 1 [facility] for referral (narrative)* Diagnostic Procedure Only (Urgent) - Closed Specialty Diagnoses / Procedures Referred By Contac t Referred To Contact [facility] Diagnoses Foot injury, left, initial encounter Procedures XR FOOT GENERAL 3V AP/LAT/OBL LEFT RADEX FOOT COMPLETE MINIMUM 3 VIEWS Roberta Cedeno APRN.GUIDE CRUISE [address] [place] [address] [place] [address] Referral ID Status Reason Start Date Expiration Date V isits Requested Visits Authorized [id number] Closed Auto-Generate d Referral 05/15/2024 06/14/2025 1 1 * Diagnostic Procedure Only (Urgent) - Closed Specialty Diagnoses / Procedures Referred By Contac t Referred To Contact [facility] Diagnoses Injury of left ankle, initial encounter Procedures XR ANKLE GENERAL 3V AP/LAT/OBL LEFT RADEX ANKLE COMPLETE MINIMUM 3 VIEWS Roberta Cedeno APRN.GUIDE CRUISE [address] [place] [address] [place] [address] Referral ID Status Reason Start Date Expiration Date V isits Requested Visits Authorized [id number] Closed Auto-Generate d Referral 05/15/2024 06/14/2025 1 1 [facility] for referral (narrative)* Diagnostic Procedure Only (Urgent) - Closed Specialty Diagnoses / Procedures Referred By Contac t Referred To Contact [facility] Diagnoses Injury of left ankle, initial encounter Procedures XR TIBIA FIBULA 2V AP/LAT LEFT RADIOLOGIC EXAMINATION TIBIA & FIBULA 2 VIEWS Roberta Cedeno APRN.GUIDE CRUISE [address] [place] [address] [place] [address] Referral ID Status Reason Start Date Expiration Date V isits Requested Visits Authorized [id number] Closed Auto-Generate d Referral 05/15/2024 06/14/2025 1 1 [facility] for visit Narrative* Diagnostic Procedure Only (Routine) - Closed Specialty Diagnoses / Procedures Referred By Contac t Referred To Contact [facility] Diagnoses Encounter for screening mammogram for malignant neoplasm of breast Procedures GONZALO SCREENING SCREENING MAMMOGRAPHY BI 2-VIEW BREAST INC Gemma Raphael MD [address] [place] [address] [facility] [address] [place] [address] Referral ID Status Reason Start Date Expiration Date V isits Requested Visits Authorized [id number] Closed Auto-Generate d Referral 02/06/2022 03/08/2023 1 1 [facility] for visit Narrative* Diagnostic Procedure Only (Routine) - Closed Specialty Diagnoses / Procedures Referred By Contac t Referred To Contact [facility] Diagnoses Neck pain Procedures XR CERV OTHER 4V AP/LAT/OBL RADEX SPINE CERVICAL 4 OR 5 VIEWS Wanda Beaver APRN.GUIDE CRUISE [address] [place] [address] [place] [address] Referral ID Status Reason Start Date Expiration Date V isits Requested Visits Authorized [id number] Closed Auto-Generate d Referral 05/23/2023 06/21/2024 1 1 [facility] for visit Narrative* Diagnostic Procedure Only (Routine) - Closed Specialty Diagnoses / Procedures Referred By Contac t Referred To Contact [facility] Diagnoses Osteopenia, senile Procedures DXA-AXIAL SKELETON DXA BONE DENSITY STUDY 1/> SITES AXIAL Nazario Caba MD [address] [place] [address] [place] [address] Referral ID Status Reason Start Date Expiration Date Visits Re quested Visits Authorized [id number] Closed 04/18/2024 04/15/2025 1 1 [facility] for visit Narrative* Diagnostic Procedure Only (Urgent) - Closed Specialty Diagnoses / Procedures Referred By Contac t Referred To Contact [facility] Diagnoses Foot injury, left, initial encounter Procedures XR FOOT GENERAL 3V AP/LAT/OBL LEFT RADEX FOOT COMPLETE MINIMUM 3 VIEWS Roberta Cedeno, JITNEY DRIVER.GUIDE CRUISE [address] [place] [address] [place] [address] Referral ID Status Reason Start Date Expiration Date V isits Requested Visits Authorized [id number] Closed Auto-Generate d Referral 05/15/2024 06/14/2025 1 1 [facility] for visit Narrative* Diagnostic Procedure Only (Urgent) - Closed Specialty Diagnoses / Procedures Referred By Contac t Referred To Contact [facility] Diagnoses Injury of left ankle, initial encounter Procedures XR TIBIA FIBULA 2V AP/LAT LEFT RADIOLOGIC EXAMINATION TIBIA & FIBULA 2 VIEWS Roberta Cedeno, JITNEY DRIVER.GUIDE CRUISE [address] [place] [address] [place] [address] Referral ID Status Reason Start Date Expiration Date V isits Requested Visits Authorized [id number] Closed Auto-Generate d Referral 05/15/2024 06/14/2025 1 1 [facility] for visit Narrative* Diagnostic Procedure Only (Routine) - Closed Specialty Diagnoses / Procedures Referred By Contac t Referred To Contact [facility] Diagnoses Other closed fracture of distal end of left fibula with routine healing, subsequent encounter Procedures XR ANKLE GENERAL 3V AP/LAT/OBL LEFT RADEX ANKLE COMPLETE MINIMUM 3 VIEWS Teddy Mcclelland V, DO [address] [place] [address] Phone: tel: fax: [place] [address] Referral ID Status Reason Start Date Expiration Date V isits Requested Visits Authorized [id number] Closed Auto-Generate d Referral 05/28/2024 06/27/2025 1 1 [facility] for visit Narrative* Diagnostic Procedure Only (Routine) - Closed Specialty Diagnoses / Procedures Referred By Contac t Referred To Contact [facility] Diagnoses Traumatic closed nondisplaced fracture of distal fibula, left, initial encounter Procedures XR ANKLE GENERAL 3V AP/LAT/OBL LEFT RADEX ANKLE COMPLETE MINIMUM 3 VIEWS Teddy Mcclelland V, DO [address] [place] [address] Phone: tel: fax: [place] [address] Referral ID Status Reason Start Date Expiration Date V isits Requested Visits Authorized [id number] Closed Auto-Generate d Referral 06/23/2024 07/23/2025 1 1 [facility] Reason for Referral Specialty Diagnoses / Procedures Referred By Contac t Referred To Contact [facility] Diagnoses Neck pain Procedures CONSULT TO PHYSICAL THERAPY PHYSICAL THERAPY EVALUATION HIGH COMPLEX 45 MINS Wanda Beaver, JITNEY DRIVER.GUIDE CRUISE [address] [place] [address] [facility] [address] [place] [address] Referral ID Status Reason Start Date Expiration Date Visits Requested Visits Authorized [id number] Authorized PCP Requested Referral Auto-Generate d Referral 05/23/2023 05/22/2024 99 99 Specialty Diagnoses / Procedures Referred By Contac t Referred To Contact [facility] Diagnoses Neck pain Procedures XR CERV OTHER 4V AP/LAT/OBL RADEX SPINE CERVICAL 4 OR 5 VIEWS Wanda Beaver, JITNEY DRIVER.GUIDE CRUISE [address] [place] [address] [place] [address] Referral ID Status Reason Start Date Expiration Date V isits Requested Visits Authorized [id number] Closed Auto-Generate d Referral 05/23/2023 06/21/2024 1 1 Specialty Diagnoses / Procedures Referred By Contac t Referred To Contact Orthopedics Diagnoses Injury of left ankle, initial encounter Procedures CONSULT PANEL TO ORTHOPAEDICS OFFICE/OUTPATIENT [facility] 60 MINUTES Roberta Cedeno, JITNEY DRIVER.GUIDE CRUISE [address] [place] [address] Referral ID Status Reason Start Date Expiration Date Visits Requested Visits Authorized [id number] Authorized PCP Requested Referral 05/15/2024 05/15/2025 1 1 Specialty Diagnoses / Procedures Referred By Contac t Referred To Contact [facility] Diagnoses Injury of left ankle, initial encounter Procedures XR ANKLE GENERAL 3V AP/LAT/OBL LEFT RADEX ANKLE COMPLETE MINIMUM 3 VIEWS Roberta Cedeno, JITNEY DRIVER.GUIDE CRUISE [address] [place] [address] [place] [address] Referral ID Status Reason Start Date Expiration Date Visits Requested Visits Authorized [id number] New Request Auto-Generat ed Referral 05/15/2024 06/14/2025 1 1 Specialty Diagnoses / Procedures Referred By Contac t Referred To Contact [facility] IM[facility] Diagnoses Injury of left ankle, initial encounter Procedures XR TIBIA FIBULA 2V AP/LAT LEFT RADIOLOGIC EXAMINATION TIBIA & FIBULA 2 VIEWS Roberta Cedeno, JITNEY DRIVER.GUIDE CRUISE [address] [place] [address] [place] [address] Referral ID Status Reason Start Date Expiration Date V isits Requested Visits Authorized [id number] Closed Auto-Generate d Referral 05/15/2024 06/14/2025 1 1 Specialty Diagnoses / Procedures Referred By Contac t Referred To Contact [facility] IMAG[facility] Diagnoses Foot injury, left, initial encounter Procedures XR FOOT GENERAL 3V AP/LAT/OBL LEFT RADEX FOOT COMPLETE MINIMUM 3 VIEWS Roberta Cedeno, JITNEY DRIVER.GUIDE CRUISE [address] [place] [address] [place] [address] Referral ID Status Reason Start Date Expiration Date V isits Requested Visits Authorized [id number] Closed Auto-Generate d Referral 05/15/2024 06/14/2025 1 1 Referral ID Status Reason Start Date Expiration Date V isits Requested Visits Authorized [id number] Closed Auto-Generate d Referral 05/15/2024 06/14/2025 1 1 Summary Purpose Family History No Family History Records FoundNo Family History Records Found Advance Directives No Advanced Directives Records FoundNo Advanced Directives Records Found Additional Source Comments Source Comments (unrecognize d section and content) In the event this informatio n is protected by the Federal Confidentiality of Alcohol and Drug Abuse Patient Records regulations: The Federal rules restrict any use of the information to criminally investigate or prosecute any alcohol or drug abuse patient.[facility] the event this information is protected by the Federal Confidentiality of Alcohol and Drug Abuse Patient Records regulations: The Federal rules restrict any use of the information to criminally investigate or prosecute any alcohol or drug abuse patient.[facility] the event this information is protected by the Federal Confidentiality of Alcohol and Drug Abuse Patient Records regulations: The Federal rules restrict any use of the information to criminally investigate or prosecute any alcohol or drug abuse patient.[facility] the event this information is protected by the Federal Confidentiality of Alcohol and Drug Abuse Patient Records regulations: The Federal rules restrict any use of the information to criminally investigate or prosecute any alcohol or drug abuse patient.[facility] the event this information is protected by the Federal Confidentiality of Alcohol and Drug Abuse Patient Records regulations: The Federal rules restrict any use of the information to criminally investigate or prosecute any alcohol or drug abuse patient.[facility] the event this information is protected by the Federal Confidentiality of Alcohol and Drug Abuse Patient Records regulations: The Federal rules restrict any use of the information to criminally investigate or prosecute any alcohol or drug abuse patient.[facility] the event this information is protected by the Federal Confidentiality of Alcohol and Drug Abuse Patient Records regulations: The Federal rules restrict any use of the information to criminally investigate or prosecute any alcohol or drug abuse patient.[facility] the event this information is protected by the Federal Confidentiality of Alcohol and Drug Abuse Patient Records regulations: The Federal rules restrict any use of the information to criminally investigate or prosecute any alcohol or drug abuse patient.[facility] the event this information is protected by the Federal Confidentiality of Alcohol and Drug Abuse Patient Records regulations: The Federal rules restrict any use of the information to criminally investigate or prosecute any alcohol or drug abuse patient.[facility] the event this information is protected by the Federal Confidentiality of Alcohol and Drug Abuse Patient Records regulations: The Federal rules restrict any use of the information to criminally investigate or prosecute any alcohol or drug abuse patient.[facility] the event this information is protected by the Federal Confidentiality of Alcohol and Drug Abuse Patient Records regulations: The Federal rules restrict any use of the information to criminally investigate or prosecute any alcohol or drug abuse patient.[facility] the event this information is protected by the Federal Confidentiality of Alcohol and Drug Abuse Patient Records regulations: The Federal rules restrict any use of the information to criminally investigate or prosecute any alcohol or drug abuse patient.[facility] the event this information is protected by the Federal Confidentiality of Alcohol and Drug Abuse Patient Records regulations: The Federal rules restrict any use of the information to criminally investigate or prosecute any alcohol or drug abuse patient.[facility] the event this information is protected by the Federal Confidentiality of Alcohol and Drug Abuse Patient Records regulations: The Federal rules restrict any use of the information to criminally investigate or prosecute any alcohol or drug abuse patient.[facility] the event this information is protected by the Federal Confidentiality of Alcohol and Drug Abuse Patient Records regulations: The Federal rules restrict any use of the information to criminally investigate or prosecute any alcohol or drug abuse patient.[facility] HospitalIn the event this information is protected by the Federal Confidentiality of Alcohol and Drug Abuse Patient Records regulations: The Federal rules restrict any use of the information to criminally investigate or prosecute any alcohol or drug abuse patient.[facility] ClinicIn the event this information is protected by the Federal Confidentiality of Alcohol and Drug Abuse Patient Records regulations: The Federal rules restrict any use of the information to criminally investigate or prosecute any alcohol or drug abuse patient.[facility] HospitalIn the event this information is protected by the Federal Confidentiality of Alcohol and Drug Abuse Patient Records regulations: The Federal rules restrict any use of the information to criminally investigate or prosecute any alcohol or drug abuse patient.[facility] HospitalIn the event this information is protected by the Federal Confidentiality of Alcohol and Drug Abuse Patient Records regulations: The Federal rules restrict any use of the information to criminally investigate or prosecute any alcohol or drug abuse patient.[facility] HospitalIn the event this information is protected by the Federal Confidentiality of Alcohol and Drug Abuse Patient Records regulations: The Federal rules restrict any use of the information to criminally investigate or prosecute any alcohol or drug abuse patient.[facility] HospitalIn the event this information is protected by the Federal Confidentiality of Alcohol and Drug Abuse Patient Records regulations: The Federal rules restrict any use of the information to criminally investigate or prosecute any alcohol or drug abuse patient.[facility] HospitalIn the event this information is protected by the Federal Confidentiality of Alcohol and Drug Abuse Patient Records regulations: The Federal rules restrict any use of the information to criminally investigate or prosecute any alcohol or drug abuse patient.[facility] HospitalIn the event this information is protected by the Federal Confidentiality of Alcohol and Drug Abuse Patient Records regulations: The Federal rules restrict any use of the information to criminally investigate or prosecute any alcohol or drug abuse patient.[facility] HospitalIn the event this information is protected by the Federal Confidentiality of Alcohol and Drug Abuse Patient Records regulations: The Federal rules restrict any use of the information to criminally investigate or prosecute any alcohol or drug abuse patient.[facility] HospitalIn the event this information is protected by the Federal Confidentiality of Alcohol and Drug Abuse Patient Records regulations: The Federal rules restrict any use of the information to criminally investigate or prosecute any alcohol or drug abuse patient.[facility] HospitalIn the event this information is protected by the Federal Confidentiality of Alcohol and Drug Abuse Patient Records regulations: The Federal rules restrict any use of the information to criminally investigate or prosecute any alcohol or drug abuse patient.[facility] HospitalIn the event this information is protected by the Federal Confidentiality of Alcohol and Drug Abuse Patient Records regulations: The Federal rules restrict any use of the information to criminally investigate or prosecute any alcohol or drug abuse patient.[facility] HospitalIn the event this information is protected by the Federal Confidentiality of Alcohol and Drug Abuse Patient Records regulations: The Federal rules restrict any use of the information to criminally investigate or prosecute any alcohol or drug abuse patient.[facility] HospitalIn the event this information is protected by the Federal Confidentiality of Alcohol and Drug Abuse Patient Records regulations: The Federal rules restrict any use of the information to criminally investigate or prosecute any alcohol or drug abuse patient.[facility] HospitalIn the event this information is protected by the Federal Confidentiality of Alcohol and Drug Abuse Patient Records regulations: The Federal rules restrict any use of the information to criminally investigate or prosecute any alcohol or drug abuse patient.[facility] HospitalIn the event this information is protected by the Federal Confidentiality of Alcohol and Drug Abuse Patient Records regulations: The Federal rules restrict any use of the information to criminally investigate or prosecute any alcohol or drug abuse patient.[facility] HospitalIn the event this information is protected by the Federal Confidentiality of Alcohol and Drug Abuse Patient Records regulations: The Federal rules restrict any use of the information to criminally investigate or prosecute any alcohol or drug abuse patient.[facility] HospitalIn the event this information is protected by the Federal Confidentiality of Alcohol and Drug Abuse Patient Records regulations: The Federal rules restrict any use of the information to criminally investigate or prosecute any alcohol or drug abuse patient.[facility] HospitalIn the event this information is protected by the Federal Confidentiality of Alcohol and Drug Abuse Patient Records regulations: The Federal rules restrict any use of the information to criminally investigate or prosecute any alcohol or drug abuse patient.[facility] HospitalIn the event this information is protected by the Federal Confidentiality of Alcohol and Drug Abuse Patient Records regulations: The Federal rules restrict any use of the information to criminally investigate or prosecute any alcohol or drug abuse patient.[facility] HospitalIn the event this information is protected by the Federal Confidentiality of Alcohol and Drug Abuse Patient Records regulations: The Federal rules restrict any use of the information to criminally investigate or prosecute any alcohol or drug abuse patient.[facility] HospitalIn the event this information is protected by the Federal Confidentiality of Alcohol and Drug Abuse Patient Records regulations: The Federal rules restrict any use of the information to criminally investigate or prosecute any alcohol or drug abuse patient.[facility] HospitalIn the event this information is protected by the Federal Confidentiality of Alcohol and Drug Abuse Patient Records regulations: The Federal rules restrict any use of the information to criminally investigate or prosecute any alcohol or drug abuse patient.[facility] HospitalIn the event this information is protected by the Federal Confidentiality of Alcohol and Drug Abuse Patient Records regulations: The Federal rules restrict any use of the information to criminally investigate or prosecute any alcohol or drug abuse patient.[facility] HospitalIn the event this information is protected by the Federal Confidentiality of Alcohol and Drug Abuse Patient Records regulations: The Federal rules restrict any use of the information to criminally investigate or prosecute any alcohol or drug abuse patient.[facility] HospitalIn the event this information is protected by the Federal Confidentiality of Alcohol and Drug Abuse Patient Records regulations: The Federal rules restrict any use of the information to criminally investigate or prosecute any alcohol or drug abuse patient.[facility] HospitalIn the event this information is protected by the Federal Confidentiality of Alcohol and Drug Abuse Patient Records regulations: The Federal rules restrict any use of the information to criminally investigate or prosecute any alcohol or drug abuse patient.[facility] Care Teams (unrecognized sec tion and content) Fish Frog Or Oyster Farmer Relationship Specialty Start Date End Date Nazario Abdul MD [address] [place], [place] [id number] PCP - General Internal Medicine 12/10/20 Fish Frog Or Oyster Farmer Relationship Specialty Start Date End Date Nazario Abdul MD [address] [place], [place] [id number] PCP - General Internal Medicine 12/10/20 Fish Frog Or Oyster Farmer Relationship Specialty Start Date End Date Nazario Abdul MD [address] [facility] [place] [place] [address] PCP - General Internal Medicine 12/10/20 Fish Frog Or Oyster Farmer Relationship Specialty Start Date End Date Nazario Abdul MD [address] [place] [address] PCP - General Internal Medicine 12/10/20 Fish Frog Or Oyster Farmer Relationship Specialty Start Date End Date Nazario Abdul MD [address] [place] [address] PCP - General Internal Medicine 12/10/20 Fish Frog Or Oyster Farmer Relationship Specialty Start Date End Date Nazario Abdul MD [address] [place] [address] PCP - General Internal Medicine 12/10/20 Fish Frog Or Oyster Farmer Relationship Specialty Start Date End Date Nazario Abdul MD [address] [place] [address] PCP - General Internal Medicine 12/10/20 Fish Frog Or Oyster Farmer Relationship Specialty Start Date End Date Nazario Abdul MD [address] [place] [address] PCP - General Internal Medicine 12/10/20 Fish Frog Or Oyster Farmer Relationship Specialty Start Date End Date Nazario Abdul MD [address] [place] [address] PCP - General Internal Medicine 12/10/20 Fish Frog Or Oyster Farmer Relationship Specialty Start Date End Date Nazario Abdul MD [address] [place] [address] PCP - General Internal Medicine 12/10/20 Fish Frog Or Oyster Farmer Relationship Specialty Start Date End Date Nazario Abdul MD [address] [facility] [place] [address] PCP - General Internal Medicine 12/10/20 Fish Frog Or Oyster Farmer Relationship Specialty Start Date End Date Nazario Adbul MD [address] [place] [address] PCP - General Internal Medicine 12/10/20 Fish Frog Or Oyster Farmer Relationship Specialty Start Date End Date Nazario Abdul MD [address] [place] [address] PCP - General Internal Medicine 12/10/20 Fish Frog Or Oyster Farmer Relationship Specialty Start Date End Date Nazario Abdul MD [address] [place] [address] PCP - General Internal Medicine 12/10/20 Fish Frog Or Oyster Farmer Relationship Specialty Start Date End Date Nazario Abdul MD [address] [place] [address] PCP - General Internal Medicine 12/10/20 Fish Frog Or Oyster Farmer Relationship Specialty Start Date End Date Nazario Abdul MD [address] [facility] [place] [place] [address] PCP - General Internal Medicine 12/10/20 Fish Frog Or Oyster Farmer Relationship Specialty Start Date End Date Nazario Abdul MD [address] [place] [address] PCP - General Internal Medicine 12/10/20 Fish Frog Or Oyster Farmer Relationship Specialty Start Date End Date Nazario Abdul MD [address] [place] [address] PCP - General Internal Medicine 12/10/20 Fish Frog Or Oyster Farmer Relationship Specialty Start Date End Date Nazario Abdul MD [address] [place] [address] PCP - General Internal Medicine 12/10/20 Fish Frog Or Oyster Farmer Relationship Specialty Start Date End Date Nazario Abdul MD [address] [facility] [place] [address] PCP - General Internal Medicine 12/10/20 Fish Frog Or Oyster Farmer Relationship Specialty Start Date End Date Nazario Abdul MD [address] [place] [address] PCP - General Internal Medicine 12/10/20 Wanda Beaver, JITNEY DRIVER.GUIDE CRUISE [address] [facility] [place] [address] Education Trainer Internal Medicine 03/24/24 Fish Frog Or Oyster Farmer Relationship Specialty Start Date End Date Nazario Abdul MD [address] [place] [address] PCP - General Internal Medicine 12/10/20 Wanda Beaver, JITNEY DRIVER.GUIDE CRUISE [address] [facility] [place] [address] Education Trainer Internal Medicine 03/24/24 Fish Frog Or Oyster Farmer Relationship Specialty Start Date End Date Nazario Abdul MD [address] [place] [address] PCP - General Internal Medicine 12/10/20 Wanda Beaver, JITNEY DRIVER.GUIDE CRUISE [address] [facility] [place] [address] Education Trainer Internal Medicine 03/24/24 Fish Frog Or Oyster Farmer Relationship Specialty Start Date End Date Nazario Abdul MD [address] [place] [address] PCP - General Internal Medicine 12/10/20 Wanda Beaver, JITNEY DRIVER.GUIDE CRUISE [address] [facility] [place] [address] Education Trainer Internal Medicine 03/24/24 Fish Frog Or Oyster Farmer Relationship Specialty Start Date End Date Nazario Abdul MD [address] [facility] [place] [place] [address] PCP - General Internal Medicine 12/10/20 Wanda Beaver, JITNEY DRIVER.GUIDE CRUISE [address] [facility] [place] [address] Education Trainer Internal Medicine 03/24/24 Fish Frog Or Oyster Farmer Relationship Specialty Start Date End Date Nazario Abdul MD [address] [facility] [place] [address] PCP - General Internal Medicine 12/10/20 Wanda Beaver, JITNEY DRIVER.GUIDE CRUISE [address] [facility] [place] [address] Education Trainer Internal Medicine 03/24/24 Fish Frog Or Oyster Farmer Relationship Specialty Start Date End Date Nazario Abdul MD [address] [facility] [place] [address] PCP - General Internal Medicine 12/10/20 Wanda Beaver, JITNEY DRIVER.GUIDE CRUISE [address] [facility] [place] [address] Education Trainer Internal Medicine 03/24/24 Fish Frog Or Oyster Farmer Relationship Specialty Start Date End Date Nazario Abdul MD [address] [place] [address] PCP - General Internal Medicine 12/10/20 Wanda Beaver, JITNEY DRIVER.GUIDE CRUISE [address] [facility] [place] [address] Education Trainer Internal Medicine 03/24/24 Fish Frog Or Oyster Farmer Relationship Specialty Start Date End Date Nazario Abdul MD [address] [facility] [place] [address] PCP - General Internal Medicine 12/10/20 Wanda Beaver, JITNEY DRIVER.GUIDE CRUISE [address] [facility] [place] [address] Education Trainer Internal Medicine 03/24/24 Fish Frog Or Oyster Farmer Relationship Specialty Start Date End Date Nazario Abdul MD [address] [facility] [place] [address] PCP - General Internal Medicine 12/10/20 Wanda Beaver, JITNEY DRIVER.GUIDE CRUISE [address] [facility] [place] [address] Education Trainer Internal Medicine 03/24/24 Fish Frog Or Oyster Farmer Relationship Specialty Start Date End Date Nazario Abdul MD [address] [facility] [place] [address] PCP - General Internal Medicine 12/10/20 Wanda Beaver, JITNEY DRIVER.GUIDE CRUISE [address] [place], [place] [address] Education Trainer Internal Medicine 03/24/24 Fish Frog Or Oyster Farmer Relationship Specialty Start Date End Date Nazario Abdul MD [address] [place], [place] [address] PCP - General Internal Medicine 12/10/20 Wanad Beaver, JITNEY DRIVER.GUIDE CRUISE [address] [place], [place] [address] Education Trainer Internal Medicine 03/24/24 Fish Frog Or Oyster Farmer Relationship Specialty Start Date End Date Nazario Abdul MD [address] [place] [place], [place] [address] PCP - General Internal Medicine 12/10/20 Wanda Beaver, JITNEY DRIVER.GUIDE CRUISE [address] [place], [place] [address] [facility] Internal Medicine 03/24/24 Fish Frog Or Oyster Farmer Relationship Specialty Start Date End Date Nazario Abdul MD [address] [place], [place] [address] PCP - General Internal Medicine 12/10/20 Wanda Beaver, JITNEY DRIVER.GUIDE CRUISE [address] [place], [place] [address] [facility] Internal Medicine 03/24/24 Reason for Visit (unrecogniz ed section and content) Reason Comments Radiology Mammogram Specialty Diagnoses / Procedures Referred By Contac t Referred To Contact [facility] Diagnoses Encounter for gynecological examination (general) (routine) without abnormal findings Encounter for screening mammogram for breast cancer Procedures GONZALO SCREENING SCREENING MAMMOGRAPHY BI 2-VIEW BREAST INC Gemma Raphael MD [address] [place] [address] [facility] [address] [place] [address] Referral ID Status Reason Start Date Expiration Date V isits Requested Visits Authorized [id number] Closed Auto-Generate d Referral 02/01/2021 03/03/2022 1 1 Reason Comments Medicare Wellness Exam Reason Onset Date Comments Population Health Navigation Outreach 09/12/2022 [facility] [place] Reason Comments Urgent Care Follow up [facility] urgent care on Sunday 03/11 Reason Comments ongoing headache Reason Comments Results Reason Onset Date Comments Refill Request 08/01/2023 Reason Comments Behavioral Problem family has concerns Reason Onset Date Comments Refill Request 10/02/2023 Reason Comments Medication Problem Reason Onset Date Comments Refill Request 01/09/2024 Reason Comments ER F/U Reason Comments future apt - ER FU needed Reason Comments cancel testing Reason Comments Referral order for Cardiology Reason Comments Medicare Wellness Exam Results Reason Comments Establish Care Pericardial effusion Specialty Diagnoses / Procedures Referred By Contflavia t Referred To Contact Cardiology / CARD ADMIN [facility] Diagnoses Pericardial effusion Procedures CONSULT TO CARDIOLOGY OFFICE/OUTPATIENT [facility] 60 MINUTES Nazario Abdul MD [address] [place] [address] Card Admin [facility] [address] [place] [address] Referral ID Status Reason Start Date Expiration Date V isits Requested Visits Authorized [id number] Closed PCP Requested Referral 02/26/2024 04/15/2024 1 1 Reason Comments Bone Density Reason Comments Fall X 2 days, missed las t step and fell sideways on ankle, swelling, bruising LROM Reason Comments left distal fibula fx Reason Comments Follow Up 3 month follow up Reason Comments 2 weeks 3 days post visit left distal fi bula fx Reason Comments 6 weeks 1 days post fracture Left distal fibula Reason Comments Follow Up 6 month follow up- r eview ECHO Reason Comments 5 month follow-up Reason Comments Patient Update INFORMATION SOURCE (unrecogn ized section and content) DATE CREATED AUTHOR 02/08/2024 [facility] DATE CREATED AUTHOR AUTHOR'S KIMI OLIVER 11/01/2024 [facility] FOR RECORDS PERTAINING TO PATIENTS WHO ARE OR HAVE BEEN ENROLLED IN A CHEMICAL DEPENDENCY/SUBSTANCEABUSE PROGRAM, SOME INFORMATION MAY BE OMITTED. This clinical summary was aggregated from multiple sources. Caution should be exercised in using it in the provision of clinical care. This summary normalizes information from multiple sources, and as a consequence, information in this document may materially change the coding, format and clinical context of patient data. In addition, data may be omitted in some cases. CLINICAL DECISIONS SHOULD BE BASED ON THE PRIMARY CLINICAL RECORDS. [employer] [facility]. provides no warranty or guarantee of the accuracy or completeness of information in this document.
--- NOTE | 2024-11-01 20:13 | EX.ED.DYSGE1 ---
HPI History of Present Illness Chief Complaint: Itching Informant: patient Narrative Narrative: Present itching bumps bilateral forearms right greater than left. Started a small bump yesterday has progressed. She is concerned for poison oak. States a neighbor has tall grass and has not cut it. She is outdoors intermittently. No lip or tongue swelling. No history of diabetes. Hypertension history. Prior similar symptoms: Yes PFSH PFSH Medical History HTN (hypertension) Contact dermatitis due to poison haily Home Medications ?Medication ?Instructions ?Recorded ?Last Taken ?Type atenolol 50 mg tablet 50 mg PO QHS 11/24/16 12/07/16 23:00 History hydrochlorothiazide 25 mg tablet 25 mg PO DAILY 11/24/16 12/07/16 23:00 History methylprednisolone 4 mg tablets in See Rx Instructions PO PER PKG DIR 09/15/21 Unknown Rx a dose pack (Medrol (Cory)) #21 tabs prednisone 10 mg tablet 10 mg PO DAILY #30 tabs 01/12/22 Unknown Rx amlodipine 2.5 mg tablet 2.5 mg PO DAILY 11/01/24 Unknown History triamcinolone acetonide 0.1 % 1 applic topical BID rash #30 grams 11/01/24 Unknown Rx topical ointment Allergy/AdvReac Type Severity Reaction Status Date / Time ciprofloxacin (From Cipro) AdvReac Nausea Verified 11/01/24 19:29 metronidazole (From Flagyl) AdvReac Nausea Verified 11/01/24 19:29 Penicillins AdvReac Diarrhea Verified 11/01/24 19:29 prednisone AdvReac Nausea/Vom/ Verified 11/01/24 19:29 Diarrhea Social History Smoking Status: Never smoker ROS ROS ED Constitutional Constitutional ED: Denies fever(s) Cardiovascular Cardiovascular: Denies chest pain Respiratory/Chest Respiratory/Chest: Denies cough Gastrointestinal Gastrointestinal: Denies diarrhea or vomiting Musculoskeletal Musculoskeletal: Denies none Integumentary Reports rash; Denies wounds Neurologic Neurologic: Denies weakness EXAM Physical Exam Const Vital Signs: 11/01/24 19:28 11/01/24 20:25 Temperature 98.3 F 97.8 F Temperature Source Oral Pulse Rate 66 59 L Respiratory Rate 18 16 Blood Pressure 164/81 H 137/80 H Blood Pressure Mean 108 99 Pulse Ox 98 99 Oxygen Delivery Method Room Air Positive well nourished and well developed General Appearance ED: well developed HEENT normocephalic and atraumatic Eyes General Eye ED: Yes normal appearance of both eyes Neck full ROM Resp normal respiratory effort and normal air movement Cardio regular rate and regular rhythm GI soft to palpation Extremity normal to inspection and full ROM Neuro oriented x3 Skin Skin Narrative: Bilateral forearms scattered raised nodular bumps. No vesicles no scaly lesions no drainage. Few areas bumps noted excoriations with scabbing. MDM MDM MDM Narrative Medical decision making narrative: Interventions / MDM: Differential diagnosis: Insect bite Diagnosis considered but do not suspect: No clinical contact dermatitis. No clinical cellulitis. My EKG interpretation: N/A Imaging independently reviewed and interpreted by myself: N/A External documents reviewed: N/A Test considered but not ordered:N/A ED course: Vital stable. Examination patient's lesions forearms concerns for insect bites. Local reactions. Ice was placed. Patient provided topical steroids to help with symptoms discussed using Benadryl as needed however can cause sedation. Prescription sent to her pharmacy. Discussed symptoms should improve with time. All questions were answered. Re-evaluation: stable Disposition discussed with patient/family/significant other: Patient Case discussed with consulting clinician: N/A This note was generated with tritrue dictation software. It may contain incorrect words, spelling, and punctuation that were not noted in checking the note before signing. Discharge Plan Triage Chief Complaint: Itching ED Provider: Cooper Norris Dx/Rx/DC Orders Clinical Impression: Insect bite, History of hypertension Instructions: ED Insect Bite Prescriptions: New triamcinolone acetonide 0.1 % ointment 1 applic topical BID Qty: 30 0RF No Action methylprednisolone [Medrol (Cory)] 4 mg tablets,dose pack See Rx Instructions PO PER PKG DIR Qty: 21 0RF Rx Instructions: PO PER PKG DIR prednisone 10 mg tablet 10 mg PO DAILY Qty: 30 0RF Rx Instructions: 4 tablets daily x3 days, then 3 tablets daily x3 days, then 2 tablets daily x3 days, then 1 tablet daily x3 days hydrochlorothiazide 25 MG tablet 25 mg PO DAILY atenolol 50 MG tablet 50 mg PO QHS amlodipine 2.5 mg tablet 2.5 mg PO DAILY Primary Care Provider: Nazario Abdul Referrals: Nazario Abdul MD [Primary Care Provider] - 1-2 Weeks Activity Restrictions/Additional Instructions: Evaluation itchy rash not consistent with poison haily. Concerned more of insect bites. Avoid scratching. Ice to help with comfort. May use Benadryl 25 mg every 6 hours however may cause sedation. Use topical steroids to help with symptoms. This will improve over time. Print Language: Greenlandic Disposition Disposition: Home, Self Care Discharge Date/Time: 11/01/24 20:26
[2024-11-01 20:25] VITALS: BP 137/80; PULSE 59; RESP 16; TEMP 36.6; O2SAT 99
== END 2024-11-01 20:26 | disposition home or self-care (01) ==
PROVIDERS: Emergency Provider Emergency Medicine; PCP Internal Medicine; Visit Provider Emergency Medicine
DX: S51.851A Open bite of right forearm, initial encounter (principal); S51.852A Open bite of left forearm, initial encounter; W57.XXXA Bitten or stung by nonvenomous insect and other nonvenomous arthropods, initial encounter; I10 Essential (primary) hypertension; Z79.899 Other long term (current) drug therapy
CPT/HCPCS: 99282

== ENCOUNTER 2024-11-02 17:09 | Emergency (ER) | payer MEDICARE, SELFPAY ==
[2024-11-02 17:10] VITALS: BP 166/84; PULSE 61; RESP 16; TEMP 36.6; O2SAT 97; BMI 19.3
--- OUTSIDE RECORDS SUMMARY | 2024-11-02 17:54 | XMS RPT_ITS | CCD ---
Author Organization [facility] Care Team Providers Care Press Assistant Name Role Phone Marah Ram Unavailable Unavailable Tess MERINO, Herman Lugo Unavailable Franko MERINO, Nazario Rhodes Primary Care Provider Franko MERINO, Nazario Rhodes Primary Care Provider Franko MERINO, Celina Primary Care Provider [phone] Franko MERINO, Nazario Rhodes Primary Care Provider Franko, Nazario Primary Care Unavailable Franko, Nazario Referring Unavailable Stepan Paul NP Attending Unavailable Rik Love Attending Unavailable Abdul, Nazario Primary Care Unavailable Sd TAP OUT OPERATOR.CANINE SERVICE TEACHER, Wanda M Unavailable [phone] TEDDY MCCLELLAND Referring Unavailable ABDUL, CELINA Primary [...] Primary Care Unavailable TEDDY MCCLELLAND Attending Unavailable FRANKO, NAZARIO Rhodes Primary Care Unavailable TEDDY MCCLELLAND Referring Unavailable ABDUL, CELINA Primary Care Unavailable NAZARIO ABDUL Primary Care Unavailable NAZARIO ABDUL Attending Unavailable TEDDY MCCLELLAND Attending Unavailable NAZARIO ABDUL Primary Care Unavailable ROBERTA CEDENO Referring Unavailable FRANKO, NAZARIO Rhodes Primary Care Unavailable ROBERTA CEDENO Referring Unavailable NAZARIO ABDUL Primary Care Unavailable FRANKO, NAZARIO Rhodes Primary Care Unavailable FRANKO, NAZARIO Rhodes Primary Care Unavailable FRANKO, NAZARIO Rhodes Referring Unavailable NAZARIO ABDUL Primary Care Unavailable NAZARIO ABDUL Attending Unavailable Dr. Nazario Abdul MD Primary Care Provider Dr. Cooper Norris DO Emergency Provider Allergies Allergy Classification Reported Allergen(s) Allergy Type Date of Onset Reaction(s) Facility Angiotensin Converting Enzyme (NILE) Inhibitors (1 source) Lisinopril Drug Allergy 03-16-20 05 [facility] Corticosteroids (1 source) predniSONE Drug Allergy 12-08-19 17 GI Upset [facility] HMG-CoA Reductase Inhibitors (statins) (1 source) rosuvastatin Drug Allergy 03-16-20 05 Intolerance [facility] Nitroimidazoles (antibiotic) (1 source) metroNIDAZOLE Drug Allergy 12-08-19 17 GI Upset [facility] Penicillins (antibiotic) (2 sources) Ampicillin Drug Allergy 03-16-20 05 Diarrhea, GI Upset [facility] Work Phone: Quinolones (antibiotic) (1 source) Ciprofloxacin Drug Allergy 12-08-19 17 GI Upset [facility] Streptococcus pneumoniae type 1 capsular polysaccharide [...] polysaccharide antigen Drug Allergy 11-29-19 07 Rash [facility] Sulfamethoxazole / Trimethoprim (1 source) Sulfamethoxazole / Trimethoprim Drug Allergy 05-18-19 09 Vomiting [facility] (2 sources) Penicillins (Antibiotic) drug allergy 11-29-19 17 vomiting [facility] Work Phone: (20 sources) Ampicillin; Translations: [AMPICILLIN] Drug Allergy 03-16-20 05 Diarrhea [facility] Work Phone: (20 sources) Ciprofloxacin; Translations: [CIPROFLOXACIN] Drug Allergy 12-08-19 17 GI [facility] (20 sources) Lisinopril; Translations: [LISINOPRIL] Drug Allergy 03-16-20 05 [facility] Work Phone: (20 sources) metroNIDAZOLE; Translations: [METRONIDAZOLE] Drug Allergy 12-08-19 17 GI [facility] (7 sources) Penicillins; Translations: [PENICILLINS] Drug Allergy 11-29-19 17 GI [facility] (20 sources) predniSONE; Translations: [PREDNISONE] Drug Allergy 12-08-19 17 GI [facility] Work Phone: (20 sources) rosuvastatin; Translations: [ROSUVASTATIN CALCIUM] Drug Allergy 03-16-20 05 Intolerance [facility] Work Phone: (20 sources) Streptococcus pneumoniae [...] PS VACCINE] Drug Allergy 11-29-19 07 Rash [facility] Work Phone: (20 sources) Sulfamethoxazole / Trimethoprim; Translations: [SULFAMETHOXAZOLE-T RIMETHOPRIM] Drug Allergy 05-18-19 09 Vomiting [facility] Work Phone: (20 sources) Diphtheria,Pertussi s,Tetanus; Translations: [DIPHTHERIA,PERTUSS IS,TETANUS] Propensity to adverse reactions 12-13-19 06 Rash [facility] (4 sources) Influenza Virus Vaccines; Translations: [INFLUENZA VIRUS VACCINES] Drug Allergy 01-06-20 21 Rash, Swelling [facility] Work Phone: (20 sources) Penicillins Drug Allergy 11-29-19 17 GI Upset [facility] (20 sources) Influenza Virus Vaccines Drug Allergy 01-06-20 21 Rash, Swelling [facility] Work Phone: (1 source) Ciprofloxacin Drug Allergy 03-11-20 23 [facility] (1 source) metroNIDAZOLE Drug Allergy 03-11-20 [facility] (1 source) Penicillins Drug allergy (disorder) 03-11-20 23 [facility] (1 source) predniSONE Drug Allergy 03-11-20 23 [facility] (4 sources) Penicillins Drug Allergy 11-29-19 17 GI Upset [facility] (1 source) Penicillins Propensity to adverse reactions 11-02-19 25 Diarrhea [facility] Medications Current Medications Medication Drug Class(es) Dates Sig (Normalized) Sig (Original) amLODIPine 2.5 mg oral tablet (4 sources) Dihydropyridine Calcium Channel Goyo Start: 11-01-2024 take 1 tablet by mouth once daily Amlodipine 2.5 mg tablet Active 2.5 mg PO DAILY November 01, 2024 12:00am Start: 10-28-2024 take 1 tablet by melvi th once daily amLODIPine (NORVASC) 2.5 mg tablet [...] daily. 90 tablet 3 02/24/2022 Active Start: 11-24-2016 take 1 tablet by melvi th once daily ATENOLOL 50 MG TABS One tablet by mouth daily ATENOLOL [id number] Herman Pulido MD Comment on above: Take [...] daily. 90 tablet 3 02/24/2022 Active Start: 11-24-2016 take 1 tablet by melvi th once daily HYDROCHLOROTHIAZIDE 25 MG TABS One tablet by mouth daily HYDROCHLOROTHIAZIDE [id number] Herman Pulido MD Comment on above: Take 1 tablet by melvi th once daily. meloxicam 15 mg oral tablet (20 sources) Nonsteroidal Anti-inflammatory Drug Start : 05-23 End: 01-08 take 1 tablet by mouth once daily at mealtime meloxicam (MOBIC) 15 mg tablet Take 1 tablet by mouth once daily. With food. 90 tablet 1 01/09/2024 Active Comment on above: Take 1 tablet by melvi th once daily. With food. methylPREDNISolone 4 mg oral tablet (1 source) Corticosteroid Start : 09-15 take 1 tablet by mouth once Methylprednisolone (Medrol (Cory)) 4 mg tablets,dose pack Active 0 PO per package directions September 15, 2021 12:00am PO PER PKG DIR predniSONE 10 mg oral tablet (1 source) Start : 01-12 take 4 tablets by mouth once daily, then take 3 tablets by mouth once daily, then take 2 tablets by mouth once daily, then take 1 tablet by mouth once daily Prednisone 10 mg tablet Active 10 mg PO DAILY January 12, 2022 12:00am 4 tablets daily x3 days, then 3 tablets daily x3 days, then 2 tablets daily x3 days, then 1 tablet daily x3 days triamcinolone acetonide 0.001 mg/mg topical ointment (1 source) Corticosteroid Start : 11-01 Triamcinolone Acetonide 0.1 % ointment Active 1 NMA TOPICAL TWICE A DAY 30 0 November 01, 2024 12:00am rash vitamin b6 100 mg oral tablet (20 sources) Start : 12-10 pyridoxine hcl(VITAMIN B-6 100 MG TAB) Take [...] Classification Problem Date Documented Da te Episodic/Chronic Allergic reactions (1 source) Contact dermatitis due to poison haily; Translations: [Allergic contact dermatitis due to plants, except food] 01-12-2022 Episodic Disorders of lipid metabolism (20 sources) Hyperlipidemia; Translations: [Hyperlipidemia, unspecified] Onset: 01-10-2016 01-10-2016 Chronic E Codes: Natural/environment (1 source) Bitten or stung by nonvenomous insect and other nonvenomous arthropods, initial encounter; Translations: [Insect bite] 11-01-2024 Episodic Essential hypertension (20 sources) Hypertensive disorder; Translations: [Benign essential hypertension] Onset: 12-05-2005 11-28-2016 Chronic Fluid and electrolyte disorders (1 source) Mild dehydration; Translations: [Dehydration] 01-24-2024 Episodic Gastrointestinal hemorrhage (1 source) Rectal hemorrhage; Translations: [Hemorrhage of anus and rectum] 04-23-2021 Episodic Headache; including migraine (1 source) Cervicogenic headache; Translations: [Cervicogenic headache] 05-23-2023 Episodic Hemorrhoids (1 source) Bleeding hemorrhoids; Translations: [Unspecified hemorrhoids] 04-23-2021 Episodic Mood disorders (20 sources) Depressive disorder; Translations: [Depressive disorder] Onset: 12-11-2012 01-06-2021 Chronic Other circulatory disease (1 source) Syncope due to orthostatic hypotension; Translations: [Orthostatic hypotension] 01-24-2024 Episodic Other circulatory disease (1 source) H/O: hypertension; Translations: [Personal history of other diseases of the circulatory system] 11-01-2024 Episodic Other injuries and conditions due to [...] symptoms involving cognition] Onset: 10-28-2024 01-21-2024 Episodic Other upper respiratory infections (3 sources) Viral upper respiratory tract infection; Translations: [Acute upper respiratory infection, unspecified] Onset: 03-11-2023 03-14-2023 Episodic Spondylosis; intervertebral disc disorders; other back [...] of breast] Onset: 12-12-2005 Resolved: 11-20-2006 Episodic Jessie-; endo-; and myocarditis; cardiomyopathy (except that caused by tuberculosis or sexually transmitted disease) (20 sources) Pericardial effusion; Translations: [Pericardial effusion] Onset: 02-04-2024 02-04-2024 Episodic Syncope (3 sources) Syncope; Translations: [Syncope and collapse] Onset: 01-31-2024 01-21-2024 Episodic Results Test Name Value Interpretation Reference Range Facility [facility] 10-28-2024 CNOV Office Visit (INTMWS ) FLORIDALMA DENNIS ([id number]) 1940 F Date Time Provider Department 10/28/24 [...] 1 CONSULT TO GERIATRICS [[id number]] Order #: [id number]: 1 FUTURE Prescriptions as of 10/28/2024 - [...] one(1) tabl (more content not included)... Normal [facility] 10-28-2024 CNPN Telephone (INTMWS) FLORIDALMA DENNIS ([id number]) 1940 F Date Time Provider Department 10/28/24 [...] is that pt told Mackenzie that her child adolescent care Father Vincent said he hates her which Mackenzie knows the child adolescent care and states he would never do that. [...] 10/28/2024 Noted Allergy Reaction PNEUMOVAX 23 (PNEUMOCOCCAL 23-AKT*11/28/2006 2 - Rash INFLUENZA VIRUS VACCINES 01/05/2021 [...] Encounter Status:Closed by NAZARIO ABDUL on 10/28/24 [facility] Haresh 10-13-2024 CNOV Office Visit (SHANA ) FLORIDALMA DENNIS ([id number]) 1940 F Date Time Provider Department 10/13/24 9:40 AM MEREDITH SOTO During your visit today, we recorded the following information about you: Pulse Respiration Blood pressure Weight 71/minute 12/minute 144/90 56 kg Height 1.651 m Meredith Soto MD 10/13/2024 12:05 PM Signed [facility] Cardiology ([place] ) [address] [facility] [address] OUTPATIENT VISIT DATE 10/13/2024 PRIMARY CARE PHYSICIAN: Nazario Abdul [address] [place] [address] REFERRING PHYSICIAN: Nazario Abdul [address] [facility] [address] CHIEF COMPLAINT: Pericardial effusion HISTORY OF PRESENT [...] 400 Units by mouth every Sunday,Sunday, y. REVIEW OF SYSTEMS: Review of Systems Constitutional: [...] - There (more content not included)... 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 Ordering physician: MEREDITH SOTO Indication: Pericardial effusion Technologist: Sri Nino [facility] Interpreting physician: Sky Whitley MD PATIENT: Name: [...] * * * Final * * * [facility] : [id number] Normal [facility] CNOVon 06-25-2024 CNOV Office Visit (FRFHWS ) FLORIDALMA DENNIS ([id number]) 1940 F Date Time Provider Department 06/25/24 1:30 PM TEDDY MCCLELLANDWS During your visit today, we recorded the [...] strengthening exercises to begin Assessment/Plan ASSESSMENT Diagnosis (S82.001V) Traumatic closed nondisplaced fracture of distal fibula, left, initial encounter (primary encounter diagnosis) No orders found for this visit on 06/25/24. PLAN For ankle rehabilitation. Follow-up as needed. FOLLOW-UP: No follow-ups on file. SIGNATURE: Teddy Mcclelland DO PATIENT NAME: Floridalma Dennsi DATE: June 25, 2024 TIME: 1:47 PM [...] - D (more content not included)... Normal [facility] XR ANKLE 3V AP/LAT/OBL LTon 06-25-2024 XR [...] fracture with similar configuration compared to prior. Rehab Services Aide: PSCB Transcribe Date/Time: Jun 29 2024 3:59P Dictated by : GA BARRY MD This examination was interpreted and the report reviewed and electronically signed by: GA BARRY MD on Jun 29 2024 4:02PM EST [id number] [facility] CNOVon 05-30-2024 CNOV Office Visit (FRFHWS ) FLORIDALMA DENNIS ([id number]) 1940 F Date Time Provider Department 05/30/24 1:00 PM TEDDY MCCLELLAND V FRWS During your visit today, we recorded the following information about you: Meron Beltre MA 05/30/2024 2:59 PM Signed AMB ROOMING [...] visit left (more content not included)... Normal [facility] Office Visit (INTMWS ) FLORIDALMA DENNIS ([id number]) 1940 F Date Time Provider Department 05/30/24 9:20 AM NAZARIO ABDUL INTMWS During your visit today, we recorded the following information about you: Pulse Respiration Blood pressure Weight 68/minute 16/minute 124/78 55.8 kg Nazario Abdul MD 05/30/2024 10:20 AM Signed This note was created using [employer]. Subjective Floridalma Dennis is a 84 year [...] Service: OFFICE/OUTPATIENT ESTABLISHED LOW MDM 20 MIN [79457] Additional E/M codes: VISIT CPLX INHERENT EANDM ASSOC WITH MED * Disposition: Return in about 5 months (around 10/27/2024). Follow-up and Disposition History for Encounter Date Provider Department Center (more content not included)... Normal [facility] XR ANKLE 3V AP/LAT/OBL LTon 05-30-2024 XR [...] swelling. IMPRESSION: Stable, healing lateral malleolar fracture Rehab Services Aide: HANANE Transcribe Date/Time: Jun 04 2024 8:38A Dictated by : NAZANIN RHODES MD This examination was interpreted and the report reviewed and electronically signed by: NAZANIN RHODES MD on Jun 04 2024 8:39AM EST [id number] Normal [facility] CNOVon 05-16-2024 CNOV Office Visit (FRWS ) FLORIDALMA DENNIS ([id number]) 1940 F Date Time Provider Department 05/16/24 1:30 PM TEDDY MCCLELLAND V FRWS During your visit today, we recorded the following information about you: Meron Beltre MA 05/16/2024 2:56 PM Signed AMB ROOMING INTAKE FLOWSHEET DATA Pain Pain Level: 4 Pain Location: Ankle-Left Description: Aching, Dull, Sharp Duration Amount of Time: 3 (3) Duration Units: Days Frequency: Continuous Intervention/Comfort measure: Other: See comment (Air stirrup) Teddy Mcclelland V, DO 05/16/2024 2:56 [...] Continuous Intervention/Comfort measure: Other: See comment Air stirrup HPI 84-year-old female presents today with acute distal left fibular fracture. She states that she fell on stairs at her home when she was going down into her basement. This occurred 3 days ago. He was seen in [facility] care yesterday where x-rays showed a distal [...] 400 Units by mouth every Sunday,Sunday, y. sertraline (ZOLOFT) 25 mg tablet Take 1 [...] 2024 MR (more content not included)... Normal [facility] CNOVon 05-15-2024 CNOV Office Visit (WSTR ) FLORIDALMA DENNIS ([id number]) 1940 F Date Time Provider Department 05/15/24 11:15 AM ROBERTA CEDENO UCWSTR During your visit today, we recorded the following information about you: Temperature Pulse Respiration Blood pressure 98.4 degrees 78/minute 20/minute 153/72 Weight 57.2 kg Roberta Cedeno, EULA.CANINE SERVICE TEACHER 05/15/2024 2:01 PM Signed Subjective Fall Pertinent [...] ROBERTA CEDENO on 05/15/2024 12:54 PM via [employer] staff message. Rehab Services Aide: HANANE Transcribe Date/Time: May 15 2024 12:49P Dictated by : AKHIL GRIFIFN MD - XR TIBIA FIBULA 2V AP/LAT [...] by orthopedics. (more content not included)... Normal [facility] No Panel Informationon 05-15 IMPRESSION: Acute nondisplaced fracture of the distal fibula. Recommend left tibia/fibular radiograph for possible proximal fracture. COMMUNICATION: Communicated with ROBERTA CEDENO on 05/15/2024 12:54 PM via [employer] staff message. Rehab Services Aide: HANANE Transcribe Date/Time: May 15 2024 12:49P Dictated by : AKHIL GRIFFIN MD This examination was interpreted and the report reviewed and electronically signed by: AKHIL GRIFFIN MD on May 15 2024 12:54PM [facility] DIVISION OF RADIOLOGY Radiology Study observation (narrative) [facility] No Panel InformationOrdered By: Ccf Provider on 05-15-2024 [facility] XR ANKLE 3V AP/LAT/OBL LTon 05-15-2024 [...] ROBERTA CEDENO on 05/15/2024 12:54 PM via [employer] staff message. Rehab Services Aide: HANANE Transcribe Date/Time: May 15 2024 12:49P Dictated by : AKHIL GRIFFIN MD This examination was interpreted and the report reviewed and electronically signed by: AKHIL GRIFFIN MD on May 15 2024 12:54PM EST [id number] Normal [facility] XR Ankle - left AP and Later [...] radiopaque foreign body. DIVISION OF RADIOLOGY Provider, [facility] - 05/15/2024 * * *Final Report* * [...] ROBERTA CEDENO on 05/15/2024 12:54 PM via [email or web address] message. Rehab Services Aide: PSCB Transcribe Date/Time: May 15 2024 12:49P Dictated by : AKHIL GRIFFIN MD This examination was interpreted and the report reviewed and electronically signed by: AKHIL GRIFFIN MD on May 15 2024 12:54PM EST [facility] XR FOOT 3V AP/LAT/OBL LTon 0 [...] ROBERTA CEDENO on 05/15/2024 12:54 PM via [employer] staff message. Rehab Services Aide: PSCB Transcribe Date/Time: May 15 2024 12:49P Dictated by : AKHIL GRIFFIN MD This examination was interpreted and the report reviewed and electronically signed by: AKHIL GRIFFIN MD on May 15 2024 12:54PM EST [id number] Normal [facility] XR Foot - left AP and Latera [...] radiopaque foreign body. DIVISION OF RADIOLOGY Provider, [facility] - 05/15/2024 * * *Final Report* * [...] ROBERTA CEDENO on 05/15/2024 12:54 PM via [employer] staff message. Rehab Services Aide: PsyQicB Transcribe Date/Time: May 15 2024 12:49P Dictated by : AKHIL GRIFFIN MD This examination was interpreted and the report reviewed and electronically signed by: AKHIL GRIFFIN MD on May 15 2024 12:54PM [facility] XR TIBIA FIBULA 2V AP/LAT LT on [...] left fibular fracture. No additional fracture identified. Rehab Services Aide: HANANE Transcribe Date/Time: May 15 2024 1:26P Dictated by : AKHIL GRIFFIN MD This examination was interpreted and the report reviewed and electronically signed by: AKHIL GRIFFIN MD on May 15 2024 1:27PM [facility] [id number] Normal [facility] XR Tibia and Fibula - left A P and Lateralon 05-15-2024 IMPRESSION: Acute nondisplaced distal left fibular fracture. No additional fracture identified. Rehab Services Aide: HANANE Transcribe Date/Time: May 15 2024 1:26P Dictated by : AKHIL GRIFFIN MD This examination was interpreted and the report reviewed and electronically signed by: AKHIL GRIFFIN MD on May 15 2024 1:27PM [facility] DIVISION OF RADIOLOGY * * *Final [...] radiopaque foreign body. DIVISION [facility] RADIOLOGY [facility] * * *Final Report* * [...] left fibular fracture. No additional fracture identified. [facility] Transcribe Date/Time: May 15 2024 1:26P Dictated by : AKHIL GRIFFIN MD This examination was interpreted and the report reviewed and electronically signed by: AKHIL GRIFFIN MD on May 15 2024 1:27PM [facility] Radiology Study observation (narrative) [facility] FLORIDALMA DENNIS ([id number]) 1940 F Date Time Provider Department 04/29/24 [...] her with as yet. Please advise Lori Chandler RN 04/30/2024 2:12 PM Signed Patient calls to [...] vm is full, [place] [facility] Patient is not able to get into MyChart, asked for Patient to call office for results. Charis Malone LPN, RN 05/05/2024 7:26 PM Signed Pt called and [...] Status:Closed by CHARIS HOYOS on 05/05/24 Normal [facility] BD DXA - AXIAL SKELETONon BD DXA [...] years, Gender: Female SCANNER INFORMATION: DXA Model: [employer] C [address] Date Scanned: 04/24/2024 9:54 AM CLINICAL HISTORY: [...] FOR MORE INFORMATION ABOUT DIAGNOSIS AND TREATMENT: [facility] Osteoporosis and Metabolic Bone Disease:? www.ccf.org/arthritis/ osteo National Osteoporosis Foundation:? www.nof.org International Society of Clinical Densitometry www.iscd.org Rehab Services Aide: HANANE Transcribe Date/Time: Apr 27 2024 1:36P Dictated by : NAZANIN RHODES MD This examination was interpreted and the report reviewed and electronically signed by: NAZANIN RHODES MD on Apr 27 2024 1:38PM EST [id number] -1.7 Normal [facility] CNOVon 03-17-2024 CNOV Office Visit (CAWSTR ) FLORIDALMA DENNIS ([id number]) 1940 F Date Time Provider Department 03/17/24 10:00 AM MEREDITH SOTO During your visit today, we recorded the following information about you: Pulse Respiration Blood pressure Weight 68/minute 16/minute 140/80 54.7 kg Meredith Soto MD 03/17/2024 10:21 AM Signed [facility]AL CARDIOLOGY Cardiology ([address]) [address] [facility] [address] OUTPATIENT VISIT DATE 03/17/2024 PRIMARY CARE PHYSICIAN: Nazario Abdul [address] [place] [address] REFERRING PHYSICIAN: Nazario Abdul [address] [facility] [address] CHIEF COMPLAINT: Pericardial effusion HISTORY OF PRESENT ILLNESS: Ms. Dennis is a 84 year old woman with a history of hypertension and dyslipidemia who was referred for evaluation due to findings of small to moderate pericardial effusion on 2D echocardiogram. Patient was at [employer] a few months ago and passed out. She was walking to the front of the [employer]. She had no prodrome before she passed [...] 400 Units by mouth every Sunday,Sunday, y. REVIEW OF SYSTEMS: Review of Systems Constitutional: [...] Left vent (more content not included)... 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 * * * Final * * * CC [facility] Image : [id number] Normal [facility] CNPNon 02-04-2024 CNPN Telephone (INTMWS) FLORIDALMA DENNIS ([id number]) 1940 F Date Time Provider Department 02/04/24 NAZARIO ABDUL INTAmparoWS During your visit today, we recorded the [...] Status:Closed by MANASA JACOB on 02/06/24 [facility] FLORIDALMA DENNIS ([id number]) 1940 F Date Time Provider Department 02/04/24 NAZARIO ABDUL INTAmparoWS During your visit today, we recorded the [...] updated of PCP message below, agreeable to [facility], and states he will contact [...] message was sent to PCP and Cardiology. Edin SarbjitShanda 2024 1:54 PM Signed Please see pcp [...] Status:Closed by BRINDA GARVIN on 02/05/24 Normal [facility] CBC panel Auto (Bld)on 01-30 Erythrocyte distribution width (RBC) [Ratio] 12.2 % Normal 11.5-15.0 [facility] Comment on above: Order Comment: Speci men Type: BLOOD SPECIMENOrdering Facility: [facility] Address: [address] [place] [address] Performed By: #### 5 8410-2 ####[facility] [id number] [place] [address] [place] Hematocrit (Bld) [Volume fraction] 45.1 % Normal 36.0-46.0 [facility] Comment on above: Order Comment: Speci men Type: BLOOD SPECIMENOrdering Facility: [facility] Address: [address] [place] [address] Performed By: #### 5 8410-2 ####[facility] [id number] [place] [address] [place] Hemoglobin (Bld) [Mass/Vol] 14.6 g/dL Normal 11.5-15.5 [facility] Comment on above: Order Comment: Speci men Type: BLOOD SPECIMENOrdering Facility: [facility] Address: [address] [place] [address] Performed By: #### 5 8410-2 ####[facility] [id number] [place] [address] [place] MCH (RBC) [Entitic mass] 30.9 pg Normal 26.0-34.0 [facility] Comment on above: Order Comment: Speci men Type: BLOOD SPECIMENOrdering Facility: [facility] Address: [address] [place] [address] Performed By: #### 5 8410-2 ####[facility] [id number] [place] [address] [place] MCHC (RBC) [Mass/Vol] 32.4 g/dL Normal 30.5-36.0 [facility] Comment on above: Order Comment: Speci men Type: BLOOD SPECIMENOrdering Facility: [facility] Address: [address] [place] [address] Performed By: #### 5 8410-2 ####[facility] [id number] [place] [address] [place] MCV (RBC) [Entitic vol] 95.3 fL Normal 80.0-100.0 [facility] Comment on above: Order Comment: Speci men Type: BLOOD SPECIMENOrdering Facility: [facility] Address: [address] [place] [address] Performed By: #### 5 8410-2 ####[facility] [id number] [place] [address] [place] Nucleated RBC (Bld) [#/Vol] 10*3/uL Normal <0.01 [facility] Comment on above: Order Comment: Speci men Type: BLOOD SPECIMENOrdering Facility: [facility] Address: [address] [place] [address] Performed By: #### 5 8410-2 ####[facility] [id number] [place] [address] [place] Platelet mean volume (Bld) [Entitic vol] 10.6 fL Normal 9.0-12.7 [facility] Comment on above: Order Comment: Speci men Type: BLOOD SPECIMENOrdering Facility: [facility] Address: [address] [place] [address] Performed By: #### 5 8410-2 ####[facility] [id number] [place] [address] [place] Platelets (Bld) [#/Vol] 210 10*3/uL Normal 150-400 [facility] Comment on above: Order Comment: Speci men Type: BLOOD SPECIMENOrdering Facility: [facility] Address: [address] [place] [address] Performed By: #### 5 8410-2 ####[facility] [id number] [place] [address] [place] RBC (Bld) [#/Vol] 4.73 10*6/uL Normal 3.90-5.20 [facility] Comment on above: Order Comment: Speci men Type: BLOOD SPECIMENOrdering Facility: [facility] Address: [address] [place] [address] Performed By: #### 5 8410-2 ####[facility] [id number] [place] [address] [place] WBC (Bld) [#/Vol] 7.10 10*3/uL Normal 3.70-11.00 [facility] Comment on above: Order Comment: Speci men Type: BLOOD SPECIMENOrdering Facility: [facility] Address: [address] [place] [address] Performed By: #### 5 8410-2 ####[facility] [id number] [place] [address] [place] Comprehensive metabolic 2000 panelon 01-31-2024 Albumin [Mass/Vol] 4.2 g/dL Normal 3.9-4.9 [facility] Comment on above: Order Comment: Speci men Type: BLOOD SPECIMENOrdering Facility: [facility] Address: [address] [place] [address] Performed By: #### 2 4323-8, 2131-9, 6-3, 49742-5 ####[facility] [id number] [place] [address] [place] ALP [Catalytic activity/Vol] 77 U/L Normal 34-123 [facility] Comment on above: Order Comment: Speci men Type: BLOOD SPECIMENOrdering Facility: [facility] Address: [address] [place] [address] Performed By: #### 2 4323-8, 2131-9, 3015-3, 45197-6 ####[facility] [id number] [place] [address] [place] ALT [Catalytic activity/Vol] 14 U/L Normal 7-38 [facility] Comment on above: Order Comment: Speci men Type: BLOOD SPECIMENOrdering Facility: [facility] Address: [address] [place] [address] Performed By: #### 2 4323-8, 2131-9, 3015-3, 67499-2 ####[facility] [id number] [place] [address] [place] Anion gap [Moles/Vol] 12 mmol/L Normal 8-15 [facility] Comment on above: Order Comment: Speci men Type: BLOOD SPECIMENOrdering Facility: [facility] Address: [address] [place], [place] [address] Performed By: #### 2 4323-8, 2131-9, 6-3, 27902-4 ####[facility] [id number] [place] [id number] [place] AST [Catalytic activity/Vol] 18 U/L Normal 13-35 [facility] Comment on above: Order Comment: Speci men Type: BLOOD SPECIMENOrdering Facility: [facility] Address: [address] [place], [place] [address] Performed By: #### 2 4323-8, 2131-9, 3015-3, 30604-8 ####[facility] [id number] [place] [address] [place] Bilirubin [Mass/Vol] 0.7 mg/dL Normal 0.2-1.3 [facility] Comment on above: Order Comment: Speci men Type: BLOOD SPECIMENOrdering Facility: [facility] Address: [address] [place] [address] Performed By: #### 2 4323-8, 2131-9, 3, 71754-2 ####[facility] [id number] [place] [address] [place] Calcium [Mass/Vol] 9.9 mg/dL Normal 8.5-10.2 [facility] Comment on above: Order Comment: Speci men Type: BLOOD SPECIMENOrdering Facility: [facility] Address: [address] [place], [place] [address] Performed By: #### 2 4323-8, 2-9, 6-3, 32610-1 ####[facility] [id number] [place] [address] [place] Chloride [Moles/Vol] 102 mmol/L Normal 98-107 [facility] Comment on above: Order Comment: Speci men Type: BLOOD SPECIMENOrdering Facility: [facility] Address: [facility] [place] [address] Performed By: #### 2 4323-8, 2131-9, 6-3, 96259-6 ####[facility] [id number] [address] [address] [place] CO2 [Moles/Vol] 27 mmol/L Normal 22-30 [facility] Comment on above: Order Comment: Speci men Type: BLOOD SPECIMENOrdering Facility: [facility] Address: [address] [place], [place] [address] Performed By: #### 2 4323-8, 2131-9, 6-3, 16812-0 ####[facility] [id number] [place] [address] [place] Creatinine [Mass/Vol] 0.74 mg/dL Normal 0.58-0.96 [facility] Comment on above: Order Comment: Speci men Type: BLOOD SPECIMENOrdering Facility: [facility] Address: [address] [place] [address] Performed By: #### 2 4323-8, 2131-9, 3015-3, 20930-2 ####[facility] [id number] [place] [address] [place] Creatinine and Glomerular filtration rate.predicted panel (S/P/Bld) 81 mL/min/1.73m??? Normal >=60 [facility] Comment on above: Order Comment: Speci men Type: BLOOD SPECIMENOrdering Facility: [facility] Address: [address] [place] [address] Result Comment: Zainab mated Glomerular Filtration Rate [...] GFR. Performed By: #### 2 4323-8, 9, 6-3, 05836-6 ####[facility] [id number] [address] [address] [place] Glucose [Mass/Vol] 95 mg/dL Normal 74-99 [facility] Comment on above: Order Comment: Speci men Type: BLOOD SPECIMENOrdering Facility: [facility] Address: [address] [place] [address] Result Comment: The [place] Diabetes [employer] (ADA) provides guidance for cutoff [...] Standards of Medical Care in Diabetes 2016, [place] [employer]. Diabetes Care. 2016.39(Suppl 1). Performed By: #### 2 4323-8, 9, 3015-3, 35460-1 ####[facility] [id number] [place] [address] [place] Potassium [Moles/Vol] 4.3 mmol/L Normal 3.7-5.1 [facility] Comment on above: Order Comment: Speci men Type: BLOOD SPECIMENOrdering Facility: [facility] Address: [address] [place] [address] Performed By: #### 2 4323-8, 9, 6-3, 94310-8 ####[facility] [id number] [place] [address] [place] Protein [Mass/Vol] 7.0 g/dL Normal 6.3-8.0 [facility] Comment on above: Order Comment: Speci men Type: BLOOD SPECIMENOrdering Facility: [facility] Address: [address] [place], [place] [address] Performed By: #### 2 4323-8, 2131-9, 3016-3, 24512-4 ####[facility] [id number] [place] [address] [place] Sodium [Moles/Vol] 141 mmol/L Normal 136-144 [facility] Comment on above: Order Comment: Speci men Type: BLOOD SPECIMENOrdering Facility: [facility] Address: [address] [place] [address] Performed By: #### 2 4323-8, 2131-9, 3016-3, 50503-5 ####[facility] [id number] [place] [address] [place] Urea nitrogen [Mass/Vol] 24 mg/dL High 7-21 [facility] Comment on above: Order Comment: Speci men Type: BLOOD SPECIMENOrdering Facility: [facility] Address: [address] [place] [address] Performed By: #### 2 4323-8, 2131-9, 3016-3, 19148-3 ####[facility] [id number] [place] [address] [place] ECHOon 01-31-2024 Echocardiography Echocardiography Report: Transthoracic Echo [facility] Date of service: 01/31/2024 9:35:18 AM AS A [employer] LANG[employer]AGE [employer] Ordering physician: NAZARIO ABDUL Indication: Syncope Technologist: Sri Nino [facility] Interpreting physician: Dre Elder MD PATIENT: Name: [...] * * Final * * * CC [facility] Image : [id number] csSISUID Normal [facility] Lipid 1996 panelon 4 Cholesterol [Mass/Vol] 213 mg/dL High <200 [facility] Comment on above: Order Comment: Micah rai Type: BLOOD SPECIMENOrdering Facility: [facility] Address: [address] [place] [address] Result Comment: <200 mg/dL, Desirable 200-239 mg/dL, Borderline high >239 mg/dL, High Performed By: #### 2 4323-8, 2132-9, 3016-3, 34827-8 ####[facility] [id number] [facility] [id number] [address] [place] Cholesterol in HDL [Mass/Vol] 73 mg/dL Normal >39 [facility] Comment on above: Order Comment: Micah rai Type: BLOOD SPECIMENOrdering Facility: [facility] Address: [address] [place] [address] Result Comment: 40-5 9 mg/dL, Acceptable >59 mg/dL, High: Negative risk factor for coronary heart disease <40 mg/dL, Low: Positive risk factor for coronary heart disease Performed By: #### 2 4323-8, 2131-12, 3015-3, 76065-7 ####[facility] [id number] [address] [address] [place] Cholesterol in LDL [Mass/Vol] 119 mg/dL High <100 [facility] Comment on above: Order Comment: Speci men Type: BLOOD SPECIMENOrdering Facility: [facility] Address: [address] [place] [address] Result Comment: <100 mg/dL, Optimal 100-129 mg/dL, Near optimal/above optimal 130-159 mg/dL, Borderline high 160-189 mg/dL, High >189 mg/dL, Very high Secondary prevention optimal LDL Cholesterol levels are recommended to be < 70 mg/dL Performed By: #### 2 4322-8, 2131-12, 3015-06, 18290-8 ####[facility] [id number] [address] [address] [place] Cholesterol in LDL/Cholesterol in HDL [Mass ratio] 1.63 {ratio} Normal <2.54 [facility] Comment on above: Order Comment: Speci men Type: BLOOD SPECIMENOrdering Facility: [facility] Address: [address] [place] [address] Result Comment: Newton chce: 1. National Cholesterol Education Program ATP III Guideline At-A-Glance Quick Desk Reference: National Heart, Lung, and Blood [place]. National Institutes of Health. 2001: NIH Publication No. 01-3305. 2. An International Atherosclerosis Society position paper: global recommendations for the management of dyslipidemia: executive summary, Atherosclerosis. 2014: 232(2):410-413. Performed By: #### 2 4323-8, 2131-12, 3, 64669-0 ####[facility] [id number] [address] [address] [place] Cholesterol in VLDL [Mass/Vol] 21 mg/dL Normal <30 [facility] Comment on above: Order Comment: Speci men Type: BLOOD SPECIMENOrdering Facility: [facility] Address: [address] [place] [address] Performed By: #### 2 4323-8, 2131-12, 3015-3, 84581-8 ####[facility] [id number] [address] [address] [place] Cholesterol non HDL [Mass/Vol] 140 mg/dL High <130 [facility] Comment on above: Order Comment: Speci men Type: BLOOD SPECIMENOrdering Facility: [facility] Address: [address] [place] [address] Result Comment: <130 mg/dL, Optimal 130-159 mg/dL, Near optimal/above optimal 160-189 mg/dL, Borderline high 190-219 mg/dL, High >219 mg/dL, Very high Secondary prevention optimal non HDL Cholesterol levels are recommended to be <100 mg/dL Performed By: #### 2 4322-8, 2131-12, 3015-3, 65017-6 ####[facility] [id number] [address] [address] [place] Cholesterol.total/Cho lesterol in HDL [Mass ratio] 2.92 {ratio} Normal <5.10 [facility] Comment on above: Order Comment: Speci men Type: BLOOD SPECIMENOrdering Facility: [facility] Address: [address] [place] [address] Performed By: #### 2 4323-8, 2131-12, 3015-3, 26278-8 ####[facility] [id number] [address] [address] [place] FASTING TIME 12 hrs Normal [facility] Comment on above: Order Comment: Speci men Type: BLOOD SPECIMENOrdering Facility: [facility] Address: [address] [place] [address] Performed By: #### 2 3-8, 2131-12, 3, 96136-9 ####[facility] [id number] [place] [address] [place] Triglyceride [Mass/Vol] 106 mg/dL Normal <150 [facility] Comment on above: Order Comment: Speci men Type: BLOOD SPECIMENOrdering Facility: [facility] Address: [address] [place] [address] Result Comment: <150 mg/dL, Normal 150-199 mg/dL, Borderline high 200-499 mg/dL, High >499 mg/dL, Very high Performed By: #### 2 3-8, 2131-12, 3, 10079-5 ####[facility] [id number] [place] [address] [place] TSH SerPl-aCncon 01-31-2024 TSH Qn 2.690 m[IU]/L Normal 0.270-4.200 [facility] Comment on above: Order Comment: Speci men Type: BLOOD SPECIMENOrdering Facility: [facility] Address: [address] [place] [address] Performed By: #### 2 4323-8, 2131-12, 3, 64288-4 ####[facility] [id number] [place] [address] [place] Vit B12 SerPl-mCncon 024 Cobalamin (Vitamin B12) [Mass/Vol] 373 pg/mL Normal 232-1245 [facility] Comment on above: Order Comment: Speci men Type: BLOOD SPECIMENOrdering Facility: [facility] Address: [address] [place] [address] Performed By: #### 2 4323-8, 2131-12, 3, 52578-1 ####[facility] [id number] [place] [id number] [place] CNPNon 01-29-2024 CNPN Telephone (CAMILA) FLORIDALMA DENNIS ([id number]) 1940 F Date Time Provider Department 01/29/24 [...] Sunday,Sunday, y. Problem List As Of Date 01/29/2024 Noted Resolved BENIGN HYPERTENSION [I10] 12/05/2005 SCREENING MAL NEOP-COLON [Z12.11] 12/12/2005 11/20/2006 Hypercalcemia [E83.52] 12/30/2009 01/10/2016 Depressive disorder [F32.A] 12/11/2012 Hyperlipidemia LDL goal <130 [E78.5] 01/10/2016 Colitis [K52.9] 11/28/2016 01/05/2021 Osteopenia, senile [M85.80] 12/19/2017 Encounter Status:Closed by NAZARIO ABDUL on 01/29/24 [facility] CNOVon 01-21-2024 CNOV Office Visit (INTMWS ) FLORIDALMA DENNIS ([id number]) 1940 F Date Time Provider Department 01/21/24 2:20 PM NAZARIO ABDUL INTMWS During your visit today, we recorded the following information about you: Temperature Pulse Respiration Blood pressure 97.8 degrees 62/minute 20/minute 138/79 Weight 56.3 kg Nazario Abdul MD 01/21/2024 3:36 PM Signed This note was created using [employer]. Subjective Floridalma Dennis is a 83 year [...] PM Signed This note was created using [employer] Subjective Floridalma Dennis is a 83 year old female here with her son. She was helping at [employer] Jan. , feeling normal, sitting down in [...] She still lived alone, was involved with [employer], and independent. Review of Systems Constitutional: Negative [...] - L (more content not included)... Normal [facility] FLORIDALMA DENNIS ([id number]) 1940 F Date Time Provider Department 01/17/24 NAZARIO ABDUL During your visit today, we recorded the following information about you: Susan Mireles LPN 01/17/2024 2:23 PM Signed Left a message for pt to call the office to set up a [facility] ER FU from 01-16-24. Son Nazanin Dennis called to give information regarding pt. He is not listed that we are able to give any information out. Information taken: Pt passed out at [employer] 01/16/24 and was taken to [facility] ER. Vital signs were good, but pt was dehydrated and was given fluids. Pt to schedule a R FU. Family concern: pt is not eating or drinking properly, forgetful. Per son people from pt's [employer] also concerned pt is starting to have cognitive issues that becoming noticeable. Son hoping to get this evaluated for pt's health. When pt calls back ask if we can have permission to speak with Jefferson Connors and any one else. CONNER Rodriguez Kim E, LPN 01/21/2024 1:01 PM Signed jefferson Connors calling back stating concern for [...] appointments. Son said mother had been to [facility] ER 2 weekends ago, passed out due [...] if necessary. If providers office could pull [facility] ER records from Care Everywhere for provider [...] Date Reviewed: 05/23/2023 Reviewed by: Wanda Beaver, EULA.CANINE SERVICE TEACHER - Fully Assessed Reason for Visit: future [...] Status:Closed by SUSAN MIRELES on 01/23/24 Normal [facility] 12 Lead EKGon 01-16-2024 12 Lead EKG [facility] [address] [place] [address] 12 Lead EKG 01/16/24 1714 MR#: [id number] Acct: [id number] Name: FLORIDALMA DENNIS Rep #: [id number] : 1940 83 From: Wing Sarkar MD [...] Sinus bradycardia Otherwise normal ECG Confirmed by CHEVY MERINO, WING ([id number]), loan expeditor IRMA FREEDMAN ([id number]) on 01/18/2024 6:28:24 AM Referred By: Confirmed By:WING SARKAR MD 01/18/24 0628 Date Wing Sarkar MD CC: Dr. Rik Love MD; Dr. Nazario Abdul MD Signed Normal [facility] Basic Metabolic Profile (BMP )on 01-16-2024 BUN/CRE 32.1 RATIO High 10 [facility] Comment on above: Order Comment: 1 Y Performed By: #### L 501.5425, L500.2500, L100.0100 #### [facility] [address] [place], [address] CA,Total 9.3 mg/dL Normal 8.5-10.1 [facility] Comment on above: Order Comment: 1 Y Performed By: #### L 501.5425, L500.2500, L100.0100 #### [facility] [address] [place], [address] Chloride [Moles/Vol] 104 mmol/L Normal 98-107 [facility] Comment on above: Order Comment: 1 Y Performed By: #### L 501.5425, L500.2500, L100.0100 #### [facility] [address] [place], [address] CO2 [Moles/Vol] 27.0 mmol/L Normal 21.0-32.0 [facility] Comment on above: Order Comment: 1 Y Performed By: #### L 501.5425, L500.2500, L100.0100 #### [facility] [address] [place], [address] Creatinine [Mass/Vol] 0.94 mg/dL Normal 0.55-1.02 [facility] Comment on above: Order Comment: 1 Y Result Comment: The validity of the calculated GFR GFRAA in patients over 70 years has not been determined. Clinical correlation is essential. Performed By: #### L 501.5425, L500.2500, L100.0100 #### [facility] [address] [place], [address] ECRCL 43.20 ml/min Normal [facility] Comment on above: Order Comment: 1 Y Performed By: #### L 501.5425, L500.2500, L100.0100 #### [facility] [address] [place], [address] EST GFR - AA 74 mL/min Normal >60 [facility] Comment on above: Order Comment: 1 Y Result Comment: Afri can [place] GFR Calc Performed By: #### L 501.5425, L500.2500, L100.0100 #### [facility] [address] [place], [address] GAP 7 Normal 5-15 [facility] Comment on above: Order Comment: 1 Y Performed By: #### L 501.5425, L500.2500, L100.0100 #### [facility] [address] [place], [address] GFR/1.73 sq M.predicted among non-blacks MDRD (S/P/Bld) [Vol rate/Area] 61 mL/min/{1.73_m2} Normal >60 [facility] Comment on above: Order Comment: 1 Y Result Comment: Non- GFR Calc Performed By: #### L 501.5425, L500.2500, L100.0100 #### [facility] [address] [place], [address] Glucose [Mass/Vol] 114 mg/dL High 74-106 [facility] Comment on above: Order Comment: 1 Y Result Comment: Fast ing Glucose result from 100 to 125 mg/dL suggests IMPAIRED HOMEOSTASIS per A.D.A. criteria. Performed By: #### L 501.5425, L500.2500, L100.0100 #### [facility] [address] [place], [address] Potassium [Moles/Vol] 3.5 mmol/L Normal 3.5-5.1 [facility] Comment on above: Order Comment: 1 Y Performed By: #### L 501.5425, L500.2500, L100.0100 #### [facility] [address] [place], [address] Sodium [Moles/Vol] 139 mmol/L Normal 136-145 [facility] Comment on above: Order Comment: 1 Y Performed By: #### L 501.5425, L500.2500, L100.0100 #### [facility] [address] [place], [address] Urea nitrogen [Mass/Vol] 30 mg/dL High 7-18 [facility] Comment on above: Order Comment: 1 Y Performed By: #### L 501.5425, L500.2500, L100.0100 #### [facility] [address] [place], [address] CBC W/Diff, Automatedon 10-0 2-2023 Absolute Lymph 1.40 X10 3/uL Normal 0.83-4.51 [facility] Comment on above: Performed By: #### L 501.5425, L500.2500, L100.0100 #### [facility] [address] [place], [address] Absolute Neut 3.9 X10 3/uL Normal 2.0-7.7 [facility] Comment on above: Performed By: #### L 501.5425, L500.2500, L100.0100 #### [facility] [address] [place], [address] Basophils/100 WBC (Bld) 0.5 % Normal 0-1 [facility] Comment on above: Performed By: #### L 501.5425, L500.2500, L100.0100 #### [facility] [address] [place], [address] Eosinophils/100 WBC (Bld) 3.7 % Normal 0-5 [facility] Comment on above: Performed By: #### L 501.5425, L500.2500, L100.0100 #### [facility] [address] [place], [address] Erythrocyte distribution width (RBC) [Ratio] 12.1 % Normal 11.6-14.6 [facility] Comment on above: Performed By: #### L 501.5425, L500.2500, L100.0100 #### [facility] [address] [place], [address] Hematocrit (Bld) [Volume fraction] 42.7 % Normal 37-47 [facility] Comment on above: Performed By: #### L 501.5425, L500.2500, L100.0100 #### [facility] [address] [place], [address] Hemoglobin (Bld) [Mass/Vol] 13.7 g/dL Normal 12.0-15.0 [facility] Comment on above: Performed By: #### L 501.5425, L500.2500, L100.0100 #### [facility] [address] [place], [address] IG% 0.300 Normal 0.0-0.9 [facility] Comment on above: Result Comment: IG% - Immature Granulocytes (promyelocytes, myelocytes and metamyelocytes) > 1% indicates that a LEFT SHIFT is Present. Performed By: #### L 501.5425, L500.2500, L100.0100 #### [facility] [address] [place], [address] Lymphocytes/100 WBC (Bld) 22.6 % Normal 19-41 [facility] Comment on above: Performed By: #### L 501.5425, L500.2500, L100.0100 #### [facility] [address] [place], [address] MCH (RBC) [Entitic mass] 29.9 pg Normal 27.0-32.0 [facility] Comment on above: Performed By: #### L 501.5425, L500.2500, L100.0100 #### [facility] [address] [place], [address] MCHC (RBC) [Mass/Vol] 32.1 g/dL Normal 32-36 [facility] Comment on above: Performed By: #### L 501.5425, L500.2500, L100.0100 #### [facility] [address] [place], [address] MCV (RBC) [Entitic vol] 93.2 fL Normal 81-99 [facility] Comment on above: Performed By: #### L 501.5425, L500.2500, L100.0100 #### [facility] [address] [place], [address] Monocytes/100 WBC (Bld) 10.7 % High 0-10 [facility] Comment on above: Performed By: #### L 501.5425, L500.2500, L100.0100 #### [facility] [address] [place], [address] Neutrophils/100 WBC (Bld) 62.2 % Normal 47-70 [facility] Comment on above: Performed By: #### L 501.5425, L500.2500, L100.0100 #### [facility] [address] [place], [address] Nucleated RBC (Bld) [#/Vol] 0 10*3/uL Normal 0-5 [facility] Comment on above: Performed By: #### L 501.5425, L500.2500, L100.0100 #### [facility] [address] [place], [address] Platelet mean volume (Bld) [Entitic vol] 10.9 fL Normal 6.2-12.0 [facility] Comment on above: Performed By: #### L 501.5425, L500.2500, L100.0100 #### [facility] [address] [place], [address] Platelets (Bld) [#/Vol] 192 10*3/uL Normal 150-450 [facility] Comment on above: Performed By: #### L 501.5425, L500.2500, L100.0100 #### [facility] [address] [place], [address] RBC (Bld) [#/Vol] 4.58 10*6/uL Normal 4.2-5.4 [facility] Comment on above: Performed By: #### L 501.5425, L500.2500, L100.0100 #### [facility] [address] [place], [address] RDW SD 41.5 fl Normal 35.1-43.9 [facility] Comment on above: Performed By: #### L 501.5425, L500.2500, L100.0100 #### [facility] [address] [place], [address] WBC (Bld) [#/Vol] 6.2 10*3/uL Normal 4.4-11.0 [facility] Comment on above: Performed By: #### L 501.5425, L500.2500, L100.0100 #### [facility] [address] [place], [address] Chest 1 View (Portable)on Chest 1 View (Portable) [facility] Imaging Services [address] [place] [address] Chest 1 View (Portable) MR#: [id number] Acct: [id number] Name: FLORIDALMA DENNIS Rep #: [id number] : 1940 F 83 From: Nick García MD PCP: Dr. Nazario Abdul MD Status: [facility] ER Study: Chest 1 View (Portable) Date of Exam: 01/16/24 Exam# [id number] Ordering Dr: Rik Love MD [id number] INDICATION: syncope EXAMINATION/TECHNIQUE: X-RAY - portable upright [...] Rik Love MD; Dr. Nazario Abdul MD Rehab Services Aide: Signed Normal [facility] Department Summary on 01-16-2024 Emergency Department Summary [facility] Medical Records Department [address] [place] [id number] Emergency Department Summary 01/16/24 MR#: [id number] Acct: [id number] Name: FLORIDALMA DENNIS Rep #: [id number] : 1940 83 From: Rik Love MD PCP: Dr. Nazario Abdul MD Status:REG ER Location: ED HPI History of Present Illness Chief Complaint: Syncope Informant: patient and EMS Narrative Narrative: 83-year-old female had a syncopal episode and was brought by EMS. She states she was at [employer] and waiting for her friend to come and help set up for a service [employer]. She had been sitting down for a [...] She has had no recent medication changes. [facility] Medical History HTN (hypertension) Contact dermatitis due [...] HEENT Repor (more content not included)... Normal [facility] L501.4020on 01-16-2024 TROPONIN-I HS 6 pg/mL Normal 3.0-54.0 [facility] Comment on above: Result Comment: Luz pink Note: New Test Units and Gender Specific Reference Ranges. For more information see Policy Stat Procedure Shelby High Sensitivity Troponin (TNIH) and attachments. Performed By: #### L 501.4020 #### [facility] [address] [place], [address] L501.5425on 01-16-2024 TROPONIN-I HS 6 pg/mL Normal 3.0-54.0 [facility] Comment on above: Order Comment: 1 Y Result Comment: Luz pink Note: New Test Units and Gender Specific Reference Ranges. For more information see Policy Stat Procedure [place] High Sensitivity Troponin (TNIH) and attachments. Performed By: #### L 501.5425, L500.2500, L100.0100 #### [facility] [address] [place], [address] XR CERV OTHER 4V AP/LAT/OBLo n 05-23-2023 [facility] XR Cervical spine AP and Lat eral and obliqueon 05-23-2023 IMPRESSION: DEGENERATIVE CHANGE AND ALIGNMENT ABNORMALITIES DESCRIBED Rehab Services Aide: PSCEnrike Transcribe Date/Time: May 23 2023 3:33P Dictated by : YOGI LANZA MD This examination was interpreted and the report reviewed and electronically signed by: YOGI LANZA MD on May 23 2023 3:34PM [facility] DIVISION OF RADIOLOGY * * *Final [...] significant foraminal encroachment DIVISION OF RADIOLOGY Provider, Yakov bui [place] - 05/23/2023 * * *Final Report* * [...] IMPRESSION: DEGENERATIVE CHANGE AND ALIGNMENT ABNORMALITIES DESCRIBED Rehab Services Aide: PSCEnrike Transcribe Date/Time: May 23 2023 3:33P Dictated by : YOGI LANZA MD This examination was interpreted and the report reviewed and electronically signed by: YOGI LANZA MD on May 23 2023 3:34PM EST [facility] Radiology Study observation (narrative) [facility] XR Cervical spine AP and Lat eral and obliqueOrdered By: Ccf Provider on 05-23-2023 [facility] Urgent Care Visit Reporton 1 05-11-2022 Urgent Care Visit Report [facility] [address], [address] [place] [address] OFFICE VISIT Date of Service: 03/11/23 MR#: [id number] Acct: [id number] Name: FLORIDALMA DENNIS Rep #: [id number] : 1940 Provider: HOWARD cao Age/Sex: 83/F Location: [facility] Status: Signed Intake Vital Signs 09/14/21 12:58 [...] (Updated 03/11/23 @ 12:18 by Stepan Paul NP, RING ATTACHER-C) Contact dermatitis due to poison haily Social History Smoking Status: Never smoker HPI HPI Chief Complaint: COVID-19 testing Details: FLORIDALMA DENNIS, is a 83 F who presents to the office today for concerns to rule out COVID-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 ROS Const Constitutional: No body ache, chills, [...] Rapid SARS Antigen Today 03/11/23 1223 Date Stepan Paul NP RING ATTACHER-C Cosigner Signature: Date (if applicabl (more content not included)... Normal [facility] SCREENINGon 08-14-2022 [facility] SCREENINGon 08-02-2021 [facility] Office Visit: [id number] Documentation of current medications (procedure) Done Invalid Interpretation Code [facility] Work Phone: Fall risk assessment No Invalid Interpretation Code [facility] Work Phone: Protein mass conc Done [facility] Work Phone: Tobacco smoking status NHIS Never smoker [facility] Work Phone: Tobacco use [facility] Never smoker Invalid Interpretation Code [facility] [employer] Work Phone: Vital Signs Date Time Vital Sign Value Performing Clinician Faci lity 11-01-2024 20:25-0400 Body temperature 97.8 [degF] Dr. Nazario Abdul MD Work Phone: [facility] 11-01-2024 20:25-0400 Diastolic blood pressure 80 mm[Hg] Dr. Nazario Abdul MD Work Phone: [facility] 11-01-2024 20:25-0400 Heart rate 59 /min Dr. Nazario Abdul MD Work Phone: 3(422)375-095150 [place] [address] 11-01-2024 20:25-0400 Respiratory rate 16 /min Dr. Nazairo Abdul MD Work Phone: 3(964)840-433550 [place] [address] 11-01-2024 20:25-0400 SaO2% (BldA) [Mass fraction] 99 % Dr. Nazario Abdul MD Work Phone: 2(933)723-497350 [place] [address] 11-01-2024 20:25-0400 Systolic blood pressure 137 mm[Hg] Dr. Nazario Abdul MD Work Phone: 8(335)651-193850 [place] [address] 11-01-2024 19:28-0400 Body height 167.[address] Nazario Abdul MD Work Phone: 9(865)418-550550 [place] [address] 11-01-2024 19:28-0400 Body mass index (BMI) [Ratio] 19.8 kg/m2 Dr. Nazario Abdul MD Work Phone: 1(445)760-610250 [place] [address] 11-01-2024 19:28-0400 Body weight 55.[address] Nazario Abdul MD Work Phone: [facility] 10-28-2024 09:43-0400 Diastolic blood pressure 66 mm[Hg] Nazario Abdul MD Work Phone: [facility] 10-28-2024 09:43-0400 Heart rate 54 /min Nazario Abdul MD Work Phone: [facility] 10-28-2024 09:43-0400 Systolic blood pressure 150 mm[Hg] Nazario Abdul MD Work Phone: [facility] 10-28-2024 09:30-0400 Body mass index (BMI) [Ratio] 20.65 kg/m2 Nazario Abdul MD Work Phone: [facility] 10-28-2024 09:30-0400 Body weight 56.3 kg Nazario Abdul MD Work Phone: [facility] 10-28-2024 09:30-0400 Respiratory rate 20 /min Nazario Abdul MD Work Phone: [facility] 10-13-2024 09:33-0400 Body height 165.1 cm Meredith Soto MD Work Phone: [facility] 10-13-2024 09:33-0400 Body mass index (BMI) [Ratio] 20.53 kg/m2 Meredith Soto MD Work Phone: [facility] 10-13-2024 09:33-0400 Body weight 55.97 kg Meredith Soto MD Work Phone: [facility] 10-13-2024 09:33-0400 Diastolic blood pressure 90 mm[Hg] Meredith Soto MD Work Phone: [facility] 10-13-2024 09:33-0400 Heart rate 71 /min Meredith Soto MD Work Phone: [facility] 10-13-2024 09:33-0400 Respiratory rate 12 /min Meredith Soto MD Work Phone: [facility] 10-13-2024 09:33-0400 SaO2% (BldA) [Mass fraction] 96 % Meredith Soto MD Work Phone: [facility] 10-13-2024 09:33-0400 Systolic blood pressure 144 mm[Hg] Meredith Soto MD Work Phone: [facility] 05-30-2024 09:16-0500 Body mass index (BMI) [Ratio] 20.31 kg/m2 Nazario Abdul MD Work Phone: [facility] 05-30-2024 09:16-0500 Body weight 55.8 kg Nazario Abdul MD Work Phone: [facility] 05-30-2024 09:16-0500 Diastolic blood pressure 78 mm[Hg] Nazario Abdul MD Work Phone: [facility] 05-30-2024 09:16-0500 Heart rate 68 /min Nazario Abdul MD Work Phone: [facility] 05-30-2024 09:16-0500 Respiratory rate 16 /min Nazario Abdul MD Work Phone: [facility] 05-30-2024 09:16-0500 Systolic blood pressure 124 mm[Hg] Nazario Abdul MD Work Phone: [facility] 05-15-2024 11:44-0500 Body mass index (BMI) [Ratio] 20.82 kg/m2 Roberta Praisler-Wood TAP OUT OPERATOR.CANINE SERVICE TEACHER Work Phone: [facility] 05-15-2024 11:44-0500 Body temperature 98.4 [degF] Roberta Praisler-Wood TAP OUT OPERATOR.CANINE SERVICE TEACHER Work Phone: [facility] 05-15-2024 11:44-0500 Body weight 57.2 kg Roberta Praisler-Wood TAP OUT OPERATOR.CANINE SERVICE TEACHER Work Phone: [facility] 05-15-2024 11:44-0500 Diastolic blood pressure 72 mm[Hg] Roberta Praisler-Wood TAP OUT OPERATOR.CANINE SERVICE TEACHER Work Phone: [facility] 05-15-2024 11:44-0500 Heart rate 78 /min Roberta Praisler-Wood TAP OUT OPERATOR.CANINE SERVICE TEACHER Work Phone: [facility] 05-15-2024 11:44-0500 Respiratory rate 20 /min Roberta Praisler-Wood TAP OUT OPERATOR.CANINE SERVICE TEACHER Work Phone: [facility] 05-15-2024 11:44-0500 SaO2% (BldA) [Mass fraction] 98 % Roberta Praisler-Wood TAP OUT OPERATOR.CANINE SERVICE TEACHER Work Phone: [facility] 05-15-2024 11:44-0500 Systolic blood pressure 153 mm[Hg] Roberta Praisler-Wood TAP OUT OPERATOR.CANINE SERVICE TEACHER Work Phone: [facility] 03-17-2024 09:47-0500 Body mass index (BMI) [Ratio] 19.91 kg/m2 Meredith Soto MD Work Phone: [facility] 03-17-2024 09:47-0500 Body weight 54.7 kg Meredith Soto MD Work Phone: [facility] 03-17-2024 09:47-0500 Diastolic blood pressure 80 mm[Hg] Meredith Soto MD Work Phone: [facility] 03-17-2024 09:47-0500 Heart rate 68 /min Meredith Soto MD Work Phone: [facility] 03-17-2024 09:47-0500 Respiratory rate 16 /min Meredith Soto MD Work Phone: [facility] 03-17-2024 09:47-0500 Systolic blood pressure 140 mm[Hg] Meredith Soto MD Work Phone: [facility] 02-28-2024 08:14-0500 Diastolic blood pressure 79 mm[Hg] Nazario Abdul MD Work Phone: [facility] 02-28-2024 08:14-0500 Heart rate 70 /min Nazario Abdul MD Work Phone: [facility] 02-28-2024 08:14-0500 Systolic blood pressure 145 mm[Hg] Nazario Abdul MD Work Phone: [facility] 02-28-2024 08:03-0500 Body height 165.7 cm Nazario Abdul MD Work Phone: [facility] 02-28-2024 08:03-0500 Body mass index (BMI) [Ratio] 20.21 kg/m2 Nazario Abdul MD Work Phone: [facility] 02-28-2024 08:03-0500 Body temperature 98.6 [degF] Nazario Abdul MD Work Phone: [facility] 02-28-2024 08:03-0500 Body weight 55.5 kg Nazario Abdul MD Work Phone: [facility] 01-21-2024 14:33-0400 Diastolic blood pressure 79 mm[Hg] Nazario Abdul MD Work Phone: [facility] 01-21-2024 14:33-0400 Heart rate 62 /min Nazario Abdul MD Work Phone: [facility] 01-21-2024 14:33-0400 Systolic blood pressure 138 mm[Hg] Nazario Abdul MD Work Phone: [facility] 01-21-2024 14:26-0400 Body mass index (BMI) [Ratio] 20.03 kg/m2 Nazario Abdul MD Work Phone: [facility] 01-21-2024 14:26-0400 Body temperature 97.81 [degF] Nazario Abdul MD Work Phone: [facility] 01-21-2024 14:26-0400 Body weight 56.3 kg Nazario Abdul MD Work Phone: [facility] 01-21-2024 14:26-0400 Respiratory rate 20 /min Nazario Abdul MD Work Phone: [facility] 05-23-2023 12:50-0500 Diastolic blood pressure 80 mm[Hg] Wanda Sd TAP OUT OPERATOR.CANINE SERVICE TEACHER Work Phone: [facility] 05-23-2023 12:50-0500 Systolic blood pressure 134 mm[Hg] Wanda Sd TAP OUT OPERATOR.CANINE SERVICE TEACHER Work Phone: [facility] 05-23-2023 12:38-0500 Body weight 56.7 kg Wanda Sd TAP OUT OPERATOR.CANINE SERVICE TEACHER Work Phone: [facility] 05-23-2023 12:38-0500 Heart rate 64 /min Wanda Sd TAP OUT OPERATOR.CANINE SERVICE TEACHER Work Phone: [facility] 05-23-2023 12:38-0500 Respiratory rate 12 /min Wanda Sd TAP OUT OPERATOR.CANINE SERVICE TEACHER Work Phone: [facility] 05-23-2023 12:38-0500 SaO2% (BldA) [Mass fraction] 93 % Wanda Sd TAP OUT OPERATOR.CANINE SERVICE TEACHER Work Phone: [facility] 03-14-2023 11:17-0500 Body temperature 97.5 [degF] Wanda Older TAP OUT OPERATOR.CANINE SERVICE TEACHER Work Phone: [facility] 03-14-2023 11:17-0500 Body weight 56.7 kg Wanda Older TAP OUT OPERATOR.CANINE SERVICE TEACHER Work Phone: [facility] 03-14-2023 11:17-0500 Diastolic blood pressure 80 mm[Hg] Wanda Older TAP OUT OPERATOR.CANINE SERVICE TEACHER Work Phone: [facility] 03-14-2023 11:17-0500 Heart rate 64 /min Wanda Older TAP OUT OPERATOR.CANINE SERVICE TEACHER Work Phone: [facility] 03-14-2023 11:17-0500 Respiratory rate 14 /min Wanda Older TAP OUT OPERATOR.CANINE SERVICE TEACHER Work Phone: [facility] 03-14-2023 11:17-0500 Systolic blood pressure 140 mm[Hg] Wanda Older TAP OUT OPERATOR.CANINE SERVICE TEACHER Work Phone: [facility] 02-24-2022 14:32-0500 Diastolic blood pressure 70 mm[Hg] Wanda Older TAP OUT OPERATOR.CANINE SERVICE TEACHER Work Phone: [facility] 02-24-2022 14:32-0500 Systolic blood pressure 132 mm[Hg] Wanda Older TAP OUT OPERATOR.CANINE SERVICE TEACHER Work Phone: [facility] 02-24-2022 14:02-0500 Body height 165.1 cm Wanda Older TAP OUT OPERATOR.CANINE SERVICE TEACHER Work Phone: [facility] 02-24-2022 14:02-0500 Body weight 57.88 kg Wanda Older TAP OUT OPERATOR.CANINE SERVICE TEACHER Work Phone: [facility] 02-24-2022 14:02-0500 Heart rate 68 /min Wanda Older TAP OUT OPERATOR.CANINE SERVICE TEACHER Work Phone: [facility] 02-24-2022 14:02-0500 Respiratory rate 12 /min Wanda Carpenter TAP OUT OPERATOR.CANINE SERVICE TEACHER Work Phone: [facility] 11-28-2016 13:06-0400 BMI (Body Mass Index) 18.91 kg/m2 Herman Pulido MD [facility] [employer] Work Phone: 11-28-2016 13:06-0400 Body Temperature 98 [degF] Herman Pulido MD [facility] [employer] Work Phone: 11-28-2016 13:06-0400 BP Diastolic 69 mm[Hg] Herman Pulido MD [facility] [employer] Work Phone: 11-28-2016 13:06-0400 BP Systolic 127 mm[Hg] Herman Pulido MD [facility] [employer] Work Phone: 11-28-2016 13:06-0400 Height 167.64 cm Herman Pulido MD [facility] [employer] Work Phone: 11-28-2016 13:06-0400 Pulse (Heart Rate) 70 /min Herman Pulido MD [facility] [employer] Work Phone: 11-28-2016 13:06-0400 Respiratory Rate 16 /min Herman Pulido MD [facility] [employer] Work Phone: 11-28-2016 13:06-0400 Weight 53.16 kg Herman Pulido MD [facility] [employer] Work Phone: Encounters Encounter Date Encounter Type Care Provider Facility Start: 11-01-2024 End: 11-01-2024 Emergency department patient visit Dr. Nazario Abdul MD Work Phone: -Emergency Department Work Phone: Start: 10-28-2024 End: 10-28-2024 Telephone encounter Nazario Abdul MD Work Phone: [facility] [place] Comment on above: Patient Update Start: 10-28-2024 End: 10-28-2024 Office outpatient visit 25 minutes Nazario Abdul MD Work Phone: [facility] [place] Comment on above: Essential hypertensi on, benign (Primary Dx); Cognitive change; Osteopenia, senile Start: 10-28-2024 End: 10-28-2024 ambulatory NAZARIO Rhodes ABDUL Facility:[facility] Start: 10-13-2024 End: 10-13-2024 Patient encounter procedure Meredith Soto MD Work Phone: Cardiology Comment on above: Pericardial effusion (HCC) (Primary Dx); Essential hypertension, benign; Hyperlipidemia LDL goal <130 Start: 10-13-2024 End: 10-13-2024 ambulatory MEREDITH SOTO Facility:[facility] Start: 08-26-2024 End: 10-26-2024 Follow-up encounter Meredith Soto MD Work Phone: [facility] Cardiology [place] Start: 08-21-2024 End: 08-21-2024 ambulatory MEREDITH SOTO Facility:[facility] Start: 06-25-2024 End: 06-25-2024 Patient encounter procedure Teddy Mcclelland DO Work Phone: [facility] [place] Comment on above: Traumatic closed non displaced fracture of distal fibula, left, initial encounter (Primary Dx) Start: 06-25-2024 End: 06-25-2024 ambulatory TEDDY MCCLELLAND Facility:[facility] Start: 06-25-2024 End: 06-25-2024 Subsequent hospital visit by physician Lizzy ryan Alfaro Work Phone: Radiology Comment on above: Traumatic closed non displaced fracture of distal fibula, left, initial encounter [S82.832A] Start: 06-23-2024 End: 06-23-2024 Orders Only Teddy Mcclelland DO Work Phone: Orthopaedics Comment on above: Traumatic closed non displaced fracture of distal fibula, left, initial encounter (Primary Dx) Start: 05-30-2024 End: 05-30-2024 Patient encounter procedure Teddy Mcclelland DO Work Phone: [facility] [place] Comment on above: Traumatic closed non displaced fracture of distal fibula, left, initial encounter (Primary Dx) Start: 05-30-2024 End: 05-30-2024 Subsequent hospital visit by physician Lizzy ryan [employer] Work Phone: Radiology Comment on above: Other closed fractur e of distal end of left fibula with routine healing, subsequent encounter [S82.832D] Start: 05-30-2024 End: 05-30-2024 ambulatory TEDDY MCCLELLAND Facility:[facility] Start: 05-30-2024 End: 05-30-2024 Office outpatient visit 15 minutes Nazario Abdul MD Work Phone: Internal Medicine [place] Comment on above: Pericardial effusion (Primary Dx); Essential hypertension, benign; Osteopenia, senile Start: 05-28-2024 End: 05-28-2024 Orders Only Teddy Mcclelland DO Work Phone: Orthopaedics Comment on above: Other closed fractur e of distal end of left fibula with routine healing, subsequent encounter (Primary Dx) Start: 05-16-2024 End: 05-16-2024 [facility] TEDDY STAS Facility:[facility] Start: 05-16-2024 End: 05-16-2024 Patient encounter procedure Teddy Stas DO Work Phone: [facility] [place] Comment on above: Traumatic closed non displaced fracture of distal fibula, left, initial encounter (Primary Dx) Start: 05-15-2024 End: 05-15-2024 ambulatory ROBERTA CEDENO Facility:[facility] Start: 05-15-2024 End: 05-15-2024 Subsequent hospital visit by physician Lizzy [facility] [place] Work Phone: Radiology Comment on above: Injury of left ankle , initial encounter [S99.912A] Start: 05-15-2024 End: 05-15-2024 ambulatory NAZARIO ABDUL Facility:[facility] Start: 05-15-2024 End: 05-15-2024 Patient encounter procedure Roberta Cedeno APRN.CNP Work Phone: [place] [facility] Comment on above: Injury of left ankle , initial encounter (Primary Dx); Foot injury, left, initial encounter Start: 04-29-2024 End: 05-05-2024 Telephone encounter Nazario Abdul MD Work Phone: Internal Medicine [place] Comment on above: Bone Density Start: 04-24-2024 End: 04-24-2024 ambulatory NAZARIO ABDUL Facility:[facility] Start: 04-24-2024 End: 04-24-2024 Subsequent hospital visit by physician Bone Density [facility] Work Phone: Radiology Comment on above: Osteopenia, senile [ M85.80] Start: 03-17-2024 End: 03-17-2024 ambulatory MEREDITH SOTO Facility:[facility] Start: 03-17-2024 End: 03-17-2024 Patient encounter procedure Meredith Soto MD Work Phone: Cardiology Comment on above: Pericardial effusion Start: 02-28-2024 End: 02-28-2024 ambulatory NAZARIO ABDUL Facility:[facility] Start: 02-28-2024 End: 02-28-2024 Patient encounter procedure Nazraio Abdul MD Work Phone: [facility] [place] Comment on above: Medicare annual [facility] visit, subsequent (Primary Dx); Encounter for screening examination for other mental health and behavioral disorders; Pericardial effusion; Essential hypertension, benign; Cognitive change; Depressive disorder; Hyperlipidemia LDL goal <130; Osteopenia, senile Start: 02-18-2024 End: 02-18-2024 ambulatory NAZARIO ABDUL Facility:[facility] Start: 02-04-2024 End: 02-06-2024 Telephone encounter Nazario Abdul MD Work Phone: [facility] [place] Comment on above: Results Referral order for C ardiology Start: 01-31-2024 End: 01-31-2024 ambulatory NAZARIO ABDUL Facility:[facility] Start: 01-29-2024 End: 01-29-2024 Telephone encounter Nazario Abdul MD Work Phone: [facility] [place] Comment on above: cancel testing Start: 01-21-2024 End: 01-21-2024 ambulatory NAZARIO ABDUL Facility:[facility] Start: 01-21-2024 End: 01-21-2024 Office [...] 01-16-2024 End: 01-16-2024 Emergency department patient visit Rik Love Facility:[facility] Start: 01-09-2024 End: 01-09-2024 Refill Nazario Abdul MD Work Phone: [facility] [place] Comment on above: Refill Request Start: 10-02-2023 Refill Nazario pinto MD Work Phone: [facility] [place] Comment on above: Refill Request Medication Problem Start: 09-27-2023 Telephone encounter Nazario fall MD Work Phone: [facility] [place] Comment on above: Behavioral Problem ( family has concerns) Start: 08-01-2023 Refill Nazario pinto MD Work Phone: [facility] [place] Comment on above: Refill Request Start: 06-06-2023 ambulatory No Pcp TAP OUT OPERATOR [facility] [place] Start: 05-30-2023 ambulatory No Pcp TAP OUT OPERATOR [facility] [place] Start: 05-25-2023 Telephone encounter Wanda andino TAP OUT OPERATOR.CANINE SERVICE TEACHER Work Phone: Internal Medicine [place] Comment on above: Results Start: 05-23-2023 End: 05-23-2023 Subsequent hospital visit by physician Lizzy [facility] [place] Work Phone: Radiology Comment on above: Neck pain [M54.2] Start: 05-23-2023 End: 05-23-2023 Patient encounter procedure Wanda Beaver APRN.CANINE SERVICE TEACHER Work Phone: [facility] [place] Comment on above: Cervicogenic headach e (Primary Dx); Neck pain Start: 03-14-2023 End: 03-14-2023 Patient encounter procedure Wanda Older TAP OUT OPERATOR.CANINE SERVICE TEACHER Work Phone: [facility] [place] Comment on above: Viral URI (Primary D x) Start: 03-11-2023 End: 03-11-2023 ambulatory Nazario Abdul Facility:[facility] Start: 09-12-2022 ambulatory Roberta Meredith MA [facility] Comment on above: Population Health [facility] ([facility] [place] [facility]) Start: 08-15-2022 Documentation procedure Mammog lary Coordinator [facility] Start: 08-15-2022 Letter encounter Mammography Coordinator [facility] Department Start: 08-14-2022 End: 08-14-2022 Subsequent hospital visit by physician Screen Mammo [facility] M[facility] Comment on above: Encounter for screen ing mammogram for malignant neoplasm of breast [Z12.31] Start: 02-24-2022 End: 02-24-2022 Patient encounter procedure Wanda Older TAP OUT OPERATOR.CANINE SERVICE TEACHER Work Phone: [facility] [place] Comment on above: Medicare annual well ness visit, subsequent (Primary Dx) Start: 08-02-2021 Documentation procedure [facility] Start: 08-02-2021 Letter encounter Mammography Coordinator [facility] Department Start: 08-02-2021 End: 08-02-2021 Patient encounter status Screen [facility] Mammogram Start: 08-02-2021 End: 08-02-2021 Subsequent hospital visit by physician Screen Mammo [facility] M[facility] Comment on above: Encounter for gyneco logical examination (general) (routine) without abnormal findings [Z01.419] Start: 07-04-2021 ambulatory Madhuir Preciado LPN I nternal Medicine [place] Procedures Date Procedure Procedure Detail Performing Clinician Start: 05-15-2024 End: 05-15-2024 Radex ankle complete minimum 3 views Roberta Cedeno TAP OUT OPERATOR.CANINE SERVICE TEACHER Work Phone: Start: 05-23-2023 Radex spine cervical 4 or 5 views Wanda Beaver TAP OUT OPERATOR.CANINE SERVICE TEACHER Work Phone: Start: 08-14-2022 Screening mammograph y bi 2-view breast inc cad Gemma Macedo MD Work Phone: Start: 08-02-2021 Screening mammograph y bi 2-view breast inc cad Gemma Macedo MD Work Phone: Plan of Treatment Date Care Activity Detail Author Start: 01-30-2027 Diabetes Screening Diabetes Screenalejandra bui [facility] Start: 02-26-2026 Diabetes Screening Diabetes Screenin g [facility] Start: 08-17-2025 End: 08-17-2025 Patient encounter procedure 08/17/2025 10:00 AM EDT Office Visit Cardiology [address] [place] [address] Meredith Soto MD [address] [place], [place] [id number] 9 month follow up Cardiology Comment on above: 9 month follow up Start: 03-06-2025 End: 03-06-2025 Patient encounter procedure 03/06/2025 10:00 AM EST Office Visit [facility] [place] [address] [place] [address] Nazario Abdul MD [address] [place] [address] Annual Medicare Wellness w/4 month follow-up [facility] [place] Comment on above: Annual Medicare Well ness w/4 month follow-up Start: 02-27-2025 Anxiety Screening Anxiety Screening [facility] Start: 02-27-2025 Covid-19 Vaccine () Covid-19 Vaccine () [facility] Comment on above: Postponed from 12/15 (Declined at this time) Start: 02-21-2025 DIABETES SCREEN DIABETES SCREEN [facility] Start: 02-21-2025 Diabetes Screening Diabetes Screenin g [facility] Start: 11-01-2024 [facility] Start: 10-28-2024 End: 10-28-2024 Patient encounter procedure 10/28/2024 9:40 AM EDT Office Visit [facility] [place] [address] [place], [place] [id number] Nazario Abdul MD [address] [facility] [place] [address] follow up 5 months Internal [facility] [place] Comment on above: follow up 5 months Start: 10-13-2024 End: 10-13-2024 Patient encounter procedure Cardiology Comment on above: 6 MONTH FOLLOW UP Start: 08-25-2024 End: 08-25-2024 Patient encounter procedure 08/25/2024 9:40 AM EDT Office Visit Cardiology [address] [place] [id number] Anum Ceja MD [address] [facility], [address] [place], [place] [id number] Pericardial effusion [I31.39] Cardiology Comment on above: Pericardial effusion [I31.39] Start: 08-21-2024 End: 08-21-2024 Patient encounter procedure 08/21/2024 9:40 AM EDT Office Visit Cardiology [address] [place], [place] [id number] Chronic pain of right knee [M25.561, G89.29] Cardiology Comment on above: Chronic pain of righ t knee [M25.561, G89.29] Start: 07-21-2024 End: 03-17-2025 Echocardiography ECHO Cardiology Routine Pericardial effusion Expected: 07/21/2024, Expires: 03/17/2025 [facility] Work Phone: Comment on above: Expected: 07/21/2024 , Expires: 03/17/2025 Start: 06-25-2024 End: 06-25-2024 Patient encounter procedure 06/25/2024 1:30 PM EDT Office Visit Family Medicine [place] [address] [place], [place] [id number] Teddy Mcclelland V, DO [address] [place] [address] 4 week follow up L foot Family Medicine [place] Comment on above: 4 week follow up L f oot Start: 05-30-2024 End: 05-30-2024 Patient encounter procedure [facility] [place] Comment on above: 3 month follow-up 3 week follow up L f oot Start: 05-16-2024 End: 05-16-2024 Patient encounter procedure 05/16/2024 1:30 PM EST Office Visit [facility] [place] [address] [place] [address] Teddy Mcclelland V, DO [address] [facility] [place] [address] ankle fracture [facility] [place] Comment on above: ankle fracture Start: 04-24-2024 End: 04-24-2024 Patient encounter procedure 04/24/2024 9:30 AM EST Appointment Radiology [address] [place] [phone] Osteopenia, senile [M85.80] Radiology Comment on above: Osteopenia, senile [ M85.80] Start: 04-20-2024 DIABETES SCREEN DIABETES SCREEN [facility] Start: 04-16-2024 Advance Directive Discussion Advance Directive Discussion [facility] Start: 04-16-2024 Medicare Advantage A nnual Wellness Visit Medicare Advantage Annual Wellness Visit [facility] Start: 03-17-2024 End: 03-17-2024 Patient encounter procedure 03/17/2024 10:00 AM EST Office Visit Cardiology [address] [place] [phone] Meredith Soto MD [address] [facility] [address] [place] [address] Pericardial effusion [I31.39] Cardiology Comment on above: Pericardial effusion [I31.39] Start: 02-28-2024 End: 02-28-2024 Patient encounter procedure 02/28/2024 8:00 AM EST Office Visit [facility] Medicine [place] [address] [place] [address] Nazario Abdul MD [address] [facility] [place] [address] [facility] [place] Comment on above: [facility] Start: 02-27-2024 Covid-19 Vaccine (#1) Covid-19 Vacci ne (#1) [facility] Comment on above: Postponed from 08/06 (Declined at this time) Start: 02-27-2024 Covid-19 Vaccine ( season) Covid-19 Vaccine ( - season) [facility] Comment on above: Postponed from 12/15 (Declined at this time) Start: 02-27-2024 RSV Vaccine (1 - 1-d ose 60+ series) RSV Vaccine (1 - 1-dose 60+ series) [facility] Comment on above: Postponed from 02/05 (Declined at this time) Start: 02-27-2024 RSV Vaccine (1 - 1-d ose 75+ series) RSV Vaccine (1 - 1-dose 75+ series) [facility] Comment on above: Postponed from 02/05 (Declined at this time) Start: 02-27-2024 Shingrix Vaccine (1 of 2) Sullivan grix Vaccine (1 of 2) [facility] Comment on above: Postponed from 02/05 (Declined at this time) Start: 02-21-2024 End: 05-22-2024 CBC panel - Blood by Automated count COMPLETE BLOOD COUNT Lab Routine Cognitive change Expected: 02/21/2024, Expires: 05/22/2024 [facility] Work Phone: Comment on above: Expected: 02/21/2024 , Expires: 05/22/2024 Start: 02-21-2024 End: 05-22-2024 Cobalamin (Vitamin B12) [Mass/volume] in Serum or Plasma VITAMIN B12 Lab Routine Cognitive change Expected: 02/21/2024, Expires: 05/22/2024 [facility] Comment on above: Expected: 02/21/2024 , Expires: 05/22/2024 Start: 02-21-2024 End: 05-22-2024 Comprehensive metabolic 2000 panel - Serum or Plasma COMPREHENSIVE METABOLIC PANEL Lab Routine Hyperlipidemia LDL goal <130 Expected: 02/21/2024, Expires: 05/22/2024 [facility] Comment on above: Expected: 02/21/2024 , Expires: 05/22/2024 Start: 02-21-2024 End: 05-22-2024 Lipid 1996 panel - Serum or Plasma LIPID PANEL BASIC Lab Routine Hyperlipidemia LDL goal <130 Expected: 02/21/2024, Expires: 05/22/2024 [facility] Comment on above: Expected: 02/21/2024 , Expires: 05/22/2024 Start: 02-21-2024 End: 05-22-2024 Thyrotropin [Units/volume] in Serum or Plasma THYROID STIMULATING HORMONE Lab Routine Cognitive change Expected: 02/21/2024, Expires: 05/22/2024 [facility] Comment on above: Expected: 02/21/2024 , Expires: 05/22/2024 Start: 02-18-2024 End: 02-18-2024 Patient encounter procedure 02/18/2024 8:50 AM EST Office Visit Cardiology [address] [place] [address] Pericardial effusion [I31.39] Cardiology Comment on above: Pericardial effusion [I31.39] Start: 01-31-2024 End: 01-31-2024 Patient encounter procedure 01/31/2024 9:40 AM EDT Office Visit Cardiology [address] [place] [address] Syncope, unspecified syncope type [R55] Cardiology Comment on above: Syncope, unspecified syncope type [R55] Start: 12-16-2023 Covid-19 Vaccine () Covid-19 Vaccine () [facility] Start: 12-16-2023 Covid-19 Vaccine () Covid-19 Vaccine () [facility] Start: 04-16-2023 Advance Directive Discussion Advance Directive Discussion [facility] Start: 02-24-2023 COVID-19 VACCINE (#1) COVID-19 VACCI NE (#1) [facility] Comment on above: Postponed from 08/06 (Declined at this time) Start: 02-24-2023 Pneumococcal Vaccine : 65+ (2 - PCV) Pneumococcal Vaccine: 65+ (2 - PCV) [facility] Comment on above: Postponed from 11/27 (Declined at this time) Start: 02-24-2023 PNEUMOCOCCAL: 65+ (2 - PCV) PNEUMOCOCCAL: 65+ (2 - PCV) [facility] Comment on above: Postponed from 11/27 (Declined at this time) Start: 02-24-2023 SHINGRIX VACCINE (1 of 2) SULLIVAN GRIX VACCINE (1 of 2) [facility] Comment on above: Postponed from 02/05 (Declined at this time) Start: 04-16-2022 ADVANCE DIRECTIVE DISCUSSION ADVANCE DIRECTIVE DISCUSSION [facility] Start: 01-05-2022 ANNUAL PCP TEAM PERSONAL FINANCIAL COUNSELOR ZARA DISEASE VISIT ANNUAL PCP TEAM CHRONIC DISEASE VISIT [facility] Start: 04-16-2021 ADVANCE DIRECTIVE DISCUSSION ADVANCE DIRECTIVE DISCUSSION [facility] Start: 12-19-2018 BP CONTROLLED (<130/80) BP CONTROLLE D (<130/80) [facility] Start: 11-28-2016 End: 11-28-2016 Appointment Appointment [facility] [employer] Work Phone: Start: 11-28-2016 End: 11-28-2016 Diagnostic colonoscopy Colonoscopy [facility] [employer] Work Phone: Start: 2001 RSV Vaccine (1 - 1-d ose 60+ series) RSV Vaccine (1 - 1-dose 60+ series) [facility] Start: 1991 SHINGRIX VACCINE (1 of 2) SULLIVAN GRIX VACCINE (1 of 2) [facility] Start: 1959 Anxiety Screening Anxiety Screening [facility] Start: 1946 COVID-19 VACCINE (1) COVID-19 VACCIN E (1) [facility] End: 03-29-2025 DXA Skeletal system.axial Views for bone density DXA-AXIAL SKELETON Radiology Routine Osteopenia, senile 1 Occurrences starting 02/28/2024 until 03/29/2025 [facility] Work Phone: Comment on above: 1 Occurrences starti ng 02/28/2024 until 03/29/2025 DXA Skeletal system. axial Views for bone density DXA-AXIAL SKELETON Radiology Routine Osteopenia, senile 04/24/2024 9:54 AM EST [facility] Work Phone: End: 01-20-2025 Echocardiography ECHO Cardiology Routine Syncope, unspecified syncope type 1 Occurrences starting 01/21/2024 until 01/20/2025 [facility] Comment on above: 1 Occurrences starti ng 01/21/2024 until 01/20/2025 Patient Education ED Insect Bite [facility] Work Phone: End: 06-14-2025 XR Ankle - left AP and Lateral and oblique XR ANKLE GENERAL 3V AP/LAT/OBL LEFT Radiology Routine Injury of left ankle, initial encounter 1 Occurrences starting 05/15/2024 until 06/14/2025 [facility] Work Phone: Comment on above: 1 Occurrences starti ng 05/15/2024 until 06/14/2025 End: 06-27-2025 XR Ankle - left AP and Lateral and oblique XR ANKLE GENERAL 3V AP/LAT/OBL LEFT Radiology Routine Other closed fracture of distal end of left fibula with routine healing, subsequent encounter 1 Occurrences starting 05/28/2024 until 06/27/2025 [facility] Work Phone: Comment on above: 1 Occurrences starti ng 05/28/2024 until 06/27/2025 XR Ankle - left AP a nd Lateral and oblique XR ANKLE GENERAL 3V AP/LAT/OBL LEFT Radiology Routine Other closed fracture of distal end of left fibula with routine healing, subsequent encounter 05/30/2024 12:27 PM EST [facility] Work Phone: End: 07-23-2025 XR Ankle - left AP and Lateral and oblique XR ANKLE GENERAL 3V AP/LAT/OBL LEFT Radiology Routine Traumatic closed nondisplaced fracture of distal fibula, left, initial encounter 1 Occurrences starting 06/23/2024 until 07/23/2025 [facility] Work Phone: Comment on above: 1 Occurrences starti ng 06/23/2024 until 07/23/2025 XR Ankle - left AP a nd Lateral and oblique XR ANKLE GENERAL 3V AP/LAT/OBL LEFT Radiology Routine Traumatic closed nondisplaced fracture of distal fibula, left, initial encounter 06/25/2024 1:20 PM EDT [facility] Work Phone: [facility] Immunization Date Immunization Notes Care Provider Fa maia 11-27-2006 pneumococcal polysaccharide vaccine, 23 valent Madhuri Preciado [facility] 12-05-2005 tetanus and diphther ia toxoids, adsorbed, preservative free, for adult use (2 Lf of tetanus toxoid and 2 Lf of diphtheria toxoid) Madhurivenkata Preciado [facility] Work Phone: 04-16-1993 diphtheria and tetan us toxoids, adsorbed for pediatric use [facility] Payers Date Payer Category Payer Medicare (Managed Care) [facility] MEDICARE HMO [id number] 2024 Medicare [id number] 2023 Private Health Insurance 101 [id number] 2023 Medicare [id number] 2023 Self-pay 2016 Unknown [employer]YSICI[employer]MENT [id number] 2016-Present [phone] [address] [place] [address] Indemnity [id number] 2016 Unknown PHYSICIANS [employer]LEMENT [id number] 2016-Present [phone] [address] [place] [address] Indemnity [id number] 2016 Unknown [id number] 2006 Medicare MEDICARE MEDICAR E A AND B [id number] 2006-Present [phone] [place] [address] Medicare [id number] 2006 Medicare [id number] Unknown [id number] Unknown [id number] Social History Date Type Detail Facility Start: 05-16-2024 End: 11-01-2024 Tobacco smoking status NHIS Never smoked tobacco [facility] Work Phone: Start: 04-20-2021 End: 10-28-2024 Alcohol intake Current non-drinker of alcohol (finding) [facility] Start: 01-06-2021 History SDOH Alcohol Frequency 1 [facility] Start: 1940 Sex Assigned At Not on file [facility] Start: 02-14-2022 End: 02-24-2022 Exposure to SARS-CoV-2 (event) Not sure [facility] Start: 01-06-2021 End: 08-25-2022 History of Social function [facility] Work Phone: Start: 01-06-2021 End: 08-25-2022 Alcohol Use Disorder Identification Test - Consumption [AUDIT-C] [facility] Work Phone: How often to you hav e a drink containing alcohol? Never [facility] Work Phone: Average Number of Drinks Not on file [facility] Work Phone: History of tobacco use Passive smoker [facility] Start: 05-16-2024 Tobacco use and exposure Smoke less tobacco non-user [facility] Start: 1940 Sex Assigned At Female [facility] Goals Date Patient Goal Desired Activity /State Personal health goal Functional Status Date Assessment Result Facility 11-25-2016 Are you deaf, or do you have serious difficulty hearing No 11/25/2016 12:03 PM EDT Akira Pulido III, MD No [facility] 11-25-2016 Are you blind, or do you have serious difficulty seeing, even when wearing glasses No 11/25/2016 12:03 PM LORAT Akira Puliod III, MD No [facility] 11-25-2016 Do you have serious difficulty walking or climbing stairs No 11/25/2016 12:03 PM EDT Akira Pulido III, MD No [facility] 11-25-2016 Do you have difficul ty dressing or bathing No 11/25/2016 12:03 PM EDT Akira Pulido III, MD No [facility] 11-25-2016 Because of a physica l, mental, or emotional condition, do you have difficulty doing errands alone such as visiting a physician's office or shopping No 11/25/2016 12:03 PM EDT Akira Pulido III, MD [facility] Mental Status Date Assessment Result Facility 11-25-2016 Because of a physica l, mental, or emotional condition, do you have serious difficulty concentrating, remembering, or making decisions No 11/25/2016 12:03 PM EDT Akira Pulido III, MD [facility] Clinical Notes 11-28-2016 to 10-28-2024 Telephone Encounter - Madhuri Preciado LPN - 10/28/2024 4:27 PM EDTTelephone Encounter - Madhuri Preciado LPN - 10/28/2024 4:27 PM LORATNazario Abdul MD - 10/28/2024 9:30 AM EDT Note Date & Type Note Facility 10-28-2024 Telephone encounter Note Patient scheduled Geriatric consult, then call back in and cancelled. Madhuri Preciado LPN [facility] 10-28-2024 Miscellaneous Notes Patient scheduled Geriatric [...] is that pt told Mackenzie that her child adolescent care Father Vincent said he hates her which Mackenzie knows the child adolescent care and states he would never do that. [...] the cognitive test. documented in this encounter [facility] 10-28-2024 Telephone encounter Note Patient referred to geriatrics. [facility] 10-28-2024 Note HNO ID: [id number] Author: NAZARIO ABDUL MD Service: ? Author Type: Physician Type: Progress Notes Filed: 10/28/2024 10:32 Note Text: This note was created using [employer] Subjective Floridalma Dennis is a 84 year [...] bearing exercise as tolerated Nazario Abdul MD [facility] 10-28-2024 History of Presen t illness Narrative [...] Nazario Abdul MD documented in this encounter [facility] 10-28-2024 Telephone encounter Note Pt's daughter [...] is that pt told Mackenzie that her child adolescent care Father Vincent said he hates her which Mackenzie knows the child adolescent care and states he would never do that. [...] especially if she fails the cognitive test. [facility] 10-13-2024 Instructions Meredith Soto MD - 10/13/2024 9:53 AM EDT Start checking your blood pressure at home 2-3 times per week documented in this encounter [facility] 10-13-2024 History of Presen t illness Narrative Images from the original note were not included. [facility] SECTION [facility] REGIONAL CARDIOLOGY Cardiology ([facility]) [address] [facility] [id number] OUTPATIENT VISIT DATE 10/13/2024 PRIMARY CARE PHYSICIAN: Nazario Abdul [address] [place] [address] REFERRING PHYSICIAN: Nazario Abdul [address] [facility] [address] CHIEF COMPLAINT: Pericardial effusion HISTORY OF PRESENT [...] Meredith Soto MD documented in this encounter [facility] 10-13-2024 Note HNO ID: [id number] Author: MEREDITH SOTO MD Service: ? Author Type: Physician Type: Progress Notes Filed: 10/13/2024 12:05 Note Text: [facility] SECTION OF REGIONAL CARDIOLOGY Cardiology ([facility]) [address] [facility] [address] OUTPATIENT VISIT DATE 10/13/2024 PRIMARY CARE PHYSICIAN: Nazario Abdul [address] [place], [place] [id number] REFERRING PHYSICIAN: Nazario Abdul [address] [facility] [address] CHIEF COMPLAINT: Pericardial effusion HISTORY OF PRESENT [...] significant change. Echocardiogram (more content not included)... [facility] 06-25-2024 Note HNO ID: [id number] Author: TEDDY MCCLELLAND, DO Service: ? Author [...] strengthening exercises to begin Assessment/Plan ASSESSMENT Diagnosis (S82.388F) Traumatic closed nondisplaced fracture of distal fibula, left, initial encounter (primary encounter diagnosis) No orders found for this visit on 06/25/24. PLAN For ankle rehabilitation. Follow-up as needed. FOLLOW-UP: No follow-ups on file. SIGNATURE: Teddy Mcclelland DO PATIENT NAME: Floridalma Dennis DATE: June 25, 2024 TIME: 1:47 PM [facility] 06-25-2024 History of Presen t illness Narrative [...] strengthening exercises to begin Assessment/Plan ASSESSMENT Diagnosis (S82.182A) Traumatic closed nondisplaced fracture of distal fibula, [...] X-rays done today. documented in this encounter [facility] 06-25-2024 Note HNO ID: [id number] Author: MARCELLE GUTIERREZ [place] Service: ? Author Type: Postdoctoral Scientist Type: Progress Notes Filed: 06/25/2024 13:49 Note [...] Friend with patient today. X-rays done today. [facility] 06-25-2024 History of Presen t illness Narrative [...] PATIENT PRESENTS WITH AN IMPLANTABLE OR ATTACHED DISABILITY MANAGER: No RADIOLOGY DEPARTMENT: General X-ray: Exam(s) Completed: Lower Extremity X-Ray(s): Ankle, Left PERIPHERAL IV DATA: Not applicable SIGNED BY: RT Cortez(R) June 25, 2024 3:05 PM documented in this encounter [facility] 06-25-2024 Note HNO ID: [id number] Author: ANA FRENCH RT(Sandy) Service: ? Author [...] PATIENT PRESENTS WITH AN IMPLANTABLE OR ATTACHED DISABILITY MANAGER: No RADIOLOGY DEPARTMENT: General X-ray: Exam(s) Completed: Lower Extremity X-Ray(s): Ankle, Left PERIPHERAL IV DATA: Not applicable SIGNED BY: RT Cortez(R) June 25, 2024 3:05 PM [facility] 05-30-2024 Note HNO ID: [id number] Author: TEDDY MCCLELLAND, DO Service: ? Author [...] DATE: May 30, 2024 TIME: 2:56 PM [facility] 05-30-2024 History of Presen t illness Narrative [...] comment ( stirrujodi) documented in this encounter [facility] 05-30-2024 Note HNO ID: [id number] Author: MERON BELTRE [place] Service: ? Author Type: Postdoctoral Scientist Type: Progress Notes Filed: 05/30/2024 14:59 Note Text: AMB ROOMING INTAKE FLOWSHEET DATA Pain Pain Level: 1 Pain Location: Ankle-Left Description: Aching Duration Amount of Time: (ongoing) Frequency: Continuous Intervention/Comfort measure: Other: See comment (air stirrup) [facility] 05-30-2024 History of Presen t illness Narrative [...] PATIENT PRESENTS WITH AN IMPLANTABLE OR ATTACHED DISABILITY MANAGER: No RADIOLOGY DEPARTMENT: General X-ray: Exam(s) Completed: Lower Extremity X-Ray(s): Ankle, Left PERIPHERAL IV DATA: Not applicable SIGNED BY: GASTON Toro) May 30, 2024 1:32 PM documented in this encounter [facility] 05-30-2024 Note HNO ID: [id number] Author: ANA FRENCH RT(R) Service: ? Author [...] PATIENT PRESENTS WITH AN IMPLANTABLE OR ATTACHED DISABILITY MANAGER: No RADIOLOGY DEPARTMENT: General X-ray: Exam(s) Completed: Lower Extremity X-Ray(s): Ankle, Left PERIPHERAL IV DATA: Not applicable SIGNED BY: Ana French, RT(R) May 30, 2024 1:32 PM [facility] 05-30-2024 Note HNO ID: [id number] Author: NAZARIO ABDUL MD Service: ? Author Type: Physician Type: Progress Notes Filed: 05/30/2024 10:20 Note Text: This note was created using MetaFLOriter. Subjective Floridalma Dennis is a 84 year [...] Review at next visit. Nazario Abdul MD [facility] 05-30-2024 History of Presen t illness Narrative This note was created using Pixabilityter. Subjective Floridalma Dennis is a 84 year [...] Nazario Abdul MD documented in this encounter [facility] 05-16-2024 Note HNO ID: [id number] Author: TEDDY MCCLELLAND, DO Service: ? Author [...] 3 days ago. He was seen in [facility] yesterday where x-rays showed a distal [...] DATE: May 16, 2024 TIME: 2:53 PM [facility] 05-16-2024 History of Presen t illness Narrative [...] 3 days ago. He was seen in [facility] care yesterday where x-rays showed a distal [...] comment ( stirrujodi) documented in this encounter [facility] 05-16-2024 Note HNO ID: [id number] Author: MERON BELTRE [place] Service: ? Author Type: Postdoctoral Scientist Type: Progress Notes Filed: 05/16/2024 14:56 Note Text: AMB ROOMING INTAKE FLOWSHEET DATA Pain Pain Level: 4 Pain Location: Ankle-Left Description: Aching, Dull, Sharp Duration Amount of Time: 3 (3) Duration Units: Days Frequency: Continuous Intervention/Comfort measure: Other: See comment (Air stirrup) [facility] 05-15-2024 Instructions Roberta Cedeno APRN.CANINE SERVICE TEACHER - 05/15/2024 1:57 PM EST ASSESSMENT/PLAN: 1. [...] ROBERTA CEDENO on 05/15/2024 12:54 PM via [employer] staff message. Rehab Services Aide: HANANE Transcribe Date/Time: May 15 2024 12:49P [...] Discussed expected course of illness Roberta Cedeno APRN.CANINE SERVICE TEACHER documented in this encounter [facility] 05-15-2024 History of Presen t illness [...] PATIENT PRESENTS WITH AN IMPLANTABLE OR ATTACHED DISABILITY MANAGER: No RADIOLOGY DEPARTMENT: General X-ray: Exam(s) Completed: Lower Extremity X-Ray(s): Tibia Fibula, Left PERIPHERAL IV DATA: Not applicable SIGNED BY: Jie Larios May 15, 2024 1:04 PM documented in this encounter [facility] 05-15-2024 Note HNO ID: [id number] Author: MERCEDEZ EDWARDS Tech Service: ? Author [...] PATIENT PRESENTS WITH AN IMPLANTABLE OR ATTACHED DISABILITY MANAGER: No RADIOLOGY DEPARTMENT: General X-ray: Exam(s) Completed: Lower Extremity X-Ray(s): Tibia Fibula, Left PERIPHERAL IV DATA: Not applicable SIGNED BY: Jie Larios May 15, 2024 1:04 PM [facility] 05-15-2024 History of Presen t illness Narrative [...] PATIENT PRESENTS WITH AN IMPLANTABLE OR ATTACHED DISABILITY MANAGER: No RADIOLOGY DEPARTMENT: General X-ray: Exam(s) Completed: Lower Extremity X-Ray(s): Ankle, Left and Foot, Left PERIPHERAL IV DATA: Not applicable SIGNED BY: RT Ginna(Sandy) May 15, 2024 12:09 PM documented in this encounter [facility] 05-15-2024 Note HNO ID: [id number] Author: STEPHAN STUBBS RT(R) Service: ? Author Type: Packing Room Worker Type: Progress Notes Filed: 05/15/2024 12:21 Note [...] PATIENT PRESENTS WITH AN IMPLANTABLE OR ATTACHED DISABILITY MANAGER: No RADIOLOGY DEPARTMENT: General X-ray: Exam(s) Completed: Lower Extremity X-Ray(s): Ankle, Left and Foot, Left PERIPHERAL IV DATA: Not applicable SIGNED BY: RT Ginna(R) May 15, 2024 12:09 PM [facility] 05-15-2024 Note HNO ID: [id number] Author: ROBERTA CEDENO APRN.CANINE SERVICE TEACHER Service: ? Author Type: Nurse Practitioner Type: [...] ROBERTA CEDENO on 05/15/2024 12:54 PM via [employer] staff message. Rehab Services Aide: HANANE Transcribe Date/Time: May 15 2024 12:49P [...] evaluation if any (more content not included)... [facility] 05-15-2024 History of Presen t illness Narrative [...] ROBERTA CEDENO on 05/15/2024 12:54 PM via [employer] staff message. Rehab Services Aide: HANANE Transcribe Date/Time: May 15 2024 12:49P [...] Discussed expected course of illness Roberta Cedeno APRN.CANINE SERVICE TEACHER documented in this encounter [facility] 05-05-2024 Telephone encounter Note Pt called and is notified of providers results and instructions. Pt voices understanding. Charis Hoyos RN [facility] 05-05-2024 Miscellaneous Notes Pt called and [...] on MyChart. Please advise. Susan Mireles LPN Patient calls [...] yet. Please advise documented in this encounter [facility] 05-05-2024 Telephone encounter Note Called Mackenzie/daughter, Patient's vm is full, unable to leave ms. Patient is not able to get into MyChart, asked for Patient to call office for results. Madhuri Preciado LPN [facility] 05-05-2024 Telephone encounter Note Attempted to call x2, vm is full will need to try again. Per below, Patient is not able to get into MyChart. Madhuri Preciado LPN [facility] 05-03-2024 Telephone encounter Note My chart message to pt with pcp's response. [facility] 05-01-2024 Telephone encounter Note left message for patient to call office back and speak with triage nurse. Cindy Molina LPN [facility] 05-01-2024 Telephone encounter Note Please check result notes to cut down on phone calls. Nazario Abdul MD 05/01/2024 7:26 AM EST Stable osteopenia. Continue measures for bone health. Recheck in 2 years. [facility] 04-30-2024 Telephone encounter Note Please call pt with results. Can not get on MyChart. Please advise. Susan Mireles LPN [facility] 04-30-2024 Telephone encounter Note Patient calls to check if provider has reviewed results yet. Notified provider hadn't got a chance yet and once provider reviewed and advised patient would be contacted. Asked patient if she had the number to support that was given to her and she said she didn't know. Offered to give patient the number again and she declined. Lori Chandler RN [facility] 04-29-2024 Telephone encounter Note Patient calling [...] call her with as yet. Please advise [facility] 04-24-2024 History of Presen t illness [...] PATIENT PRESENTS WITH AN IMPLANTABLE OR ATTACHED DISABILITY MANAGER: No RADIOLOGY DEPARTMENT: Bone Density PERIPHERAL IV DATA: Not applicable SIGNED BY: RT Kirstin(Sandy) April 24, 2024 9:29 AM documented in this encounter [facility] 04-24-2024 Note HNO ID: [id number] Author: CHARLENE PORTILLO RT(R) Service: ? Author [...] PATIENT PRESENTS WITH AN IMPLANTABLE OR ATTACHED DISABILITY MANAGER: No RADIOLOGY DEPARTMENT: Bone Density PERIPHERAL IV DATA: Not applicable SIGNED BY: RT Kirstin(R) April 24, 2024 9:29 AM [facility] 03-17-2024 Instructions Meredith Soto MD - 03/17/2024 10:11 AM EST We are going to repeat an echocardiogram in July Watch for symptoms documented in this encounter [facility] 03-17-2024 History of Presen t illness Narrative Images from the original note were not included. [facility] SECTION OF REGIONAL CARDIOLOGY Cardiology ([facility]) [address] [facility] [id number] OUTPATIENT VISIT DATE 03/17/2024 PRIMARY CARE PHYSICIAN: Nazario Abdul [address] [place] [id number] REFERRING PHYSICIAN: Nazario Abdul [address] [facility] [address] CHIEF COMPLAINT: Pericardial effusion HISTORY OF PRESENT ILLNESS: Ms. Dennis is a 84 year old woman with a history of hypertension and dyslipidemia who was referred for evaluation due to findings of small to moderate pericardial effusion on 2D echocardiogram. Patient was at [employer] a few months ago and passed out. She was walking to the front of the [employer]. She had no prodrome before she passed [...] Meredith Soto MD documented in this encounter [facility] 03-17-2024 Note HNO ID: [id number] Author: MEREDITH SOTO MD Service: ? Author Type: Physician Type: Progress Notes Filed: 03/17/2024 10:21 Note Text: [facility] SECTION OF REGIONAL CARDIOLOGY Cardiology ([facility]) [address] [facility] [id number] OUTPATIENT VISIT DATE 03/17/2024 PRIMARY CARE PHYSICIAN: Nazario Abdul [address] [place] [address] REFERRING PHYSICIAN: Nazario Abdul [address] [place] [id number] CHIEF COMPLAINT: Pericardial effusion HISTORY OF PRESENT ILLNESS: Ms. Dennis is a 84 year old woman with a history of hypertension and dyslipidemia who was referred for evaluation due to findings of small to moderate pericardial effusion on 2D echocardiogram. Patient was at [employer] a few months ago and passed out. She was walking to the front of the [employer]. She had no prodrome before she passed [...] was compared wi (more content not included)... [facility] 02-28-2024 Note HNO ID: [id number] Author: NAZARIO ABDUL MD Service: ? Author Type: Physician Type: Progress Notes Filed: 02/28/2024 09:27 Note Text: This note was created using Pixabilityter. Subjective Patient presents with: Medicare Wellness Exam Results Floridalma Dennis is a 84 year old female here with her daughter from [place] who is a retired RN, as well [...] recommended, which she (more content not included)... [facility] 02-28-2024 History of Presen t illness Narrative This note was created using NoteWriter. Subjective Patient presents with: Medicare Wellness Exam Results Floridalma Dennis is a 84 year old female here with her daughter from [place] who is a retired RN, as well [...] prevention plan provided documented in this encounter [facility] 02-28-2024 Instructions Nazario Abdul MD - [...] review all the medicines you take, even [id number] medicines. As you get older, the way [...] usual activities immediately. documented in this encounter [facility] 02-28-2024 Note HNO ID: [id number] Author: NAZARIO ABDUL MD Service: ? Author [...] kg/m? Vision Screening: Follows with optometry/ophthalmology Right: Left: Both: Assessment/Plan Medicare annual wellness visit, subsequent (Z00.00) - Counseled on healthy diet and regular exercise - Fall avoidance information provided - Personalized prevention plan provided [facility] 02-06-2024 Telephone encounter Note See other encounter. Manasa Jacob RN [facility] 02-06-2024 Miscellaneous Notes See other encounter. [...] Shanda Lemus RN documented in this encounter [facility] 2024 Telephone encounter Note Please see pcp note below any way to get patient a sooner appointment then 08/2024 [facility] 2024 Miscellaneous Notes Please see pcp [...] updated of PCP message below, agreeable to [facility], and states he will contact [...] MD 02/04/2024 8:59 AM EDT Back to [facility] 1) See messages. I thought patient cancelled this test which is ABNORMAL. 2) Fluid around the heart, etiology not known. Go to ER for recurrent symptoms of syncope, dizziness, dyspnea, chest pain, etc. 3) Consult cardiology MICHELLE. 4) Repeat echo in 2 weeks. Shanda Lemus RN documented in this encounter [facility] 2024 Telephone encounter Note Pts son [...] message was sent to PCP and Cardiology. [facility] 2024 Telephone encounter Note Pt scheduled for ECHO on 02-18-24 and Cardiology apt booked for 08-25-24. Please review. Susan Mireles LPN [facility] 2024 Telephone encounter Note Message from pcp was relayed to pt. Pt states understanding & was not certain she wanted to to have appt with cardiology. Stressed the importance of referral & pt agreed to be transferred. Brinda Garvin LPN [facility] 2024 Telephone encounter Note 2nd attempt made to contact patient with PCP message below. No answer. Message left. This nurse spoke with pt's son Nazanin, who is listed on pt's record to discuss information with. He has been updated of PCP message below, agreeable to [facility], and states he will contact patient and have her call PCP office for these messages/updates. Son states he will also assist pt in scheduling ECHO to be completed in 2 weeks. Shanda Lemus RN [facility] 02-04-2024 Telephone encounter Note Please see [...] from today as well. Shanda Lemus RN [facility] 02-04-2024 Telephone encounter Note Attempted to [...] echo in 2 weeks. Shanda Lemus RN [facility] 01-29-2024 Telephone encounter Note Noted. [facility] 01-29-2024 Miscellaneous Notes Noted. Pt calls [...] Cindy Ruth LPN documented in this encounter [facility] 01-29-2024 Telephone encounter Note Pt calls to report she does not want to do echocardiogram that is scheduled for 01/31/24. Pt reports she just does not feel like going through any testing. Pt feels she was dehydrated and that is why she passed out. Pt is requesting appt for test be cancelled. PSS cancelled appt as requested. Cindy Ruth LPN [facility] 01-21-2024 Note HNO ID: [id number] Author: NAZARIO ABDUL MD Service: ? Author Type: Physician Type: Progress Notes Filed: 01/21/2024 15:36 Note Text: This note was created using Meta[employer]riter. Subjective Floridalma Dennis is a 83 year old female here with her son. She was helping at [employer] Oct. 2, feeling normal, sitting down in [...] She still lived alone, was involved with [employer], and independent. Review of Systems Constitutional: Negative [...] - LIPID PANEL BASIC Nazario Abdul MD [facility] 01-21-2024 History of Presen t illness Narrative This note was created using MetaFLOriter. Subjective Floridalma Dennis is a 83 year old female here with her son. She was helping at [employer] Jan. , feeling normal, sitting down in [...] She still lived alone, was involved with [employer], and independent. Review of Systems Constitutional: Negative [...] Abdul MD This note was created using NoteWriter. Subjective Floridalma Dennis is a 83 year [...] Assessment and Plan documented in this encounter [facility] 01-21-2024 Note HNO ID: [id number] Author: NAZARIO ABDUL MD Service: ? Author Type: Physician Type: Progress Notes Filed: 01/21/2024 15:36 Note Text: This note was created using MetaFLOriter. Subjective Floridalma Dennis is a 83 year [...] 20.03 kg/m? Physical Exam Assessment and Plan [facility] 01-21-2024 Telephone encounter Note Pts son called in and requested to have the 220 pm appointment today with Dr Abdul. Let son know that when he brings Pt in that she needs to give consent for son and daughter to be able to receive medical information about Pt and make appointments. Son said mother had been to [facility] ER 2 weekends ago, passed out due [...] if necessary. If providers office could pull [facility] ER records from [facility] for provider that would be appreciated. [facility] 01-21-2024 Miscellaneous Notes Pts son called in and requested to have the 220 pm appointment today with Dr Abdul. Let son know that when he brings Pt in that she needs to give consent for son and daughter to be able to receive medical information about Pt and make appointments. Son said mother had been to [facility] ER 2 weekends ago, passed out due [...] if necessary. If providers office could pull [facility] ER records from [facility] for provider [...] call the office to set up a [facility] ER FU from 01-16-24. Jefferson Dennis called to give information regarding pt. He is not listed that we are able to give any information out. Information taken: Pt passed out at [employer] 01/16/24 and was taken to [facility] ER. Vital signs were good, but pt was dehydrated and was given fluids. Pt to schedule a R FU. Family concern: pt is not eating or drinking properly, forgetful. Per son people from pt's [employer] also concerned pt is starting to have cognitive issues that becoming noticeable. Son hoping to get this evaluated for pt's health. When pt calls back ask if we can have permission to speak with Jefferson Connors and any one else. Susan Mireles LPN documented in this encounter [facility] 01-21-2024 Telephone encounter Note jefferson Connors calling back stating concern for mother. Patient is getting thinner and not eating much not drinking water. Patient is getting lightheaded. Advised patient's son that we can get an appointment for ER follow up today if she is willing to come in to see . Jefferson Connors will be calling back. Cindy Molina LPN [facility] 01-17-2024 Telephone encounter Note Left a message for pt to call the office to set up a [facility] ER FU from 01-16-24. Son Nazanin Dennis called to give information regarding pt. He is not listed that we are able to give any information out. Information taken: Pt passed out at [employer] 01/16/24 and was taken to [facility] ER. Vital signs were good, but pt was dehydrated and was given fluids. Pt to schedule a R FU. Family concern: pt is not eating or drinking properly, forgetful. Per son people from pt's [employer] also concerned pt is starting to have cognitive issues that becoming noticeable. Son hoping to get this evaluated for pt's health. When pt calls back ask if we can have permission to speak with Jefferson Connors and any one else. Susan Mireles LPN [facility] 01-09-2024 Telephone encounter Note Prescription Refill [...] Jerri Schaffer January 09, 2024 12:26 PM [facility] 01-09-2024 Miscellaneous Notes Prescription Refill Information [...] 2024 12:26 PM documented in this encounter [facility] 10-02-2023 Telephone encounter Note Patient has [...] food. Please review and advise. Gwendolyn Masterson [facility] 10-02-2023 Miscellaneous Notes Patient has been [...] With food. Please review and advise. Gwendolyn aMsterson documented in this encounter [facility] 06-14-2024 Telephone encounter Note I did offer this to pts daughter. She declined. [facility] 09-28-2023 Miscellaneous Notes I did offer [...] Cindy Watson LPN documented in this encounter [facility] 09-27-2023 Telephone encounter Note I have not seen her few years. Offer sooner 40 minute appointment. [facility] 09-27-2023 Telephone encounter Note Called daughter [...] reports pt's son is POA for finances. [facility] 09-27-2023 Telephone encounter Note Patient's daughter [...] concerns and make aware. Please review Cindy aWtson LPN [facility] 08-02-2023 Miscellaneous Notes Detailed VM left [...] you. Susan Schaffer. documented in this encounter [facility] 06-06-2023 History of Presen t illness Narrative POPULATION HEALTH NAVIGATION OUTREACH Action/GREGI RP Patient Outreach: Spoke with patient to [...] 2023 11:19 AM documented in this encounter [facility] 05-30-2023 History of Presen t illness Narrative POPULATION HEALTH NAVIGATION OUTREACH Action/ Patient Outreach: Left voicemail for patient to [...] 2023 10:07 AM documented in this encounter [facility] 05-25-2023 Miscellaneous Notes Phoned patient and left detailed message with results, notes below from Wanda Beaver RING ATTACHER on voicemail. 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 Continue with physical therapy as recommended. Wanda Beaver APRN.CANINE SERVICE TEACHER documented in this encounter [facility] 05-23-2023 History of Presen t illness [...] PATIENT PRESENTS WITH AN IMPLANTABLE OR ATTACHED DISABILITY MANAGER: No RADIOLOGY DEPARTMENT: General X-ray: Exam(s) Completed: Spine X-Ray(s): Cervical AP / LAT / OBL PERIPHERAL IV DATA: Not applicable SIGNED BY: RT Ginna(R) May 23, 2023 12:59 PM documented in this encounter [facility] 05-23-2023 Instructions Wanda Beaver APRN.MARGARITA - 05/23/2023 12:50 PM EST Start Meloxicam, take once a day with breakfast. Can also try topical medications such as Icy Hot, Biofreeze or Lidocaine. Non-medication measures: Ice for localized pain/tenderness and/or heat. Stretching (see handout) and massage may also be beneficial. documented in this encounter [facility] 05-23-2023 History of Presen t illness [...] Patient agreeable to treatment plan. Wanda Beaver APRN.CANINE SERVICE TEACHER documented in this encounter [facility] 03-14-2023 History of Presen t illness Narrative CC: Patient presents with: Urgent Care Follow up: [facility] urgent care on Sunday 03/11 HPI Floridalma [...] tenderness or frontal sinus tenderness. Mouth/Throat: Lips: Shattuck. Mouth: Mucous membranes are moist. Pharynx: Oropharynx [...] Wanda Carpenter APRN.CNP documented in this encounter [facility] 09-12-2022 History of Presen t illness [...] 2022 8:28 AM documented in this encounter [facility] 08-15-2022 Miscellaneous Notes August 16, 2022 PID: [id number] Floridalma Dennis [address] [place] [address] Dear Ms. Dennis, We are pleased to [...] report will be kept on file at [facility] as part of your permanent medical record and are available for your continuing care. Thank you for allowing us to help in meeting your health care needs. Sincerely, Dr. Lemon Interpreting Radiologist [facility] (Normal over 40) documented in this encounter [facility] 02-24-2022 Tolu Carpenter APRN.CNP - 02/24/2022 2:11 PM EST [...] review all the medicines you take, even [id number] medicines. As you get older, the way [...] certain medical conditions. documented in this encounter [facility] 02-24-2022 History of Presen t illness Narrative Floridalma Dennis is a 82 year old female here for a Medicare Subsequent Annual Wellness Visit Health Risk Assessment In general, health is: Excellent Concerns with tiredness, difficulties with sexual function, balance, teeth/dentures: Not at all [place] anxious, stressed, angry, irritable, lonely, isolated, or [...] - General (Internal Medicine) Gemma Macedo MD (TRANS ROUTER) Outside specialists seen: Dr. Ozzie Bazzi (physical optics teacher) Medical/Family history review Reviewed and updated problem [...] Wanda Carpenter APRN.CNP documented in this encounter [facility] 08-02-2021 Miscellaneous Notes August 02, 2021 PID: [id number] Floridalma Dennis [address] [place] [address] Dear Ms. Dennis, We are pleased to [...] report will be kept on file at [facility] as part of your permanent medical record and are available for your continuing care. Thank you for allowing us to help in meeting your health care needs. Sincerely, Dr. Gaston Interpreting Radiologist [facility] (Normal over 40) documented in this encounter [facility] 08-02-2021 Procedure note Radiology Service Progress [...] 2021 8:58 AM documented in this encounter [facility] 07-04-2021 History of Presen t illness [...] 2021 7:35 PM documented in this encounter [facility] 11-28-2016 History of Past i llness Narrative Problem Noted Date Resolved Date Colitis 11/28/2016 01/05/2021 Hypercalcemia 12/30/2009 01/10/2016 Special screening for malignant neoplasms, colon 12/12/2005 11/20/2006 documented as of this encounter (statuses as of 07/04/2021) [facility] History of Past illness Narrative* Problem Noted Date Resolved Date Colitis 11/28/2016 01/05/2021 Hypercalcemia 12/30/2009 01/10/2016 Special screening for malignant neoplasms, colon 12/12/2005 11/20/2006 documented as of this encounter (statuses as of 08/03/2021) [facility] History of Past illness Narrative* Problem Noted Date Resolved Date Colitis 11/28/2016 01/05/2021 Hypercalcemia 12/30/2009 01/10/2016 Special screening for malignant neoplasms, colon 12/12/2005 11/20/2006 documented as of this encounter (statuses as of 08/04/2021) [facility] History of Past illness Narrative* Problem Noted Date Resolved Date Colitis 11/28/2016 01/05/2021 Hypercalcemia 12/30/2009 01/10/2016 Special screening for malignant neoplasms, colon 12/12/2005 11/20/2006 documented as of this encounter (statuses as of 02/24/2022) [address]-2017 History of Past illness Narrative* Problem Noted Date Resolved Date Colitis 11/28/2016 01/05/2021 Hypercalcemia 12/30/2009 01/10/2016 Special screening for malignant neoplasms, colon 12/12/2005 11/20/2006 documented as of this encounter (statuses as of 08/17/2022) [address]15[address]2017 History of Past illness Narrative* Problem Noted Date Resolved Date Colitis 11/28/2016 01/05/2021 Hypercalcemia 12/30/2009 01/10/2016 Special screening for malignant neoplasms, colon 12/12/2005 11/20/2006 documented as of this encounter (statuses as of 09/12/2022) [address]-2017 History of Past illness Narrative* Problem Noted Date Diagnosed Date Resolved Date Colitis 11/28/2016 01/05/2021 Hypercalcemia 12/30/2009 01/10/2016 Special screening for malign ant neoplasms, colon 12/12/2005 11/20/2006 documented as of this encounter (statuses as of 02/18/2023) [address]2017 History of Past illness Narrative* Problem Noted Date Diagnosed Date Resolved Date Colitis 11/28/2016 01/05/2021 Hypercalcemia 12/30/2009 01/10/2016 Special screening for malign ant neoplasms, colon 12/12/2005 11/20/2006 documented as of this encounter (statuses as of 03/14/2023) [address]2017 History of Past illness Narrative* Problem Noted Date Diagnosed Date Resolved Date Colitis 11/28/2016 01/05/2021 Hypercalcemia 12/30/2009 01/10/2016 Special screening for malign ant neoplasms, colon 12/12/2005 11/20/2006 documented as of this encounter (statuses as of 05/24/2023) [address]2017 History of Past illness Narrative* Problem Noted Date Diagnosed Date Resolved Date Colitis 11/28/2016 01/05/2021 Hypercalcemia 12/30/2009 01/10/2016 Special screening for malign ant neoplasms, colon 12/12/2005 11/20/2006 documented as of this encounter (statuses as of 05/25/2023) [address]2017 History of Past illness Narrative* Problem Noted Date Diagnosed Date Resolved Date Colitis 11/28/2016 01/05/2021 Hypercalcemia 12/30/2009 01/10/2016 Special screening for malign ant neoplasms, colon 12/12/2005 11/20/2006 documented as of this encounter (statuses as of 05/30/2023) [address]2017 History of Past illness Narrative* Problem Noted Date Diagnosed Date Resolved Date Colitis 11/28/2016 01/05/2021 Hypercalcemia 12/30/2009 01/10/2016 Special screening for malign ant neoplasms, colon 12/12/2005 11/20/2006 documented as of this encounter (statuses as of 06/06/2023) [place] [address]-15-2017 History of Past illness Narrative* Problem Noted Date Diagnosed Date Resolved Date Colitis 11/28/2016 01/05/2021 Hypercalcemia 12/30/2009 01/10/2016 Special screening for malign ant neoplasms, colon 12/12/2005 11/20/2006 documented as of this encounter (statuses as of 08/02/2023) [facility] note* Diagnosis Encounter for gynecological examination (general) (routine) without abnormal findings Encounter for screening mammogram for breast cancer [facility] Diagnosis Medicare annual wellness visit, subsequent- Primary Routine general medical examination at a health care facility [facility] Diagnosis Encounter for screening mammogram for malignant neoplasm of breast Other screening [facility] Diagnosis Viral URI- Primary Acute upper respiratory infections of unspecified site [facility]* Diagnosis Cervicogenic headache- Primary Headache Neck pain Cervicalgia [facility] Diagnosis Neck pain Cervicalgia [facility] Diagnosis Syncope, unspecified syncope type- Primary Essential hypertension, benign Cognitive change Other signs and symptoms involving cognition Hyperlipidemia LDL goal <130 Other and unspecified hyperlipidemia [facility]* Diagnosis Medicare annual wellness visit, subsequent- Primary Routine general medical examination at a [facility] Encounter for screening examination for other mental health and behavioral disorders Pericardial effusion Unspecified disease of pericardium Essential hypertension, benign Cognitive change Other signs and symptoms involving cognition Depressive disorder Depressive disorder, not elsewhere classified Hyperlipidemia LDL goal <130 Other and unspecified hyperlipidemia Osteopenia, senile Disorder of bone and cartilage, unspecified [facility] Diagnosis Pericardial effusion Unspecified disease of pericardium [facility]* Diagnosis Osteopenia, senile Disorder of bone and cartilage, unspecified [facility] Diagnosis Injury of left ankle, initial encounter- Primary Foot injury, left, initial encounter Injury of left ankle, initial encounter Foot injury, left, initial encounter Injury of left ankle, initial encounter [facility] Diagnosis Injury of left ankle, initial encounter Foot injury, left, initial encounter [facility] Diagnosis Injury of left ankle, initial encounter [facility] Diagnosis Traumatic closed nondisplaced fracture of distal fibula, left, initial encounter- Primary [facility] Diagnosis Other closed fracture of distal end of left fibula with routine healing, subsequent encounter- Primary [facility]* Diagnosis Pericardial effusion- Primary Unspecified disease of pericardium Essential hypertension, benign Osteopenia, senile Disorder of bone and cartilage, unspecified [facility] Diagnosis Traumatic closed nondisplaced fracture of distal fibula, left, initial encounter- Primary [facility] Diagnosis Other closed fracture of distal end of left fibula with routine healing, subsequent encounter [facility] Diagnosis Traumatic closed nondisplaced fracture of distal fibula, left, initial encounter- Primary [facility] Diagnosis Traumatic closed nondisplaced fracture of distal fibula, left, initial encounter- Primary [facility] Diagnosis Traumatic closed nondisplaced fracture of distal fibula, left, initial encounter [facility] Diagnosis Pericardial effusion (HCC)- Primary Unspecified disease of pericardium Essential hypertension, benign Hyperlipidemia LDL goal <130 Other and unspecified hyperlipidemia [facility]* Diagnosis Essential hypertension, benign- Primary Cognitive change Other signs and symptoms involving cognition Osteopenia, senile Disorder of bone and cartilage, unspecified [facility] noteNo assessment information availableWMartin Memorial Hospital Work Phone: Hospital Discharge instructionsAdditional Instructions Evaluation itchy rash not consistent with poison haily. Concerned more of insect bites. Avoid scratching. Ice to help with comfort. May use Benadryl 25 mg every 6 hours however may cause sedation. Use topical steroids to help with symptoms. This will improve over time.[facility] Work Phone: Reason for referral (narrative)* Diagnostic Procedure Only (Routine) - Closed Specialty Diagnoses / Procedures Referred By Kaylie coronado Referred To Contact [facility] Diagnoses Encounter for gynecological examination (general) (routine) without abnormal findings Encounter for screening mammogram for breast cancer Procedures GONZALO SCREENING SCREENING MAMMOGRAPHY BI 2-VIEW BREAST INC Gemma Raphael MD [address] [place] [address] [facility] [address] [address] Referral ID Status Reason Start Date Expiration Date V isits Requested Visits Authorized [id number] Closed Auto-Generate d Referral 02/01/2021 03/03/2022 1 1 [facility] for referral (narrative)* Diagnostic Procedure Only (Routine) - Closed Specialty Diagnoses / Procedures Referred By Kaylie coronado Referred To Contact [facility] Diagnoses Encounter for screening mammogram for malignant neoplasm of breast Procedures GONZALO SCREENING SCREENING MAMMOGRAPHY BI 2-VIEW BREAST INC Gemma Raphael MD [address] [place] [place] [address] [facility] [address] [address] Referral ID Status Reason Start Date Expiration Date V isits Requested Visits Authorized [id number] Closed Auto-Generate d Referral 02/06/2022 03/08/2023 1 1 [facility] for referral (narrative)* Diagnostic Procedure Only (Routine) - Closed Specialty Diagnoses / Procedures Referred By Contac t Referred To Contact [facility] Diagnoses Neck pain Procedures XR CERV OTHER 4V AP/LAT/OBL RADEX SPINE CERVICAL 4 OR 5 VIEWS Wanda Beaver, TAP OUT OPERATOR.CANINE SERVICE TEACHER [address] [place] [address] [place] [address] Referral ID Status Reason Start Date Expiration Date V isits Requested Visits Authorized [id number] Closed Auto-Generate d Referral 05/23/2023 06/21/2024 1 1 [facility] for referral (narrative)* Outpatient Procedure (Routine) - Authorized Specialty Diagnoses / Procedures Referred By Contac t Referred To Contact [facility] Diagnoses Syncope, unspecified syncope type Procedures ECHO ECHO TTHRC R-T 2D W/WOM-MODE COMPL SPEC&COLR D Nazario Abdul MD [address] [place] [address] [facility] [address] [place] [address] Referral ID Status Reason Start Date Expiration Date Visits Requested Visits Authorized [id number] Authorized Auto-Generat ed Referral 01/21/2024 01/20/2025 1 1 [facility] for referral (narrative)* Diagnostic Procedure Only (Routine) - Authorized Specialty Diagnoses / Procedures Referred By Contac t Referred To Contact [facility] Diagnoses Osteopenia, senile Procedures DXA-AXIAL SKELETON DXA BONE DENSITY STUDY 1/> SITES AXIAL Nazario Caba MD [address] [place] [address] [place] [address] Referral ID Status Reason Start Date Expiration Date Visits Requested Visits Authorized [id number] Authorized Auto-Generat ed Referral 03/29/2025 1 1 [facility] for referral (narrative)* Outpatient Procedure (Routine) - Authorized Specialty Diagnoses / Procedures Referred By Contac t Referred To [facility] Diagnoses Pericardial effusion Procedures ECHO ECHO TTHRC R-T 2D W/WOM-MODE COMPL SPEC&COLR D Meredith Soto MD [address] [place] [address] [facility] [address] [place] [address] Referral ID Status Reason Start Date Expiration Date Visits Requested Visits Authorized [id number] Authorized Auto-Generat ed Referral 07/21/2024 03/17/2025 1 1 [facility] for referral (narrative)* Diagnostic Procedure Only (Urgent) - Closed Specialty Diagnoses / Procedures Referred By Contac t Referred To Contact [facility] Diagnoses Foot injury, left, initial encounter Procedures XR FOOT GENERAL 3V AP/LAT/OBL LEFT RADEX FOOT COMPLETE MINIMUM 3 VIEWS Roberta Cedeno APRN.CANINE SERVICE TEACHER [address] [place] [address] [place] [address] Referral ID Status Reason Start Date Expiration Date V isits Requested Visits Authorized [id number] Closed Auto-Generate d Referral 05/15/2024 06/14/2025 1 1 * Diagnostic Procedure Only (Urgent) - Closed Specialty Diagnoses / Procedures Referred By Contac t Referred To Contact [facility] Diagnoses Injury of left ankle, initial encounter Procedures XR ANKLE GENERAL 3V AP/LAT/OBL LEFT RADEX ANKLE COMPLETE MINIMUM 3 VIEWS Roberta Cedeno APRN.CANINE SERVICE TEACHER [address] [place] [address] [place] [address] Referral ID Status Reason Start Date Expiration Date V isits Requested Visits Authorized [id number] Closed Auto-Generate d Referral 05/15/2024 06/14/2025 1 1 [facility] for referral (narrative)* Diagnostic Procedure Only (Urgent) - Closed Specialty Diagnoses / Procedures Referred By Contac t Referred To Contact [facility] Diagnoses Injury of left ankle, initial encounter Procedures XR TIBIA FIBULA 2V AP/LAT LEFT RADIOLOGIC EXAMINATION TIBIA & FIBULA 2 VIEWS Roberta Cedeno, EULA.CANINE SERVICE TEACHER [address] [place] [address] [place] [address] Referral ID Status Reason Start Date Expiration Date V isits Requested Visits Authorized [id number] Closed Auto-Generate d Referral 05/15/2024 06/14/2025 1 1 [facility] for referral (narrative)No reason for referral information availableWMartin Memorial Hospital Work Phone: Reason for visit Narrative* Diagnostic Procedure Only (Routine) - Closed Specialty Diagnoses / Procedures Referred By Contac t Referred To Contact [facility] Diagnoses Encounter for screening mammogram for malignant neoplasm of breast Procedures GONZALO SCREENING SCREENING MAMMOGRAPHY BI 2-VIEW BREAST INC CAD Gemma Macedo MD [address] [place] [address] [facility] [address] [place] [address] Referral ID Status Reason Start Date Expiration Date V isits Requested Visits Authorized [id number] Closed Auto-Generate d Referral 02/06/2022 03/08/2023 1 1 [facility] for visit Narrative* Diagnostic Procedure Only (Routine) - Closed Specialty Diagnoses / Procedures Referred By Contac t Referred To Contact [facility] Diagnoses Neck pain Procedures XR CERV OTHER 4V AP/LAT/OBL RADEX SPINE CERVICAL 4 OR 5 VIEWS Wanda Beaver TAP OUT OPERATOR.CANINE SERVICE TEACHER [address] [place] [address] [place] [address] Referral ID Status Reason Start Date Expiration Date V isits Requested Visits Authorized [id number] Closed Auto-Generate d Referral 05/23/2023 06/21/2024 1 1 [facility] for visit Narrative* Diagnostic Procedure Only (Routine) - Closed Specialty Diagnoses / Procedures Referred By Contac t Referred To Contact [facility] Diagnoses Osteopenia, senile Procedures DXA-AXIAL SKELETON DXA BONE DENSITY STUDY / SITES AXIAL Nazario Caba MD [address] [place] [address] [place] [address] Referral ID Status Reason Start Date Expiration Date Visits Re quested Visits Authorized [id number] Closed 04/18/2024 04/15/2025 1 1 [facility] for visit Narrative* Diagnostic Procedure Only (Urgent) - Closed Specialty Diagnoses / Procedures Referred By Contac t Referred To Contact [facility] Diagnoses Foot injury, left, initial encounter Procedures XR FOOT GENERAL 3V AP/LAT/OBL LEFT RADEX FOOT COMPLETE MINIMUM 3 VIEWS Roberta Cedeno, TAP OUT OPERATOR.CANINE SERVICE TEACHER [address] [place] [address] [place] [address] Referral ID Status Reason Start Date Expiration Date V isits Requested Visits Authorized [id number] Closed Auto-Generate d Referral 05/15/2024 06/14/2025 1 1 [facility] for visit Narrative* Diagnostic Procedure Only (Urgent) - Closed Specialty Diagnoses / Procedures Referred By Contac t Referred To Contact [facility] Diagnoses Injury of left ankle, initial encounter Procedures XR TIBIA FIBULA 2V AP/LAT LEFT RADIOLOGIC EXAMINATION TIBIA & FIBULA 2 VIEWS Roberta Cedeno, TAP OUT OPERATOR.CANINE SERVICE TEACHER [address] [place] [address] [place] [address] Referral ID Status Reason Start Date Expiration Date V isits Requested Visits Authorized [id number] Closed Auto-Generate d Referral 05/15/2024 06/14/2025 1 1 [facility] for visit Narrative* Diagnostic Procedure Only (Routine) - Closed Specialty Diagnoses / Procedures Referred By Contac t Referred To Contact [facility] Diagnoses Other closed fracture of distal end of left fibula with routine healing, subsequent encounter Procedures XR ANKLE GENERAL 3V AP/LAT/OBL LEFT RADEX ANKLE COMPLETE MINIMUM 3 VIEWS Teddy Mcclelland V, DO [address] [place] [address] Phone: tel: fax: [place] [address] Referral ID Status Reason Start Date Expiration Date V isits Requested Visits Authorized [id number] Closed Auto-Generate d Referral 05/28/2024 06/27/2025 1 1 [facility] Diagnostic Procedure Only (Routine) - Closed Specialty Diagnoses / Procedures Referred By Contac t Referred To Contact [facility] Diagnoses Traumatic closed nondisplaced fracture of distal fibula, left, initial encounter Procedures XR ANKLE GENERAL 3V AP/LAT/OBL LEFT RADEX ANKLE COMPLETE MINIMUM 3 VIEWS Teddy Mcclelland V, DO [address] [place] [address] Phone: tel: fax: [place] [address] Referral ID Status Reason Start Date Expiration Date V isits Requested Visits Authorized [id number] Closed Auto-Generate d Referral 06/23/2024 07/23/2025 1 1 [facility] Reason for Referral Specialty Diagnoses / Procedures Referred By Contac t Referred To Contact [facility] Diagnoses Neck pain Procedures CONSULT TO PHYSICAL THERAPY PHYSICAL THERAPY EVALUATION HIGH COMPLEX 45 MINS Wanda Beaver, TAP OUT OPERATOR.CANINE SERVICE TEACHER [address] [place] [address] [facility] [place] [address] [place] [address] Referral ID Status Reason Start Date Expiration Date Visits Requested Visits Authorized [id number] Authorized PCP Requested Referral Auto-Generate d Referral 05/23/2023 05/22/2024 99 99 Specialty Diagnoses / Procedures Referred By Contac t Referred To Contact [facility] Diagnoses Neck pain Procedures XR CERV OTHER 4V AP/LAT/OBL RADEX SPINE CERVICAL 4 OR 5 VIEWS Wanda Beaver, TAP OUT OPERATOR.CANINE SERVICE TEACHER [address] [place] [address] [place] [address] Referral ID Status Reason Start Date Expiration Date V isits Requested Visits Authorized [id number] Closed Auto-Generate d Referral 05/23/2023 06/21/2024 1 1 Specialty Diagnoses / Procedures Referred By Contac t Referred To Contact Orthopedics Diagnoses Injury of left ankle, initial encounter Procedures CONSULT PANEL TO ORTHOPAEDICS OFFICE/OUTPATIENT NEW HIGH MDM 60 MINUTES Roberta Cedeno APRN.CANINE SERVICE TEACHER [address] [place] [address] Referral ID Status Reason Start Date Expiration Date Visits Requested Visits Authorized [id number] Authorized PCP Requested Referral 05/15/2024 05/15/2025 1 1 Specialty Diagnoses / Procedures Referred By Contac t Referred To Contact [facility] Diagnoses Injury of left ankle, initial encounter Procedures XR ANKLE GENERAL 3V AP/LAT/OBL LEFT RADEX ANKLE COMPLETE MINIMUM 3 VIEWS Roberta Cedeno APRN.CANINE SERVICE TEACHER [address] [place] [address] [place] [address] Referral ID Status Reason Start Date Expiration Date Visits Requested Visits Authorized [id number] New Request Auto-Generat ed Referral 05/15/2024 06/14/2025 1 1 Specialty Diagnoses / Procedures Referred By Contac t Referred To Contact [facility] Diagnoses Injury of left ankle, initial encounter Procedures XR TIBIA FIBULA 2V AP/LAT LEFT RADIOLOGIC EXAMINATION TIBIA & FIBULA 2 VIEWS Roberta Cedeno APRN.CANINE SERVICE TEACHER [address] [place] [address] [place] [address] Referral ID Status Reason Start Date Expiration Date V isits Requested Visits Authorized [id number] Closed Auto-Generate d Referral 05/15/2024 06/14/2025 1 1 Specialty Diagnoses / Procedures Referred By Contac t Referred To Contact XR IMAGING Diagnoses Foot injury, left, initial encounter Procedures XR FOOT GENERAL 3V AP/LAT/OBL LEFT RADEX FOOT COMPLETE MINIMUM 3 VIEWS Roberta Cedeno APRN.CANINE SERVICE TEACHER [address] [place] [address] [place] [address] Referral ID Status Reason Start Date Expiration Date V isits Requested Visits Authorized [id number] Closed Auto-Generate d Referral 05/15/2024 06/14/2025 1 1 Referral ID Status Reason Start Date Expiration Date V isits Requested Visits Authorized [id number] Closed Auto-Generate d Referral 05/15/2024 06/14/2025 1 1 Summary Purpose Family History No Family History Records FoundNo Family History Records Found Advance Directives Advance Directive Response Recorded Date/ Time Do you have a Healthcare Power of Attorney Lawyer? No November 01, 2024 7:33pm Chief Complaint and Reason for Visit Chief Complaint Admit Date POSION HAILY November 01, 2024 7:27 pm Additional Source Comments Source Comments (unrecognize d section and content) In the event this informatio n is protected by the Federal Confidentiality of Alcohol and Drug Abuse Patient Records regulations: The Federal rules restrict any use of the information to criminally investigate or prosecute any alcohol or drug abuse patient.[facility] HospitalIn the event this information is protected by the Federal Confidentiality of Alcohol and Drug Abuse Patient Records regulations: The Federal rules restrict any use of the information to criminally investigate or prosecute any alcohol or drug abuse patient.[facility] HospitalIn the event this information is protected by the Federal Confidentiality of Alcohol and Drug Abuse Patient Records regulations: The Federal rules restrict any use of the information to criminally investigate or prosecute any alcohol or drug abuse patient.[facility] HospitalIn the event this information is protected by the Federal Confidentiality of Alcohol and Drug Abuse Patient Records regulations: The Federal rules restrict any use of the information to criminally investigate or prosecute any alcohol or drug abuse patient.[facility] HospitalIn the event this information is protected by the Federal Confidentiality of Alcohol and Drug Abuse Patient Records regulations: The Federal rules restrict any use of the information to criminally investigate or prosecute any alcohol or drug abuse patient.[facility] HospitalIn the event this information is protected by the Federal Confidentiality of Alcohol and Drug Abuse Patient Records regulations: The Federal rules restrict any use of the information to criminally investigate or prosecute any alcohol or drug abuse patient.[facility] HospitalIn the event this information is protected by the Federal Confidentiality of Alcohol and Drug Abuse Patient Records regulations: The Federal rules restrict any use of the information to criminally investigate or prosecute any alcohol or drug abuse patient.[facility] HospitalIn the event this information is protected by the Federal Confidentiality of Alcohol and Drug Abuse Patient Records regulations: The Federal rules restrict any use of the information to criminally investigate or prosecute any alcohol or drug abuse patient.[facility] HospitalIn the event this information is protected by the Federal Confidentiality of Alcohol and Drug Abuse Patient Records regulations: The Federal rules restrict any use of the information to criminally investigate or prosecute any alcohol or drug abuse patient.[facility] HospitalIn the event this information is protected by the Federal Confidentiality of Alcohol and Drug Abuse Patient Records regulations: The Federal rules restrict any use of the information to criminally investigate or prosecute any alcohol or drug abuse patient.[facility] HospitalIn the event this information is protected by the Federal Confidentiality of Alcohol and Drug Abuse Patient Records regulations: The Federal rules restrict any use of the information to criminally investigate or prosecute any alcohol or drug abuse patient.[facility] HospitalIn the event this information is protected by the Federal Confidentiality of Alcohol and Drug Abuse Patient Records regulations: The Federal rules restrict any use of the information to criminally investigate or prosecute any alcohol or drug abuse patient.[facility] HospitalIn the event this information is protected by the Federal Confidentiality of Alcohol and Drug Abuse Patient Records regulations: The Federal rules restrict any use of the information to criminally investigate or prosecute any alcohol or drug abuse patient.[facility] HospitalIn the event this information is protected by the Federal Confidentiality of Alcohol and Drug Abuse Patient Records regulations: The Federal rules restrict any use of the information to criminally investigate or prosecute any alcohol or drug abuse patient.[facility] HospitalIn the event this information is protected by the Federal Confidentiality of Alcohol and Drug Abuse Patient Records regulations: The Federal rules restrict any use of the information to criminally investigate or prosecute any alcohol or drug abuse patient.[facility] HospitalIn the event this information is protected by the Federal Confidentiality of Alcohol and Drug Abuse Patient Records regulations: The Federal rules restrict any use of the information to criminally investigate or prosecute any alcohol or drug abuse patient.[facility] HospitalIn the event this information is protected by the Federal Confidentiality of Alcohol and Drug Abuse Patient Records regulations: The Federal rules restrict any use of the information to criminally investigate or prosecute any alcohol or drug abuse patient.[facility] HospitalIn the event this information is protected by the Federal Confidentiality of Alcohol and Drug Abuse Patient Records regulations: The Federal rules restrict any use of the information to criminally investigate or prosecute any alcohol or drug abuse patient.[facility] HospitalIn the event this information is protected by the Federal Confidentiality of Alcohol and Drug Abuse Patient Records regulations: The Federal rules restrict any use of the information to criminally investigate or prosecute any alcohol or drug abuse patient.[facility] HospitalIn the event this information is protected by the Federal Confidentiality of Alcohol and Drug Abuse Patient Records regulations: The Federal rules restrict any use of the information to criminally investigate or prosecute any alcohol or drug abuse patient.[facility] HospitalIn the event this information is protected by the Federal Confidentiality of Alcohol and Drug Abuse Patient Records regulations: The Federal rules restrict any use of the information to criminally investigate or prosecute any alcohol or drug abuse patient.[facility] HospitalIn the event this information is protected by the Federal Confidentiality of Alcohol and Drug Abuse Patient Records regulations: The Federal rules restrict any use of the information to criminally investigate or prosecute any alcohol or drug abuse patient.[facility] HospitalIn the event this information is protected by the Federal Confidentiality of Alcohol and Drug Abuse Patient Records regulations: The Federal rules restrict any use of the information to criminally investigate or prosecute any alcohol or drug abuse patient.[facility] HospitalIn the event this information is protected by the Federal Confidentiality of Alcohol and Drug Abuse Patient Records regulations: The Federal rules restrict any use of the information to criminally investigate or prosecute any alcohol or drug abuse patient.[facility] HospitalIn the event this information is protected by the Federal Confidentiality of Alcohol and Drug Abuse Patient Records regulations: The Federal rules restrict any use of the information to criminally investigate or prosecute any alcohol or drug abuse patient.[facility] HospitalIn the event this information is protected by the Federal Confidentiality of Alcohol and Drug Abuse Patient Records regulations: The Federal rules restrict any use of the information to criminally investigate or prosecute any alcohol or drug abuse patient.[facility] HospitalIn the event this information is protected by the Federal Confidentiality of Alcohol and Drug Abuse Patient Records regulations: The Federal rules restrict any use of the information to criminally investigate or prosecute any alcohol or drug abuse patient.[facility] HospitalIn the event this information is protected by the Federal Confidentiality of Alcohol and Drug Abuse Patient Records regulations: The Federal rules restrict any use of the information to criminally investigate or prosecute any alcohol or drug abuse patient.[facility] HospitalIn the event this information is protected by the Federal Confidentiality of Alcohol and Drug Abuse Patient Records regulations: The Federal rules restrict any use of the information to criminally investigate or prosecute any alcohol or drug abuse patient.[facility] HospitalIn the event this information is protected by the Federal Confidentiality of Alcohol and Drug Abuse Patient Records regulations: The Federal rules restrict any use of the information to criminally investigate or prosecute any alcohol or drug abuse patient.[facility] HospitalIn the event this information is protected by the Federal Confidentiality of Alcohol and Drug Abuse Patient Records regulations: The Federal rules restrict any use of the information to criminally investigate or prosecute any alcohol or drug abuse patient.[facility] HospitalIn the event this information is protected by the Federal Confidentiality of Alcohol and Drug Abuse Patient Records regulations: The Federal rules restrict any use of the information to criminally investigate or prosecute any alcohol or drug abuse patient.[facility] HospitalIn the event this information is protected by the Federal Confidentiality of Alcohol and Drug Abuse Patient Records regulations: The Federal rules restrict any use of the information to criminally investigate or prosecute any alcohol or drug abuse patient.[facility] HospitalIn the event this information is protected by the Federal Confidentiality of Alcohol and Drug Abuse Patient Records regulations: The Federal rules restrict any use of the information to criminally investigate or prosecute any alcohol or drug abuse patient.[facility] HospitalIn the event this information is protected by the Federal Confidentiality of Alcohol and Drug Abuse Patient Records regulations: The Federal rules restrict any use of the information to criminally investigate or prosecute any alcohol or drug abuse patient.[facility] HospitalIn the event this information is protected by the Federal Confidentiality of Alcohol and Drug Abuse Patient Records regulations: The Federal rules restrict any use of the information to criminally investigate or prosecute any alcohol or drug abuse patient.[facility] HospitalIn the event this information is protected by the Federal Confidentiality of Alcohol and Drug Abuse Patient Records regulations: The Federal rules restrict any use of the information to criminally investigate or prosecute any alcohol or drug abuse patient.[facility] HospitalIn the event this information is protected by the Federal Confidentiality of Alcohol and Drug Abuse Patient Records regulations: The Federal rules restrict any use of the information to criminally investigate or prosecute any alcohol or drug abuse patient.[facility] HospitalIn the event this information is protected by the Federal Confidentiality of Alcohol and Drug Abuse Patient Records regulations: The Federal rules restrict any use of the information to criminally investigate or prosecute any alcohol or drug abuse patient.[facility] HospitalIn the event this information is protected by the Federal Confidentiality of Alcohol and Drug Abuse Patient Records regulations: The Federal rules restrict any use of the information to criminally investigate or prosecute any alcohol or drug abuse patient.[facility] HospitalIn the event this information is protected by the Federal Confidentiality of Alcohol and Drug Abuse Patient Records regulations: The Federal rules restrict any use of the information to criminally investigate or prosecute any alcohol or drug abuse patient.[facility] HospitalIn the event this information is protected by the Federal Confidentiality of Alcohol and Drug Abuse Patient Records regulations: The Federal rules restrict any use of the information to criminally investigate or prosecute any alcohol or drug abuse patient.[facility] Care Teams (unrecognized sec tion and content) Press Assistant Relationship Specialty Start Date End Date Nazario Abdul MD [address] [place] [address] PCP - General Internal Medicine 12/10/20 Press Assistant Relationship Specialty Start Date End Date Nazario Abdul MD [facility] [place] [address] PCP - General Internal Medicine 12/10/20 Press Assistant Relationship Specialty Start Date End Date Nazario Abdul MD [address] [place] [address] PCP - General Internal Medicine 12/10/20 Press Assistant Relationship Specialty Start Date End Date Nazario Abdul MD [facility] [place] [address] PCP - General Internal Medicine 12/10/20 Press Assistant Relationship Specialty Start Date End Date Nazario Abdul MD [facility] [place] [address] PCP - General Internal Medicine 12/10/20 Press Assistant Relationship Specialty Start Date End Date Nazario Abdul MD [facility] [place] [address] PCP - General Internal Medicine 12/10/20 Press Assistant Relationship Specialty Start Date End Date Nazario Abdul MD [address] [place] [address] PCP - General Internal Medicine 12/10/20 Press Assistant Relationship Specialty Start Date End Date Nazario Abdul MD [address] [place] [address] PCP - General Internal Medicine 12/10/20 Press Assistant Relationship Specialty Start Date End Date Nazario Abdul MD [address] [place] [address] PCP - General Internal Medicine 12/10/20 Press Assistant Relationship Specialty Start Date End Date Nazario Abdul MD [address] [place] [address] PCP - General Internal Medicine 12/10/20 Press Assistant Relationship Specialty Start Date End Date Nazario Abdul MD [address] [place] [address] PCP - General Internal Medicine 12/10/20 Press Assistant Relationship Specialty Start Date End Date Nazario Abdul MD [address] [place] [address] PCP - General Internal Medicine 12/10/20 Press Assistant Relationship Specialty Start Date End Date Nazario Abdul MD [address] [place] [address] PCP - General Internal Medicine 12/10/20 Press Assistant Relationship Specialty Start Date End Date Nazario Abdul MD [address] [place] [address] PCP - General Internal Medicine 12/10/20 Press Assistant Relationship Specialty Start Date End Date Nazario Abdul MD [address] [place] [address] PCP - General Internal Medicine 12/10/20 Press Assistant Relationship Specialty Start Date End Date Nazario Abdul MD [address] [place] [address] PCP - General Internal Medicine 12/10/20 Press Assistant Relationship Specialty Start Date End Date Nazario Abdul MD [address] [place] [address] PCP - General Internal Medicine 12/10/20 Press Assistant Relationship Specialty Start Date End Date Nazario Abdul MD [address] [facility] [place] [address] PCP - General Internal Medicine 12/10/20 Press Assistant Relationship Specialty Start Date End Date Nazario Abdul MD [address] [facility] [place] [address] PCP - General Internal Medicine 12/10/20 Press Assistant Relationship Specialty Start Date End Date Nazario Abdul MD [address] [facility] [place] [address] PCP - General Internal Medicine 12/10/20 Press Assistant Relationship Specialty Start Date End Date Nazario Abdul MD [address] [place] [address] PCP - General Internal Medicine 12/10/20 Wanda Beaver, TAP OUT OPERATOR.CANINE SERVICE TEACHER [address] [facility] [place] [address] Pin Setter Internal Medicine 03/24/24 Press Assistant Relationship Specialty Start Date End Date Nazario Abdul MD [address] [place], [place] [address] PCP - General Internal Medicine 12/10/20 Wanda Beaver, TAP OUT OPERATOR.CANINE SERVICE TEACHER [address] [place] [address] Pin Setter Internal Medicine 03/24/24 Press Assistant Relationship Specialty Start Date End Date Nazario Abdul MD [address] [place] [address] PCP - General Internal Medicine 12/10/20 Wanda Beaver, TAP OUT OPERATOR.CANINE SERVICE TEACHER [address] [place] [address] [facility] Internal Medicine 03/24/24 Press Assistant Relationship Specialty Start Date End Date Nazario Abdul MD [address] [place] [address] PCP - General Internal Medicine 12/10/20 Wanda Beaver, TAP OUT OPERATOR.CANINE SERVICE TEACHER [address] [place] [address] [facility] Internal Medicine 03/24/24 Press Assistant Relationship Specialty Start Date End Date Nazario Abdul MD [address] [place], [place] [address] PCP - General Internal Medicine 12/10/20 Wanda Beaver, TAP OUT OPERATOR.CANINE SERVICE TEACHER [address] [place] [address] [facility] Internal Medicine 03/24/24 Press Assistant Relationship Specialty Start Date End Date Nazario Abdul MD [address] [place], [place] [address] PCP - General Internal Medicine 12/10/20 Wanda Beaver, TAP OUT OPERATOR.CANINE SERVICE TEACHER [address] [place] [address] [facility] Internal Medicine 03/24/24 Press Assistant Relationship Specialty Start Date End Date Nazario Abdul MD [address] [place], [place] [address] PCP - General Internal Medicine 12/10/20 Wanda Beaver, TAP OUT OPERATOR.CANINE SERVICE TEACHER [address] [place] [address] [facility] Internal Medicine 03/24/24 Press Assistant Relationship Specialty Start Date End Date Nazario Abdul MD [address] [place] [address] PCP - General Internal Medicine 12/10/20 Wanda Beaver, TAP OUT OPERATOR.CANINE SERVICE TEACHER [address] [place] [address] [facility] Internal Medicine 03/24/24 Press Assistant Relationship Specialty Start Date End Date Nazario Abdul MD [address] [place], [place] [address] PCP - General Internal Medicine 12/10/20 Wanda Beaver, TAP OUT OPERATOR.CANINE SERVICE TEACHER [address] [place] [address] Pin Setter Internal Medicine 03/24/24 Press Assistant Relationship Specialty Start Date End Date Nazario Abdul MD [address] [place], [place] [address] PCP - General Internal Medicine 12/10/20 Wanda Beaver, TAP OUT OPERATOR.CANINE SERVICE TEACHER [address] [place] [address] Pin Setter Internal Medicine 03/24/24 Press Assistant Relationship Specialty Start Date End Date Nazario Abdul MD [address] [place] [address] PCP - General Internal Medicine 12/10/20 Wanda Beaver, TAP OUT OPERATOR.CANINE SERVICE TEACHER [address] [place] [address] [facility] Internal Medicine 03/24/24 Press Assistant Relationship Specialty Start Date End Date Nazario Abdul MD [address] [place] [address] PCP - General Internal Medicine 12/10/20 Wanda Beaver, TAP OUT OPERATOR.CANINE SERVICE TEACHER [address] [place] [address] [facility] Internal Medicine 03/24/24 Press Assistant Relationship Specialty Start Date End Date Nazario Abdul MD [address] [place] [address] PCP - General Internal Medicine 12/10/20 Wanda Beaver, TAP OUT OPERATOR.CANINE SERVICE TEACHER [address] [place] [address] Pin Setter Internal Medicine 03/24/24 Press Assistant Relationship Specialty Start Date End Date Nazario Abdul MD [address] [place], [place] [address] PCP - General Internal Medicine 12/10/20 Wanda Beaver, TAP OUT OPERATOR.CANINE SERVICE TEACHER [address] [place], [place] [address] Pin Setter Internal Medicine 03/24/24 Team Status: Active Member Role/Relationship Status Dates Dr. Nazario Abdul MD Primary Care Provider Active Team Status: Inactive Member Role/Relationship Status Dates Dr. Nazario Abdul MD Primary Care Provider Active Start: November 01, 2024 End: November 01, 2024 Dr. Cooper Norris DO Emergency Provider Active Start : November 01, 2024 End: November 01, 2024 Reason for Visit (unrecogniz ed section and content) Reason Comments Radiology Mammogram Specialty Diagnoses / Procedures Referred By Kaylie t Referred To Contact BR IMAGING Diagnoses Encounter for gynecological examination (general) (routine) without abnormal findings Encounter for screening mammogram for breast cancer Procedures GONZALO SCREENING SCREENING MAMMOGRAPHY BI 2-VIEW BREAST INC Gemma Raphael MD [address] [place] [address] [facility] [address] [place] [address] Referral ID Status Reason Start Date Expiration Date V isits Requested Visits Authorized [id number] Closed Auto-Generate d Referral 02/01/2021 03/03/2022 1 1 Reason Comments Medicare Wellness Exam Reason Onset Date Comments Population Health Navigation Outreach 09/12/2022 JESUS ALBERTO FELIX PCSA Reason Comments Urgent Care Follow up [facility] urgent care on Sunday 03/11 Reason Comments [...] effusion Specialty Diagnoses / Procedures Referred By Contac t Referred To Contact Cardiology / CARD ADMIN [facility] Diagnoses Pericardial effusion Procedures CONSULT TO CARDIOLOGY OFFICE/OUTPATIENT [facility] MDM 60 MINUTES Nazario Abdul MD [address] [place] [address] Card Admin [facility] [address] [place] [address] Referral ID Status Reason Start Date Expiration Date V isits Requested Visits Authorized [id number] Closed PCP Requested Referral 02/26/2024 04/15/2024 1 [...] section and content) DATE CREATED AUTHOR 02/08/2024 [facility] DATE CREATED AUTHOR AUTHOR'S KIMI OLIVER 11/01/2024 [facility] Goals (unrecognized section and content) Goals may be documented in a n alternate section FOR RECORDS PERTAINING TO PATIENTS WHO ARE [...] BE BASED ON THE PRIMARY CLINICAL RECORDS. [employer] provides no warranty or guarantee of the accuracy or completeness of information in this document.
--- NOTE | 2024-11-02 18:14 | EX.ED.DYSGE1 ---
HPI History of Present Illness Chief Complaint: Rash Informant: patient Onset/Context/Timing Onset: Today and Yesterday Context: Gradual Onset Timing: Continuous Current Severity: Mild Maximum Severity: Mild Narrative Narrative: 84-year-old female history of hypertension. States that she has an itchy red rash on both arms since yesterday. Was seen in the emergency department. Was using topicals it has gotten worse. Complaining of itching. No other complaints. Prior similar symptoms: Yes Recent Illness/Hospitalization: No PFSH PFSH Medical History HTN (hypertension) Contact dermatitis due to poison haily Home Medications ?Medication ?Instructions ?Recorded ?Last Taken ?Type atenolol 50 mg tablet 50 mg PO QHS 11/24/16 12/07/16 23:00 History hydrochlorothiazide 25 mg tablet 25 mg PO DAILY 11/24/16 12/07/16 23:00 History methylprednisolone 4 mg tablets in See Rx Instructions PO PER PKG DIR 09/15/21 Unknown Rx a dose pack (Medrol (Cory)) #21 tabs prednisone 10 mg tablet 10 mg PO DAILY #30 tabs 01/12/22 Unknown Rx amlodipine 2.5 mg tablet 2.5 mg PO DAILY 11/01/24 Unknown History triamcinolone acetonide 0.1 % 1 applic topical BID rash #30 grams 11/01/24 Unknown Rx topical ointment prednisone 20 mg tablet 40 mg (2 x 20 mg) PO DAILY 7 days 11/02/24 Unknown Rx #14 tabs Allergy/AdvReac Type Severity Reaction Status Date / Time ciprofloxacin (From Cipro) AdvReac Nausea Verified 11/01/24 19:29 metronidazole (From Flagyl) AdvReac Nausea Verified 11/01/24 19:29 Penicillins AdvReac Diarrhea Verified 11/01/24 19:29 prednisone AdvReac Nausea/Vom/ Verified 11/01/24 19:29 Diarrhea Social History Smoking Status: Never smoker ROS ROS ED ROS Narrative Itchy red rash bilateral forearms. No recent illness. Constitutional Constitutional ED: Denies chills or fever(s) Eyes Eyes: Denies blurry vision ENT ENT ED: Denies ear pain Cardiovascular Cardiovascular: Denies chest pain Respiratory/Chest Respiratory/Chest: Denies cough or dyspnea Gastrointestinal Gastrointestinal: Denies abdominal pain Genitourinary Genitourinary ED: Denies dysuria or hematuria Musculoskeletal Musculoskeletal: Denies arthralgias Integumentary Reports rash; Denies abscess or Abrasions Neurologic Neurologic: Denies headache(s) Psychiatric Psychiatric: Denies anxiety Endocrine Endocrinology: Denies cold intolerance Hematologic/Lymphatic Hematologic/Lymphatic: Reports none Allergic/Immunologic Allergic/Immunologic ED: Denies mouth swelling, tongue swelling or urticaria EXAM Physical Exam Narrative Exam Narrative: 84-year-old female sitting upright in chair vital signs stable afebrile. No acute distress. H EENT exam pupils round reactive light. Moist mucous membranes. Neck nontender. No lymphadenopathy. Lungs clear to auscultation bilaterally. Heart regular rhythm rate about 60 no murmur. Chest wall nontender. Abdomen soft nontender. Moving all 4 extremities. Rash on bilateral forearms. Red and raised consistent with contact dermatitis. No vesicles. No lymphangitic streaking. No axillary lymphadenopathy. No necrotic skin or sloughing of skin. 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 Lower extremities are not involved. Nontender no edema. She is awake and alert. Answering questions following commands. Const Vital Signs: 11/02/24 17:10 Temperature 97.8 F Temperature Source Temporal Pulse Rate 61 Respiratory Rate 16 Blood Pressure 166/84 H Blood Pressure Mean 111 Pulse Ox 97 Oxygen Delivery Method Room Air Positive well nourished and well developed; Negative for obese, cachectic, contractures or unkempt General Appearance ED: well developed and NAD; Negative for unkempt, cachectic, contractures, cyanotic, diaphoretic or pallor Nutritional Appearance: Negative for cachectic or obese HEENT Reports moist mucous membranes Eyes PERRL and EOMs intact bilaterally Neck no lymphadenopathy, supple and no JVD Chest Wall inspection of chest normal and palpation of chest normal Resp normal respiratory effort and clear to auscultation bilaterally Cardio regular rate, regular rhythm, S1 normal heart sound, S2 normal heart sound and no murmurs GI normal to inspection, nondistended, normoactive bowel sounds, non-tender, non-distended and no masses Palpation: soft; Negative for tender, guarding or rebound tenderness present Back/Spine no CVA tenderness Extremity normal to inspection Extremity Narrative: Except for red raised rash bilateral forearms consistent with contact dermatitis. No cellulitis. No lymphangitic streaking. No sloughing of skin. No vesicles. General Extremety ED: Negative for edema or tenderness General Extremity: Negative for edema Neuro oriented x3 and CN's II-XII intact bilaterally Sensorium / Orientation: alert Motor Exam: strength 5/5 throughout Psych mental status grossly normal Appearance: Negative for unkempt Skin No no rashes or lesions noted, no wounds and skin turgor normal General Skin Exam: Negative for jaundice or pallor Rashes: rashes noted MDM MDM MDM Narrative Medical decision making narrative: 84-year-old female contact dermatitis from both forearms. Treated with prednisone 60 mg given here. 40 mg a day for a week. Calamine lotion. Follow-up as needed. History & Record Review Discussion w/independent historian: Patient Additional record(s) reviewed:: Prior inpatient record, Prior outpatient record, Prior ED visit and Prior labs Discharge Plan Triage Chief Complaint: Rash ED Provider: Ethan Billingsley Dx/Rx/DC Orders Clinical Impression: Contact dermatitis Instructions: ED Contact Dermatitis Prescriptions: New prednisone 20 mg tablet 40 mg PO DAILY 7 Days Qty: 14 0RF No Action methylprednisolone [Medrol (Cory)] 4 mg tablets,dose pack See Rx Instructions PO PER PKG DIR Qty: 21 0RF Rx Instructions: PO PER PKG DIR prednisone 10 mg tablet 10 mg PO DAILY Qty: 30 0RF Rx Instructions: 4 tablets daily x3 days, then 3 tablets daily x3 days, then 2 tablets daily x3 days, then 1 tablet daily x3 days hydrochlorothiazide 25 MG tablet 25 mg PO DAILY atenolol 50 MG tablet 50 mg PO QHS amlodipine 2.5 mg tablet 2.5 mg PO DAILY triamcinolone acetonide 0.1 % ointment 1 applic topical BID Qty: 30 0RF Primary Care Provider: Nazario Abdul Referrals: Nazario Abdul MD [Primary Care Provider] - As Needed Activity Restrictions/Additional Instructions: Prednisone daily 40 mg once a day until the rash is gone. You may use calamine or Caladryl lotion to put over the rash which also help get rid of it and get rid of the itching. Print Language: Yakut Disposition Disposition: Home, Self Care
[2024-11-02 18:22] VITALS: BP 128/70; PULSE 70; RESP 16; TEMP 36.7; O2SAT 100
== END 2024-11-02 18:23 | disposition home or self-care (01) ==
PROVIDERS: Emergency Provider Emergency Medicine; PCP Internal Medicine; Visit Provider Emergency Medicine
DX: L25.9 Unspecified contact dermatitis, unspecified cause (principal)
CPT/HCPCS: 99282